=== PATIENT | female | born 1955 | race African-American/Black ===

== ENCOUNTER 2016-08-08 11:33 | Inpatient (IN) | payer MEDICAID ==
[2016-08-08] MEDS ORDERED: NORMAL SALINE 1000 ML 1,000 ML IV ONE (11:42)
--- NOTE | 2016-08-08 12:13 | ER Document Report ---
ED Fever - General Chief Complaint: Fever Stated Complaint: FEVER Time seen by provider: 12:00 Mode of Arrival: Medic Information source: [facility] Records Notes: 61 yo female presents to ED for a fever via EMS from the longterm. This is a 61-year-old female who has a history of TBI with persistent vegetative state. She has a decubitus on her coccyx and an indwelling Morales TRAVEL OUTSIDE OF THE [place] IN LAST 30 DAYS: No - HPI Onset: This morning Quality of pain: No pain Severity: None Pain Level: Denies Associated symptoms: Nonproductive cough, Fever, Other Similar symptoms previously: Yes Recently seen / treated by doctor: Yes - Related Data Allergies/Adverse Reactions: PPD black rubber mix Adverse Reaction (Verified 06/20/16 01:31) Past Medical History - General Information source: Patient - Social History Smoking Status: Never Smoker Cigarette use (# per day): No Chew tobacco use (# tins/day): No Smoking Education Provided: No Frequency of alcohol use: None Drug Abuse: None Lives with: Custodial Family History: Other - Not available due to patient condition Patient has suicidal ideation: No Patient has homicidal ideation: No - Medical History Medical History: Other - History of septic shock her prior neutropenia acute renal failure and osteoporosis aspiration anemia and persistent vegetative state - Past Medical History Cardiac Medical History: Reports: Hx Atrial Fibrillation Pulmonary Medical History: Reports: Hx Pneumonia EENT Medical History: Reports: None Neurological Medical History: Reports: Other - Persistent vegetative state Endocrine Medical History: Reports: Hx Diabetes Mellitus Type 2 Renal/ Medical History: Reports: None Malignancy Medical History: Reports: None GI Medical History: Reports: Hx Ulcer - sacral Musculoskeltal Medical History: Reports Other - Contractures all extremities Skin Medical History: Reports Other - Coccyx decubitus Psychiatric Medical History: Reports: None Traumatic Medical History: Reports: Hx Traumatic Brain Injury Past Surgical History: Reports: Hx Abdominal Surgery - PEG placement, Other - PEG tube insertion. - Immunizations Hx Diphtheria, Pertussis, Tetanus Vaccination: Yes Hx Pneumococcal Vaccination: 05/01/15 Review of Systems - Review of Systems Constitutional: Fever, Recent illness EENT: No symptoms reported Cardiovascular: No symptoms reported Respiratory: Cough Gastrointestinal: No symptoms reported Genitourinary: Other - Indwelling catheter present with cloudy foul-smelling urine Female Genitourinary: No symptoms reported Musculoskeletal: Other - Contractures all extremities Skin: Other - Decubitus coccyx Hematologic/Lymphatic: No symptoms reported Neurological/Psychological: No symptoms reported -: Yes All other systems reviewed and negative Physical Exam - Vital signs Vitals: Temp Pulse Resp BP Pulse Ox 100.9 F H 114 H 24 H 142/72 H 96 08/08/16 11:35 08/08/16 11:35 08/08/16 11:35 08/08/16 11:35 08/08/16 11:35 Interpretation: Normal - General Notes: Unresponsive vegetative state tracks with eyes - HEENT Head: Normocephalic, Atraumatic Eyes: Normal Pupils: PERRL Ears: Normal External canal: Cerumen impaction Tympanic membrane: Normal Sinus: Normal Nasal: Purulent discharge, Swelling Mouth/Lips: Other - Tongue appears dry 8 with food Mucous membranes: Dry Pharynx: Normal Neck: Normal - Respiratory Respiratory status: No respiratory distress Chest status: Nontender Breath sounds: Nonproductive cough, Rhonchi Chest palpation: Normal - Cardiovascular Rhythm: Regular Heart sounds: Normal auscultation Murmur: No - Abdominal Inspection: Normal Distension: No distension Bowel sounds: Normal Tenderness: Nontender Organomegaly: No organomegaly - Back Back: Normal, Nontender - Extremities General upper extremity: Normal inspection, Nontender, Normal color, Normal ROM , Normal temperature General lower extremity: Normal inspection, Nontender, Normal color, Normal ROM , Normal temperature, Normal weight bearing. No: Adri's sign - Neurological Neuro grossly intact: Yes Cognition: Normal Orientation: AAOx4 Larry Coma Scale Eye Opening: Spontaneous Forbes Coma Scale Verbal: Oriented Larry Coma Scale Motor: Obeys Commands Forbes Coma Scale Total: 15 Speech: Normal Motor strength normal: LUE, RUE, LLE, RLE Sensory: Normal - Psychological Associated symptoms: Normal affect, Normal mood - Skin Skin Temperature: Warm Skin Moisture: Dry Skin Color: Normal Course - Re-evaluation Re-evalutation: 08/08/16 13:[address] Fuchs for admission to the hospital for this pneumonia bilateral with sepsis and possible UTI. The patient also has a sacral decubitus an indwelling Morales catheter when arrived to the ER. - Vital Signs Vital signs: Temp Pulse Resp BP Pulse Ox 98.5 F 95 20 119/71 100 08/08/16 20:30 08/08/16 20:45 08/08/16 20:45 08/08/16 20:30 08/08/16 20:30 - Laboratory Result Diagrams: 08/08/16 12:05 08/08/16 12:05 Laboratory results interpreted by me: 08/08/16 08/08/16 08/08/16 12:05 12:05 12:05 Hgb 10.5 L Hct 32.2 L RDW 20.4 H Sodium 151.7 H BUN 29 H Creatinine 0.48 L Glucose 176 H Lactic Acid 2.3 H Calcium 10.5 H Creatine Kinase < 20 L Urine Protein Urine Urobilinogen Ur Leukocyte Esterase Urine Ascorbic Acid 08/08/16 13:10 Hgb Hct RDW Sodium BUN Creatinine Glucose Lactic Acid Calcium Creatine Kinase Urine Protein 100 H Urine Urobilinogen 2.0 H Ur Leukocyte Esterase MODERATE H Urine Ascorbic Acid 40 H - Diagnostic Test Radiology reviewed: Image reviewed, Reports reviewed - Consults Shila Time consulted: 13:32 Reason for consultation: 08/08/16 13:32 pneumonia and sepsis. will admit the patient to [facility] Discharge - Discharge Clinical Impression: Sepsis Qualifiers: Sepsis type: sepsis due to unspecified organism Qualified Code(s): A41.9 - Sepsis, unspecified organism Pneumonia Qualifiers: Pneumonia type: aspiration pneumonia Aspiration pneumonia type: due to regurgitated food Laterality: bilateral Lung location: lower lobe of lung Qualified Code(s): J69.0 - Pneumonitis due to inhalation of food and vomit Disposition: ADMITTED INPATIENT Admitting Provider: Hospitalist - [facility] Unit Admitted: [facility]
[2016-08-08 12:28] LABS: ABSOLUTE LYMPHOCYTES (AUTO) 2.3 10^3/uL (0.5-4.7); ABSOLUTE MONOCYTES (AUTO) 0.3 10^3/uL (0.1-1.4); ABSOLUTE NEUT (AUTO) 6.8 10^3/uL (1.7-8.2); BASOPHILS % (AUTO) 0.4 % (0-2); EOSINOPHILS % (AUTO) 0.5 % (0-6); HEMATOCRIT 32.2 % (36.0-47.0); HEMOGLOBIN 10.5 g/dL (12.0-15.5); HGB HCT DIFFERENCE -0.7; LYMPHOCYTES % (AUTO) 24.2 % (13-45); MEAN CORPUSCULAR HEMOGLOBIN 27.9 pg (27.0-33.4); MEAN CORPUSCULAR HGB CONC 32.7 g/dL (32.0-36.0); MEAN CORPUSCULAR VOLUME 85 fl (80-97); MONOCYTES % (AUTO) 3.1 % (3-13); RED BLOOD COUNT 3.78 10^6/uL (3.72-5.28); RED CELL DISTRIBUTION WIDTH 20.4 % (11.5-14.0); SEGMENTED NEUTROPHILS % (AUTO) 71.8 % (42-78); WHITE BLOOD COUNT 9.5 10^3/uL (4.0-10.5)
[2016-08-08] MEDS ORDERED: NORMAL SALINE 1000 ML 1,500 ML IV PRN (12:28)
[2016-08-08] MEDS ORDERED: ACETAMINOPHEN 650 MG SUPP.RECT PR ONE (12:29)
[2016-08-08 12:34] LABS: ALANINE AMINOTRANSFERASE 33 U/L (9-52); ALBUMIN 4.3 g/dL (3.5-5.0); ALKALINE PHOSPHATASE 107 U/L (38-126); ANION GAP 17 (5-19); ASPARTATE AMINO TRANSFERASE 21 U/L (14-36); BLOOD UREA NITROGEN 29 mg/dL (7-20); CALCIUM 10.5 mg/dL (8.4-10.2); CARBON DIOXIDE 29 mmol/L (22-30); CHLORIDE 106 mmol/L (98-107); CREATININE RESULT 0.48 mg/dL (0.52-1.25); GLUCOSE 176 mg/dL (75-110); LIPASE 34.2 U/L (23-300); SODIUM 151.7 mmol/L (137-145); TOTAL PROTEIN 7.9 g/dL (6.3-8.2)
[2016-08-08 12:37] LABS: CREATINE KINASE < 20 U/L (30-135)
[2016-08-08 12:46] LABS: CREATINE KINASE MB < 0.22 ng/mL (<4.55); TROPONIN I 0.016 ng/mL
[2016-08-08] MEDS ORDERED: LEVOFLOXACIN 750 MG TABLET PO ONE (13:24)
[2016-08-08] MEDS ORDERED: PIPERACILLIN/TAZOBACTAM 3.375 GM VIAL IV ONE (13:24)
[2016-08-08 14:02] LABS: APPEARANCE,URINE SLIGHTLY-CLOUDY; BILIRUBIN,URINE NEGATIVE (NEGATIVE); GLUCOSE, URINE NEGATIVE (NEGATIVE); KETONES,URINE NEGATIVE (NEGATIVE); LEUKOCYTE ESTERASE,URINE MODERATE (NEGATIVE); NITRITE,URINE NEGATIVE (NEGATIVE); PROTEIN,URINE 100 mg/dL (NEGATIVE); URINE SPECIFIC GRAVITY 1.024
[2016-08-08] MEDS ORDERED: NORMAL SALINE 1000 ML 3,000 ML IV ONE (14:12)
[2016-08-08] MEDS ORDERED: ACETAMINOPHEN 325 MG TABLET PEG PRN (14:14)
[2016-08-08] MEDS ORDERED: LEVALBUTEROL HCL NEB 1.25 MG/3 ML AMPUL NEB PRN (14:14)
[2016-08-08] MEDS ORDERED: VANCOMYCIN HCL 0 MG in DEXTROSE 5%-WATER 250 ML IV NR (14:15)
[2016-08-08] MEDS ORDERED: LEVOFLOXACIN RTU 750 MG/D5W 150 ML IV ONE (14:44)
--- NOTE | 2016-08-08 15:51 | PDOC H&P ---
History of Present Illness Admission Date/PCP: 08/08/16 13:43 PRISCILA FERGUSON MD History of Present Illness: BEN DAILEY is a 61 year old female with past medical history significant for persistent vegetative state for the past 30 years following a TBI, subsequent recurrent urinary tract infections, sacral decubiti and aspiration status post PEG placement and recurrent hypernatremia was found by nursing staff to have a fever and sent to the emergency department. In the emergency department, due to patient's persistent vegetative state, history is obtained from the chart. Patient is found to have a urinary tract infection, and bilateral lower lobe pneumonia with greenish yellow purulence sputum present. Patient is also hypernatremic. She is referred to the hospitalist service for sepsis with pneumonia and UTI. Patient was recently admitted here from - 07/17/2016. Past Medical History Cardiac Medical History: Reports: Atrial Fibrillation Pulmonary Medical History: Reports: Pneumonia EENT Medical History: Reports: None Neurological Medical History: Reports: Other - Persistent vegetative state Endocrine Medical History: Reports: Diabetes Mellitus Type 2 Renal/ Medical History: Reports: None Malignancy Medical History: Reports: None Musculoskeltal Medical History: Reports: Other - Contractures all extremities Skin Medical History: Reports: Other - Coccyx decubitus Psychiatric Medical History: Reports: None Traumatic Medical History: Reports: Traumatic Brain Injury Past Surgical History Past Surgical History: Reports: Other - PEG tube insertion. Social History Lives with: Fdc Smoking Status: Never Smoker Frequency of Alcohol Use: None Hx Recreational Drug Use: No Drugs: None Hx Prescription Drug Abuse: No - Advance Directive Resuscitation Status: Full Code Surrogate healthcare decision maker:: Mabel Roberto children Family History Family History: Other - Not available due to patient condition Parental Family History Reviewed: No Children Family History Reviewed: No Sibling(s) Family History Reviewed.: No Medication/Allergy Home Medications: Docusate Sodium [Colace Udc 100 mg/10 ml Oral Soln] 100 mg PEG BID 09/27/15 Furosemide [Lasix 20 mg Tablet] 20 mg PEG BID 09/27/15 Lactulose [Enulose 10 gm/15 mL Oral Solution] 10 gm PEG BID 09/27/15 Vit B12/Pyridoxine/Thiamine [Apatate Liquid] 15 ml PEG DAILY 09/27/15 Whey Protein Isolate [Beneprotein] 227 gm PEG TID 09/27/15 Ipratropium/Albuterol Sulfate [Duoneb 3 ml Ampul] 3 ml NEB RTQ6 #30 vial.neb Multivitamin [Multiple Vitamin Liquid 60 ml] 5 ml PEG DAILY #120 ml 10/21/15 Zinc Sulfate [Zinc-220 Capsule] 220 mg PEG DAILY #30 capsule 10/21/15 Acetaminophen [Tylenol] 650 mg PEG Q4H PRN 12/25/15 Levothyroxine Sodium [Synthroid 0.075 mg Tablet] 75 mcg PEG DAILY 12/25/15 Potassium Chloride [Kaon-Cl 20 Meq/15 ml Udcup] 20 meq PEG DAILY 12/25/15 Polyethylene Glycol 3350 [Miralax Powder 17 gm/Packet] 1 packet PO DAILY #1 pkg 02/05/16 Bisacodyl 10 mg MD PRN PRN 06/19/16 Calcium Carbonate/Vitamin D3 [Oystercal-D 500 mg-400 Unit Tb] 500 mg GT BID Magnesium Hydroxide [Milk of Magnesia 30 ml Udcup] 30 ml GT ONCE PRN 06/20/16 Acetylcysteine [Mucomist 20% Soln 800 mg/4 mL] 800 mg NEB RTQ6 vial 07/02/16 Insulin Glargine,Hum.rec.anlog [Lantus Insulin 100 Unit/mL] 15 unit SUBCUT DAILY insuln.pen 07/02/16 Insulin Lispro [Humalog Insulin (Lispro) 100 unit/mL] 0 - 12 unit SUBCUT Q6HP PRN unit 07/02/16 Mupirocin Calcium [Bactroban 2% Cream 15 gm] 1 applic TP BID tube 07/02/16 Acetylcysteine [Mucomist 20% Soln 800 mg/4 mL] 800 mg Q6 07/12/16 Calcium Carbonate/Vitamin D3 [Oystercal-D 500 mg-400 Unit Tb] 1 each PO BID 07/16 Ipratropium/Albuterol Sulfate [Duoneb 3 ml Ampul] 3 ml NEB Q6 07/12/16 Mupirocin Calcium [Bactroban 2% Cream 15 gm] 1 applic TP BID 07/12/16 Cefepime 1 gm/D5w RTU [Maxipime RTU 1 gm/D5w 50 ml Premix Bag] 1 gm IV Q12 #20 rtupb 07/17/16 Insulin Lispro [Humalog Insulin (Lispro) 100 unit/mL] 0 - 12 unit SUBCUT Q6HP PRN unit 07/17/16 Lactulose [Cephulac Syrup 20 gm/30 ml Udcup] 20 gm PO Q6HP PRN udc 07/17/16 Linezolid [Zyvox RTU 600 mg/300 ml Premixed] 600 mg IV Q12 #0 rtupb 07/17/16 Lansoprazole [Prevacid] 30 mg PO BID #60 tab.rap. 07/27/16 Allergies/Adverse Reactions: PPD black rubber mix Adverse Reaction (Verified 06/20/16 01:31) Review of Systems ROS unobtainable: Due to mental status Physical Exam Vital Signs: Temp Pulse Resp BP Pulse Ox 102.3 F H 114 H 24 H 142/72 H 96 08/08/16 12:00 08/08/16 11:35 08/08/16 11:35 08/08/16 11:35 08/08/16 11:35 General appearance: PRESENT: mild distress, obese, well-developed, other - Chronically ill-appearing Head exam: PRESENT: normocephalic Eye exam: PRESENT: conjunctiva pale, PERRLA. ABSENT: scleral icterus Ear exam: PRESENT: normal external ear exam Mouth exam: PRESENT: dry mucosa, other - Copious oral secretions Neck exam: PRESENT: lymphadenopathy - Anterior cervical. ABSENT: JVD, thyromegaly, tracheal deviation Respiratory exam: PRESENT: decreased breath sounds - Diminished bases, retraction - Slight intercostal retractions, rhonchi - Rhonchi bilaterally diffusely, tachypnea. ABSENT: crackles, rales, unlabored - Labored, wheezes Cardiovascular exam: PRESENT: RRR, +S1, +S2, tachycardia. ABSENT: clicks, diastolic murmur, gallop, rubs, systolic murmur Pulses: PRESENT: normal carotid pulses, normal dorsalis pedis pul Vascular exam: PRESENT: normal capillary refill GI/Abdominal exam: PRESENT: diminished bowel sounds, distended, soft, other - PEG in place with stitches still in place, small amount of breakdown around skin. ABSENT: firm, mass, organolmegaly, rigid Rectal exam: PRESENT: deferred, hemorrhoids, normal inspection Extremities exam: ABSENT: clubbing, pedal edema Musculoskeletal exam: PRESENT: other - Muscle wasting and plantar flexion of the bilateral lower extremities Neurological exam: PRESENT: other - Patient in persistent vegetative state, unable to comply with neurologic exam Psychiatric exam: PRESENT: other - Not assess secondary to persistent vegetative state Skin exam: PRESENT: dry. ABSENT: cyanosis, intact - Stage III sacral decubitus 2 x 3 cm with tunneling area superiorly area located superiorly to the anal verge, right gluteal tunneling ulceration both with good granulation tissue healing well, rash, warm - Hot Results Laboratory Results: 08/08/16 08/08/16 08/08/16 12:05 12:05 12:05 WBC 9.5 Hgb 10.5 L Hct 32.2 L Plt Count 288 Sodium 151.7 H BUN 29 H Glucose 176 H Lactic Acid 2.3 H Calcium 10.5 H Creatine Kinase < 20 L Ur Specific Linn Ur Leukocyte Esterase Urine WBC (Auto) 08/08/16 13:10 WBC Hgb Hct Plt Count Sodium BUN Glucose Lactic Acid Calcium Creatine Kinase Ur Specific Linn 1.024 Ur Leukocyte Esterase MODERATE H Urine WBC (Auto) 55 Impressions: Chest X-Ray 08/08/16 11:42 IMPRESSION: Bibasilar infiltrates suspicious for pneumonia. Assessment & Plan - Diagnosis (1) Pneumonia Qualifiers: Pneumonia type: aspiration pneumonia Aspiration pneumonia type: due to regurgitated food Laterality: bilateral Lung location: lower lobe of lung Qualified Code(s): J69.0 - Pneumonitis due to inhalation of food and vomit Is this a current diagnosis for this admission?: YesPlan: Patient has what appears to be bilateral lower lobe pneumonia. Given patient's recent hospital exposure we can call this healthcare associated pneumonia, however this is much less likely given that patient has chronic aspiration pneumonia in this likely represents a worsening of her underlying aspiration pneumonia. Will place patient on scheduled nebulized treatments, aggressive pulmonary toileting, chest physiotherapy, and vancomycin and Zosyn as well as Levaquin. (2) Sepsis Qualifiers: Sepsis type: sepsis due to unspecified organism Qualified Code(s): A41.9 - Sepsis, unspecified organism Is this a current diagnosis for this admission?: YesPlan: Patient meets criteria for sepsis based on her hyperthermia, tachycardia, and tachypnea. Patient has sepsis secondary to both UTI and pneumonia. (3) Anemia Qualifiers: Anemia type: iron deficiency Iron deficiency anemia type: unspecified iron deficiency Qualified Code(s): D50.9 - Iron deficiency anemia, unspecified Is this a current diagnosis for this admission?: YesPlan: Patient has history of iron deficiency anemia and anemia of chronic disease with her most recent iron being 10 in June 2016 and a TIBC of 175. We'll continue to give patient supplemental iron. (4) Diabetes mellitus Qualifiers: Diabetes mellitus type: type 2 Diabetes mellitus complication status: with unspecified complications Diabetes mellitus nursing home insulin use: unspecified nursing home insulin use status Qualified Code(s): E11.8 - Type 2 diabetes mellitus with unspecified complications; Z79.4 - senior living (current) use of insulin Is this a current diagnosis for this admission?: YesPlan: We'll place patient on sliding scale insulin. (5) Hypernatremia Is this a current diagnosis for this admission?: YesPlan: Will increase patient's free water flushes, but feel the patient's current hypernatremia secondary to volume depletion. (6) Persistent vegetative state Is this a current diagnosis for this admission?: YesPlan: Multiple hospitalists have documented including myself prior discussions with patient and family regarding her persistent vegetative state. At this time, we' ll continue supportive care. (7) Decubitus ulcer, stage III Qualifiers: Pressure ulcer location: sacral region Qualified Code(s): L89.153 - Pressure ulcer of sacral region, stage 3 Is this a current diagnosis for this admission?: YesPlan: We'll continue with dressing changes for this area. It will be washed daily with equal parts chlorhexidine and water. Then packed then covered with 4 x 4' s and a nonadherent dressing. - Time Time Spent: 50 to 70 Minutes Medications reviewed and adjusted accordingly: Yes - Inpatient Certification Based on my medical assessment, after consideration of the patient's comorbidities, presenting symptoms, or acuity I expect that the services needed warrant INPATIENT care.: Yes I certify that my determination is in accordance with my understanding of Medicare's requirements for reasonable and necessary INPATIENT services [42 CFR 412.3e].: Yes Medical Necessity: Need For IV Fluids, Need for Nebulizer Therapy and Monitoring of Response, Need for IV Antibiotics Post Hospital Care: D/C Car Salesperson Documentation
[2016-08-08] MEDS ORDERED: GLUCAGON,HUMAN RECOMB 1 MG INJ IM PRN (15:52)
[2016-08-08] MEDS ORDERED: INSULIN LISPRO 100 UNIT/ML 3 ML VIAL SUBCUT PRN (15:52)
[2016-08-08] MEDS ORDERED: DEXTROSE 50%-WATER 25 GM/50 ML DISP.SYRIN IV PRN ×2 (15:52)
[2016-08-08] MEDS ORDERED: DEXTROSE 40% GEL 15 GM TUBE PO PRN ×2 (15:52)
[2016-08-08] MEDS ORDERED: FONDAPARINUX SODIUM INJ 2.5 MG/0.5 ML DISP.SYRIN SUBCUT ONE (16:00)
[2016-08-08] MEDS ORDERED: PHARMACY COMMUNICATION ORDER MC NR (16:00)
[2016-08-08] MEDS: IPRATROPIUM/ALBUTEROL 0.5-2.5 MG/3 ML AMPUL NEB SCH ×2 (17:04→20:45)
[2016-08-08] MEDS: VANCOMYCIN HCL 1,000 MG in DEXTROSE 5%-WATER 250 ML IV SCH (18:27)
[2016-08-08] MEDS: GUAIFENESIN SYRP 200 MG/10 ML UDC PEG SCH ×2 (18:28→22:15)
[2016-08-08] MEDS: PIPERACILLIN SODIUM/TAZOBACTAM 4.5 GM in NORMAL SALINE 100 ML IV SCH (20:27)
--- NOTE | 2016-08-08 21:33 | EKG REPORT ---
SEVERITY:- ABNORMAL ECG - SINUS TACHYCARDIA LEFT AXIS DEVIATION PROBABLE LEFT VENTRICULAR HYPERTROPHY : Confirmed by: Ramiro Malagon 08-Aug-2016 21:32:27
[2016-08-08] MEDS: LACTULOSE SYRUP 20 GM/30 ML UDCUP PR SCH (22:51)
[2016-08-09] MEDS: GUAIFENESIN SYRP 200 MG/10 ML UDC PEG SCH ×5 (02:06→22:10)
[2016-08-09] MEDS: VANCOMYCIN HCL 1,000 MG in DEXTROSE 5%-WATER 250 ML IV SCH ×3 (02:07→18:02)
[2016-08-09] MEDS ORDERED: ALTEPLASE INJ 2 MG VIAL (CATH CLEARANCE) IV ONE (03:00)
[2016-08-09] MEDS ORDERED: ALTEPLASE INJ 2 MG VIAL (CATH CLEARANCE) ONE (03:44)
[2016-08-09] MEDS: PIPERACILLIN SODIUM/TAZOBACTAM 4.5 GM in NORMAL SALINE 100 ML IV SCH ×4 (04:26→20:39)
[2016-08-09] MEDS ORDERED: FONDAPARINUX SODIUM INJ 2.5 MG/0.5 ML DISP.SYRIN SUBCUT SCH (08:00)
[2016-08-09] MEDS: IPRATROPIUM/ALBUTEROL 0.5-2.5 MG/3 ML AMPUL NEB SCH ×4 (08:44→20:51)
[2016-08-09 09:53] LABS: ABSOLUTE EOSINOPHILS # (AUTO) 0.1 10^3/uL (0.0-0.6); ABSOLUTE LYMPHOCYTES (AUTO) 2.2 10^3/uL (0.5-4.7); ABSOLUTE MONOCYTES (AUTO) 0.4 10^3/uL (0.1-1.4); ABSOLUTE NEUT (AUTO) 5.4 10^3/uL (1.7-8.2); BASOPHILS % (AUTO) 0.3 % (0-2); EOSINOPHILS % (AUTO) 1.4 % (0-6); HEMATOCRIT 25.4 % (36.0-47.0); HGB HCT DIFFERENCE -0.5; LYMPHOCYTES % (AUTO) 27.1 % (13-45); MEAN CORPUSCULAR HEMOGLOBIN 27.7 pg (27.0-33.4); MEAN CORPUSCULAR HGB CONC 32.8 g/dL (32.0-36.0); MEAN CORPUSCULAR VOLUME 85 fl (80-97); MONOCYTES % (AUTO) 4.9 % (3-13); RED BLOOD COUNT 3.01 10^6/uL (3.72-5.28); RED CELL DISTRIBUTION WIDTH 19.6 % (11.5-14.0); SEGMENTED NEUTROPHILS % (AUTO) 66.3 % (42-78); WHITE BLOOD COUNT 8.2 10^3/uL (4.0-10.5)
[2016-08-09 10:02] LABS: HEMOGLOBIN 8.3 g/dL (12.0-15.5)
[2016-08-09 10:17] LABS: ANION GAP 13 (5-19); BLOOD UREA NITROGEN 15 mg/dL (7-20); CALCIUM 9.2 mg/dL (8.4-10.2); CARBON DIOXIDE 26 mmol/L (22-30); CHLORIDE 108 mmol/L (98-107); CREATININE RESULT 0.41 mg/dL (0.52-1.25); GLUCOSE 133 mg/dL (75-110); POTASSIUM 3.2 mmol/L (3.6-5.0)
[2016-08-09] MEDS: LEVOFLOXACIN 750 MG/D5W RTU 150 ML IV SCH (13:01)
[2016-08-09] MEDS: LACTULOSE SYRUP 20 GM/30 ML UDCUP PR SCH ×2 (13:04→23:58)
--- NOTE | 2016-08-09 15:52 | PDOC PROGRESS REPORT ---
Subjective Progress Note for:: 08/09/16 Subjective:: Patient is in a persistent vegetative state at baseline. No acute events overnight. Physical Exam Vital Signs: Temp Pulse Resp BP Pulse Ox 98.7 F 91 20 134/70 H 99 08/09/16 03:54 08/09/16 03:54 08/09/16 03:54 08/09/16 03:54 08/09/16 03:54 Intake & Output 08/08/16 08/09/16 08/10/16 06:59 06:59 06:59 Intake Total 1737 Output Total 625 Balance 1112 Weight 82.2 kg Exam: General: Persistent vegetative state, no acute respiratory distress HEENT: oropharynx is moist, pink, no scleral icterus, no conjunctival injection Neck: No JVD, trachea midline Chest: Rhonchi bilaterally CV: Regular rate and rhythm, normal S1 and S2, no murmur, rub, or gallop Abdomen: Soft, nondistended, active bowel sounds; no rigidity or guarding Extremities: No cyanosis, clubbing or edema Neuro: Persistent vegetative state Results Laboratory Results: 08/08/16 17:52 Lactic Acid 2.0 Impressions: KUB X-Ray 08/08/16 00:00 IMPRESSION: Constipation. Chest X-Ray 08/08/16 11:42 IMPRESSION: Bibasilar infiltrates suspicious for pneumonia. Assessment & Plan - Diagnosis (1) Pneumonia Qualifiers: Pneumonia type: aspiration pneumonia Aspiration pneumonia type: due to regurgitated food Laterality: bilateral Lung location: lower lobe of lung Qualified Code(s): J69.0 - Pneumonitis due to inhalation of food and vomit Is this a current diagnosis for this admission?: YesPlan: Patient has what appears to be bilateral lower lobe pneumonia, most likely gram- negative. Given patient's recent hospital exposure we can call this healthcare associated pneumonia, however this is much less likely given that patient has chronic aspiration pneumonia in this likely represents a worsening of her underlying aspiration pneumonia. Patient on scheduled nebulized treatments, aggressive pulmonary toileting, chest physiotherapy, and vancomycin and Zosyn as well as Levaquin. (2) Sepsis Qualifiers: Sepsis type: sepsis due to unspecified organism Qualified Code(s): A41.9 - Sepsis, unspecified organism Is this a current diagnosis for this admission?: YesPlan: Patient meets criteria for sepsis based on her hyperthermia, tachycardia, and tachypnea. Patient has sepsis secondary to both UTI and pneumonia. Currently with both gram-negative and Gram-positive bacteremia. Consideration for possible PICC line sepsis. PICC line has been changed on 08/09/2016. (3) Anemia Qualifiers: Anemia type: iron deficiency Iron deficiency anemia type: unspecified iron deficiency Qualified Code(s): D50.9 - Iron deficiency anemia, unspecified Is this a current diagnosis for this admission?: YesPlan: Patient has history of iron deficiency anemia and anemia of chronic disease with her most recent iron being 10 in June 2016 and a TIBC of 175. We'll continue to give patient supplemental iron. 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 Will occult stool, type and screen, send LDH. (4) Diabetes mellitus Qualifiers: Diabetes mellitus type: type 2 Diabetes mellitus complication status: with unspecified complications Diabetes mellitus intermodal customer service insulin use: unspecified shelter insulin use status Qualified Code(s): E11.8 - Type 2 diabetes mellitus with unspecified complications; Z79.4 - predatory animal exterminator (current) use of insulin Is this a current diagnosis for this admission?: YesPlan: We'll place patient on sliding scale insulin. (5) Hypernatremia Is this a current diagnosis for this admission?: YesPlan: Improving. Will increase patient's free water flushes, but feel the patient's current hypernatremia secondary to volume depletion. (6) Persistent vegetative state Is this a current diagnosis for this admission?: Yes (7) Decubitus ulcer, stage III Qualifiers: Pressure ulcer location: sacral region Qualified Code(s): L89.153 - Pressure ulcer of sacral region, stage 3 Is this a current diagnosis for this admission?: YesPlan: We'll continue with high dressing changes for this area. It will be washed daily with equal parts chlorhexidine and water. Then packed with iodoform gauze then covered with 4 x 4's and a nonadherent dressing. (8) Acute respiratory failure with hypoxia and hypercapnia Is this a current diagnosis for this admission?: YesPlan: Continue oxygen as needed. (9) Constipation Qualifiers: Constipation type: unspecified constipation type Qualified Code(s): K59.00 - Constipation, unspecified Is this a current diagnosis for this admission?: YesPlan: Patient has received lactulose enemas. Will stop lactulose enemas and initiated on per PEG cathartic regimen. - Time Time Spent with patient: 25-34 minutes Medications reviewed and adjusted accordingly: Yes
[2016-08-09] MEDS ORDERED: POTASSIUM CHLORIDE 20 MEQ/15 ML UDCUP PEG ONE (16:15)
[2016-08-09 18:44] LABS: TROUGH DRAW TIME 1752
[2016-08-09 19:23] LABS: PROTHROMBIN TIME 15.4 SEC (11.4-15.4)
[2016-08-09 19:24] LABS: PARTIAL THROMBOPLASTIN TIME 46.9 SEC (23.5-35.8)
[2016-08-10] MEDS: VANCOMYCIN HCL 1,000 MG in DEXTROSE 5%-WATER 250 ML IV SCH ×2 (01:52→10:34)
[2016-08-10] MEDS: GUAIFENESIN SYRP 200 MG/10 ML UDC PEG SCH ×6 (02:00→21:55)
[2016-08-10] MEDS: PIPERACILLIN SODIUM/TAZOBACTAM 4.5 GM in NORMAL SALINE 100 ML IV SCH ×2 (04:08→10:33)
[2016-08-10] MEDS ORDERED: NORMAL SALINE 10 ML SDV (AFTER EACH USE) IV PRN (05:04)
[2016-08-10 05:50] LABS: ABSOLUTE EOSINOPHILS # (AUTO) 0.1 10^3/uL (0.0-0.6); ABSOLUTE MONOCYTES (AUTO) 0.4 10^3/uL (0.1-1.4); ABSOLUTE NEUT (AUTO) 5.8 10^3/uL (1.7-8.2); BASOPHILS % (AUTO) 0.4 % (0-2); EOSINOPHILS % (AUTO) 1.7 % (0-6); HEMATOCRIT 23.1 % (36.0-47.0); HGB HCT DIFFERENCE -0.6; MEAN CORPUSCULAR HEMOGLOBIN 27.9 pg (27.0-33.4); MEAN CORPUSCULAR HGB CONC 32.5 g/dL (32.0-36.0); MEAN CORPUSCULAR VOLUME 86 fl (80-97); MONOCYTES % (AUTO) 4.9 % (3-13); RED BLOOD COUNT 2.69 10^6/uL (3.72-5.28); RED CELL DISTRIBUTION WIDTH 19.1 % (11.5-14.0); WHITE BLOOD COUNT 7.4 10^3/uL (4.0-10.5)
[2016-08-10 05:54] LABS: HEMOGLOBIN 7.5 g/dL (12.0-15.5)
[2016-08-10 05:59] LABS: ANION GAP 10 (5-19); BLOOD UREA NITROGEN 10 mg/dL (7-20); CALCIUM 8.8 mg/dL (8.4-10.2); CARBON DIOXIDE 27 mmol/L (22-30); CHLORIDE 103 mmol/L (98-107); CREATININE RESULT 0.38 mg/dL (0.52-1.25); GLUCOSE 155 mg/dL (75-110); POTASSIUM 3.2 mmol/L (3.6-5.0); SODIUM 140.4 mmol/L (137-145)
[2016-08-10] MEDS: IPRATROPIUM/ALBUTEROL 0.5-2.5 MG/3 ML AMPUL NEB SCH ×4 (08:33→20:37)
[2016-08-10 10:30] LABS: CREATININE RESULT 0.38 mg/dL (0.52-1.25)
[2016-08-10] MEDS: LEVOFLOXACIN 750 MG/D5W RTU 150 ML IV SCH (10:34)
[2016-08-10] MEDS: NORMAL SALINE 10 ML SDV (SCHEDULED) IV SCH ×2 (10:38→22:43)
[2016-08-10] MEDS: ERTAPENEM SODIUM 1 GM in NORMAL SALINE 50 ML IV SCH (15:46)
[2016-08-10] MEDS ORDERED: NORMAL SALINE 250 ML IV PRN ×2 (16:13)
--- NOTE | 2016-08-10 16:24 | PDOC PROGRESS REPORT ---
Subjective Progress Note for:: 08/10/16 Subjective:: Nursing reports the patient has had a drop in hemoglobin. I cannot obtain history or review of systems from patient secondary to persistent vegetative state. Physical Exam Vital Signs: Temp Pulse Resp BP Pulse Ox 98.3 F 96 24 H 133/77 H 95 08/10/16 11:21 08/10/16 14:00 08/10/16 12:38 08/10/16 11:21 08/10/16 12:38 Intake & Output 08/09/16 08/10/16 08/11/16 06:59 06:59 06:59 Intake Total 1737 2887 Output Total 625 600 Balance 1112 2287 Weight 82.2 kg 88.1 kg GENERAL: No acute distress, persistent agitated state, diffuse contractures HEENT: Conjunctiva clear, nonicteric, moist mucous membranes, no JVD, midline trachea RESPIRATORY: Clear to auscultation bilaterally, no wheezes, no rhonchi CARDIAC: Regular rate and rhythm, no murmurs/gallops/rubs ABDOMEN: Soft, nondistended, nontender, positive bowel sounds, no rebound, no guarding. Gastrostomy tube EXTREMETIES: No edema, cyanosis, clubbing NEUROLOGIC: Unresponsive, diffuse contractures SKIN: No rash, wounds Results Laboratory Results: 08/10/16 05:02 08/10/16 09:47 08/09/16 08/09/16 08/10/16 17:52 19:01 05:02 WBC 7.4 RBC 2.69 L Hgb 7.5 L Hct 23.1 L MCV 86 MCH 27.9 MCHC 32.5 RDW 19.1 H Plt Count 215 Seg Neutrophils % 79.0 H Lymphocytes % 14.0 Monocytes % 4.9 Eosinophils % 1.7 Basophils % 0.4 Absolute Neutrophils 5.8 Absolute Lymphocytes 1.0 Absolute Monocytes 0.4 Absolute Eosinophils 0.1 Absolute Basophils 0.0 Sodium Potassium Chloride Carbon Dioxide Anion Gap BUN Creatinine 0.40 L Est GFR ( Amer) > 60 Est GFR (Non-Af Amer) > 60 Glucose Calcium Blood Type B POSITIVE Antibody Screen NEGATIVE 08/10/16 08/10/16 05:02 09:47 WBC RBC Hgb Hct MCV MCH MCHC RDW Plt Count Seg Neutrophils % Lymphocytes % Monocytes % Eosinophils % Basophils % Absolute Neutrophils Absolute Lymphocytes Absolute Monocytes Absolute Eosinophils Absolute Basophils Sodium 140.4 Potassium 3.2 L Chloride 103 Carbon Dioxide 27 Anion Gap 10 BUN 10 Creatinine 0.38 L 0.38 L Est GFR ( Amer) > 60 > 60 Est GFR (Non-Af Amer) > 60 > 60 Glucose 155 H Calcium 8.8 Blood Type Antibody Screen 08/08/16 23:10 Nasophary ([facility] Only) MRSA Surveillance Culture - Final NO MRSA RECOVERED Impressions: KUB X-Ray 08/08/16 00:00 IMPRESSION: Constipation. Chest X-Ray 08/08/16 11:42 IMPRESSION: Bibasilar infiltrates suspicious for pneumonia. Guidance Fluoroscopy 08/09/16 00:00 IMPRESSION: SUCCESSFUL OVER THE WIRE REPLACEMENT OF AN OLD PICC FOR A NEW ONE THAT IS 5 FR dual LUMEN 35 CM PICC IN THE right ARM. Interventional Vascular Procedure 08/09/16 00:00 IMPRESSION: SUCCESSFUL OVER THE WIRE REPLACEMENT OF AN OLD PICC FOR A NEW ONE THAT IS 5 FR dual LUMEN 35 CM PICC IN THE right ARM. PICC Line Insertion 08/09/16 00:00 IMPRESSION: SUCCESSFUL OVER THE WIRE REPLACEMENT OF AN OLD PICC FOR A NEW ONE THAT IS 5 FR dual LUMEN 35 CM PICC IN THE right ARM. Assessment & Plan - Diagnosis (1) Acute respiratory failure with hypoxia and hypercapnia Is this a current diagnosis for this admission?: YesPlan: Continue oxygen supplementation. (2) Persistent vegetative state Is this a current diagnosis for this admission?: YesPlan: Continue supportive care. Patient resides at [facility]. (3) Infection due to ESBL-producing Escherichia coli Is this a current diagnosis for this admission?: YesPlan: Start patient on IV ertapenem for total of 10 days. Patient has ESBL Escherichia coli growing in urine and blood cultures. (4) UTI (urinary tract infection) Qualifiers: Urinary tract infection type: site unspecified Hematuria presence: without hematuria Qualified Code(s): N39.0 - Urinary tract infection, site not specified Is this a current diagnosis for this admission?: Yes (5) Decubitus ulcer, stage III Qualifiers: Pressure ulcer location: sacral region Qualified Code(s): L89.153 - Pressure ulcer of sacral region, stage 3 Is this a current diagnosis for this admission?: YesPlan: Local wound care. (6) Anemia Qualifiers: Anemia type: iron deficiency Iron deficiency anemia type: unspecified iron deficiency Qualified Code(s): D50.9 - Iron deficiency anemia, unspecified Is this a current diagnosis for this admission?: YesPlan: Hold Arixtra. Check Hemoccult of stool. Transfuse 2 units PRBC. (7) Constipation Qualifiers: Constipation type: unspecified constipation type Qualified Code(s): K59.00 - Constipation, unspecified Is this a current diagnosis for this admission?: Yes (8) Diabetes mellitus Qualifiers: Diabetes mellitus type: type 2 Diabetes mellitus complication status: with unspecified complications Diabetes mellitus equipment operator intermodal yard insulin use: unspecified nursing home insulin use status Qualified Code(s): E11.8 - Type 2 diabetes mellitus with unspecified complications; Z79.4 - MCC (current) use of insulin Is this a current diagnosis for this admission?: YesPlan: Sliding scale insulin. (9) Pneumonia Qualifiers: Pneumonia type: aspiration pneumonia Aspiration pneumonia type: unspecified Laterality: bilateral Lung location: lower lobe of lung Qualified Code(s): J69.0 - Pneumonitis due to inhalation of food and vomit Is this a current diagnosis for this admission?: YesPlan: IV ertapenem. IV Levaquin. Likely bacterial. - Time Time Spent with patient: 35 or more minutes Anticipated discharge: SNF Within: within 72 hours
[2016-08-10] MEDS ORDERED: POTASSI CL 20 MEQ/50 ML RIDER 20 MEQ/50 ML RTUPB IV ONE (19:00)
[2016-08-11] MEDS: GUAIFENESIN SYRP 200 MG/10 ML UDC PEG SCH ×6 (03:24→22:33)
[2016-08-11 07:46] LABS: HGB HCT DIFFERENCE -0.4; MEAN CORPUSCULAR HEMOGLOBIN 27.5 pg (27.0-33.4); RED BLOOD COUNT 3.73 10^6/uL (3.72-5.28); RED CELL DISTRIBUTION WIDTH 18.5 % (11.5-14.0); WHITE BLOOD COUNT 7.8 10^3/uL (4.0-10.5)
[2016-08-11 07:48] LABS: ANION GAP 13 (5-19); BLOOD UREA NITROGEN 8 mg/dL (7-20); CALCIUM 9.1 mg/dL (8.4-10.2); CARBON DIOXIDE 27 mmol/L (22-30); CHLORIDE 103 mmol/L (98-107); CREATININE RESULT 0.37 mg/dL (0.52-1.25); GLUCOSE 132 mg/dL (75-110); POTASSIUM 3.4 mmol/L (3.6-5.0); SODIUM 142.9 mmol/L (137-145)
[2016-08-11] MEDS: IPRATROPIUM/ALBUTEROL 0.5-2.5 MG/3 ML AMPUL NEB SCH ×4 (08:01→19:31)
[2016-08-11 08:24] LABS: HEMOGLOBIN 10.2 g/dL (12.0-15.5)
[2016-08-11 08:25] LABS: MEAN CORPUSCULAR VOLUME 83 fl (80-97)
[2016-08-11 08:37] LABS: BAND NEUTROPHILS % (MANUAL) 1 % (3-5); BASOPHILS % (MANUAL) 0 % (0-2); EOSINOPHILS % (MANUAL) 1 % (0-6); LYMPHOCYTES % (MANUAL) 17 % (13-45); TOTAL CELLS COUNTED 100
[2016-08-11 08:38] LABS: ANISOCYTOSIS 2+; HYPOCHROMASIA SLIGHT; POLYCHROMASIA SLIGHT; TOXIC GRANULATION SLIGHT; TOXIC VACUOLATION PRESENT
[2016-08-11] MEDS ORDERED: LEVOFLOXACIN 750 MG/D5W RTU 150 ML IV SCH (10:00)
[2016-08-11] MEDS: NORMAL SALINE 10 ML SDV (SCHEDULED) IV SCH ×2 (10:56→22:41)
--- NOTE | 2016-08-11 15:29 | PDOC PROGRESS REPORT ---
Subjective Progress Note for:: 08/11/16 Subjective:: Nursing reports no new issues. I cannot obtain history or review of systems from patient secondary to persistent vegetative state. Physical Exam Vital Signs: Temp Pulse Resp BP Pulse Ox 98.5 F 84 18 153/76 H 95 08/11/16 11:29 08/11/16 12:30 08/11/16 12:30 08/11/16 11:29 08/11/16 12:30 Intake & Output 08/10/16 08/11/16 08/12/16 06:59 06:59 06:59 Intake Total 2887 3168 Output Total 600 3000 700 Balance 2287 168 -700 Weight 88.1 kg 90.8 kg GENERAL: No acute distress, persistent agitated state, diffuse contractures HEENT: Conjunctiva clear, nonicteric, moist mucous membranes, no JVD, midline trachea RESPIRATORY: Clear to auscultation bilaterally, no wheezes, no rhonchi CARDIAC: Regular rate and rhythm, no murmurs/gallops/rubs ABDOMEN: Soft, nondistended, nontender, positive bowel sounds, no rebound, no guarding. Gastrostomy tube EXTREMETIES: No edema, cyanosis, clubbing NEUROLOGIC: Unresponsive, diffuse contractures SKIN: No rash, wounds Results Laboratory Results: 08/11/16 06:02 08/11/16 06:02 08/09/16 08/11/16 08/11/16 19:01 06:02 06:02 WBC 7.8 RBC 3.73 Hgb 10.2 L D Hct 31.0 L MCV 83 MCH 27.5 MCHC 33.0 RDW 18.5 H Plt Count 241 Seg Neutrophils % Not Reportable Lymphocytes % Not Reportable Monocytes % Not Reportable Eosinophils % Not Reportable Basophils % Not Reportable Absolute Neutrophils Not Reportable Absolute Lymphocytes Not Reportable Absolute Monocytes Not Reportable Absolute Eosinophils Not Reportable Absolute Basophils Not Reportable Sodium Potassium Chloride Carbon Dioxide Anion Gap BUN Creatinine Est GFR ( Amer) Est GFR (Non-Af Amer) Glucose Calcium Magnesium 1.6 Blood Type B POSITIVE Antibody Screen NEGATIVE 08/11/16 06:02 WBC RBC Hgb Hct MCV MCH MCHC RDW Plt Count Seg Neutrophils % Lymphocytes % Monocytes % Eosinophils % Basophils % Absolute Neutrophils Absolute Lymphocytes Absolute Monocytes Absolute Eosinophils Absolute Basophils Sodium 142.9 Potassium 3.4 L Chloride 103 Carbon Dioxide 27 Anion Gap 13 BUN 8 Creatinine 0.37 L Est GFR ( Amer) > 60 Est GFR (Non-Af Amer) > 60 Glucose 132 H Calcium 9.1 Magnesium Blood Type Antibody Screen Impressions: KUB X-Ray 08/08/16 00:00 IMPRESSION: Constipation. Chest X-Ray 08/08/16 11:42 IMPRESSION: Bibasilar infiltrates suspicious for pneumonia. Guidance Fluoroscopy 08/09/16 00:00 IMPRESSION: SUCCESSFUL OVER THE WIRE REPLACEMENT OF AN OLD PICC FOR A NEW ONE THAT IS 5 FR dual LUMEN 35 CM PICC IN THE right ARM. Interventional Vascular Procedure 08/09/16 00:00 IMPRESSION: SUCCESSFUL OVER THE WIRE REPLACEMENT OF AN OLD PICC FOR A NEW ONE THAT IS 5 FR dual LUMEN 35 CM PICC IN THE right ARM. PICC Line Insertion 08/09/16 00:00 IMPRESSION: SUCCESSFUL OVER THE WIRE REPLACEMENT OF AN OLD PICC FOR A NEW ONE THAT IS 5 FR dual LUMEN 35 CM PICC IN THE right ARM. Assessment & Plan - Diagnosis (1) Acute respiratory failure with hypoxia and hypercapnia Is this a current diagnosis for this admission?: YesPlan: Continue oxygen supplementation. (2) Persistent vegetative state Is this a current diagnosis for this admission?: YesPlan: Continue supportive care. Patient resides at [facility]. (3) Infection due to ESBL-producing Escherichia coli Is this a current diagnosis for this admission?: YesPlan: Continue IV ertapenem day #2/10. Patient has ESBL Escherichia coli growing in urine and blood cultures. (4) UTI (urinary tract infection) Qualifiers: Urinary tract infection type: site unspecified Hematuria presence: without hematuria Qualified Code(s): N39.0 - Urinary tract infection, site not specified Is this a current diagnosis for this admission?: Yes (5) Decubitus ulcer, stage III Qualifiers: Pressure ulcer location: sacral region Qualified Code(s): L89.153 - Pressure ulcer of sacral region, stage 3 Is this a current diagnosis for this admission?: YesPlan: Local wound care. (6) Anemia Qualifiers: Anemia type: iron deficiency Iron deficiency anemia type: unspecified iron deficiency Qualified Code(s): D50.9 - Iron deficiency anemia, unspecified Is this a current diagnosis for this admission?: YesPlan: Hold Arixtra. Check Hemoccult of stool. Transfused 2 units PRBC on 2016. Monitor H&H for stability. (7) Constipation Qualifiers: Constipation type: unspecified constipation type Qualified Code(s): K59.00 - Constipation, unspecified Is this a current diagnosis for this admission?: Yes (8) Diabetes mellitus Qualifiers: Diabetes mellitus type: type 2 Diabetes mellitus complication status: with unspecified complications Diabetes mellitus custodial insulin use: unspecified custodial insulin use status Qualified Code(s): E11.8 - Type 2 diabetes mellitus with unspecified complications; Z79.4 - assisted (current) use of insulin Is this a current diagnosis for this admission?: YesPlan: Sliding scale insulin. (9) Pneumonia Qualifiers: Pneumonia type: aspiration pneumonia Aspiration pneumonia type: unspecified Laterality: bilateral Lung location: lower lobe of lung Qualified Code(s): J69.0 - Pneumonitis due to inhalation of food and vomit Is this a current diagnosis for this admission?: YesPlan: IV ertapenem. Sputum growing gram-negative rods tentatively. (10) Bacteremia due to Enterococcus Is this a current diagnosis for this admission?: YesPlan: Enterococcus is vancomycin sensitive. Start IV vancomycin day #08/10 - Time Time Spent with patient: 35 or more minutes
[2016-08-11] MEDS ORDERED: VANCOMYCIN HCL 0 MG in DEXTROSE 5%-WATER 250 ML IV NR (15:30)
[2016-08-11] MEDS: ERTAPENEM SODIUM 1 GM in NORMAL SALINE 50 ML IV SCH (16:37)
[2016-08-12] MEDS: VANCOMYCIN HCL 1,000 MG in DEXTROSE 5%-WATER 250 ML IV SCH ×3 (02:19→17:00)
[2016-08-12] MEDS: GUAIFENESIN SYRP 200 MG/10 ML UDC PEG SCH ×6 (02:19→22:16)
[2016-08-12] MEDS: IPRATROPIUM/ALBUTEROL 0.5-2.5 MG/3 ML AMPUL NEB SCH ×4 (07:45→19:59)
[2016-08-12 10:17] LABS: ABSOLUTE EOSINOPHILS # (AUTO) 0.1 10^3/uL (0.0-0.6); ABSOLUTE LYMPHOCYTES (AUTO) 1.5 10^3/uL (0.5-4.7); ABSOLUTE MONOCYTES (AUTO) 0.5 10^3/uL (0.1-1.4); ABSOLUTE NEUT (AUTO) 6.2 10^3/uL (1.7-8.2); BASOPHILS % (AUTO) 0.6 % (0-2); EOSINOPHILS % (AUTO) 1.6 % (0-6); HEMATOCRIT 30.9 % (36.0-47.0); HEMOGLOBIN 10.4 g/dL (12.0-15.5); HGB HCT DIFFERENCE 0.3; LYMPHOCYTES % (AUTO) 17.5 % (13-45); MEAN CORPUSCULAR HEMOGLOBIN 27.7 pg (27.0-33.4); MEAN CORPUSCULAR HGB CONC 33.7 g/dL (32.0-36.0); MEAN CORPUSCULAR VOLUME 82 fl (80-97); RED BLOOD COUNT 3.75 10^6/uL (3.72-5.28); SEGMENTED NEUTROPHILS % (AUTO) 74.3 % (42-78); WHITE BLOOD COUNT 8.4 10^3/uL (4.0-10.5)
[2016-08-12] MEDS: NORMAL SALINE 10 ML SDV (SCHEDULED) IV SCH ×2 (10:19→22:28)
[2016-08-12 10:35] LABS: ANION GAP 13 (5-19); BLOOD UREA NITROGEN 9 mg/dL (7-20); CALCIUM 9.3 mg/dL (8.4-10.2); CARBON DIOXIDE 26 mmol/L (22-30); CHLORIDE 102 mmol/L (98-107); CREATININE RESULT 0.36 mg/dL (0.52-1.25); GLUCOSE 127 mg/dL (75-110); POTASSIUM 3.3 mmol/L (3.6-5.0)
[2016-08-12] MEDS ORDERED: LEVALBUTEROL HCL NEB 1.25 MG/3 ML AMPUL NEB PRN (12:11)
[2016-08-12] MEDS: POTASSI CL 20 MEQ/50 ML RIDER 20 MEQ/50 ML RTUPB IV SCH ×2 (15:21→16:57)
[2016-08-12] MEDS: ERTAPENEM SODIUM 1 GM in NORMAL SALINE 50 ML IV SCH (15:22)
--- NOTE | 2016-08-12 16:43 | PDOC PROGRESS REPORT ---
Subjective Progress Note for:: 08/12/16 Subjective:: Nursing reports no new issues. I cannot obtain history or review of systems from patient secondary to persistent vegetative state. Physical Exam Vital Signs: Temp Pulse Resp BP Pulse Ox 98.0 F 87 20 152/92 H 100 08/12/16 14:58 08/12/16 14:58 08/12/16 14:58 08/12/16 14:58 08/12/16 14:58 Intake & Output 08/11/16 08/12/16 08/13/16 06:59 06:59 06:59 Intake Total 3168 2258 Output Total 3000 1600 Balance 168 658 Weight 90.8 kg 87.4 kg GENERAL: No acute distress, persistent agitated state, diffuse contractures HEENT: Conjunctiva clear, nonicteric, moist mucous membranes, no JVD, midline trachea RESPIRATORY: Clear to auscultation bilaterally, no wheezes, no rhonchi CARDIAC: Regular rate and rhythm, no murmurs/gallops/rubs ABDOMEN: Soft, nondistended, nontender, positive bowel sounds, no rebound, no guarding. Gastrostomy tube EXTREMETIES: No edema, cyanosis, clubbing NEUROLOGIC: Unresponsive, diffuse contractures SKIN: No rash, wounds Results Laboratory Results: 08/12/16 10:00 08/12/16 10:00 08/12/16 08/12/16 10:00 10:00 WBC 8.4 RBC 3.75 Hgb 10.4 L Hct 30.9 L MCV 82 MCH 27.7 MCHC 33.7 RDW 19.0 H Plt Count 281 Seg Neutrophils % 74.3 Lymphocytes % 17.5 Monocytes % 6.0 Eosinophils % 1.6 Basophils % 0.6 Absolute Neutrophils 6.2 Absolute Lymphocytes 1.5 Absolute Monocytes 0.5 Absolute Eosinophils 0.1 Absolute Basophils 0.0 Sodium 141.0 Potassium 3.3 L Chloride 102 Carbon Dioxide 26 Anion Gap 13 BUN 9 Creatinine 0.36 L Est GFR ( Amer) > 60 Est GFR (Non-Af Amer) > 60 Glucose 127 H Calcium 9.3 08/09/16 02:05 Sputum Gram Stain - Final 08/09/16 02:05 Sputum Sputum Culture - Final Alcaligenes Species Greatly Reduced Normal Kathy 08/09/16 10:25 Catheter Tip - Picc Line Catheter Tip Culture - Final Yeast, Not Eva Albicans Impressions: KUB X-Ray 08/08/16 00:00 IMPRESSION: Constipation. Chest X-Ray 08/08/16 11:42 IMPRESSION: Bibasilar infiltrates suspicious for pneumonia. Guidance Fluoroscopy 08/09/16 00:00 IMPRESSION: SUCCESSFUL OVER THE WIRE REPLACEMENT OF AN OLD PICC FOR A NEW ONE THAT IS 5 FR dual LUMEN 35 CM PICC IN THE right ARM. Interventional Vascular Procedure 08/09/16 00:00 IMPRESSION: SUCCESSFUL OVER THE WIRE REPLACEMENT OF AN OLD PICC FOR A NEW ONE THAT IS 5 FR dual LUMEN 35 CM PICC IN THE right ARM. PICC Line Insertion 08/09/16 00:00 IMPRESSION: SUCCESSFUL OVER THE WIRE REPLACEMENT OF AN OLD PICC FOR A NEW ONE THAT IS 5 FR dual LUMEN 35 CM PICC IN THE right ARM. Assessment & Plan - Diagnosis (1) Acute respiratory failure with hypoxia and hypercapnia Is this a current diagnosis for this admission?: YesPlan: Continue oxygen supplementation. (2) Infection due to ESBL-producing Escherichia coli Is this a current diagnosis for this admission?: YesPlan: Continue IV ertapenem day #3/. Patient has ESBL Escherichia coli growing in urine and blood cultures. (3) Bacteremia due to Enterococcus Is this a current diagnosis for this admission?: YesPlan: Enterococcus is vancomycin sensitive. Continue IV vancomycin day #2/ (4) Persistent vegetative state Is this a current diagnosis for this admission?: YesPlan: Continue supportive care. Patient resides at [facility]. (5) UTI (urinary tract infection) Qualifiers: Urinary tract infection type: site unspecified Hematuria presence: without hematuria Qualified Code(s): N39.0 - Urinary tract infection, site not specified Is this a current diagnosis for this admission?: Yes (6) Decubitus ulcer, stage III Qualifiers: Pressure ulcer location: sacral region Qualified Code(s): L89.153 - Pressure ulcer of sacral region, stage 3 Is this a current diagnosis for this admission?: YesPlan: Local wound care. (7) Anemia Qualifiers: Anemia type: iron deficiency Iron deficiency anemia type: unspecified iron deficiency Qualified Code(s): D50.9 - Iron deficiency anemia, unspecified Is this a current diagnosis for this admission?: YesPlan: Hold Arixtra. Check Hemoccult of stool. Transfused 2 units PRBC on 2016. H&H stable. 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 (10) Pneumonia Qualifiers: Pneumonia type: aspiration pneumonia Aspiration pneumonia type: unspecified Laterality: bilateral Lung location: lower lobe of lung Qualified Code(s): J69.0 - Pneumonitis due to inhalation of food and vomit Is this a current diagnosis for this admission?: YesPlan: Continue IV ertapenem per sensitivity. Sputum growing Alcaligenes sp. (11) Hypokalemia Is this a current diagnosis for this admission?: YesPlan: Replace. Continue KCl 20 mEq daily scheduled. - Time Time Spent with patient: 25-34 minutes Anticipated discharge: SNF Within: within 24 hours
[2016-08-12] MEDS: LANSOPRAZOLE 30 MG TAB.RAP.DR PO SCH (16:59)
[2016-08-12] MEDS: LACTULOSE SYRUP 20 GM/30 ML UDCUP PEG SCH (17:16)
[2016-08-12] MEDS ORDERED: DOCUSATE SODIUM 100 MG/10 ML UDC PEG SCH (18:00)
[2016-08-13] MEDS: GUAIFENESIN SYRP 200 MG/10 ML UDC PEG SCH ×4 (01:32→13:10)
[2016-08-13] MEDS: VANCOMYCIN HCL 1,000 MG in DEXTROSE 5%-WATER 250 ML IV SCH ×2 (01:32→13:07)
[2016-08-13 05:59] LABS: ABSOLUTE BASOPHILS # (AUTO) 0.1 10^3/uL (0.0-0.2); ABSOLUTE EOSINOPHILS # (AUTO) 0.2 10^3/uL (0.0-0.6); ABSOLUTE LYMPHOCYTES (AUTO) 2.1 10^3/uL (0.5-4.7); ABSOLUTE MONOCYTES (AUTO) 0.5 10^3/uL (0.1-1.4); ABSOLUTE NEUT (AUTO) 5.4 10^3/uL (1.7-8.2); BASOPHILS % (AUTO) 0.7 % (0-2); EOSINOPHILS % (AUTO) 2.9 % (0-6); HEMATOCRIT 33.2 % (36.0-47.0); HEMOGLOBIN 10.5 g/dL (12.0-15.5); HGB HCT DIFFERENCE -1.7; LYMPHOCYTES % (AUTO) 25.6 % (13-45); MEAN CORPUSCULAR HEMOGLOBIN 26.5 pg (27.0-33.4); MEAN CORPUSCULAR HGB CONC 31.5 g/dL (32.0-36.0); MEAN CORPUSCULAR VOLUME 84 fl (80-97); MONOCYTES % (AUTO) 6.4 % (3-13); RED BLOOD COUNT 3.94 10^6/uL (3.72-5.28); RED CELL DISTRIBUTION WIDTH 18.6 % (11.5-14.0); SEGMENTED NEUTROPHILS % (AUTO) 64.4 % (42-78); WHITE BLOOD COUNT 8.4 10^3/uL (4.0-10.5)
[2016-08-13 06:14] LABS: ANION GAP 14 (5-19); BLOOD UREA NITROGEN 9 mg/dL (7-20); CALCIUM 9.1 mg/dL (8.4-10.2); CARBON DIOXIDE 27 mmol/L (22-30); CHLORIDE 101 mmol/L (98-107); CREATININE RESULT 0.38 mg/dL (0.52-1.25); GLUCOSE 133 mg/dL (75-110); MAGNESIUM 1.7 mg/dL (1.6-2.3); POTASSIUM 3.7 mmol/L (3.6-5.0); SODIUM 141.6 mmol/L (137-145)
[2016-08-13] MEDS: IPRATROPIUM/ALBUTEROL 0.5-2.5 MG/3 ML AMPUL NEB SCH ×2 (08:42→11:55)
[2016-08-13] MEDS ORDERED: POTASSIUM CHLORIDE 20 MEQ/15 ML UDCUP PEG SCH (10:00)
[2016-08-13] MEDS ORDERED: LEVOTHYROXINE SODIUM 0.075 MG TABLET PEG SCH (10:00)
[2016-08-13] MEDS ORDERED: POLYETHYLENE GLYCOL 3350 POWDER 17 GM/1 PACKET PO SCH (10:00)
--- NOTE | 2016-08-13 10:27 | PDOC TRANSFER SUMMARY ---
General - Admit/Disc Date/PCP Admission Date/Primary Care Provider: 08/08/16 14:14 PRISCILA FERGUSON MD Discharge Date: 08/13/16 - Discharge Diagnosis (1) Acute respiratory failure with hypoxia and hypercapnia Is this a current diagnosis for this admission?: Yes (2) Infection due to ESBL-producing Escherichia coli Is this a current diagnosis for this admission?: Yes (3) Bacteremia due to Enterococcus Is this a current diagnosis for this admission?: Yes (4) Persistent vegetative state Is this a current diagnosis for this admission?: Yes (5) UTI (urinary tract infection) Is this a current diagnosis for this admission?: Yes (6) Decubitus ulcer, stage III Is this a current diagnosis for this admission?: Yes (7) Anemia Is this a current diagnosis for this admission?: Yes (8) Constipation Is this a current diagnosis for this admission?: Yes (9) Diabetes mellitus Is this a current diagnosis for this admission?: Yes (10) Pneumonia Is this a current diagnosis for this admission?: Yes (11) Hypokalemia Is this a current diagnosis for this admission?: Yes - Additional Information Resuscitation Status: Full Code Discharge Diet: Tube Feeding (Comments) - Glucerna 1.5 at 40 mL per hour, free water flush 100 mL every 4 hours Discharge Activity: Bedrest Home Medications: Lactulose [Enulose 10 gm/15 mL Oral Solution] 10 gm PEG BID 09/27/15 Zinc Sulfate [Zinc-220 Capsule] 220 mg PEG DAILY #30 capsule 10/21/15 Acetaminophen [Tylenol] 650 mg PEG Q4H PRN 12/25/15 Levothyroxine Sodium [Synthroid 0.075 mg Tablet] 75 mcg PEG DAILY 12/25/15 Potassium Chloride [Kaon-Cl 20 Meq/15 ml Udcup] 20 meq PEG DAILY 12/25/15 Polyethylene Glycol 3350 [Miralax Powder 17 gm/Packet] 1 packet PO DAILY #1 pkg 02/05/16 Bisacodyl 10 mg [place] PRN PRN 06/19/16 Calcium Carbonate/Vitamin D3 [Oystercal-D 500 mg-400 Unit Tb] 500 mg GT BID Magnesium Hydroxide [Milk of Magnesia 30 ml Udcup] 30 ml GT ONCE PRN 06/20/16 Acetylcysteine [Mucomist 20% Soln 800 mg/4 mL] 800 mg NEB RTQ6 vial 07/02/16 Insulin Glargine,Hum.rec.anlog [Lantus Insulin 100 Unit/mL] 15 unit SUBCUT DAILY insuln.pen 07/02/16 Insulin Lispro [Humalog Insulin (Lispro) 100 unit/mL] 0 - 12 unit SUBCUT Q6HP PRN unit 07/02/16 Lansoprazole [Prevacid] 30 mg PO BID #60 tab.rap. 07/27/16 Ertapenem Sodium [Invanz Inj 1 gm Vial] 1 gm IV DAILY@1400 10 Days 08/13/16 Furosemide [Lasix 20 mg Tablet] 20 mg PEG DAILY #0 08/13/16 Levalbuterol HCl [Xopenex Neb 1.25 mg/3 ml Ampul] 1.25 mg NEB RTQ4HP PRN vial.neb 08/13/16 Vancomycin/0.9 % Sod Chloride [Vancomycin 1 G/100Ml-0.9% NaCl] 1 gm IV Q12 10 Days 08/13/16 Additional Information: Oxygen 2 L nasal cannula continuous. History of Present Illness Admission Date/PCP: 08/08/16 14:14 PRISCILA FERGUSON MD Patient complains of: Fever History of Present Illness: BEN DAILEY is a 61 year old female with past medical history significant for persistent vegetative state for the past 30 years following a TBI, subsequent recurrent urinary tract infections, sacral decubiti and aspiration status post PEG placement and recurrent hypernatremia was found by nursing staff to have a fever and sent to the emergency department. In the emergency department, due to patient's persistent vegetative state, history is obtained from the chart. Patient is found to have a urinary tract infection, and bilateral lower lobe pneumonia with greenish yellow purulence sputum present. Patient is also hypernatremic. She is referred to the hospitalist service for sepsis with pneumonia and UTI. Patient was recently admitted here from - 07/17/2016. Hospital Course Hospital Course: Patient [facility]. She was found to have numerous infections to include ESBL Escherichia coli urinary tract infection and bacteremia, enterococcus bacteremia, and Alcaligenes sp. pneumonia. She has had a PICC line placed and is being discharged on 10 more days of IV ertapenem and IV vancomycin (course to complete on 08/23/2016). PICC line should be discontinued after completion of IV antibiotic course. Patient is afebrile, hemodynamically stable, and has a normal white blood count at time of discharge. Patient was noted to have acute blood loss anemia requiring transfusion of 2 units of blood on 08/10/2016. Pharmacologic DVT prophylaxis was discontinued as a result. H&H has been stable after transfusion. From a neurologic standpoint patient has a persistent vegetative state. Her neurologic status has remained unchanged and she requires full care. She will [facility] to [facility] upon discharge. From a respiratory standpoint patient has hypoxemic respiratory failure and is stable on oxygen 2 L nasal cannula. She will need to be maintained on continuous nasal cannula oxygen at 2 L after discharge. Patient has decubitus ulcer that was present on admission. She will need ongoing wound care and she to our position changes. Patient has diabetes. Blood glucose is stable on Lantus and sliding scale insulin. Patient has chronic constipation and is on MiraLAX and lactulose on a scheduled basis. She also has when necessary Dulcolax and milk of magnesia ordered. Physical Exam Vital Signs: Temp Pulse Resp BP Pulse Ox 97.7 F 82 22 H 141/77 H 98 08/13/16 03:56 08/13/16 08:42 08/13/16 08:42 08/13/16 03:56 08/13/16 08:42 Intake & Output 08/12/16 08/13/16 08/14/16 06:59 06:59 06:59 Intake Total 2258 2998 Output Total 1600 1700 Balance 658 1298 Weight 87.4 kg 88 kg GENERAL: No acute distress, persistent agitated state, diffuse contractures HEENT: Conjunctiva clear, nonicteric, moist mucous membranes, no JVD, midline trachea RESPIRATORY: Clear to auscultation bilaterally, no wheezes, no rhonchi CARDIAC: Regular rate and rhythm, no murmurs/gallops/rubs ABDOMEN: Soft, nondistended, nontender, positive bowel sounds, no rebound, no guarding. Gastrostomy tube EXTREMETIES: No edema, cyanosis, clubbing NEUROLOGIC: Unresponsive, diffuse contractures SKIN: No rash, wounds Results Laboratory Results: 08/13/16 05:30 08/13/16 05:30 08/12/16 08/12/16 08/13/16 10:00 10:00 05:30 WBC 8.4 8.4 RBC 3.75 3.94 Hgb 10.4 L 10.5 L Hct 30.9 L 33.2 L MCV 82 84 MCH 27.7 26.5 L MCHC 33.7 31.5 L RDW 19.0 H 18.6 H Plt Count 281 282 Seg Neutrophils % 74.3 64.4 Lymphocytes % 17.5 25.6 Monocytes % 6.0 6.4 Eosinophils % 1.6 2.9 Basophils % 0.6 0.7 Absolute Neutrophils 6.2 5.4 Absolute Lymphocytes 1.5 2.1 Absolute Monocytes 0.5 0.5 Absolute Eosinophils 0.1 0.2 Absolute Basophils 0.0 0.1 Sodium 141.0 Potassium 3.3 L Chloride 102 Carbon Dioxide 26 Anion Gap 13 BUN 9 Creatinine 0.36 L Est GFR ( Amer) > 60 Est GFR (Non-Af Amer) > 60 Glucose 127 H Calcium 9.3 Magnesium 08/13/16 05:30 WBC RBC Hgb Hct MCV MCH MCHC RDW Plt Count Seg Neutrophils % Lymphocytes % Monocytes % Eosinophils % Basophils % Absolute Neutrophils Absolute Lymphocytes Absolute Monocytes Absolute Eosinophils Absolute Basophils Sodium 141.6 Potassium 3.7 Chloride 101 Carbon Dioxide 27 Anion Gap 14 BUN 9 Creatinine 0.38 L Est GFR ( Amer) > 60 Est GFR (Non-Af Amer) > 60 Glucose 133 H Calcium 9.1 Magnesium 1.7 08/09/16 02:05 Sputum Gram Stain - Final 08/09/16 02:05 Sputum Sputum Culture - Final Alcaligenes Species Greatly Reduced Normal Kathy 08/09/16 10:25 Catheter Tip - Picc Line Catheter Tip Culture - Final Yeast, Not Eva Albicans 08/09/16 10:25 Catheter Tip Culture - Final Catheter Tip - Picc Line Yeast, Not Eva Albicans 08/09/16 02:05 Gram Stain - Final Sputum Sputum Culture - Final Alcaligenes Species Greatly Reduced Normal Kathy 08/08/16 23:10 MRSA Surveillance Culture - Final Nasophary (Mrsa Only) NO MRSA RECOVERED 08/08/16 13:10 Urine Culture - Final Morales Catheter Escherichia Coli Esbl 08/08/16 12:05 Blood Culture - Final Blood Escherichia Coli Esbl 08/08/16 11:55 Blood Culture - Preliminary Blood Gram Negative Rods Gram Positive Cocci In Pairs 08/08/16 11:50 Blood Culture - Final Blood Enterococcus Faecalis(Group D) Impressions: KUB X-Ray 08/08/16 00:00 IMPRESSION: Constipation. Chest X-Ray 08/08/16 11:42 IMPRESSION: Bibasilar infiltrates suspicious for pneumonia. Guidance Fluoroscopy 08/09/16 00:00 IMPRESSION: SUCCESSFUL OVER THE WIRE REPLACEMENT OF AN OLD PICC FOR A NEW ONE THAT IS 5 FR dual LUMEN 35 CM PICC IN THE right ARM. Interventional Vascular Procedure 08/09/16 00:00 IMPRESSION: SUCCESSFUL OVER THE WIRE REPLACEMENT OF AN OLD PICC FOR A NEW ONE THAT IS 5 FR dual LUMEN 35 CM PICC IN THE right ARM. PICC Line Insertion 08/09/16 00:00 IMPRESSION: SUCCESSFUL OVER THE WIRE REPLACEMENT OF AN OLD PICC FOR A NEW ONE THAT IS 5 FR dual LUMEN 35 CM PICC IN THE right ARM. Qualifiers PATEINT BEING DISCHARGED WITH ANY OF THE FOLLOWING DIAGNOSIS?: No Plan Discharge Plan: Follow-up primary [facility] provider at [facility]. Pharmacy to manage IV vancomycin. Discontinue PICC line after last dose of IV antibiotics. Time Spent: Greater than 30 Minutes
[2016-08-13 12:58] VITALS: BP 133/90
[2016-08-13] MEDS: LANSOPRAZOLE 30 MG TAB.RAP.DR PO SCH (13:05)
[2016-08-13] MEDS: LACTULOSE SYRUP 20 GM/30 ML UDCUP PEG SCH (13:05)
[2016-08-13] MEDS: NORMAL SALINE 10 ML SDV (SCHEDULED) IV SCH (13:08)
== END 2016-08-13 15:03 | DRG 871 ==
LOC: ER 11:33 → EH 13:43 → UNDOADMIN 13:43 → EH 14:14 → 3S 16:18
PROVIDERS: ADMIT Emergency Medicine; ATTEND Emergency Medicine
PROC: 02HV33Z Insertion of Infusion Device into Superior Vena Cava, Percutaneous Approach (ICD-10-PCS; principal; 2016-08-09)
PROC: B5181ZA Fluoroscopy of Superior Vena Cava using Low Osmolar Contrast, Guidance (ICD-10-PCS; 2016-08-09)
PROC: 30233N1 Transfusion of Nonautologous Red Blood Cells into Peripheral Vein, Percutaneous Approach (ICD-10-PCS; 2016-08-10)
DX: A41.9 Sepsis, unspecified organism (principal); J69.0 Pneumonitis due to inhalation of food and vomit; J96.02 Acute respiratory failure with hypercapnia; J96.01 Acute respiratory failure with hypoxia; L89.153 Pressure ulcer of sacral region, stage 3; R40.3 Persistent vegetative state; N39.0 Urinary tract infection, site not specified; E87.0 Hyperosmolality and hypernatremia; E87.6 Hypokalemia; E11.8 Type 2 diabetes mellitus with unspecified complications; I48.2 Chronic atrial fibrillation; D50.9 Iron deficiency anemia, unspecified; K59.00 Constipation, unspecified; B96.20 Unspecified Escherichia coli [E. coli] as the cause of diseases classified elsewhere; Z93.1 Gastrostomy status; Z79.4 Long term (current) use of insulin; Z87.820 Personal history of traumatic brain injury
CPT/HCPCS: 36415; 36430; 36569; 71010; 74000; 76937; 77001; 80048; 80053; 80202; 81001; 82550; 82553; 82565; 82962; 83605; 83615; 83690; 83735; 84484; 85025; 85610; 85730; 86850; 86900; 86901; 86920; 87040; 87070; 87077; 87086; 87088; 87186; 87205; 87493; 93005; 93010; 94667; 94668; 96360; 99285; C1769; J1335; J1642; J1652; J1956; J2543; J2997; J3370; J3480; J3490; J7030; J7060; J7620; P9016

== ENCOUNTER 2016-11-23 19:54 | Inpatient (IN) | payer MEDICAID ==
[~2016-11-23 19:54] MED LIST: CIPROFLOXACIN 400 MG/D5W RTU 400 MG/200 ML RTUPB IV ONE
[2016-11-23] MEDS ORDERED: NORMAL SALINE 1000 ML 1,000 ML IV ONE (20:17)
[2016-11-23] MEDS ORDERED: IPRATROPIUM/ALBUTEROL 0.5-2.5 MG/3 ML AMPUL NEB ONE (21:35)
[2016-11-23 21:59] LABS: PROTHROMBIN TIME 14.1 SEC (11.4-15.4)
[2016-11-23 22:02] LABS: ABSOLUTE BASOPHILS # (AUTO) 0.1 10^3/uL (0.0-0.2); ABSOLUTE EOSINOPHILS # (AUTO) 0.1 10^3/uL (0.0-0.6); ABSOLUTE LYMPHOCYTES (AUTO) 3.3 10^3/uL (0.5-4.7); ABSOLUTE MONOCYTES (AUTO) 0.6 10^3/uL (0.1-1.4); ABSOLUTE NEUT (AUTO) 7.8 10^3/uL (1.7-8.2); BASOPHILS % (AUTO) 0.7 % (0-2); HEMOGLOBIN 11.8 g/dL (12.0-15.5); HGB HCT DIFFERENCE -2.6; LYMPHOCYTES % (AUTO) 27.6 % (13-45); MEAN CORPUSCULAR HEMOGLOBIN 27.5 pg (27.0-33.4); MEAN CORPUSCULAR HGB CONC 31.1 g/dL (32.0-36.0); MEAN CORPUSCULAR VOLUME 89 fl (80-97); MONOCYTES % (AUTO) 5.3 % (3-13); RED BLOOD COUNT 4.29 10^6/uL (3.72-5.28); RED CELL DISTRIBUTION WIDTH 18.7 % (11.5-14.0); SEGMENTED NEUTROPHILS % (AUTO) 65.4 % (42-78); WHITE BLOOD COUNT 11.9 10^3/uL (4.0-10.5)
[2016-11-23 22:03] LABS: ALANINE AMINOTRANSFERASE 262 U/L (9-52); ALBUMIN 4.3 g/dL (3.5-5.0); ALKALINE PHOSPHATASE 83 U/L (38-126); ANION GAP 19 (5-19); ASPARTATE AMINO TRANSFERASE 200 U/L (14-36); BILIRUBIN,DIRECT 0.5 mg/dL (0.0-0.4); BILIRUBIN,TOTAL 1.1 mg/dL (0.2-1.3); BLOOD UREA NITROGEN 36 mg/dL (7-20); CALCIUM 9.6 mg/dL (8.4-10.2); CARBON DIOXIDE 33 mmol/L (22-30); CHLORIDE 110 mmol/L (98-107); CREATINE KINASE 77 U/L (30-135); CREATININE RESULT 0.55 mg/dL (0.52-1.25); GLUCOSE 208 mg/dL (75-110); POTASSIUM 3.4 mmol/L (3.6-5.0); SODIUM 161.6 mmol/L (137-145); TOTAL PROTEIN 8.1 g/dL (6.3-8.2)
[2016-11-23 22:19] LABS: VENOUS BLOOD BASE EXCESS 7.5 mmol/L; VENOUS BLOOD HCO3 33.7 mmol/L (20-32); VENOUS BLOOD PCO2 54.7 mmHg (35-63); VENOUS BLOOD PH 7.41 (7.30-7.42)
[2016-11-23 22:34] LABS: CREATINE KINASE MB < 0.22 ng/mL (<4.55)
[2016-11-23 22:36] LABS: TROPONIN I 0.034 ng/mL
[2016-11-23] MEDS ORDERED: VANCOMYCIN HCL INJ 1000 MG VIAL IV ONE (22:57)
[2016-11-23] MEDS ORDERED: CEFEPIME 2 GM/D5W RTU 50 ML IV ONE (22:57)
[2016-11-23] MEDS ORDERED: AZITHROMYCIN INJ 500 MG VIAL IV ONE (22:57)
[2016-11-23] MEDS ORDERED: MINERAL OIL ENEMA 133 ML PR ONE (23:00)
[2016-11-23 23:13] LABS: AMORPHOUS SEDIMENT,URINE TRACE /HPF; APPEARANCE,URINE CLOUDY; BILIRUBIN,URINE NEGATIVE (NEGATIVE); GLUCOSE, URINE NEGATIVE (NEGATIVE); KETONES,URINE NEGATIVE (NEGATIVE); LEUKOCYTE ESTERASE,URINE MODERATE (NEGATIVE); NITRITE,URINE NEGATIVE (NEGATIVE); PROTEIN,URINE 100 mg/dL (NEGATIVE); URINE SPECIFIC GRAVITY 1.029
--- NOTE | 2016-11-23 23:29 | ER Document Report ---
ED Fever - General Chief Complaint: Fever Stated Complaint: FEVER AND RESPIRATORY DISTRESS Notes: Patient is a 61 year old female who presents from [facility] with complaint of fever, tachypnea and abdominal distention. History per EMS and outside facility documentation due to patient is in a vegetative state from TBI suffered over 30 years ago. EMS unaware of onset. EMS denies any productive cough, vomiting, diarrhea or constipation. Past medical history significant for TRAVEL OUTSIDE OF THE [place] IN LAST 30 DAYS: No - Related Data Allergies/Adverse Reactions: PPD black rubber mix Adverse Reaction (Verified 06/20/16 01:31) Past Medical History - Social History Smoking Status: Unknown if Ever Smoked Chew tobacco use (# tins/day): No Frequency of alcohol use: None Drug Abuse: None Family History: Other - Not available due to patient condition - Past Medical History Cardiac Medical History: Reports: Hx Atrial Fibrillation Pulmonary Medical History: Reports: Hx Pneumonia Endocrine Medical History: Reports: Hx Diabetes Mellitus Type 2 GI Medical History: Reports: Hx Ulcer - sacral Traumatic Medical History: Reports: Hx Traumatic Brain Injury Past Surgical History: Reports: Hx Abdominal Surgery - PEG placement, Other - PEG tube insertion. - Immunizations Hx Diphtheria, Pertussis, Tetanus Vaccination: Yes Hx Pneumococcal Vaccination: 05/01/15 Review of Systems - Review of Systems -: Yes ROS unobtainable due to patient's medical condition Physical Exam - Vital signs Vitals: Temp 102.4 F H 11/23/16 20:00 - Notes Notes: PHYSICAL EXAM GENERAL: NAD, lethargic, not responsive to name. HEAD: Normocephalic, atraumatic. EYES: Pupils equal, round, and reactive to light. Extraocular movements intact. ENT: Oral mucosa moist, tongue midline. Clear secretions noted around nasal passages and mouth NECK: Full range of motion. Supple. Trachea midline. LUNGS: diffuse rhonchi noted bilaterally throughout, no wheezes, rales. No respiratory distress. HEART: Regular rate and rhythm. No murmurs, gallops, or rubs. ABDOMEN: Soft, distended, nontender. No guarding, rebound, or rigidity.. Bowel sounds present in all 4 quadrants. BACK: nontender, stage 3 decubitus ulcer with dressing CDI EXTREMITIES: Moves all 4 extremities spontaneously. No edema, radial and dorsalis pedis pulses 2/4 bilaterally. No cyanosis. SKIN: Warm, dry, normal turgor. No rashes or lesions noted. Course - Re-evaluation Re-evalutation: 11/24/16 00:04 Patient is a 61 year old female who is full code currently hemodynamic stable, no acute distress. Physical exam, chest x-ray and laboratory values concerning for pneumonia with dehydration. It's consulted Dr. Fuad Urbano is accepted the patient for admission for observation and IV antibiotics. Per [facility] protocol and guidelines, this case was discussed with supervising physician Dr. Hayley Frias prior to admission - Vital Signs Vital signs: Temp Pulse Resp BP Pulse Ox 98.2 F 82 25 H 97/72 L 99 11/24/16 07:24 11/24/16 07:24 11/24/16 07:24 11/24/16 07:24 11/24/16 07:24 - Laboratory Result Diagrams: 11/24/16 06:40 11/24/16 06:40 Laboratory results interpreted by me: 11/23/16 11/23/16 11/23/16 21:27 21:27 21:58 WBC 11.9 H Hgb 11.8 L MCHC 31.1 L RDW 18.7 H VBG HCO3 33.7 H Sodium 161.6 H Potassium 3.4 L Chloride 110 H Carbon Dioxide 33 H BUN 36 H Glucose 208 H POC Glucose Direct Bilirubin 0.5 H AST 200 H ALT 262 H Urine Protein Urine Blood Urine Urobilinogen Ur Leukocyte Esterase Urine Ascorbic Acid 11/23/16 11/23/16 22:50 23:35 WBC Hgb MCHC RDW VBG HCO3 Sodium Potassium Chloride Carbon Dioxide BUN Glucose POC Glucose 180 H Direct Bilirubin AST ALT Urine Protein 100 H Urine Blood SMALL H Urine Urobilinogen 2.0 H Ur Leukocyte Esterase MODERATE H Urine Ascorbic Acid 40 H - Diagnostic Test Radiology reviewed: Image reviewed, Reports reviewed Procedures - Additional Procedures IV insertion Additional Procedures: IV insertion Notes: 11/24/16 00:16 20 gauge iv placed in right AC with US guidance Discharge - Discharge Clinical Impression: Pneumonia, Dehydration Admitting Provider: Hospitalist - Dr. Fuad Urbano Unit Admitted: Telemetry
[2016-11-23] MEDS ORDERED: POTASSI CL 20 MEQ/1/2NS 1L 20 MEQ/1,000 ML RTUINJ IV SCH (23:30)
[2016-11-23] MEDS ORDERED: MINERAL OIL 30 ML UDCUP PEG ONE (23:45)
[2016-11-23] MEDS ORDERED: CIPROFLOXACIN 400 MG/D5W RTU 200 ML IV SCH (23:45)
[2016-11-24] MEDS: METRONIDAZOLE 500 MG TABLET PEG SCH ×3 (00:34→15:30)
[2016-11-24] MEDS ORDERED: VANCOMYCIN HCL INJ 1000 MG VIAL IV ONE (03:00)
[2016-11-24] MEDS ORDERED: DEXTROSE 40% GEL 15 GM TUBE PEG PRN ×2 (03:58)
[2016-11-24] MEDS ORDERED: GLUCAGON,HUMAN RECOMB 1 MG INJ SUBCUT PRN (03:58)
[2016-11-24] MEDS ORDERED: ACETAMINOPHEN 325 MG TABLET PEG PRN (03:58)
[2016-11-24] MEDS ORDERED: DEXTROSE 50%-WATER 25 GM/50 ML DISP.SYRIN IV PRN ×2 (03:58)
[2016-11-24 07:00] LABS: ABSOLUTE BASOPHILS # (AUTO) 0.1 10^3/uL (0.0-0.2); ABSOLUTE EOSINOPHILS # (AUTO) 0.1 10^3/uL (0.0-0.6); ABSOLUTE MONOCYTES (AUTO) 0.6 10^3/uL (0.1-1.4); ABSOLUTE NEUT (AUTO) 7.9 10^3/uL (1.7-8.2); BASOPHILS % (AUTO) 0.5 % (0-2); HEMATOCRIT 34.7 % (36.0-47.0); HEMOGLOBIN 11.3 g/dL (12.0-15.5); HGB HCT DIFFERENCE -0.8; MEAN CORPUSCULAR HEMOGLOBIN 28.6 pg (27.0-33.4); MEAN CORPUSCULAR HGB CONC 32.7 g/dL (32.0-36.0); MEAN CORPUSCULAR VOLUME 88 fl (80-97); MONOCYTES % (AUTO) 5.2 % (3-13); RED BLOOD COUNT 3.95 10^6/uL (3.72-5.28); RED CELL DISTRIBUTION WIDTH 18.8 % (11.5-14.0); SEGMENTED NEUTROPHILS % (AUTO) 74.3 % (42-78); WHITE BLOOD COUNT 10.6 10^3/uL (4.0-10.5)
[2016-11-24 07:23] LABS: ANION GAP 17 (5-19); BLOOD UREA NITROGEN 41 mg/dL (7-20); CALCIUM 9.1 mg/dL (8.4-10.2); CARBON DIOXIDE 30 mmol/L (22-30); CHLORIDE 112 mmol/L (98-107); CREATININE RESULT 0.48 mg/dL (0.52-1.25); GLUCOSE 240 mg/dL (75-110); POTASSIUM 3.4 mmol/L (3.6-5.0); SODIUM 158.6 mmol/L (137-145)
--- NOTE | 2016-11-24 07:44 | EKG REPORT ---
SEVERITY:- ABNORMAL ECG - SINUS RHYTHM LEFT ATRIAL ABNORMALITY LEFT ANTERIOR FASCICULAR BLOCK PROBABLE LVH WITH SECONDARY REPOL ABNRM : Confirmed by: Ramiro Malagon 24-Nov-2016 07:43:15
[2016-11-24] MEDS: HEPARIN SOD (PORCINE) 5,000 UNIT/ML 1 ML SYRINGE SUBCUT SCH ×3 (07:46→21:49)
[2016-11-24] MEDS ORDERED: DOCUSATE SODIUM 100 MG/10 ML UDC PEG SCH (10:00)
[2016-11-24] MEDS ORDERED: LIDOCAINE 1% INJ-PF (10 MG/ML) 30 ML SDV INJ PRN (10:58)
[2016-11-24] MEDS ORDERED: LIDOCAINE 1% INJ-PF (10 MG/ML) 30 ML SDV INJ ONE (12:00)
[2016-11-24] MEDS ORDERED: BISACODYL 10 MG SUPP.RECT PR PRN (16:23)
[2016-11-24] MEDS ORDERED: MAGNESIUM HYDROXIDE SUSP 30 ML UDCUP PEG PRN (16:23)
[2016-11-24] MEDS ORDERED: ACETAMINOPHEN 650 MG PEG PRN (16:23)
[2016-11-24] MEDS ORDERED: ACETAMINOPHEN 650 MG SUPP.RECT PR PRN ×2 (16:23→17:25)
--- NOTE | 2016-11-24 16:41 | OPERATIVE REPORT E ---
Operative Report NAME: BEN DAILEY : 1955 AGE: 61Y DATE OF SURGERY: 11/24/2016 ROOM: 423 PREOPERATIVE DIAGNOSIS: Poor veins for IV access in patient with pneumonia. Needed IV site for medications. POSTOPERATIVE DIAGNOSIS: Poor veins for IV access in patient with pneumonia. Needed IV site for medications. OPERATION: Placement of left internal jugular vein triple lumen catheter under ultrasound guidance. SURGEON: MONI CHIU M.D. ANESTHESIA: Local. PROCEDURE: The patient is placed in slight Trendelenburg position with the left side of the neck exposed. The left neck was then prepped and draped in the usual sterile fashion. With use of the ultrasound, the internal jugular vein was identified and subsequently punctured, and a guidewire passed through the needle into the superior vena cava. The puncture was enlarged with an 11 blade, and a dilator placed over the guidewire. The dilator was removed, and a triple lumen catheter placed through the guidewire into the superior vena cava. Guidewire was then removed and 3 ports of the triple lumen were then flushed with saline solution. Prior to flushing it, I was able to aspirate blood easily and able to flush with saline nicely. Next, the catheter was anchored to the skin with 3-0 silk and sterile dressings with transparent dressing placed over the puncture site after placement of Biopatch around the insertion site. The patient tolerated the procedure well. DICTATING PHYSICIAN: MONI CHIU M.D. [id number] PHY#: [id number] ID: [id number] JOB#: [id number] ACCT: [id number] cc:MONI CHIU M.D. >
--- NOTE | 2016-11-24 16:41 | PDOC PROGRESS REPORT ---
Subjective Progress Note for:: 11/24/16 Subjective:: Patient is seen on morning rounds. She is resting in bed. She remains unresponsive. She has a congested cough, but she does not appear in respiratory distress. Review of systems is unobtainable due to patient's mentation. There are no family members at the bedside. Physical Exam Vital Signs: Temp Pulse Resp BP Pulse Ox 98.3 F 81 21 H 132/64 H 99 11/24/16 10:23 11/24/16 10:23 11/24/16 10:23 11/24/16 10:23 11/24/16 10:23 General appearance: PRESENT: no acute distress, obese, well-developed, well- nourished, other - Unresponsive Head exam: PRESENT: atraumatic, normocephalic Eye exam: PRESENT: conjunctiva pink, EOMI, PERRLA. ABSENT: scleral icterus Ear exam: PRESENT: normal external ear exam Mouth exam: PRESENT: dry mucosa, tongue midline Neck exam: ABSENT: carotid bruit, JVD, lymphadenopathy, thyromegaly Respiratory exam: PRESENT: rhonchi - Bilaterally, symmetrical, unlabored Cardiovascular exam: PRESENT: RRR. ABSENT: diastolic murmur, rubs, systolic murmur Pulses: PRESENT: normal dorsalis pedis pul Vascular exam: PRESENT: normal capillary refill GI/Abdominal exam: PRESENT: normal bowel sounds, soft, other - PEG tube patent. ABSENT: distended, guarding, mass, organolmegaly, rebound, tenderness Rectal exam: PRESENT: deferred Extremities exam: PRESENT: calf tenderness Musculoskeletal exam: PRESENT: normal inspection Neurological exam: PRESENT: altered, CN II-XII grossly intact Psychiatric exam: PRESENT: flat affect, other - Unresponsive Skin exam: PRESENT: other - Stage IV sacral wound Results Laboratory Results: 11/24/16 06:40 11/24/16 06:40 11/24/16 11/24/16 06:40 06:40 WBC 10.6 H RBC 3.95 Hgb 11.3 L Hct 34.7 L MCV 88 MCH 28.6 MCHC 32.7 RDW 18.8 H Plt Count 197 Seg Neutrophils % 74.3 Lymphocytes % 19.0 Monocytes % 5.2 Eosinophils % 1.0 Basophils % 0.5 Absolute Neutrophils 7.9 Absolute Lymphocytes 2.0 Absolute Monocytes 0.6 Absolute Eosinophils 0.1 Absolute Basophils 0.1 Sodium 158.6 H Potassium 3.4 L Chloride 112 H Carbon Dioxide 30 Anion Gap 17 BUN 41 H Creatinine 0.48 L Est GFR ( Amer) > 60 Est GFR (Non-Af Amer) > 60 Glucose 240 H Calcium 9.1 Impressions: Chest X-Ray 11/23/16 20:18 IMPRESSION: Mild residual subsegmental atelectasis -scarring in the left lung base. No residual consolidation. KUB X-Ray 11/23/16 20:30 IMPRESSION: Marked constipation. Assessment & Plan - Diagnosis (1) Dehydration Is this a current diagnosis for this admission?: YesPlan: Patient with significant hypernatremia. She is supposed to be receiving free water with her enteral feedings. Will hydrate with IV fluids once central line is placed. We'll also add free water with her enteral feedings. (2) Acute respiratory failure with hypoxia and hypercapnia Is this a current diagnosis for this admission?: YesPlan: Continue broad-spectrum IV antibiotic. Most likely related to aspiration (3) Constipation Qualifiers: Constipation type: unspecified constipation type Qualified Code(s): K59.00 - Constipation, unspecified Is this a current diagnosis for this admission?: YesPlan: Continue cathartics (4) Decubitus ulcer, stage III Qualifiers: Pressure ulcer location: sacral region Qualified Code(s): L89.153 - Pressure ulcer of sacral region, stage 3 Is this a current diagnosis for this admission?: YesPlan: Continue local wound care. - Time Time Spent with patient: 25-34 minutes Critical Time spent with patient: 15-24 minutes Medications reviewed and adjusted accordingly: Yes
[2016-11-24] MEDS ORDERED: ACETAMINOPHEN SOLN 325 MG/10.15 ML UDCUP PO PRN (17:25)
[2016-11-24] MEDS ORDERED: ACETAMINOPHEN SOLN 325 MG/10.15 ML UDCUP PEG PRN (17:26)
[2016-11-24] MEDS ORDERED: CIPROFLOXACIN 400 MG/D5W RTU 400 MG/200 ML RTUPB IV SCH (18:00)
[2016-11-24] MEDS ORDERED: (PENDING PHARMACY ID) (Lactulose [Constulose 10 Gm/15 Ml Oral Solution] 15 ML) PEG SCH (18:00)
[2016-11-24] MEDS ORDERED: POTASSIUM CHLORIDE 20 MEQ/15 ML UDCUP PEG ONE (18:00)
[2016-11-24] MEDS: CALCIUM CARBONATE 500 MG TABLET PEG SCH (18:05)
[2016-11-24] MEDS: PIPERACILLIN SODIUM/TAZOBACTAM 3.375 GM in NORMAL SALINE 100 ML IV SCH (18:06)
[2016-11-24] MEDS: 1/2 NORMAL SALINE 1,000 ML IV PRN (18:07)
[2016-11-24] MEDS: LACTULOSE SYRUP 20 GM/30 ML UDCUP PEG SCH (18:23)
[2016-11-24] MEDS: ACETYLCYSTEINE 20% SOLN 800 MG/4 ML VIAL.NEB NEB SCH (19:59)
[2016-11-24] MEDS: IPRATROPIUM/ALBUTEROL 0.5-2.5 MG/3 ML AMPUL NEB PRN (19:59)
[2016-11-25] MEDS: ACETYLCYSTEINE 20% SOLN 800 MG/4 ML VIAL.NEB NEB SCH ×4 (02:41→20:29)
[2016-11-25] MEDS: LEVALBUTEROL HCL NEB 1.25 MG/3 ML AMPUL NEB PRN (02:41)
[2016-11-25] MEDS: PIPERACILLIN SODIUM/TAZOBACTAM 3.375 GM in NORMAL SALINE 100 ML IV SCH ×4 (03:59→17:53)
[2016-11-25] MEDS: HEPARIN SOD (PORCINE) 5,000 UNIT/ML 1 ML SYRINGE SUBCUT SCH ×3 (05:24→21:51)
[2016-11-25 06:33] LABS: ABSOLUTE BASOPHILS # (AUTO) 0.1 10^3/uL (0.0-0.2); ABSOLUTE EOSINOPHILS # (AUTO) 0.4 10^3/uL (0.0-0.6); ABSOLUTE LYMPHOCYTES (AUTO) 2.1 10^3/uL (0.5-4.7); ABSOLUTE MONOCYTES (AUTO) 0.3 10^3/uL (0.1-1.4); ABSOLUTE NEUT (AUTO) 5.3 10^3/uL (1.7-8.2); BASOPHILS % (AUTO) 0.7 % (0-2); EOSINOPHILS % (AUTO) 5.3 % (0-6); HEMATOCRIT 29.3 % (36.0-47.0); HEMOGLOBIN 9.5 g/dL (12.0-15.5); HGB HCT DIFFERENCE -0.8; MEAN CORPUSCULAR HEMOGLOBIN 28.4 pg (27.0-33.4); MEAN CORPUSCULAR HGB CONC 32.3 g/dL (32.0-36.0); MEAN CORPUSCULAR VOLUME 88 fl (80-97); MONOCYTES % (AUTO) 3.4 % (3-13); RED BLOOD COUNT 3.34 10^6/uL (3.72-5.28); RED CELL DISTRIBUTION WIDTH 18.4 % (11.5-14.0); SEGMENTED NEUTROPHILS % (AUTO) 64.6 % (42-78); WHITE BLOOD COUNT 8.2 10^3/uL (4.0-10.5)
[2016-11-25 06:50] LABS: ANION GAP 15 (5-19); BLOOD UREA NITROGEN 43 mg/dL (7-20); CALCIUM 9.3 mg/dL (8.4-10.2); CARBON DIOXIDE 31 mmol/L (22-30); CHLORIDE 111 mmol/L (98-107); CREATININE RESULT 0.45 mg/dL (0.52-1.25); GLUCOSE 185 mg/dL (75-110); POTASSIUM 3.4 mmol/L (3.6-5.0); SODIUM 156.8 mmol/L (137-145)
[2016-11-25] MEDS: IPRATROPIUM/ALBUTEROL 0.5-2.5 MG/3 ML AMPUL NEB PRN ×2 (08:00→13:36)
[2016-11-25] MEDS: INSULIN GLARGINE,HUM.REC.ANLOG 300 UNIT/3 ML INSULN.PEN SUBCUT SCH (09:19)
[2016-11-25] MEDS: POTASSIUM CHLORIDE 20 MEQ/15 ML UDCUP PEG SCH (09:24)
[2016-11-25] MEDS: LACTULOSE SYRUP 20 GM/30 ML UDCUP PEG SCH ×2 (09:24→17:53)
[2016-11-25] MEDS: CALCIUM CARBONATE 500 MG TABLET PEG SCH ×2 (09:27→17:53)
[2016-11-25] MEDS: LEVOTHYROXINE SODIUM 0.088 MG TABLET PEG SCH (09:28)
[2016-11-25] MEDS: POLYETHYLENE GLYCOL 3350 POWDER 17 GM/1 PACKET PEG SCH (09:34)
[2016-11-25] MEDS ORDERED: INSULIN GLARGINE,HUM.REC.ANLOG 1,000 UNIT/10 ML UNIT SUBCUT SCH (10:00)
[2016-11-25] MEDS ORDERED: NA PHOS,M-B/NA PHOS,DI-BA (ADULT) 133 ML ENEMA PR SCH (10:00)
--- NOTE | 2016-11-25 10:51 | PDOC PROGRESS REPORT ---
Subjective Progress Note for:: 11/25/16 Subjective:: Patient is seen on morning rounds. She is resting in bed. She remains unresponsive. She has a congested cough, but she does not appear in respiratory distress. Review of systems is unobtainable due to patient's mentation. There are no family members at the bedside. Physical Exam Vital Signs: Temp Pulse Resp BP Pulse Ox 98.2 F 75 20 145/75 H 97 11/25/16 07:35 11/25/16 08:00 11/25/16 08:00 11/25/16 07:35 11/25/16 08:00 Intake & Output 11/24/16 11/25/16 11/26/16 06:59 06:59 06:59 Intake Total 1225 Output Total 1300 Balance -75 Weight 90.7 kg General appearance: PRESENT: no acute distress, well-developed, well-nourished Head exam: PRESENT: atraumatic, normocephalic Eye exam: PRESENT: conjunctiva pink, EOMI, PERRLA. ABSENT: scleral icterus Ear exam: PRESENT: normal external ear exam Mouth exam: PRESENT: moist, tongue midline Teeth exam: PRESENT: edentulous Neck exam: ABSENT: carotid bruit, JVD, lymphadenopathy, thyromegaly Respiratory exam: PRESENT: rhonchi, symmetrical, unlabored Cardiovascular exam: PRESENT: RRR. ABSENT: diastolic murmur, rubs, systolic murmur Pulses: PRESENT: normal dorsalis pedis pul Vascular exam: PRESENT: normal capillary refill GI/Abdominal exam: PRESENT: normal bowel sounds, soft. ABSENT: distended, guarding, mass, organolmegaly, rebound, tenderness Rectal exam: PRESENT: deferred Extremities exam: PRESENT: full ROM. ABSENT: calf tenderness, clubbing, pedal edema Neurological exam: PRESENT: altered, CN II-XII grossly intact. ABSENT: motor sensory deficit Psychiatric exam: PRESENT: flat affect Focused psych exam: PRESENT: other - unresponsive Skin exam: PRESENT: other - Stage IV sacral wound Results Laboratory Results: 11/25/16 06:15 11/25/16 06:15 11/25/16 11/25/16 06:15 06:15 WBC 8.2 RBC 3.34 L Hgb 9.5 L Hct 29.3 L MCV 88 MCH 28.4 MCHC 32.3 RDW 18.4 H Plt Count 170 Seg Neutrophils % 64.6 Lymphocytes % 26.0 Monocytes % 3.4 Eosinophils % 5.3 Basophils % 0.7 Absolute Neutrophils 5.3 Absolute Lymphocytes 2.1 Absolute Monocytes 0.3 Absolute Eosinophils 0.4 Absolute Basophils 0.1 Sodium 156.8 H Potassium 3.4 L Chloride 111 H Carbon Dioxide 31 H Anion Gap 15 BUN 43 H Creatinine 0.45 L Est GFR ( Amer) > 60 Est GFR (Non-Af Amer) > 60 Glucose 185 H Calcium 9.3 Impressions: KUB X-Ray 11/23/16 20:30 IMPRESSION: Marked constipation. Chest X-Ray 11/24/16 15:04 IMPRESSION: No pneumothorax post left IJ central venous catheter placement. Some mild residual atelectasis/ scarring in the left lung base, improved from prior study. Assessment & Plan - Diagnosis (1) Dehydration Is this a current diagnosis for this admission?: YesPlan: Patient with significant hypernatremia. She is supposed to be receiving free water with her enteral feedings. Will hydrate with IV fluids once central line is placed. We'll also add free water with her enteral feedings. (2) Acute respiratory failure with hypoxia and hypercapnia Is this a current diagnosis for this admission?: YesPlan: Continue broad-spectrum IV antibiotic. Most likely related to aspiration (3) Constipation Qualifiers: Constipation type: unspecified constipation type Qualified Code(s): K59.00 - Constipation, unspecified Is this a current diagnosis for this admission?: YesPlan: Continue cathartics (4) Decubitus ulcer, stage III Qualifiers: Pressure ulcer location: sacral region Qualified Code(s): L89.153 - Pressure ulcer of sacral region, stage 3 Is this a current diagnosis for this admission?: YesPlan: Continue local wound care with wet to dry dressing (5) Pneumonia Is this a current diagnosis for this admission?: YesPlan: Likely aspiration pneumonia continue antibiotics (6) Anemia Qualifiers: Anemia type: iron deficiency Iron deficiency anemia type: unspecified iron deficiency Qualified Code(s): D50.9 - Iron deficiency anemia, unspecified Is this a current diagnosis for this admission?: YesPlan: Stable - Time Time Spent with patient: 25-34 minutes Critical Time spent with patient: 15-24 minutes Medications reviewed and adjusted accordingly: Yes Anticipated discharge: SNF
[2016-11-26] MEDS: PIPERACILLIN SODIUM/TAZOBACTAM 3.375 GM in NORMAL SALINE 100 ML IV SCH ×5 (00:04→23:23)
[2016-11-26] MEDS: ACETYLCYSTEINE 20% SOLN 800 MG/4 ML VIAL.NEB NEB SCH ×4 (01:50→20:36)
[2016-11-26 05:20] LABS: ABSOLUTE EOSINOPHILS # (AUTO) 0.4 10^3/uL (0.0-0.6); ABSOLUTE LYMPHOCYTES (AUTO) 1.6 10^3/uL (0.5-4.7); ABSOLUTE MONOCYTES (AUTO) 0.2 10^3/uL (0.1-1.4); ABSOLUTE NEUT (AUTO) 3.3 10^3/uL (1.7-8.2); BASOPHILS % (AUTO) 0.7 % (0-2); HEMATOCRIT 29.1 % (36.0-47.0); HEMOGLOBIN 9.3 g/dL (12.0-15.5); HGB HCT DIFFERENCE -1.2; LYMPHOCYTES % (AUTO) 28.9 % (13-45); MEAN CORPUSCULAR HEMOGLOBIN 28.1 pg (27.0-33.4); MEAN CORPUSCULAR HGB CONC 31.8 g/dL (32.0-36.0); MEAN CORPUSCULAR VOLUME 88 fl (80-97); RED BLOOD COUNT 3.29 10^6/uL (3.72-5.28); RED CELL DISTRIBUTION WIDTH 18.3 % (11.5-14.0); SEGMENTED NEUTROPHILS % (AUTO) 59.4 % (42-78); WHITE BLOOD COUNT 5.6 10^3/uL (4.0-10.5)
[2016-11-26 05:39] LABS: ANION GAP 12 (5-19); BLOOD UREA NITROGEN 28 mg/dL (7-20); CALCIUM 9.3 mg/dL (8.4-10.2); CARBON DIOXIDE 31 mmol/L (22-30); CHLORIDE 108 mmol/L (98-107); CREATININE RESULT 0.39 mg/dL (0.52-1.25); GLUCOSE 142 mg/dL (75-110); POTASSIUM 3.8 mmol/L (3.6-5.0); SODIUM 151.1 mmol/L (137-145)
[2016-11-26] MEDS: HEPARIN SOD (PORCINE) 5,000 UNIT/ML 1 ML SYRINGE SUBCUT SCH ×3 (05:46→21:29)
[2016-11-26] MEDS: IPRATROPIUM/ALBUTEROL 0.5-2.5 MG/3 ML AMPUL NEB PRN ×3 (08:41→20:36)
[2016-11-26] MEDS: POLYETHYLENE GLYCOL 3350 POWDER 17 GM/1 PACKET PEG SCH (10:09)
[2016-11-26] MEDS: LACTULOSE SYRUP 20 GM/30 ML UDCUP PEG SCH ×2 (10:09→18:49)
[2016-11-26] MEDS: POTASSIUM CHLORIDE 20 MEQ/15 ML UDCUP PEG SCH (10:09)
[2016-11-26] MEDS: CALCIUM CARBONATE 500 MG TABLET PEG SCH ×2 (10:10→18:49)
[2016-11-26] MEDS: LEVOTHYROXINE SODIUM 0.088 MG TABLET PEG SCH (10:10)
[2016-11-26] MEDS: INSULIN GLARGINE,HUM.REC.ANLOG 300 UNIT/3 ML INSULN.PEN SUBCUT SCH (10:11)
--- NOTE | 2016-11-26 15:23 | PDOC PROGRESS REPORT ---
Subjective Progress Note for:: 11/26/16 Subjective:: Patient is seen on morning rounds. She is resting in bed. She remains unresponsive. Her cough is improved and she does not appear in respiratory distress. Review of systems is unobtainable due to patient's mentation. There are no family members at the bedside. Physical Exam Vital Signs: Temp Pulse Resp BP Pulse Ox 97.2 F 80 18 154/86 H 100 11/26/16 11:20 11/26/16 14:00 11/26/16 13:44 11/26/16 11:20 11/26/16 13:44 Intake & Output 11/25/16 11/26/16 11/27/16 06:59 06:59 06:59 Intake Total 1225 1190 Output Total 1300 1200 600 Balance -75 -10 -600 Weight 90.7 kg 94.6 kg General appearance: PRESENT: no acute distress, well-developed, well-nourished Head exam: PRESENT: atraumatic, normocephalic Eye exam: PRESENT: conjunctiva pink, EOMI, PERRLA. ABSENT: scleral icterus Ear exam: PRESENT: normal external ear exam Mouth exam: PRESENT: moist, tongue midline Teeth exam: PRESENT: edentulous Neck exam: ABSENT: carotid bruit, JVD, lymphadenopathy, thyromegaly Respiratory exam: PRESENT: decreased breath sounds, symmetrical, unlabored Cardiovascular exam: PRESENT: RRR. ABSENT: diastolic murmur, rubs, systolic murmur Pulses: PRESENT: normal dorsalis pedis pul Vascular exam: PRESENT: normal capillary refill GI/Abdominal exam: PRESENT: normal bowel sounds, soft. ABSENT: distended, guarding, mass, organolmegaly, rebound, tenderness Rectal exam: PRESENT: deferred Extremities exam: PRESENT: full ROM. ABSENT: calf tenderness, clubbing, pedal edema Neurological exam: PRESENT: altered, CN II-XII grossly intact, other - unresponsive Skin exam: PRESENT: other - stage IV sacral wound Results Laboratory Results: 11/26/16 04:55 11/26/16 04:55 11/26/16 11/26/16 04:55 04:55 WBC 5.6 RBC 3.29 L Hgb 9.3 L Hct 29.1 L MCV 88 MCH 28.1 MCHC 31.8 L RDW 18.3 H Plt Count 167 Seg Neutrophils % 59.4 Lymphocytes % 28.9 Monocytes % 4.0 Eosinophils % 7.0 H Basophils % 0.7 Absolute Neutrophils 3.3 Absolute Lymphocytes 1.6 Absolute Monocytes 0.2 Absolute Eosinophils 0.4 Absolute Basophils 0.0 Sodium 151.1 H Potassium 3.8 Chloride 108 H Carbon Dioxide 31 H Anion Gap 12 BUN 28 H Creatinine 0.39 L Est GFR ( Amer) > 60 Est GFR (Non-Af Amer) > 60 Glucose 142 H Calcium 9.3 Impressions: KUB X-Ray 11/23/16 20:30 IMPRESSION: Marked constipation. Chest X-Ray 11/24/16 15:04 IMPRESSION: No pneumothorax post left IJ central venous catheter placement. Some mild residual atelectasis/ scarring in the left lung base, improved from prior study. Assessment & Plan - Diagnosis (1) Dehydration Is this a current diagnosis for this admission?: YesPlan: Patient with significant hypernatremia.Improving She is supposed to be receiving free water with her enteral feedings. Will hydrate with IV fluids once central line is placed. We'll also add free water with her enteral feedings. (2) Acute respiratory failure with hypoxia and hypercapnia Is this a current diagnosis for this admission?: Yes (3) Constipation Qualifiers: Constipation type: unspecified constipation type Qualified Code(s): K59.00 - Constipation, unspecified Is this a current diagnosis for this admission?: Yes (4) Decubitus ulcer, stage III Qualifiers: Pressure ulcer location: sacral region Qualified Code(s): L89.153 - Pressure ulcer of sacral region, stage 3 Is this a current diagnosis for this admission?: Yes (5) Pneumonia Is this a current diagnosis for this admission?: Yes (6) Anemia Qualifiers: Anemia type: iron deficiency Iron deficiency anemia type: unspecified iron deficiency Qualified Code(s): D50.9 - Iron deficiency anemia, unspecified Is this a current diagnosis for this admission?: YesPlan: Stable - Time Time Spent with patient: 25-34 minutes Critical Time spent with patient: 15-24 minutes Medications reviewed and adjusted accordingly: Yes Anticipated discharge: SNF
[2016-11-26] MEDS: 1/2 NORMAL SALINE 1,000 ML IV PRN (18:05)
[2016-11-27] MEDS: LEVALBUTEROL HCL NEB 1.25 MG/3 ML AMPUL NEB PRN (01:55)
[2016-11-27] MEDS: ACETYLCYSTEINE 20% SOLN 800 MG/4 ML VIAL.NEB NEB SCH ×4 (01:55→20:24)
[2016-11-27] MEDS: PIPERACILLIN SODIUM/TAZOBACTAM 3.375 GM in NORMAL SALINE 100 ML IV SCH ×3 (05:27→17:32)
[2016-11-27] MEDS: HEPARIN SOD (PORCINE) 5,000 UNIT/ML 1 ML SYRINGE SUBCUT SCH ×2 (05:33→18:34)
[2016-11-27 06:47] LABS: ABSOLUTE BASOPHILS # (AUTO) 0.1 10^3/uL (0.0-0.2); ABSOLUTE EOSINOPHILS # (AUTO) 0.2 10^3/uL (0.0-0.6); ABSOLUTE LYMPHOCYTES (AUTO) 1.4 10^3/uL (0.5-4.7); ABSOLUTE MONOCYTES (AUTO) 0.2 10^3/uL (0.1-1.4); ABSOLUTE NEUT (AUTO) 3.9 10^3/uL (1.7-8.2); BASOPHILS % (AUTO) 0.9 % (0-2); EOSINOPHILS % (AUTO) 3.6 % (0-6); HEMATOCRIT 28.8 % (36.0-47.0); HEMOGLOBIN 9.4 g/dL (12.0-15.5); HGB HCT DIFFERENCE -0.6; LYMPHOCYTES % (AUTO) 24.8 % (13-45); MEAN CORPUSCULAR HEMOGLOBIN 28.4 pg (27.0-33.4); MEAN CORPUSCULAR HGB CONC 32.6 g/dL (32.0-36.0); MEAN CORPUSCULAR VOLUME 87 fl (80-97); MONOCYTES % (AUTO) 4.2 % (3-13); RED BLOOD COUNT 3.31 10^6/uL (3.72-5.28); RED CELL DISTRIBUTION WIDTH 18.4 % (11.5-14.0); SEGMENTED NEUTROPHILS % (AUTO) 66.5 % (42-78); WHITE BLOOD COUNT 5.8 10^3/uL (4.0-10.5)
[2016-11-27 07:05] LABS: ANION GAP 12 (5-19); BLOOD UREA NITROGEN 17 mg/dL (7-20); CALCIUM 9.1 mg/dL (8.4-10.2); CARBON DIOXIDE 29 mmol/L (22-30); CHLORIDE 101 mmol/L (98-107); CREATININE RESULT 0.34 mg/dL (0.52-1.25); GLUCOSE 134 mg/dL (75-110); POTASSIUM 3.8 mmol/L (3.6-5.0)
[2016-11-27] MEDS: IPRATROPIUM/ALBUTEROL 0.5-2.5 MG/3 ML AMPUL NEB PRN ×3 (07:53→20:24)
[2016-11-27] MEDS: LEVOTHYROXINE SODIUM 0.088 MG TABLET PEG SCH (10:22)
[2016-11-27] MEDS: LACTULOSE SYRUP 20 GM/30 ML UDCUP PEG SCH ×2 (10:31→17:33)
[2016-11-27] MEDS: POTASSIUM CHLORIDE 20 MEQ/15 ML UDCUP PEG SCH (10:31)
[2016-11-27] MEDS: CALCIUM CARBONATE 500 MG TABLET PEG SCH ×2 (10:31→17:33)
[2016-11-27] MEDS: POLYETHYLENE GLYCOL 3350 POWDER 17 GM/1 PACKET PEG SCH (10:32)
[2016-11-27] MEDS: INSULIN GLARGINE,HUM.REC.ANLOG 300 UNIT/3 ML INSULN.PEN SUBCUT SCH (10:32)
--- NOTE | 2016-11-27 11:57 | PDOC PROGRESS REPORT ---
Subjective Progress Note for:: 11/27/16 Subjective:: Patient is seen on morning rounds. She is resting in bed. She remains unresponsive. She has some upper airway congestion and moist cough. Review of systems is unobtainable due to patient's mentation. There are no family members at the bedside. Physical Exam Vital Signs: Temp Pulse Resp BP Pulse Ox 97.4 F 76 22 H 143/71 H 98 11/27/16 07:51 11/27/16 07:56 11/27/16 07:56 11/27/16 07:51 11/27/16 07:56 Intake & Output 11/26/16 11/27/16 11/28/16 06:59 06:59 06:59 Intake Total 1190 1357 Output Total 1200 1650 Balance -10 -293 Weight 94.6 kg 96.4 kg General appearance: PRESENT: no acute distress, obese - unresponsive, well- developed, well-nourished Head exam: PRESENT: atraumatic, normocephalic Eye exam: PRESENT: conjunctiva pink, EOMI, PERRLA. ABSENT: scleral icterus Ear exam: PRESENT: normal external ear exam Mouth exam: PRESENT: moist, tongue midline Neck exam: ABSENT: carotid bruit, JVD, lymphadenopathy, thyromegaly Respiratory exam: PRESENT: decreased breath sounds, rhonchi, symmetrical, unlabored Cardiovascular exam: PRESENT: RRR. ABSENT: diastolic murmur, rubs, systolic murmur Pulses: PRESENT: normal dorsalis pedis pul Vascular exam: PRESENT: normal capillary refill GI/Abdominal exam: PRESENT: normal bowel sounds, soft. ABSENT: distended, guarding, mass, organolmegaly, rebound, tenderness Rectal exam: PRESENT: deferred Extremities exam: PRESENT: full ROM. ABSENT: calf tenderness, clubbing, pedal edema Neurological exam: PRESENT: altered, CN II-XII grossly intact, other - unresponsive. ABSENT: motor sensory deficit Psychiatric exam: PRESENT: flat affect, other - unresponsive Skin exam: PRESENT: other - stage 4 clean sacral wound Results Laboratory Results: 11/27/16 05:30 11/27/16 05:30 11/27/16 11/27/16 05:30 05:30 WBC 5.8 RBC 3.31 L Hgb 9.4 L Hct 28.8 L MCV 87 MCH 28.4 MCHC 32.6 RDW 18.4 H Plt Count 184 Seg Neutrophils % 66.5 Lymphocytes % 24.8 Monocytes % 4.2 Eosinophils % 3.6 Basophils % 0.9 Absolute Neutrophils 3.9 Absolute Lymphocytes 1.4 Absolute Monocytes 0.2 Absolute Eosinophils 0.2 Absolute Basophils 0.1 Sodium 142.0 Potassium 3.8 Chloride 101 Carbon Dioxide 29 Anion Gap 12 BUN 17 Creatinine 0.34 L Est GFR ( Amer) > 60 Est GFR (Non-Af Amer) > 60 Glucose 134 H Calcium 9.1 Impressions: KUB X-Ray 11/23/16 20:30 IMPRESSION: Marked constipation. Chest X-Ray 11/24/16 15:04 IMPRESSION: No pneumothorax post left IJ central venous catheter placement. Some mild residual atelectasis/ scarring in the left lung base, improved from prior study. Assessment & Plan - Diagnosis (1) Dehydration Is this a current diagnosis for this admission?: YesPlan: Patient with significant hypernatremia now resolved to normal. Will IV fluid and free water (2) Acute respiratory failure with hypoxia and hypercapnia Is this a current diagnosis for this admission?: YesPlan: Continue broad-spectrum IV antibiotic. Most likely related to aspiration (3) Constipation Qualifiers: Constipation type: unspecified constipation type Qualified Code(s): K59.00 - Constipation, unspecified Is this a current diagnosis for this admission?: YesPlan: Continue cathartics (4) Decubitus ulcer, stage III Qualifiers: Pressure ulcer location: sacral region Qualified Code(s): L89.153 - Pressure ulcer of sacral region, stage 3 Is this a current diagnosis for this admission?: YesPlan: Continue local wound care with wet to dry dressing (5) Pneumonia Is this a current diagnosis for this admission?: YesPlan: Likely aspiration pneumonia continue antibiotics (6) Anemia Qualifiers: Anemia type: iron deficiency Iron deficiency anemia type: unspecified iron deficiency Qualified Code(s): D50.9 - Iron deficiency anemia, unspecified Is this a current diagnosis for this admission?: YesPlan: Stable - Time Time Spent with patient: 25-34 minutes Critical Time spent with patient: 15-24 minutes Medications reviewed and adjusted accordingly: Yes Anticipated discharge: SNF
[2016-11-28] MEDS: HEPARIN SOD (PORCINE) 5,000 UNIT/ML 1 ML SYRINGE SUBCUT SCH ×4 (00:03→22:04)
[2016-11-28] MEDS: PIPERACILLIN SODIUM/TAZOBACTAM 3.375 GM in NORMAL SALINE 100 ML IV SCH ×4 (00:08→18:55)
[2016-11-28] MEDS: IPRATROPIUM/ALBUTEROL 0.5-2.5 MG/3 ML AMPUL NEB PRN ×4 (02:06→19:51)
[2016-11-28] MEDS: ACETYLCYSTEINE 20% SOLN 800 MG/4 ML VIAL.NEB NEB SCH ×4 (02:06→19:51)
[2016-11-28] MEDS: LACTULOSE SYRUP 20 GM/30 ML UDCUP PEG SCH ×2 (11:31→18:07)
[2016-11-28] MEDS: POTASSIUM CHLORIDE 20 MEQ/15 ML UDCUP PEG SCH (11:31)
[2016-11-28] MEDS: INSULIN GLARGINE,HUM.REC.ANLOG 300 UNIT/3 ML INSULN.PEN SUBCUT SCH (11:32)
[2016-11-28] MEDS: CALCIUM CARBONATE 500 MG TABLET PEG SCH ×2 (11:32→18:07)
[2016-11-28] MEDS: POLYETHYLENE GLYCOL 3350 POWDER 17 GM/1 PACKET PEG SCH (11:32)
[2016-11-28] MEDS: LEVOTHYROXINE SODIUM 0.088 MG TABLET PEG SCH (11:32)
[2016-11-29] MEDS: PIPERACILLIN SODIUM/TAZOBACTAM 3.375 GM in NORMAL SALINE 100 ML IV SCH ×5 (01:00→23:26)
[2016-11-29] MEDS: ACETYLCYSTEINE 20% SOLN 800 MG/4 ML VIAL.NEB NEB SCH ×4 (01:45→20:06)
[2016-11-29] MEDS: IPRATROPIUM/ALBUTEROL 0.5-2.5 MG/3 ML AMPUL NEB PRN ×4 (01:45→20:06)
[2016-11-29] MEDS: HEPARIN SOD (PORCINE) 5,000 UNIT/ML 1 ML SYRINGE SUBCUT SCH ×3 (06:17→21:49)
[2016-11-29 06:31] LABS: ABSOLUTE EOSINOPHILS # (AUTO) 0.2 10^3/uL (0.0-0.6); ABSOLUTE LYMPHOCYTES (AUTO) 1.5 10^3/uL (0.5-4.7); ABSOLUTE MONOCYTES (AUTO) 0.3 10^3/uL (0.1-1.4); ABSOLUTE NEUT (AUTO) 3.1 10^3/uL (1.7-8.2); BASOPHILS % (AUTO) 0.5 % (0-2); EOSINOPHILS % (AUTO) 3.4 % (0-6); HEMATOCRIT 28.8 % (36.0-47.0); HEMOGLOBIN 9.3 g/dL (12.0-15.5); HGB HCT DIFFERENCE -0.9; LYMPHOCYTES % (AUTO) 30.1 % (13-45); MEAN CORPUSCULAR HEMOGLOBIN 28.2 pg (27.0-33.4); MEAN CORPUSCULAR HGB CONC 32.2 g/dL (32.0-36.0); MEAN CORPUSCULAR VOLUME 88 fl (80-97); MONOCYTES % (AUTO) 5.3 % (3-13); RED BLOOD COUNT 3.29 10^6/uL (3.72-5.28); RED CELL DISTRIBUTION WIDTH 18.3 % (11.5-14.0); SEGMENTED NEUTROPHILS % (AUTO) 60.7 % (42-78)
[2016-11-29 06:43] LABS: ANION GAP 13 (5-19); BLOOD UREA NITROGEN 13 mg/dL (7-20); CALCIUM 9.4 mg/dL (8.4-10.2); CARBON DIOXIDE 29 mmol/L (22-30); CHLORIDE 105 mmol/L (98-107); CREATININE RESULT 0.38 mg/dL (0.52-1.25); GLUCOSE 141 mg/dL (75-110); POTASSIUM 3.9 mmol/L (3.6-5.0); SODIUM 147.3 mmol/L (137-145)
[2016-11-29] MEDS: POTASSIUM CHLORIDE 20 MEQ/15 ML UDCUP PEG SCH (10:55)
[2016-11-29] MEDS: LACTULOSE SYRUP 20 GM/30 ML UDCUP PEG SCH ×2 (10:55→17:02)
[2016-11-29] MEDS: LEVOTHYROXINE SODIUM 0.088 MG TABLET PEG SCH (10:56)
[2016-11-29] MEDS: CALCIUM CARBONATE 500 MG TABLET PEG SCH ×2 (10:56→17:02)
[2016-11-29] MEDS: POLYETHYLENE GLYCOL 3350 POWDER 17 GM/1 PACKET PEG SCH (10:56)
[2016-11-29] MEDS: INSULIN GLARGINE,HUM.REC.ANLOG 300 UNIT/3 ML INSULN.PEN SUBCUT SCH (10:56)
--- NOTE | 2016-11-29 13:23 | PDOC PROGRESS REPORT ---
Subjective Progress Note for:: 11/29/16 Subjective:: Patient is seen on morning rounds. She is resting in bed. She remains unresponsive. She has some upper airway congestion and moist cough. Review of systems is unobtainable due to patient's mentation. There are no family members at the bedside. Physical Exam Vital Signs: Temp Pulse Resp BP Pulse Ox 97.7 F 89 22 H 121/60 100 11/29/16 12:00 11/29/16 12:00 11/29/16 12:00 11/29/16 12:00 11/29/16 12:00 Intake & Output 11/28/16 11/29/16 11/30/16 06:59 06:59 06:59 Intake Total 1510 5207 Output Total 2125 1975 300 Balance -615 3232 -300 Weight 94.1 kg 96.3 kg General appearance: PRESENT: no acute distress, obese, well-developed, well- nourished, other - unresponsive Head exam: PRESENT: atraumatic, normocephalic Eye exam: PRESENT: conjunctiva pink, EOMI, PERRLA. ABSENT: scleral icterus Ear exam: PRESENT: normal external ear exam Mouth exam: PRESENT: moist, tongue midline Neck exam: ABSENT: carotid bruit, JVD, lymphadenopathy, thyromegaly Respiratory exam: PRESENT: clear to auscultation regan. ABSENT: rales, rhonchi, wheezes Cardiovascular exam: PRESENT: RRR. ABSENT: diastolic murmur, rubs, systolic murmur Pulses: PRESENT: normal dorsalis pedis pul Vascular exam: PRESENT: normal capillary refill GI/Abdominal exam: PRESENT: normal bowel sounds, soft. ABSENT: distended, guarding, mass, organolmegaly, rebound, tenderness Rectal exam: PRESENT: deferred Extremities exam: PRESENT: full ROM. ABSENT: calf tenderness, clubbing, pedal edema Neurological exam: PRESENT: altered Psychiatric exam: PRESENT: flat affect, other - unresponsive to verbal or tactile stimuli. ABSENT: homicidal ideation, suicidal ideation Skin exam: PRESENT: other - stage 4 sacral wound Results Laboratory Results: 11/29/16 06:00 11/29/16 06:00 11/29/16 11/29/16 06:00 06:00 WBC 5.0 RBC 3.29 L Hgb 9.3 L Hct 28.8 L MCV 88 MCH 28.2 MCHC 32.2 RDW 18.3 H Plt Count 210 Seg Neutrophils % 60.7 Lymphocytes % 30.1 Monocytes % 5.3 Eosinophils % 3.4 Basophils % 0.5 Absolute Neutrophils 3.1 Absolute Lymphocytes 1.5 Absolute Monocytes 0.3 Absolute Eosinophils 0.2 Absolute Basophils 0.0 Sodium 147.3 H Potassium 3.9 Chloride 105 Carbon Dioxide 29 Anion Gap 13 BUN 13 Creatinine 0.38 L Est GFR ( Amer) > 60 Est GFR (Non-Af Amer) > 60 Glucose 141 H Calcium 9.4 Magnesium 2.0 Impressions: KUB X-Ray 11/23/16 20:30 IMPRESSION: Marked constipation. Chest X-Ray 11/24/16 15:04 IMPRESSION: No pneumothorax post left IJ central venous catheter placement. Some mild residual atelectasis/ scarring in the left lung base, improved from prior study. Assessment & Plan - Diagnosis (1) Dehydration Is this a current diagnosis for this admission?: YesPlan: Patient with significant hypernatremia now resolved to normal. Continue free water with enteral feedings (2) Acute respiratory failure with hypoxia and hypercapnia Is this a current diagnosis for this admission?: YesPlan: Continue broad-spectrum IV antibiotic. Most likely related to aspiration. She has been on and off BIPAP. Chest xray shows no pneumonia. Palliative Care consult for goals of care discussion with family who are not present (3) Constipation Qualifiers: Constipation type: unspecified constipation type Qualified Code(s): K59.00 - Constipation, unspecified Is this a current diagnosis for this admission?: YesPlan: Resolved with enemas. Continue cathartics (4) Decubitus ulcer, stage III Qualifiers: Pressure ulcer location: sacral region Qualified Code(s): L89.153 - Pressure ulcer of sacral region, stage 3 Is this a current diagnosis for this admission?: YesPlan: Continue local wound care with wet to dry dressing (5) Pneumonia Is this a current diagnosis for this admission?: YesPlan: Likely aspiration pneumonia continue antibiotics (6) Anemia Qualifiers: Anemia type: iron deficiency Iron deficiency anemia type: unspecified iron deficiency Qualified Code(s): D50.9 - Iron deficiency anemia, unspecified Is this a current diagnosis for this admission?: YesPlan: Stable - Time Time Spent with patient: 25-34 minutes Critical Time spent with patient: 15-24 minutes Medications reviewed and adjusted accordingly: Yes Anticipated discharge: SNF Within: within 48 hours
--- NOTE | 2016-11-29 22:11 | Progress Note ---
Provider Note Provider Note: Palliative care Note Appreciate consult request for palliative care consult with this 61 year old woman who is a resident of [facility] and has been admitted with fecal impaction and respiratory distress. At time of my visit today ( 2:50 pm) there was no family present. Patient is unresponsive, but does try to open eyes to verbal stimuli. SHe was on Bipap and had some noted use of accessory muscles for breathing. She did not seem uncomfortable at the time of visit. I left my business card, brochure and personal note requesting family call me at their convenience to discuss patients care. I will try to reach daughter Mabel Wayne tomorrow if not call received from family. Need to discuss goals of care. Will follow.
[2016-11-30] MEDS: ACETYLCYSTEINE 20% SOLN 800 MG/4 ML VIAL.NEB NEB SCH ×4 (02:08→20:29)
[2016-11-30] MEDS: IPRATROPIUM/ALBUTEROL 0.5-2.5 MG/3 ML AMPUL NEB PRN ×2 (02:08→08:01)
[2016-11-30] MEDS ORDERED: NORMAL SALINE 1000 ML 1,000 ML IV ONE (05:00)
[2016-11-30] MEDS: PIPERACILLIN SODIUM/TAZOBACTAM 3.375 GM in NORMAL SALINE 100 ML IV SCH ×2 (05:31→11:33)
[2016-11-30] MEDS: HEPARIN SOD (PORCINE) 5,000 UNIT/ML 1 ML SYRINGE SUBCUT SCH ×3 (05:31→22:24)
[2016-11-30] MEDS: POTASSIUM CHLORIDE 20 MEQ/15 ML UDCUP PEG SCH (11:29)
[2016-11-30] MEDS: LEVOTHYROXINE SODIUM 0.088 MG TABLET PEG SCH (11:30)
[2016-11-30] MEDS: POLYETHYLENE GLYCOL 3350 POWDER 17 GM/1 PACKET PEG SCH (11:30)
[2016-11-30] MEDS: INSULIN GLARGINE,HUM.REC.ANLOG 300 UNIT/3 ML INSULN.PEN SUBCUT SCH (11:30)
[2016-11-30] MEDS: LACTULOSE SYRUP 20 GM/30 ML UDCUP PEG SCH ×2 (11:30→17:53)
[2016-11-30] MEDS: CALCIUM CARBONATE 500 MG TAB.CHEW PO SCH ×2 (11:30→17:53)
[2016-11-30] MEDS: LEVALBUTEROL HCL NEB 1.25 MG/3 ML AMPUL NEB PRN ×2 (14:09→20:29)
--- NOTE | 2016-11-30 16:56 | PDOC PROGRESS REPORT ---
Subjective Progress Note for:: 11/30/16 Subjective:: The patient's been seen earlier today on rounds. The patient is unresponsive. She will open her eyes to noxious stimuli other words the patient is unresponsive. Numerous attempts have been made to contact both persons listed as next of kin bouts success. I discussed the case with Jaspal who is power of securities attorney. Fawad stated that she was going to call and discuss with her siblings the patient's CODE STATUS and potential comfort care. He is agreed to communicate with Shara Vela this afternoon. I have extended myself to answer further questions tomorrow. At this time Fawad has elected to proceed with no chest compressions. Physical Exam Vital Signs: Temp Pulse Resp BP Pulse Ox 97.4 F 70 17 131/68 H 100 11/30/16 11:53 11/30/16 14:08 11/30/16 14:08 11/30/16 11:53 11/30/16 11:53 Intake & Output 11/28/16 11/29/16 11/30/16 23:59 23:59 23:59 Intake Total 1000 6077 2457 Output Total 2525 675 600 Balance -1525 5402 1857 Weight 94.1 kg 96.3 kg 97.4 kg General appearance: PRESENT: disheveled Exam: Frail, chronically ill-appearing Head exam: PRESENT: normocephalic Eye exam: PRESENT: conjunctiva pale, EOMI, periorbital swelling, other - Disc conjunctiva gaze. ABSENT: scleral icterus Ear exam: PRESENT: normal external ear exam Mouth exam: PRESENT: moist, tongue midline Neck exam: ABSENT: carotid bruit, JVD, lymphadenopathy, thyromegaly Respiratory exam: PRESENT: crackles, symmetrical, wheezes. ABSENT: rales, rhonchi, tachypnea, unlabored Cardiovascular exam: PRESENT: RRR. ABSENT: diastolic murmur, rubs, systolic murmur Pulses: PRESENT: +1 pedal pulses bilateral Vascular exam: PRESENT: pallor GI/Abdominal exam: PRESENT: normal bowel sounds, soft, other - PEG tube in situ. ABSENT: distended, guarding, mass, organolmegaly, rebound, tenderness Rectal exam: PRESENT: deferred Extremities exam: PRESENT: other - Cold. ABSENT: clubbing, pedal edema Neurological exam: PRESENT: altered - Will awaken and noxious stimuli, motor sensory deficit Psychiatric exam: PRESENT: flat affect Skin exam: PRESENT: dry, intact, pallor, warm. ABSENT: cyanosis, rash Results Laboratory Results: 11/29/16 06:00 11/29/16 06:00 Impressions: KUB X-Ray 11/23/16 20:30 IMPRESSION: Marked constipation. Chest X-Ray 11/30/16 00:00 IMPRESSION: There is slight increase in the pulmonary vascular markings compared to the earlier study. There is no pilar CHF. Assessment & Plan - Diagnosis (1) Aspiration pneumonia Qualifiers: Aspiration pneumonia type: due to regurgitated food Laterality: right Lung location: lower lobe of lung Qualified Code(s): J69.0 - Pneumonitis due to inhalation of food and vomit Is this a current diagnosis for this admission?: YesPlan: The patient has completed 6 days of IV antibiotic coverage will transition to Augmentin. Will repeat chest x-ray given the patient's lung sounds. (2) Acute respiratory failure with hypoxia and hypercapnia Is this a current diagnosis for this admission?: YesPlan: The patient is still on BiPAP. Will attempt to wean this. Numerous attempts have been made to contact family. (3) UTI (urinary tract infection) Qualifiers: Urinary tract infection type: site unspecified Hematuria presence: without hematuria Qualified Code(s): N39.0 - Urinary tract infection, site not specified Is this a current diagnosis for this admission?: YesPlan: Proteus this is sensitive to penicillin. (4) Diabetes mellitus type 2 in obese Is this a current diagnosis for this admission?: YesPlan: Will continue current regimen. Sugars are well controlled. (5) Iron deficiency anemia Qualifiers: Iron deficiency anemia type: unspecified iron deficiency Qualified Code(s): D50.9 - Iron deficiency anemia, unspecified Is this a current diagnosis for this admission?: YesPlan: Continue to supplement. Hemoglobin has drifted down but will monitor. (6) Constipation Qualifiers: Constipation type: unspecified constipation type Qualified Code(s): K59.00 - Constipation, unspecified Is this a current diagnosis for this admission?: Yes (7) Elevated LFTs Is this a current diagnosis for this admission?: YesPlan: Will repeat in the a.m. (8) Elevated TSH Is this a current diagnosis for this admission?: YesPlan: Has a normal T4 (9) Hypernatremia Is this a current diagnosis for this admission?: YesPlan: Significant free water deficit. This has persisted. Will increase free water flushes. (10) Persistent vegetative state Is this a current diagnosis for this admission?: Yes (11) Stage II pressure ulcer of sacral region Is this a current diagnosis for this admission?: No (12) Decubitus ulcer, stage III Qualifiers: Pressure ulcer location: sacral region Qualified Code(s): L89.153 - Pressure ulcer of sacral region, stage 3 Is this a current diagnosis for this admission?: No (13) Sacral decubitus ulcer, stage IV Is this a current diagnosis for this admission?: No - Time Time Spent with patient: 35 or more minutes Medications reviewed and adjusted accordingly: Yes Anticipated discharge: SNF Within: within 24 hours
[2016-11-30] MEDS: AMOXICILLIN TR/POT CLAVULANATE ES 600-42.9 MG/5 ML 75 ML PO SCH (22:24)
[2016-12-01] MEDS: ACETYLCYSTEINE 20% SOLN 800 MG/4 ML VIAL.NEB NEB SCH ×4 (02:28→20:22)
[2016-12-01] MEDS: LEVALBUTEROL HCL NEB 1.25 MG/3 ML AMPUL NEB PRN ×3 (02:29→20:22)
[2016-12-01] MEDS: HEPARIN SOD (PORCINE) 5,000 UNIT/ML 1 ML SYRINGE SUBCUT SCH ×3 (05:26→23:40)
[2016-12-01 08:16] LABS: ALANINE AMINOTRANSFERASE 71 U/L (9-52); ALBUMIN 3.2 g/dL (3.5-5.0); ALKALINE PHOSPHATASE 75 U/L (38-126); ANION GAP 11 (5-19); ASPARTATE AMINO TRANSFERASE 30 U/L (14-36); BILIRUBIN,DIRECT 0.1 mg/dL (0.0-0.4); BILIRUBIN,TOTAL 0.3 mg/dL (0.2-1.3); BLOOD UREA NITROGEN 14 mg/dL (7-20); CALCIUM 9.3 mg/dL (8.4-10.2); CARBON DIOXIDE 28 mmol/L (22-30); CHLORIDE 103 mmol/L (98-107); CREATININE RESULT 0.31 mg/dL (0.52-1.25); GLUCOSE 111 mg/dL (75-110); SODIUM 142.2 mmol/L (137-145)
[2016-12-01 08:17] LABS: POTASSIUM 4.4 mmol/L (3.6-5.0)
[2016-12-01] MEDS: INSULIN GLARGINE,HUM.REC.ANLOG 300 UNIT/3 ML INSULN.PEN SUBCUT SCH (11:35)
[2016-12-01] MEDS: LACTULOSE SYRUP 20 GM/30 ML UDCUP PEG SCH ×2 (11:51→18:15)
[2016-12-01] MEDS: POTASSIUM CHLORIDE 20 MEQ/15 ML UDCUP PEG SCH (11:53)
[2016-12-01] MEDS: CALCIUM CARBONATE 500 MG TAB.CHEW PO SCH ×2 (11:54→18:15)
[2016-12-01] MEDS: LEVOTHYROXINE SODIUM 0.088 MG TABLET PEG SCH (11:54)
[2016-12-01] MEDS: POLYETHYLENE GLYCOL 3350 POWDER 17 GM/1 PACKET PEG SCH (11:55)
[2016-12-01] MEDS: AMOXICILLIN TR/POT CLAVULANATE ES 600-42.9 MG/5 ML 75 ML PO SCH ×2 (11:57→23:40)
--- NOTE | 2016-12-01 13:05 | PDOC PROGRESS REPORT ---
Subjective Progress Note for:: 12/01/16 Subjective:: The patient's been seen earlier today on rounds. The patient is unresponsive. She will open her eyes to noxious stimuli. Contact has been made with Jaspal, the patient's power of telegraph and teletype operator. Jaspal stated that she was going to call and discuss with her siblings INTUBATION and potential comfort care. He has been communicating with Shara Vela this afternoon. I have extended myself to answer further questions. At this time Jaspal has elected to proceed with no CPR. Physical Exam Vital Signs: Temp Pulse Resp BP Pulse Ox 98.2 F 80 12 127/75 H 100 12/01/16 12:00 12/01/16 12:00 12/01/16 12:00 12/01/16 12:00 12/01/16 12:00 Intake & Output 11/29/16 11/30/16 12/01/16 23:59 23:59 23:59 Intake Total 6077 5164 906 Output Total 840 917 2546 Balance 5402 4564 -994 Weight 96.3 kg 97.4 kg 99 kg General appearance: PRESENT: disheveled Exam: Frail, chronically ill-appearing Head exam: PRESENT: normocephalic Eye exam: PRESENT: conjunctiva pale, EOMI, periorbital swelling, other - Disc conjunctiva gaze. ABSENT: scleral icterus Ear exam: PRESENT: normal external ear exam Mouth exam: PRESENT: moist, tongue midline Neck exam: ABSENT: carotid bruit, JVD, lymphadenopathy, thyromegaly Respiratory exam: PRESENT: crackles, symmetrical, wheezes. ABSENT: rales, rhonchi, tachypnea, unlabored Cardiovascular exam: PRESENT: RRR. ABSENT: diastolic murmur, rubs, systolic murmur Pulses: PRESENT: +1 pedal pulses bilateral Vascular exam: PRESENT: pallor GI/Abdominal exam: PRESENT: normal bowel sounds, soft, other - PEG tube in situ. ABSENT: distended, guarding, mass, organolmegaly, rebound, tenderness Rectal exam: PRESENT: deferred Extremities exam: PRESENT: other - Cold. ABSENT: clubbing, pedal edema Neurological exam: PRESENT: altered - Will awaken and noxious stimuli, motor sensory deficit Psychiatric exam: PRESENT: flat affect Skin exam: PRESENT: dry, intact, pallor, warm. ABSENT: cyanosis, rash Results Laboratory Results: 11/29/16 06:00 12/01/16 07:00 12/01/16 07:00 Sodium 142.2 Potassium 4.4 Chloride 103 Carbon Dioxide 28 Anion Gap 11 BUN 14 Creatinine 0.31 L Est GFR ( Amer) > 60 Est GFR (Non-Af Amer) > 60 Glucose 111 H Calcium 9.3 Total Bilirubin 0.3 AST 30 ALT 71 H Alkaline Phosphatase 75 Total Protein 6.0 L Albumin 3.2 L Impressions: KUB X-Ray 11/23/16 20:30 IMPRESSION: Marked constipation. Chest X-Ray 11/30/16 00:00 IMPRESSION: There is slight increase in the pulmonary vascular markings compared to the earlier study. There is no pilar CHF. Assessment & Plan - Diagnosis (1) Aspiration pneumonia Qualifiers: Aspiration pneumonia type: due to regurgitated food Laterality: right Lung location: lower lobe of lung Qualified Code(s): J69.0 - Pneumonitis due to inhalation of food and vomit Is this a current diagnosis for this admission?: YesPlan: The patient has completed 6 days of IV antibiotic coverage will transition to Augmentin. Given that the patient is on BiPAP the chance of re-aspiration is great. Will discontinue BiPAP and attempt to transition to nasal cannula and monitor the patient's response. (2) Acute respiratory failure with hypoxia and hypercapnia Is this a current diagnosis for this admission?: YesPlan: Will DC BiPAP. Family is uncertain if they would like to continue this. (3) UTI (urinary tract infection) Qualifiers: Urinary tract infection type: site unspecified Hematuria presence: without hematuria Qualified Code(s): N39.0 - Urinary tract infection, site not specified Is this a current diagnosis for this admission?: YesPlan: Proteus this is sensitive to penicillin. (4) Diabetes mellitus type 2 in obese Is this a current diagnosis for this admission?: YesPlan: Will continue current regimen. Sugars are well controlled. (5) Iron deficiency anemia Qualifiers: Iron deficiency anemia type: unspecified iron deficiency Qualified Code(s): D50.9 - Iron deficiency anemia, unspecified Is this a current diagnosis for this admission?: YesPlan: Continue to supplement. Hemoglobin has drifted down but will monitor. (6) Constipation Qualifiers: Constipation type: unspecified constipation type Qualified Code(s): K59.00 - Constipation, unspecified Is this a current diagnosis for this admission?: Yes (7) Elevated LFTs Is this a current diagnosis for this admission?: YesPlan: Will repeat in the a.m. (8) Elevated TSH Is this a current diagnosis for this admission?: YesPlan: Has a normal T4 (9) Hypernatremia Is this a current diagnosis for this admission?: YesPlan: Significant free water deficit. This has persisted. Will increase free water flushes. (10) Persistent vegetative state Is this a current diagnosis for this admission?: Yes (11) Stage II pressure ulcer of sacral region Is this a current diagnosis for this admission?: No (12) Decubitus ulcer, stage III Qualifiers: Pressure ulcer location: sacral region Qualified Code(s): L89.153 - Pressure ulcer of sacral region, stage 3 Is this a current diagnosis for this admission?: No (13) Sacral decubitus ulcer, stage IV Is this a current diagnosis for this admission?: No - Time Time Spent with patient: 25-34 minutes Medications reviewed and adjusted accordingly: Yes Anticipated discharge: SNF Within: within 24 hours Disposition: The patient is no CPR.
--- NOTE | 2016-12-01 17:42 | PDOC CONSULTATION ---
Consultation Consult Date: 12/01/16 Attending physician:: ORLANDO BREEN Consult reason:: Clogged Peg Tube History of Present Illness Admission Date/PCP: 11/24/16 03:58 History of Present Illness: I was asked to see this patient by Nursing since not able to declog the present peg tube I had seen the patient last year for the same problem currently ? if patient is on comfort care status family has elected to continue PEG feedings PEG was working reasonably well until some time this am when could not have tube feeds PEG was attempted to be declogged but without any success the bumper seems to have migrated down it was pulled back slightly, and then I applied the brush again this was it was successful I then tested with the infusion of 10ml of saline, no leak status of patient needs to be determined patient does have a PEG site infection that will need to be addressed ? 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 Social History Smoking Status: Unknown if Ever Smoked Frequency of Alcohol Use: None Hx Recreational Drug Use: No Drugs: None Hx Prescription Drug Abuse: No - Advance Directive Resuscitation Status: Full Code Family History Family History: Other - Not available due to patient condition Parental Family History Reviewed: Yes Children Family History Reviewed: Unknown Sibling(s) Family History Reviewed.: Unknown Medication/Allergy Home Medications: Acetaminophen [Children's Acetaminophen] 650 mg PEG Q4HP PRN 11/24/16 Acetaminophen [Tylenol 650 mg Supp] 650 mg KS Q4HP PRN 11/24/16 Acetylcysteine [Mucomist 20% Soln 800 mg/4 mL] 1 vial NEB Q6 11/24/16 Bisacodyl [Dulcolax 10 mg Supp.rect] 10 mg KS Q2D PRN 11/24/16 Calcium Carbonate [Calcium] 500 mg PEG BID 11/24/16 Ergocalciferol (Vitamin D2) [Vitamin D] 400 unit PEG BID 11/24/16 Esomeprazole Magnesium [Nexium] 1 packet PEG BID 11/24/16 Furosemide [Lasix] 20 mg PEG DAILY 11/24/16 Insulin Glargine,Hum.rec.anlog [Lantus] 15 unit SQ DAILY 11/24/16 Lactulose [Constulose 10 gm/15 mL Oral Solution] 15 ml PEG BID 11/24/16 Levalbuterol HCl [Xopenex Neb 1.25 mg/3 ml Ampul] 1 vial NEB Q4HP PRN 11/24/16 Levothyroxine Sodium [Synthroid 0.088 mg Tablet] 0.088 mg PEG DAILY 11/24/16 Magnesium Hydroxide [Milk of Magnesia 30 ml Udcup] 30 ml PEG DAILYP PRN Na Phos,M-B/Na Phos,Di-Ba [Fleet Enema (Adult) 133 ml] 133 ml KS DAILY 11/24/16 Polyethylene Glycol 3350 [Miralax Powder 17 gm/Packet] 1 packet PEG DAILY Potassium Chloride [Kaon-Cl 20 Meq/15 ml Udcup] 15 ml PEG DAILY 11/24/16 Allergies/Adverse Reactions: PPD black rubber mix Adverse Reaction (Verified 06/20/16 01:31) Review of Systems Constitutional: ABSENT: fever(s), night sweats Nose, Mouth, and Throat: ABSENT: sore throat Cardiovascular: ABSENT: palpitations Respiratory: ABSENT: sputum Gastrointestinal: ABSENT: hematochezia, melena Genitourinary: ABSENT: nocturia Musculoskeletal: ABSENT: joint swelling Integumentary: ABSENT: lesions Neurological: PRESENT: confusion. ABSENT: restless legs, tingling Endocrine: ABSENT: polydipsia, polyphagia, polyuria Hematologic/Lymphatic: ABSENT: easy bruising Physical Exam Vital Signs: Temp Pulse Resp BP Pulse Ox 98.1 F 80 14 140/91 H 100 12/01/16 16:00 12/01/16 16:00 12/01/16 16:00 12/01/16 16:00 12/01/16 16:00 Intake & Output 11/30/16 12/01/16 12/02/16 06:59 06:59 06:59 Intake Total 3427 3538 75 Output Total 900 1900 800 Balance 2527 1638 -725 Weight 97.4 kg 99 kg General appearance: PRESENT: no acute distress Head exam: PRESENT: atraumatic, normocephalic Eye exam: PRESENT: EOMI, PERRLA. ABSENT: conjunctival injection, nystagmus, scleral icterus Mouth exam: PRESENT: neck supple Throat exam: ABSENT: tonsillogmegaly Neck exam: ABSENT: carotid bruit, tenderness, thyromegaly Respiratory exam: PRESENT: symmetrical, unlabored Cardiovascular exam: PRESENT: RRR, +S1, +S2 Vascular exam: PRESENT: normal capillary refill GI/Abdominal exam: ABSENT: Wayne's sign, rebound, rigid, tenderness Extremities exam: PRESENT: +1 edema. ABSENT: joint swelling Neurological exam: PRESENT: altered Skin exam: ABSENT: mottled, petechiae, urticaria, vesicles Results Laboratory Results: 11/29/16 06:00 12/01/16 07:00 12/01/16 07:00 Sodium 142.2 Potassium 4.4 Chloride 103 Carbon Dioxide 28 Anion Gap 11 BUN 14 Creatinine 0.31 L Est GFR ( Amer) > 60 Est GFR (Non-Af Amer) > 60 Glucose 111 H Calcium 9.3 Total Bilirubin 0.3 AST 30 ALT 71 H Alkaline Phosphatase 75 Total Protein 6.0 L Albumin 3.2 L Impressions: KUB X-Ray 11/23/16 20:30 IMPRESSION: Marked constipation. Chest X-Ray 11/30/16 00:00 IMPRESSION: There is slight increase in the pulmonary vascular markings compared to the earlier study. There is no pilar CHF. Assessment & Plan - Diagnosis (1) Feeding tube obstruction Plan: due to crystallized food particles successful declogging using PEG brush bumper may have migrated as well this was pulled back (2) Infection of gastrostomy site Plan: clean site daily with H2O2 and betadine topical antibiotics if patient status were to change, ? if changing PEG tube may be necessary - Time Time Spent: 50 to 70 Minutes
[2016-12-02] MEDS: ACETYLCYSTEINE 20% SOLN 800 MG/4 ML VIAL.NEB NEB SCH ×4 (02:19→20:21)
[2016-12-02] MEDS: LEVALBUTEROL HCL NEB 1.25 MG/3 ML AMPUL NEB PRN ×4 (02:20→20:21)
[2016-12-02] MEDS: HEPARIN SOD (PORCINE) 5,000 UNIT/ML 1 ML SYRINGE SUBCUT SCH ×3 (06:52→22:07)
[2016-12-02] MEDS ORDERED: MINERAL OIL ENEMA 133 ML PR PRN (08:28)
[2016-12-02] MEDS ORDERED: BISACODYL 10 MG SUPP.RECT PR ONE (08:40)
[2016-12-02] MEDS ORDERED: MORPHINE SULFATE 10 MG/ML INJ IV ONE (09:13)
[2016-12-02] MEDS: POLYETHYLENE GLYCOL 3350 POWDER 17 GM/1 PACKET PEG SCH (11:55)
[2016-12-02] MEDS: LACTULOSE SYRUP 20 GM/30 ML UDCUP PEG SCH ×2 (12:07→17:14)
[2016-12-02] MEDS: POTASSIUM CHLORIDE 20 MEQ/15 ML UDCUP PEG SCH (12:07)
[2016-12-02] MEDS: CALCIUM CARBONATE 500 MG TAB.CHEW PO SCH ×2 (12:07→17:14)
[2016-12-02] MEDS: LEVOTHYROXINE SODIUM 0.088 MG TABLET PEG SCH (12:07)
[2016-12-02] MEDS: MUPIROCIN 2% OINTMENT 22 GM TP SCH ×2 (12:07→17:14)
[2016-12-02] MEDS: AMOXICILLIN TR/POT CLAVULANATE ES 600-42.9 MG/5 ML 75 ML PO SCH ×2 (12:09→22:07)
--- NOTE | 2016-12-02 12:33 | PDOC PROGRESS REPORT ---
Subjective Progress Note for:: 12/02/16 Subjective:: The patient's been seen earlier today on rounds. The patient is unresponsive. She will open her eyes to noxious stimuli. Contact has been made with Jaspal, the patient's power of annealer helper. Jaspal agreed with DNR/DNI. Physical Exam Vital Signs: Temp Pulse Resp BP Pulse Ox 97.3 F 75 18 125/56 L 99 12/02/16 08:00 12/02/16 08:14 12/02/16 08:14 12/02/16 08:00 12/02/16 08:14 Intake & Output 11/30/16 12/01/16 12/02/16 23:59 23:59 23:59 Intake Total 5164 906 0 Output Total 600 2700 1225 Balance 4474 -2759 -1225 Weight 97.4 kg 99 kg 99.4 kg General appearance: PRESENT: disheveled Exam: Frail, chronically ill-appearing Head exam: PRESENT: normocephalic Eye exam: PRESENT: conjunctiva pale, EOMI, periorbital swelling, other - Disc conjunctiva gaze. ABSENT: scleral icterus Ear exam: PRESENT: normal external ear exam Mouth exam: PRESENT: moist, tongue midline Neck exam: ABSENT: carotid bruit, JVD, lymphadenopathy, thyromegaly Respiratory exam: PRESENT: crackles, symmetrical, wheezes. ABSENT: rales, rhonchi, tachypnea, unlabored Cardiovascular exam: PRESENT: RRR. ABSENT: diastolic murmur, rubs, systolic murmur Pulses: PRESENT: +1 pedal pulses bilateral Vascular exam: PRESENT: pallor GI/Abdominal exam: PRESENT: normal bowel sounds, soft, other - PEG tube in situ. ABSENT: distended, guarding, mass, organolmegaly, rebound, tenderness Rectal exam: PRESENT: deferred Extremities exam: PRESENT: other - Cold. ABSENT: clubbing, pedal edema Neurological exam: PRESENT: altered - Will awaken and noxious stimuli, motor sensory deficit Psychiatric exam: PRESENT: flat affect Skin exam: PRESENT: dry, intact, pallor, warm. ABSENT: cyanosis, rash Results Laboratory Results: 11/29/16 06:00 12/01/16 07:00 Impressions: KUB X-Ray 11/23/16 20:30 IMPRESSION: Marked constipation. Chest X-Ray 11/30/16 00:00 IMPRESSION: There is slight increase in the pulmonary vascular markings compared to the earlier study. There is no pilar CHF. Assessment & Plan - Diagnosis (1) Aspiration pneumonia Qualifiers: Aspiration pneumonia type: due to regurgitated food Laterality: right Lung location: lower lobe of lung Qualified Code(s): J69.0 - Pneumonitis due to inhalation of food and vomit Is this a current diagnosis for this admission?: YesPlan: The patient has completed 6 days of IV antibiotic coverage will transition to Augmentin. She has tolerated nasal cannula thus far. (2) Acute respiratory failure with hypoxia and hypercapnia Is this a current diagnosis for this admission?: YesPlan: Did DC BiPAP. Family is uncertain if they would like to continue this. (3) UTI (urinary tract infection) Qualifiers: Urinary tract infection type: site unspecified Hematuria presence: without hematuria Qualified Code(s): N39.0 - Urinary tract infection, site not specified Is this a current diagnosis for this admission?: YesPlan: Proteus this is sensitive to penicillin. (4) Diabetes mellitus type 2 in obese Is this a current diagnosis for this admission?: YesPlan: Will continue current regimen. Sugars are well controlled. (5) Iron deficiency anemia Qualifiers: Iron deficiency anemia type: unspecified iron deficiency Qualified Code(s): D50.9 - Iron deficiency anemia, unspecified Is this a current diagnosis for this admission?: YesPlan: Continue to supplement. Hemoglobin has drifted down but will monitor. (6) Constipation Qualifiers: Constipation type: unspecified constipation type Qualified Code(s): K59.00 - Constipation, unspecified Is this a current diagnosis for this admission?: Yes (7) Elevated LFTs Is this a current diagnosis for this admission?: YesPlan: Will repeat in the a.m. (8) Elevated TSH Is this a current diagnosis for this admission?: YesPlan: Has a normal T4 (9) Hypernatremia Is this a current diagnosis for this admission?: YesPlan: Significant free water deficit. This has persisted. Will increase free water flushes. (10) Persistent vegetative state Is this a current diagnosis for this admission?: Yes (11) Stage II pressure ulcer of sacral region Is this a current diagnosis for this admission?: No (12) Decubitus ulcer, stage III Qualifiers: Pressure ulcer location: sacral region Qualified Code(s): L89.153 - Pressure ulcer of sacral region, stage 3 Is this a current diagnosis for this admission?: No (13) Sacral decubitus ulcer, stage IV Is this a current diagnosis for this admission?: No - Time Time Spent with patient: 35 or more minutes Medications reviewed and adjusted accordingly: Yes Anticipated discharge: SNF Within: within 24 hours, within 48 hours Disposition: The patient is a DO NOT RESUSCITATE DO NOT INTUBATE. Pending patient's symptomatology and diagnostic findings will reevaluate as needed.
[2016-12-02] MEDS: INSULIN GLARGINE,HUM.REC.ANLOG 300 UNIT/3 ML INSULN.PEN SUBCUT SCH (13:06)
--- NOTE | 2016-12-02 23:36 | Progress Note ---
Provider Note Provider Note: Palliaitve Care visit at 5:45 pm Patient in bed, unresponsive. Bipap no longer in use. No evidence of distress. No family at bedside. Patients daughter called me yesterday and we discussed futility of CPR and INtubation/ventilator. Explained what would happen if patient were to be put on ventilator and that she might need to go to LTAC and probably would never breath without it. DIscussed quality of care vs futility of heroic measures. Daughter, "Fawad", said she has MPOA, but she wanted to discuss with other siblings and would contact Harrison Calzada, hospitalist later in day to request DNR/DNI. I notified that she should be calling. She notified me later that DNR has been ordered. No other needs observed.
[2016-12-03] MEDS: ACETYLCYSTEINE 20% SOLN 800 MG/4 ML VIAL.NEB NEB SCH ×3 (01:51→14:05)
[2016-12-03] MEDS: LEVALBUTEROL HCL NEB 1.25 MG/3 ML AMPUL NEB PRN ×3 (01:51→14:06)
[2016-12-03] MEDS: HEPARIN SOD (PORCINE) 5,000 UNIT/ML 1 ML SYRINGE SUBCUT SCH ×2 (05:36→15:58)
[2016-12-03 08:10] VITALS: BP 124/64
--- NOTE | 2016-12-03 08:24 | PDOC TRANSFER SUMMARY ---
General - Admit/Disc Date/PCP Admission Date/Primary Care Provider: 11/24/16 03:58 Primary care provider: Mike Garcia Consulting l d rn: Dr. Menjivar Consulting palliative care provider: Shara Vela Discharge Date: 12/03/16 - Discharge Diagnosis (1) Aspiration pneumonia Is this a current diagnosis for this admission?: Yes (2) Acute respiratory failure with hypoxia and hypercapnia Is this a current diagnosis for this admission?: Yes (3) Chronic PEG feedings Is this a current diagnosis for this admission?: YesSummary: The source of #1 (4) UTI (urinary tract infection) Is this a current diagnosis for this admission?: YesSummary: Proteus which is sensitive to penicillins (5) Diabetes mellitus type 2 in obese Is this a current diagnosis for this admission?: Yes (6) Iron deficiency anemia Is this a current diagnosis for this admission?: Yes (7) Constipation Is this a current diagnosis for this admission?: Yes (8) Elevated LFTs Is this a current diagnosis for this admission?: Yes (9) Elevated TSH Is this a current diagnosis for this admission?: Yes (10) Hypernatremia Is this a current diagnosis for this admission?: Yes (11) Persistent vegetative state Is this a current diagnosis for this admission?: YesSummary: Recommendations have been made by palliative care for hospice management (12) Stage II pressure ulcer of sacral region Is this a current diagnosis for this admission?: No (13) Decubitus ulcer, stage III Is this a current diagnosis for this admission?: No (14) Sacral decubitus ulcer, stage IV Is this a current diagnosis for this admission?: No (15) Infection of gastrostomy site Is this a current diagnosis for this admission?: Yes (16) Do not resuscitate Is this a current diagnosis for this admission?: Yes - Additional Information Resuscitation Status: Do Not Resuscitate - DO NOT RESUSCITATE DO NOT INTUBATE Discharge Diet: Tube Feeding (Comments) - Glucerna 1.2 @ 60cc/hr, Other ( Comments) - Free water flushes 75cc q4h Discharge Activity: Activity As Tolerated Home Medications: Acetaminophen [Children's Acetaminophen] 650 mg PEG Q4HP PRN 11/24/16 Acetaminophen [Tylenol 650 mg Supp] 650 mg MT Q4HP PRN 11/24/16 Acetylcysteine [Mucomist 20% Soln 800 mg/4 mL] 1 vial NEB Q6 11/24/16 Bisacodyl [Dulcolax 10 mg Supp.rect] 10 mg MT Q2D PRN 11/24/16 Calcium Carbonate [Calcium] 500 mg PEG BID 11/24/16 Ergocalciferol (Vitamin D2) [Vitamin D] 400 unit PEG BID 11/24/16 Esomeprazole Magnesium [Nexium] 1 packet PEG BID 11/24/16 Furosemide [Lasix] 20 mg PEG DAILY 11/24/16 Insulin Glargine,Hum.rec.anlog [Lantus] 15 unit SQ DAILY 11/24/16 Lactulose [Constulose 10 gm/15 mL Oral Solution] 15 ml PEG BID 11/24/16 Levalbuterol HCl [Xopenex Neb 1.25 mg/3 ml Ampul] 1 vial NEB Q4HP PRN 11/24/16 Levothyroxine Sodium [Synthroid 0.088 mg Tablet] 0.088 mg PEG DAILY 11/24/16 Magnesium Hydroxide [Milk of Magnesia 30 ml Udcup] 30 ml PEG DAILYP PRN Na Phos,M-B/Na Phos,Di-Ba [Fleet Enema (Adult) 133 ml] 133 ml MT DAILY 11/24/16 Polyethylene Glycol 3350 [Miralax Powder 17 gm/Packet] 1 packet PEG DAILY Potassium Chloride [Kaon-Cl 20 Meq/15 ml Udcup] 15 ml PEG DAILY 11/24/16 Amox Tr/Potassium Clavulanate [Augmentin Es 600 mg-42.9 mg Susp 75 ml] 600 mg PEG Q12 #0 bottle 12/03/16 Mupirocin [Bactroban 2% Ointment 22 gm] 1 applic TP BID #0 tube 12/03/16 History of Present Illness Admission Date/PCP: 11/24/16 03:58 Mike Verde Patient complains of: Fever and respiratory distress History of Present Illness: Ms. Altman is a 61-year-old -[place] female the past medical history of traumatic brain injury with subsequent persistent vegetative state for over 30 years which is well known to the hospitalist service. The patient presented to the emergency department via EMS from [facility] with complaint of fever , tachypnea and abdominal distention. EMS unaware of onset. EMS denies any productive cough, vomiting, diarrhea or constipation. The patient was found to be significantly hypernatremic with evidence of aspiration pneumonia was placed on BiPAP and referred the hospitalist remission and management. Hospital Course Hospital Course: The patient was admitted to continuous telemetry unit. The patient was placed on scheduled nebs, IV antibiotic coverage, expectorants, supplemental O2, and BiPAP. Repeat chest x-ray was suggestive improvement. Slowly, the patient was transitioned back to baseline oxygen. The patient's IV antibiotics were transitioned over to Augmentin given the patient's aspiration to also cover UTI. The patient completed a total of 6 days of IV antibiotic coverage before transition to Augmentin. Urine analysis and culture was obtained from chronic indwelling Morales due to urinary retention. The patient had findings suggestive of a urinary tract infection. Patient's urine culture revealed Proteus which was sensitive to amoxicillin and the patient received antibiotic coverage. The patient's symptoms completely resolved. The patient was found to be significantly hypernatremic. Patient was aggressively hydrated with IV fluids. The patient's free water flushes were increased to 75 mL every 4 hours. The patient's sodium has normalized with this. During the patient's stay the patient's PEG tube was noted to be unflushable. The patient was seen and evaluated by gastroenterology which was able to open up the patient's tube as it was impacted with feeding. Infection was noted around the PEG tube site and therefore the patient was given Bactroban dressing changes. Given the patient's prolonged vegetative state and multiple readmissions I discussed the case with an consult with palliative care. I discussed the case with Jaspal who is power of civil attorney. After numerous conversations with palliative care and myself the family has agreed to proceed with DO NOT RESUSCITATE DO NOT INTUBATE status. Physical Exam Vital Signs: Temp Pulse Resp BP Pulse Ox 98.1 F 76 17 124/64 100 12/03/16 08:10 12/03/16 08:10 12/03/16 08:10 12/03/16 08:10 12/03/16 08:10 Intake & Output 12/01/16 12/02/16 12/03/16 23:59 23:59 23:59 Intake Total 955 167 8471 Output Total 2700 1750 800 Balance -1794 -1080 1596 Weight 99 kg 99.4 kg 99.4 kg General appearance: PRESENT: disheveled Exam: Frail, chronically ill-appearing Head exam: PRESENT: normocephalic Eye exam: PRESENT: conjunctiva pale, EOMI, periorbital swelling, other - Disc conjunctiva gaze. ABSENT: scleral icterus Ear exam: PRESENT: normal external ear exam Mouth exam: PRESENT: moist, tongue midline Neck exam: ABSENT: carotid bruit, JVD, lymphadenopathy, thyromegaly Respiratory exam: PRESENT: crackles, symmetrical, wheezes. ABSENT: rales, rhonchi, tachypnea, unlabored Cardiovascular exam: PRESENT: RRR. ABSENT: diastolic murmur, rubs, systolic murmur Pulses: PRESENT: +1 pedal pulses bilateral Vascular exam: PRESENT: pallor GI/Abdominal exam: PRESENT: normal bowel sounds, soft, other - PEG tube in situ. ABSENT: distended, guarding, mass, organolmegaly, rebound, tenderness Rectal exam: PRESENT: deferred Extremities exam: PRESENT: other - Cold. ABSENT: clubbing, pedal edema Neurological exam: PRESENT: altered - Will awaken and noxious stimuli, motor sensory deficit Psychiatric exam: PRESENT: flat affect Skin exam: PRESENT: dry, intact, pallor, warm. ABSENT: cyanosis, rash Results Laboratory Results: Labs- Last Values WBC 5.0 10^3/uL (4.0-10.5) 11/29/16 06:00 RBC 3.29 10^6/uL (3.72-5.28) L 11/29/16 06:00 Hgb 9.3 g/dL (12.0-15.5) L 11/29/16 06:00 Hct 28.8 % (36.0-47.0) L 11/29/16 06:00 MCV 88 fl (80-97) 11/29/16 06:00 MCH 28.2 pg (27.0-33.4) 11/29/16 06:00 MCHC 32.2 g/dL (32.0-36.0) 11/29/16 06:00 RDW 18.3 % (11.5-14.0) H 11/29/16 06:00 Plt Count 210 10^3/uL (150-450) 11/29/16 06:00 Seg Neutrophils % 60.7 % (42-78) 11/29/16 06:00 Lymphocytes % 30.1 % (13-45) 11/29/16 06:00 Monocytes % 5.3 % (3-13) 11/29/16 06:00 Eosinophils % 3.4 % (0-6) 11/29/16 06:00 Basophils % 0.5 % (0-2) 11/29/16 06:00 Absolute Neutrophils 3.1 10^3/uL (1.7-8.2) 11/29/16 06:00 Absolute Lymphocytes 1.5 10^3/uL (0.5-4.7) 11/29/16 06:00 Absolute Monocytes 0.3 10^3/uL (0.1-1.4) 11/29/16 06:00 Absolute Eosinophils 0.2 10^3/uL (0.0-0.6) 11/29/16 06:00 Absolute Basophils 0.0 10^3/uL (0.0-0.2) 11/29/16 06:00 Platelet Estimate Cancelled 11/23/16 21:00 PT 14.1 SEC (11.4-15.4) 11/23/16 21:27 INR 1.05 11/23/16 21:27 VBG pH 7.41 (7.30-7.42) 11/23/16 21:58 VBG pCO2 54.7 mmHg (35-63) 11/23/16 21:58 VBG HCO3 33.7 mmol/L (20-32) H 11/23/16 21:58 VBG Base Excess 7.5 mmol/L 11/23/16 21:58 Sodium 142.2 mmol/L (137-145) 12/01/16 07:00 Potassium 4.4 mmol/L (3.6-5.0) 12/01/16 07:00 Chloride 103 mmol/L (98-107) 12/01/16 07:00 Carbon Dioxide 28 mmol/L (22-30) 12/01/16 07:00 Anion Gap 11 (5-19) 12/01/16 07:00 BUN 14 mg/dL (7-20) 12/01/16 07:00 Creatinine 0.31 mg/dL (0.52-1.25) L 12/01/16 07:00 Est GFR ( Amer) > 60 (>60) 12/01/16 07:00 Est GFR (Non-Af Amer) > 60 (>60) 12/01/16 07:00 Glucose 111 mg/dL (75-110) H 12/01/16 07:00 POC Glucose 115 mg/dL (70-110) H 12/02/16 16:59 Lactic Acid 1.7 mmol/L (0.7-2.1) 11/23/16 21:27 Calcium 9.3 mg/dL (8.4-10.2) 12/01/16 07:00 Magnesium 2.0 mg/dL (1.6-2.3) 11/29/16 06:00 Total Bilirubin 0.3 mg/dL (0.2-1.3) 12/01/16 07:00 Direct Bilirubin 0.1 mg/dL (0.0-0.4) 12/01/16 07:00 Indirect Bilirubin Not Reportable 12/01/16 07:00 Neonat Total Bilirubin Not Reportable 12/01/16 07:00 AST 30 U/L (14-36) 12/01/16 07:00 ALT 71 U/L (9-52) H 12/01/16 07:00 Alkaline Phosphatase 75 U/L (38-126) 12/01/16 07:00 Creatine Kinase 77 U/L (30-135) 11/23/16 21:27 CK-MB (CK-2) < 0.22 ng/mL (<4.55) 11/23/16 21:27 Troponin I 0.034 ng/mL 11/23/16 21:27 NT-Pro-B Natriuret Pep 184 pg/mL (5-900) 11/23/16 21:27 Total Protein 6.0 g/dL (6.3-8.2) L 12/01/16 07:00 Albumin 3.2 g/dL (3.5-5.0) L 12/01/16 07:00 Urine Color YELLOW 11/23/16 22:50 Urine Appearance CLOUDY 11/23/16 22:50 Urine pH 6.0 (5.0-9.0) 11/23/16 22:50 Ur Specific [place] 1.029 11/23/16 22:50 Urine Protein 100 mg/dL (NEGATIVE) H 11/23/16 22:50 Urine Glucose (UA) NEGATIVE mg/dL (NEGATIVE) 11/23/16 22:50 Urine Ketones NEGATIVE mg/dL (NEGATIVE) 11/23/16 22:50 Urine Blood SMALL (NEGATIVE) H 11/23/16 22:50 Urine Nitrite NEGATIVE (NEGATIVE) 11/23/16 22:50 Urine Bilirubin NEGATIVE (NEGATIVE) 11/23/16 22:50 Urine Urobilinogen 2.0 mg/dL (<2.0) H 11/23/16 22:50 Ur Leukocyte Esterase MODERATE (NEGATIVE) H 11/23/16 22:50 Urine WBC (Auto) 86 /HPF 11/23/16 22:50 Urine RBC (Auto) >182 /HPF 11/23/16 22:50 U Hyaline Cast (Auto) 8 /LPF 11/23/16 22:50 Urine Bacteria (Auto) 3+ /HPF 11/23/16 22:50 Squamous Epi Cells Auto 3 /HPF 11/23/16 22:50 U Non-Squamous Epis Auto 2 /HPF 11/23/16 22:50 Amorphous Sediment Auto TRACE /HPF 11/23/16 22:50 Urine Mucus (Auto) FEW /LPF 11/23/16 22:50 Urine Ascorbic Acid 40 (NEGATIVE) H 11/23/16 22:50 Slides for Path Review Cancelled 11/23/16 21:00 11/23/16 22:50 Urine Culture - Final Catheterized Urine Proteus Mirabilis 11/23/16 21:58 Blood Culture - Final Blood NO GROWTH IN 5 DAYS 11/23/16 21:00 Blood Culture - Final Blood NO GROWTH IN 5 DAYS Impressions: KUB X-Ray 11/23/16 20:30 IMPRESSION: Marked constipation. Chest X-Ray 11/30/16 00:00 IMPRESSION: There is slight increase in the pulmonary vascular markings compared to the earlier study. There is no pilar CHF. Transfer Plan - Time Spent with Patient Time spent with patient: Greater than 30 Minutes - on this transfer including assessment, plan, physical examination, specialty collaboration, and patient education is 35 minutes.
[2016-12-03] MEDS: LACTULOSE SYRUP 20 GM/30 ML UDCUP PEG SCH ×2 (10:16→17:11)
[2016-12-03] MEDS: POTASSIUM CHLORIDE 20 MEQ/15 ML UDCUP PEG SCH (10:16)
[2016-12-03] MEDS: AMOXICILLIN TR/POT CLAVULANATE ES 600-42.9 MG/5 ML 75 ML PO SCH (10:17)
[2016-12-03] MEDS: INSULIN GLARGINE,HUM.REC.ANLOG 300 UNIT/3 ML INSULN.PEN SUBCUT SCH (10:17)
[2016-12-03] MEDS: LEVOTHYROXINE SODIUM 0.088 MG TABLET PEG SCH (10:17)
[2016-12-03] MEDS: POLYETHYLENE GLYCOL 3350 POWDER 17 GM/1 PACKET PEG SCH (10:17)
[2016-12-03] MEDS: CALCIUM CARBONATE 500 MG TAB.CHEW PO SCH ×2 (10:17→17:11)
[2016-12-03] MEDS: MUPIROCIN 2% OINTMENT 22 GM TP SCH ×2 (10:20→17:11)
--- NOTE | 2016-12-03 10:43 | PDOC H&P ---
History of Present Illness Patient complains of: Unresponsive History of Present Illness: BEN DAILEY is a 61 year old female with a history of 30+ years a vegetative state following traumatic brain injury and subsequent recurrent urinary tract infection, sacral decubiti, aspiration pneumonia status post PEG placement, recurrent hypernatremia and fecal impaction. Transferred to the emergency room after [facility] staff observe abdominal distention. In the emergency room she's found to have severe fecal impaction and abdominal distention along with severe hypernatremia, hypokalemia and metabolic alkalosis. She started on IV fluids and referred to the hospitalist for admission. Patient is I'm unable to provide history whatsoever. 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 Social History Information Source: [facility] Records Smoking Status: Unknown if Ever Smoked Frequency of Alcohol Use: None Hx Recreational Drug Use: No Drugs: None Hx Prescription Drug Abuse: No Family History Family History: Other - Not available due to patient condition Medication/Allergy Home Medications: Acetaminophen [Children's Acetaminophen] 650 mg PEG Q4HP PRN 11/24/16 Acetaminophen [Tylenol 650 mg Supp] 650 mg SD Q4HP PRN 11/24/16 Acetylcysteine [Mucomist 20% Soln 800 mg/4 mL] 1 vial NEB Q6 11/24/16 Bisacodyl [Dulcolax 10 mg Supp.rect] 10 mg SD Q2D PRN 11/24/16 Calcium Carbonate [Calcium] 500 mg PEG BID 11/24/16 Ergocalciferol (Vitamin D2) [Vitamin D] 400 unit PEG BID 11/24/16 Esomeprazole Magnesium [Nexium] 1 packet PEG BID 11/24/16 Furosemide [Lasix] 20 mg PEG DAILY 11/24/16 Insulin Glargine,Hum.rec.anlog [Lantus] 15 unit SQ DAILY 11/24/16 Lactulose [Constulose 10 gm/15 mL Oral Solution] 15 ml PEG BID 11/24/16 Levalbuterol HCl [Xopenex Neb 1.25 mg/3 ml Ampul] 1 vial NEB Q4HP PRN 11/24/16 Levothyroxine Sodium [Synthroid 0.088 mg Tablet] 0.088 mg PEG DAILY 11/24/16 Magnesium Hydroxide [Milk of Magnesia 30 ml Udcup] 30 ml PEG DAILYP PRN Na Phos,M-B/Na Phos,Di-Ba [Fleet Enema (Adult) 133 ml] 133 ml SD DAILY 11/24/16 Polyethylene Glycol 3350 [Miralax Powder 17 gm/Packet] 1 packet PEG DAILY Potassium Chloride [Kaon-Cl 20 Meq/15 ml Udcup] 15 ml PEG DAILY 11/24/16 Amox Tr/Potassium Clavulanate [Augmentin Es 600 mg-42.9 mg Susp 75 ml] 600 mg PEG Q12 #0 bottle 12/03/16 Mupirocin [Bactroban 2% Ointment 22 gm] 1 applic TP BID #0 tube 12/03/16 Allergies/Adverse Reactions: PPD black rubber mix Adverse Reaction (Verified 06/20/16 01:31) Review of Systems ROS unobtainable: Due to mental status Physical Exam Vital Signs: Temp Pulse Resp BP Pulse Ox 101.2 F H 25 H 104/73 100 11/23/16 23:01 11/23/16 23:01 11/23/16 23:01 11/23/16 23:01 Intake & Output 11/22/16 11/23/16 11/24/16 11:59 11:59 11:59 Weight 86.3 kg General appearance: PRESENT: no acute distress Head exam: PRESENT: atraumatic, normocephalic Eye exam: PRESENT: conjunctiva pink, EOMI, PERRLA, other - Right-sided gaze. ABSENT: conjunctival injection, periorbital swelling, scleral icterus Ear exam: PRESENT: normal external ear exam Mouth exam: PRESENT: dry mucosa Neck exam: ABSENT: carotid bruit, JVD, lymphadenopathy, thyromegaly Respiratory exam: PRESENT: accessory muscle use, crackles, rhonchi - Upper airway rhonchi. ABSENT: chest wall tenderness, clear to auscultation ergan, decreased breath sounds, prolonged expiratory phas, rales, retraction, wheezes Cardiovascular exam: PRESENT: RRR. ABSENT: diastolic murmur, rubs, systolic murmur Pulses: PRESENT: normal dorsalis pedis pul Vascular exam: PRESENT: normal capillary refill GI/Abdominal exam: PRESENT: diminished bowel sounds, distended, firm. ABSENT: Wayne's sign, normal bowel sounds, organolmegaly Rectal exam: PRESENT: deferred Extremities exam: PRESENT: full ROM, other - Lower extremity extension contracture. ABSENT: calf tenderness, clubbing, pedal edema Neurological exam: PRESENT: altered, abnormal gait, aphasic, other - Persistent vegetative state. ABSENT: alert, awake, oriented to person, oriented to place, oriented to time, oriented to situation, reflexes normal Psychiatric exam: ABSENT: homicidal ideation, suicidal ideation Skin exam: PRESENT: dry, intact, warm, other - 1 x 2 cm Stage II sacral decubiti. ABSENT: cyanosis, rash Results Laboratory Results: 11/23/16 21:27 11/23/16 21:27 11/23/16 11/23/16 11/23/16 21:00 21:00 21:27 WBC Cancelled RBC Cancelled Hgb Cancelled Hct Cancelled MCV Cancelled MCH Cancelled MCHC Cancelled RDW Cancelled Plt Count Cancelled Seg Neutrophils % Cancelled Lymphocytes % Cancelled Monocytes % Cancelled Eosinophils % Cancelled Basophils % Cancelled Absolute Neutrophils Cancelled Absolute Lymphocytes Cancelled Absolute Monocytes Cancelled Absolute Eosinophils Cancelled Absolute Basophils Cancelled VBG pH Cancelled VBG pCO2 Cancelled VBG HCO3 Cancelled VBG Base Excess Cancelled Sodium 161.6 H Potassium 3.4 L Chloride 110 H Carbon Dioxide 33 H Anion Gap 19 BUN 36 H Creatinine 0.55 Est GFR ( Amer) > 60 Est GFR (Non-Af Amer) > 60 Glucose 208 H Lactic Acid Calcium 9.6 Total Bilirubin 1.1 AST 200 H ALT 262 H Alkaline Phosphatase 83 Total Protein 8.1 Albumin 4.3 Urine Color Urine Appearance Urine pH Ur Specific [place] Urine Protein Urine Glucose (UA) Urine Ketones Urine Blood Urine Nitrite Ur Leukocyte Esterase Urine WBC (Auto) Urine RBC (Auto) 11/23/16 11/23/16 11/23/16 21:27 21:27 21:58 WBC 11.9 H RBC 4.29 Hgb 11.8 L Hct 38.0 MCV 89 MCH 27.5 MCHC 31.1 L RDW 18.7 H Plt Count 229 Seg Neutrophils % 65.4 Lymphocytes % 27.6 Monocytes % 5.3 Eosinophils % 1.0 Basophils % 0.7 Absolute Neutrophils 7.8 Absolute Lymphocytes 3.3 Absolute Monocytes 0.6 Absolute Eosinophils 0.1 Absolute Basophils 0.1 VBG pH 7.41 VBG pCO2 54.7 VBG HCO3 33.7 H VBG Base Excess 7.5 Sodium Potassium Chloride Carbon Dioxide Anion Gap BUN Creatinine Est GFR ( Amer) Est GFR (Non-Af Amer) Glucose Lactic Acid 1.7 Calcium Total Bilirubin AST ALT Alkaline Phosphatase Total Protein Albumin Urine Color Urine Appearance Urine pH Ur Specific [place] Urine Protein Urine Glucose (UA) Urine Ketones Urine Blood Urine Nitrite Ur Leukocyte Esterase Urine WBC (Auto) Urine RBC (Auto) 11/23/16 22:50 WBC RBC Hgb Hct MCV MCH MCHC RDW Plt Count Seg Neutrophils % Lymphocytes % Monocytes % Eosinophils % Basophils % Absolute Neutrophils Absolute Lymphocytes Absolute Monocytes Absolute Eosinophils Absolute Basophils VBG pH VBG pCO2 VBG HCO3 VBG Base Excess Sodium Potassium Chloride Carbon Dioxide Anion Gap BUN Creatinine Est GFR ( Amer) Est GFR (Non-Af Amer) Glucose Lactic Acid Calcium Total Bilirubin AST ALT Alkaline Phosphatase Total Protein Albumin Urine Color YELLOW Urine Appearance CLOUDY Urine pH 6.0 Ur Specific [place] 1.029 Urine Protein 100 H Urine Glucose (UA) NEGATIVE Urine Ketones NEGATIVE Urine Blood SMALL H Urine Nitrite NEGATIVE Ur Leukocyte Esterase MODERATE H Urine WBC (Auto) 86 Urine RBC (Auto) >182 11/23/16 11/23/16 21:27 21:27 Creatine Kinase 77 CK-MB (CK-2) < 0.22 Troponin I 0.034 NT-Pro-B Natriuret Pep 184 Impressions: Chest X-Ray 11/23/16 20:18 IMPRESSION: Mild residual subsegmental atelectasis -scarring in the left lung base. No residual consolidation. KUB X-Ray 11/23/16 20:30 IMPRESSION: Marked constipation. Assessment & Plan - Diagnosis (1) Fecal impaction Is this a current diagnosis for this admission?: YesPlan: Mineral oil enema, mineral oil SD followed by aggressive daily bowel regiment given recurrent admissions for impaction (2) Dehydration Is this a current diagnosis for this admission?: YesPlan: 300 mL Freewater flushes to PEG tube feeds every 6 hours (3) Hypernatremia Is this a current diagnosis for this admission?: YesPlan: Addition of free water flushes to PEG every 6 hours and half-normal saline reevaluation of chemistry (4) Hypokalemia Is this a current diagnosis for this admission?: YesPlan: Repletion and reevaluation (5) Persistent vegetative state Is this a current diagnosis for this admission?: YesPlan: Strongly consider change of CODE STATUS to DO NOT RESUSCITATE given multiple recent and recurrent hospitalizations (6) Stage II pressure ulcer of sacral region Is this a current diagnosis for this admission?: YesPlan: Wound care consult and specialty mattress - Time Time Spent: 50 to 70 Minutes - Inpatient Certification Medical Necessity: Need Close Monitoring Due to Risk of Patient Decompensation
[2016-12-04] MEDS ORDERED: INSULIN GLARGINE,HUM.REC.ANLOG 300 UNIT/3 ML INSULN.PEN SUBCUT SCH (10:00)
== END 2016-12-03 18:56 | DRG 177 ==
LOC: ER 19:54 → EH 11-24 00:40 → UNDOADMIN 11-24 00:40 → EH 11-24 03:58 → 4W 11-24 09:48
PROVIDERS: ADMIT Internal Medicine; ATTEND Internal Medicine
PROC: 02HV33Z Insertion of Infusion Device into Superior Vena Cava, Percutaneous Approach (ICD-10-PCS; principal; 2016-11-24)
PROC: B548ZZA Ultrasonography of Superior Vena Cava, Guidance (ICD-10-PCS; 2016-11-24)
PROC: 5A09457 Assistance with Respiratory Ventilation, 24-96 Consecutive Hours, Continuous Positive Airway Pressure (ICD-10-PCS; 2016-11-24)
DX: J69.0 Pneumonitis due to inhalation of food and vomit (principal); J96.02 Acute respiratory failure with hypercapnia; J96.01 Acute respiratory failure with hypoxia; L89.154 Pressure ulcer of sacral region, stage 4; R40.3 Persistent vegetative state; N39.0 Urinary tract infection, site not specified; E87.0 Hyperosmolality and hypernatremia; K94.22 Gastrostomy infection; E87.6 Hypokalemia; I48.91 Unspecified atrial fibrillation; E86.0 Dehydration; E11.9 Type 2 diabetes mellitus without complications; D50.9 Iron deficiency anemia, unspecified; K56.41 Fecal impaction; Z79.899 Other long term (current) drug therapy; Z79.4 Long term (current) use of insulin; Z66 Do not resuscitate; Z87.820 Personal history of traumatic brain injury; Z88.8 Allergy status to other drugs, medicaments and biological substances
CPT/HCPCS: 36415; 71010; 74000; 80048; 80053; 81001; 82550; 82553; 82803; 82962; 83605; 83735; 83880; 84484; 85025; 85610; 87040; 87086; 87088; 87186; 93005; 93010; 94640; 94660; 96365; 96366; 96367; 96368; 96372; 99285; C1751; J0456; J0692; J1642; J1644; J1815; J2270; J2543; J3370; J3480; J3490; J7030; J7620

== ENCOUNTER 2017-12-12 22:18 | Inpatient (IN) | payer MEDICAID ==
--- NOTE | 2017-12-12 22:56 | ER Document Report ---
ED General - General Mode of Arrival: Medic Information source: Emergency Med Personnel, [facility] Records TRAVEL OUTSIDE OF THE [place] IN LAST 30 DAYS: No <ANASTASIA GRIGSBY - Last Filed: 12/12/17 22:51> <JUAREZ KIMBALL - Last Filed: 12/13/17 01:23> - General Chief Complaint: Respiratory Distress Stated Complaint: RESPIRATORY DISTRESS Time Seen by Provider: 12/12/17 22:36 Notes: Patient is a 62 year old female in a chronic vegetative state from a TBI presents to the emergency department via EMS due to respiratory distress. Due to patients state, history is unknown. Patient has a saline lock in her right foot. According to [facility] records patient was recently admitted 3 weeks ago due to fecal impaction, aspiration and hypernatremia and discharged December 03, 2017. (ANASTASIA GRIGSBY) - Related Data Allergies/Adverse Reactions: PPD black rubber mix Adverse Reaction (Verified 06/20/16 01:31) Past Medical History - General Information source: Emergency Med Personnel, [facility] Records Cannot obtain history due to: Other - Social History Smoking Status: Never Smoker Cigarette use (# per day): No Chew tobacco use (# tins/day): No Frequency of alcohol use: None Family History: Other - Not available due to patient condition - Past Medical History Cardiac Medical History: Reports: Hx Atrial Fibrillation Pulmonary Medical History: Reports: Hx Pneumonia Endocrine Medical History: Reports: Hx Diabetes Mellitus Type 2, Hx Hyperthyroidism GI Medical History: Reports: Hx Ulcer - sacral Traumatic Medical History: Reports: Hx Traumatic Brain Injury - subsequently in a chronic vegetative state Past Surgical History: Reports: Hx Abdominal Surgery - PEG placement, Other - PEG tube insertion. - Immunizations Hx Diphtheria, Pertussis, Tetanus Vaccination: Yes Hx Pneumococcal Vaccination: 05/01/15 <ANASTASIA GRIGSBY - Last Filed: 12/12/17 22:51> Review of Systems - Review of Systems -: Yes ROS unobtainable due to patient's medical condition - in a chronic vegetative state Constitutional: No symptoms reported EENT: No symptoms reported Cardiovascular: No symptoms reported Respiratory: See HPI Gastrointestinal: No symptoms reported Genitourinary: No symptoms reported Female Genitourinary: No symptoms reported Musculoskeletal: No symptoms reported Skin: No symptoms reported Hematologic/Lymphatic: No symptoms reported Neurological/Psychological: No symptoms reported <ANASTASIA GRIGSBY - Last Filed: 12/12/17 22:51> Physical Exam - General General appearance: Unresponsive - in a chronic vegetative state - HEENT Head: Normocephalic, Atraumatic Mucous membranes: Dry Neck: Normal - Respiratory Respiratory status: No respiratory distress Chest status: Nontender Breath sounds: Rhonchi Chest palpation: Normal - Cardiovascular Rhythm: Tachycardia Heart sounds: Normal auscultation Murmur: No Friction rub: No Gallop: None auscultated - Abdominal Inspection: Obese Distension: No distension Bowel sounds: Normal Tenderness: Nontender Organomegaly: No organomegaly - Extremities General upper extremity: Other - Chronic contractures of the BUE. General lower extremity: Other - Chonic contractures of the BLE. - Neurological Neuro grossly intact: No - In a chronic vegetative state due to past TBI. - Psychological Associated symptoms: Other - Unresponsive due to chronic vegetative state. - Skin Skin Temperature: Warm Skin Moisture: Dry Skin Color: Normal <ANASTASIA GRIGSBY - Last Filed: 12/12/17 22:51> - Vital signs Vitals: Temp Pulse Resp BP Pulse Ox 103.5 F H 127 H 37 H 160/100 H 96 12/12/17 22:40 12/12/17 22:40 12/12/17 22:40 12/12/17 22:40 12/12/17 22:40 Course <ANASTASIA GRIGSBY - Last Filed: 12/12/17 22:51> - Laboratory Result Diagrams: 12/12/17 22:37 12/12/17 22:37 - Diagnostic Test Radiology reviewed: Image reviewed - Right basilar infiltrate new compared to last chest x-ray - EKG Interpretation by Wy EKG shows normal: Sinus rhythm, Distant, Intervals, QRS Complexes, ST-T Waves Rate: Tachycardia - 125 Rhythm: APC's Distant/QRS: LAHB/LAFB Voltage: Consistant with LVH P Waves: LAE - Consults Dr. Urbano Time consulted: 23:40 Consulted provider: will come to ER <JUAREZ KIMBALL - Last Filed: 12/13/17 01:23> - Re-evaluation Re-evalutation: 12/13/17 01:22 Respiratory therapist reports a large amount of fluid was suctioned from the patient's trachea and that did improve how she sounded and how she was breathing. (JUAREZ KIMBALL) - Vital Signs Vital signs: Temp Pulse Resp BP Pulse Ox 103.5 F H 127 H 37 H 160/100 H 96 12/12/17 22:40 12/12/17 22:40 12/12/17 22:40 12/12/17 22:40 12/12/17 22:40 - Laboratory Laboratory results interpreted by me: 12/12/17 12/12/17 12/12/17 22:35 22:37 22:37 RDW 17.0 H Band Neutrophils % 18 H Metamyelocytes % 5 H Myelocytes % 2 H Sodium 149.2 H BUN 24 H Creatinine 0.51 L Glucose 490 H* POC Glucose 427 H* Lactic Acid Calcium 10.3 H Creatine Kinase 28 L Total Protein 8.4 H Urine Protein Urine Glucose (UA) Urine Ketones Urine Blood Urine Ascorbic Acid 12/12/17 12/12/17 22:37 23:03 RDW Band Neutrophils % Metamyelocytes % Myelocytes % Sodium BUN Creatinine Glucose POC Glucose Lactic Acid 2.9 H Calcium Creatine Kinase Total Protein Urine Protein 100 H Urine Glucose (UA) >=500 H Urine Ketones TRACE H Urine Blood MODERATE H Urine Ascorbic Acid 40 H Discharge <ANASTASIA GRIGSBY - Last Filed: 12/12/17 22:51> - Discharge Admitting Provider: Hospitalist Unit Admitted: Medical Floor <JUAREZ KIMBALL - Last Filed: 12/13/17 01:23> - Discharge Clinical Impression: Dehydration, Tachycardia Aspiration pneumonia Qualifiers: Aspiration pneumonia type: unspecified Laterality: right Lung location: lower lobe of lung Qualified Code(s): J69.0 - Pneumonitis due to inhalation of food and vomit Condition: Good Disposition: ADMITTED INPATIENT Scribe Attestation: 12/12/17 23:11 I personally performed the services described in the documentation, reviewed and edited the documentation which was dictated to the scribe in my presence, and it accurately records my words and actions. (JUAREZ KIMBALL) Scribe Documentation - Scribe Written by Ronibe:: Yan Mcmahon, 12/12/2017 23:00 acting as scribe for :: Neelima <ANASTASIA GRIGSBY - Last Filed: 12/12/17 22:51>
[2017-12-12 22:58] LABS: HEMOGLOBIN 13.5 g/dL (12.0-15.5); MEAN CORPUSCULAR HEMOGLOBIN 27.9 pg (27.0-33.4); MEAN CORPUSCULAR VOLUME 87 fl (80-97); PLATELET COUNT 332 10^3/uL (150-450); RED BLOOD COUNT 4.81 10^6/uL (3.72-5.28); WHITE BLOOD COUNT 8.3 10^3/uL (4.0-10.5)
[2017-12-12 23:12] LABS: ALANINE AMINOTRANSFERASE 19 U/L (9-52); ALBUMIN 4.8 g/dL (3.5-5.0); ALKALINE PHOSPHATASE 103 U/L (38-126); ANION GAP 18 (5-19); ASPARTATE AMINO TRANSFERASE 22 U/L (14-36); BILIRUBIN,DIRECT 0.4 mg/dL (0.0-0.4); BILIRUBIN,TOTAL 1.3 mg/dL (0.2-1.3); BLOOD UREA NITROGEN 24 mg/dL (7-20); CALCIUM 10.3 mg/dL (8.4-10.2); CARBON DIOXIDE 28 mmol/L (22-30); CHLORIDE 103 mmol/L (98-107); CREATINE KINASE 28 U/L (30-135); POTASSIUM 4.1 mmol/L (3.6-5.0); SODIUM 149.2 mmol/L (137-145); TOTAL PROTEIN 8.4 g/dL (6.3-8.2)
[2017-12-12 23:18] LABS: APPEARANCE,URINE SLIGHTLY-CLOUDY; BILIRUBIN,URINE NEGATIVE (NEGATIVE); COLOR,URINE YELLOW; GLUCOSE, URINE >=500 mg/dL (NEGATIVE); KETONES,URINE TRACE mg/dL (NEGATIVE); LEUKOCYTE ESTERASE,URINE NEGATIVE (NEGATIVE); NITRITE,URINE NEGATIVE (NEGATIVE); PROTEIN,URINE 100 mg/dL (NEGATIVE); URINE SPECIFIC GRAVITY 1.032; UROBILINOGEN,URINE NEGATIVE mg/dL (<2.0)
[2017-12-12 23:21] LABS: ABSOLUTE LYMPHOCYTES# (MANUAL) 1.7 10^3/uL (0.5-4.7); ABSOLUTE MONOCYTES # (MANUAL) 0.7 10^3/uL (0.1-1.4); ABSOLUTE NEUTROPHILS# (MANUAL) 5.8 10^3/uL (1.7-8.2); BASOPHILS % (MANUAL) 0 % (0-2); EOSINOPHILS % (MANUAL) 0 % (0-6); LYMPHOCYTES % (MANUAL) 20 % (13-45); MONOCYTES % (MANUAL) 9 % (3-13); SEGMENTED NEUTROPHILS % (MAN) 45 % (42-78); TOTAL CELLS COUNTED 100; TOXIC VACUOLATION PRESENT
[2017-12-12 23:22] LABS: ANISOCYTOSIS 1+; BAND NEUTROPHILS % (MANUAL) 18 % (3-5); METAMYELOCYTES % (MANUAL) 5 % (0); PLATELET COMMENT ADEQUATE
[2017-12-12 23:23] LABS: MYELOCYTES % (MANUAL) 2 % (0)
[2017-12-12 23:27] LABS: GLUCOSE 490 mg/dL (75-110)
[2017-12-12] MEDS ORDERED: LEVOFLOXACIN 750 MG/D5W RTU 750 MG/150 ML RTUPB IV ONE (23:29)
[2017-12-12] MEDS ORDERED: NORMAL SALINE 1000 ML 1,000 ML IV ONE (23:31)
[2017-12-12] MEDS ORDERED: BISACODYL 10 MG SUPP.RECT PR PRN (23:41)
[2017-12-12] MEDS ORDERED: DEXTROSE 40% GEL 15 GM TUBE PO PRN ×2 (23:43)
[2017-12-12] MEDS ORDERED: DEXTROSE 50%-WATER 25 GM/50 ML DISP.SYRIN IV PRN ×2 (23:43)
[2017-12-12] MEDS ORDERED: GLUCAGON,HUMAN RECOMB 1 MG INJ IM PRN (23:43)
--- NOTE | 2017-12-12 23:46 | RADIOLOGY REPORT (SQ) ---
EXAM DESCRIPTION: CHEST SINGLE VIEW COMPLETED DATE/TIME: 12/12/2017 10:58 pm REASON FOR STUDY: Aspiration COMPARISON: Chest x-ray 11/30/2016. EXAM PARAMETERS: NUMBER OF VIEWS: One view. TECHNIQUE: Single frontal radiographic view of the chest acquired. RADIATION DOSE: NA LIMITATIONS: None. FINDINGS: LUNGS AND PLEURA: Mild atelectasis at the bilateral lung bases. No pneumothorax or pleura l effusion. MEDIASTINUM AND HILAR STRUCTURES: No masses. Contour normal. HEART AND VASCULAR STRUCTURES: Heart normal in size. Mild central vascular congestion. BONES: No acute findings. HARDWARE: None in the chest. IMPRESSION: Mild central vascular congestion. Mild bibasilar atelectasis. TECHNICAL DOCUMENTATION: JOB ID: [id number] [employer]- All Rights Reserved Reading location - IP/workstation name: [email or web address]
[2017-12-13] MEDS: IPRATROPIUM/ALBUTEROL 0.5-2.5 MG/3 ML AMPUL NEB SCH ×4 (00:40→23:29)
[2017-12-13] MEDS: INSULIN LISPRO 100 UNIT/ML 3 ML VIAL SUBCUT PRN ×3 (02:05→18:46)
[2017-12-13] MEDS: 1/2 NORMAL SALINE 1,000 ML IV PRN ×2 (02:05→08:00)
--- NOTE | 2017-12-13 05:53 | PDOC H&P ---
History of Present Illness Admission Date/PCP: 12/13/17 00:08 Patient complains of: Shortness of breath History of Present Illness: BEN DAILEY is a 62 year old female with a history of 30+ years of vegetative state following traumatic brain injury with subsequent PEG placement , recurrent aspiration pneumonia, urinary tract infection, hypernatremia, sacral decubiti and fecal impaction. Patient was noted by the alf staff to have increased work of breathing and transferred to the emergency room for evaluation where she is found to have upper airway rhonchi and infiltrate by chest x-ray, she is treated for pneumonia with empiric antibiotics and referred to the hospitalist for admission. Patient is unable to provide any history whatsoever and is unresponsive. Patient is a trejo of state and remains full code Past Medical History Cardiac Medical History: Reports: Atrial Fibrillation Pulmonary Medical History: Reports: Pneumonia Endocrine Medical History: Reports: Diabetes Mellitus Type 2, Hyperthyroidism Traumatic Medical History: Reports: Traumatic Brain Injury - subsequently in a chronic vegetative state Past Surgical History Past Surgical History: Reports: Other - PEG tube insertion. Social History Information Source: [facility] Records Lives with: Detention Smoking Status: Never Smoker Frequency of Alcohol Use: None Hx Recreational Drug Use: No Drugs: None Hx Prescription Drug Abuse: No - Advance Directive Resuscitation Status: Full Code Family History Family History: Other - Not available due to patient condition Parental Family History Reviewed: Yes - Unavailable Children Family History Reviewed: Yes - Unavailable Sibling(s) Family History Reviewed.: Yes - Unavailable Medication/Allergy Home Medications: RX: Acetaminophen [Children's Acetaminophen] 650 mg PEG Q4HP PRN 11/24/16 RX: Acetaminophen [Tylenol 650 mg Supp] 650 mg WA Q4HP PRN 11/24/16 RX: Acetylcysteine [Mucomist 20% Soln 800 mg/4 mL] 1 vial NEB Q6 11/24/16 RX: Bisacodyl [Dulcolax 10 mg Supp.rect] 10 mg WA Q2D PRN 11/24/16 RX: Calcium Carbonate [Calcium] 500 mg PEG BID 11/24/16 RX: Ergocalciferol (Vitamin D2) [Vitamin D] 400 unit PEG BID 11/24/16 RX: Esomeprazole Magnesium [Nexium] 1 packet PEG BID 11/24/16 RX: Furosemide [Lasix] 20 mg PEG DAILY 11/24/16 RX: Insulin Glargine,Hum.rec.anlog [Lantus] 15 unit SQ DAILY 11/24/16 RX: Lactulose [Constulose 10 gm/15 mL Oral Solution] 15 ml PEG BID 11/24/16 RX: Levalbuterol HCl [Xopenex Neb 1.25 mg/3 ml Ampul] 1 vial NEB Q4HP PRN RX: Levothyroxine Sodium [Synthroid 0.088 mg Tablet] 0.088 mg PEG DAILY RX: Magnesium Hydroxide [Milk of Magnesia 30 ml Udcup] 30 ml PEG DAILYP PRN RX: Na Phos,M-B/Na Phos,Di-Ba [Fleet Enema (Adult) 133 ml] 133 ml [place] DAILY 11/24 RX: Polyethylene Glycol 3350 [Miralax Powder 17 gm/Packet] 1 packet PEG DAILY RX: Potassium Chloride [Kaon-Cl 20 Meq/15 ml Udcup] 15 ml PEG DAILY 11/24/16 RX: Amox Tr/Potassium Clavulanate [Augmentin Es 600 mg-42.9 mg Susp 75 ml] 600 mg PEG Q12 #0 bottle 12/03/16 RX: Mupirocin [Bactroban 2% Ointment 22 gm] 1 applic TP BID #0 tube 12/03/16 Allergies/Adverse Reactions: PPD black rubber mix Adverse Reaction (Verified 06/20/16 01:31) Review of Systems ROS unobtainable: Due to mental status - Unavailable Physical Exam Vital Signs: Temp Pulse Resp BP Pulse Ox 99.5 F 114 H 25 H 133/88 H 97 12/13/17 03:53 12/13/17 03:53 12/13/17 03:53 12/13/17 03:53 12/13/17 04:27 Pulse Oximeter Continuous Start: 12/12/17 23: 43 Freq: RTQ4 Status: Active Document 12/13/17 04:27 STI (Rec: 12/13/17 04:27 STI [id number]) Pulse Oximetry Assessment Oxygen Saturation (92-100) 97 Oxygen Flow Rate (L/min) 15.0 Oxygen Delivery Method Non-Rebreather Fraction of Inspired Oxygen (FIO2) 100 Equipment Usage Initial Set Up Continuous Pulse Oximeter 24 Hour Charge Charge Now Continuous SpO2 Machine # [id number] Intake & Output 12/11/17 12/12/17 12/13/17 11:59 11:59 11:59 Weight 88.7 kg General appearance: PRESENT: severe distress, other - Chronically ill-appearing with temporal wasting and cachexia. ABSENT: cooperative, disheveled, hard of hearing Head exam: PRESENT: atraumatic, normocephalic Eye exam: PRESENT: conjunctiva pink, PERRLA. ABSENT: nystagmus, scleral icterus Ear exam: PRESENT: normal external ear exam Mouth exam: PRESENT: moist, tongue midline Neck exam: ABSENT: carotid bruit, JVD, lymphadenopathy, thyromegaly Respiratory exam: PRESENT: crackles, prolonged expiratory phas, rales, retraction, rhonchi. ABSENT: stridor, wheezes Cardiovascular exam: PRESENT: RRR. ABSENT: diastolic murmur, rubs, systolic murmur Pulses: PRESENT: normal dorsalis pedis pul Vascular exam: PRESENT: normal capillary refill GI/Abdominal exam: PRESENT: normal bowel sounds, soft. ABSENT: distended, guarding, mass, organolmegaly, rebound, tenderness Rectal exam: PRESENT: deferred Extremities exam: PRESENT: full ROM. ABSENT: calf tenderness, clubbing, pedal edema Neurological exam: PRESENT: ataxia, CN II-XII grossly intact, motor sensory deficit, aphasic. ABSENT: alert, altered, awake, oriented to person, oriented to place, oriented to time Psychiatric exam: PRESENT: flat affect. ABSENT: homicidal ideation, suicidal ideation Skin exam: PRESENT: dry, intact, warm. ABSENT: cyanosis, rash Results Laboratory Results: 12/13/17 02:46 Lactic Acid 3.5 H Impressions: Chest X-Ray 12/12/17 22:49 IMPRESSION: Mild central vascular congestion. Mild bibasilar atelectasis. Assessment & Plan - Diagnosis (1) Aspiration pneumonia Qualifiers: Aspiration pneumonia type: unspecified Laterality: right Lung location: lower lobe of lung Qualified Code(s): J69.0 - Pneumonitis due to inhalation of food and vomit Is this a current diagnosis for this admission?: Yes Plan: Likely secondary to fecal impaction with increased residual tube feed resulting in aspiration. Tube feeds on hold Fleet enema ordered. Empiric antibiotics initiated. (2) Dehydration Is this a current diagnosis for this admission?: Yes Plan: Hypernatremic to spite significant hyperglycemia. Half-normal saline ordered follow-up chemistry (3) Tachycardia Is this a current diagnosis for this admission?: Yes Plan: Secondary to #1 and 2. IV fluid challenge and correction of infection. (4) Acute respiratory failure with hypoxia and hypercapnia Is this a current diagnosis for this admission?: Yes Plan: Secondary to aspiration pneumonia. See #1 (5) Chronic PEG feedings Is this a current diagnosis for this admission?: Yes Plan: Hold feeding pending resolution of presumed fecal impaction (6) Constipation Qualifiers: Constipation type: unspecified constipation type Qualified Code(s): K59.00 - Constipation, unspecified Is this a current diagnosis for this admission?: Yes Plan: Lactulose enema. Bowel regiment - Time Time Spent: 50 to 70 Minutes - Inpatient Certification Medical Necessity: Need Close Monitoring Due to Risk of Patient Decompensation
[2017-12-13] MEDS: LACTULOSE SYRUP 20 GM/30 ML UDCUP PR SCH ×2 (06:14→18:00)
[2017-12-13] MEDS: HEPARIN SOD (PORCINE) 5,000 UNIT/ML 1 ML SYRINGE SUBCUT SCH ×3 (06:14→23:22)
[2017-12-13 07:24] LABS: HEMATOCRIT 41.7 % (36.0-47.0); HEMOGLOBIN 13.3 g/dL (12.0-15.5); MEAN CORPUSCULAR HEMOGLOBIN 27.9 pg (27.0-33.4); MEAN CORPUSCULAR VOLUME 87 fl (80-97); PLATELET COUNT 237 10^3/uL (150-450); RED BLOOD COUNT 4.78 10^6/uL (3.72-5.28); RED CELL DISTRIBUTION WIDTH 16.5 % (11.5-14.0); WHITE BLOOD COUNT 5.8 10^3/uL (4.0-10.5)
[2017-12-13 07:45] LABS: BLOOD UREA NITROGEN 22 mg/dL (7-20); CALCIUM 9.6 mg/dL (8.4-10.2); CARBON DIOXIDE 26 mmol/L (22-30); CHLORIDE 106 mmol/L (98-107); POTASSIUM 4.1 mmol/L (3.6-5.0)
[2017-12-13 07:50] LABS: SODIUM 152.2 mmol/L (137-145)
[2017-12-13 08:10] LABS: ANION GAP 20 (5-19)
[2017-12-13 08:11] LABS: GLUCOSE 405 mg/dL (75-110)
[2017-12-13] MEDS ORDERED: INSULIN GLARGINE,HUM.REC.ANLOG 1,000 UNIT/10 ML UNIT SUBCUT SCH (10:00)
[2017-12-13] MEDS: LEVOTHYROXINE SODIUM 0.088 MG TABLET PEG SCH (11:45)
[2017-12-13] MEDS: CALCIUM CARBONATE 500 MG TABLET PEG SCH ×2 (11:45→18:46)
[2017-12-13] MEDS: LANSOPRAZOLE 30 MG TAB.RAP.DR PEG SCH ×2 (11:45→18:46)
--- NOTE | 2017-12-13 14:16 | RADIOLOGY REPORT (SQ) ---
EXAM DESCRIPTION: KUB/ABDOMEN (SINGLE VIEW); INJECT EXISTING/TUBE PLACEMENT; NOT FOR OR FLUORO T O 1 HR COMPLETED DATE/TIME: 12/13/2017 1:25 pm REASON FOR STUDY: PEG TUBE PLACEMENT COMPARISON: KUB 11/23/2016, 08/08/2016 CT abdomen pelvis 06/19/2016 FLUOROSCOPY TIME: Less than 15 seconds 5 fluoroscopic images, 5 portable KUB Images saved to PACS LIMITATIONS: None. PROCEDURE: Patient's feeding tube was replaced by a hospitalist practitioner. She has a long-standi ng gastrostomy tube tract. Initially, 30 mL of Gastrografin was injected into the feeding tube and 5 KUB portable images were ob tained. There is free drainage of contrast from the tube into the duodenum without evidence of obstr uction of outflow. No reflux into the stomach. Large amount of stool in the colon. Patient was brought into the fluoroscopy suite and under fluoroscopy, injection of 30 mL of Gastrogra fin was performed. The gastrostomy tube balloon is in the distal gastric antrum. There is free flow of contrast into the pylorus and duodenum with minimal if any reflux more proximally into the stomac h fundus. Visualized small bowel loops are unremarkable. FINDINGS: Gastrostomy tube balloon and tip are in the gastric antrum pointing towards the pylorus. There is preferential flow of contrast from the gastrostomy catheter into the duodenum. IMPRESSION: Gastrostomy tube tip and balloon in the gastric antrum. Preferential flow of contrast i nto the duodenum. COMMENT: PQRS 6045F: Fluoroscopy time of the procedure is documented in the report. TECHNICAL DOCUMENTATION: JOB ID: [id number] [employer]- All Rights Reserved Reading location - IP/workstation name: [facility]
--- NOTE | 2017-12-13 14:16 | RADIOLOGY REPORT (SQ) ---
EXAM DESCRIPTION: KUB/ABDOMEN (SINGLE VIEW); INJECT EXISTING/TUBE PLACEMENT; NOT FOR OR FLUORO T O 1 HR COMPLETED DATE/TIME: 12/13/2017 1:25 pm REASON FOR STUDY: PEG TUBE PLACEMENT COMPARISON: KUB 11/23/2016, 08/08/2016 CT abdomen pelvis 06/19/2016 FLUOROSCOPY TIME: Less than 15 seconds 5 fluoroscopic images, 5 portable KUB Images saved to PACS LIMITATIONS: None. PROCEDURE: Patient's feeding tube was replaced by a hospitalist practitioner. She has a long-standi ng gastrostomy tube tract. Initially, 30 mL of Gastrografin was injected into the feeding tube and 5 KUB portable images were ob tained. There is free drainage of contrast from the tube into the duodenum without evidence of obstr uction of outflow. No reflux into the stomach. Large amount of stool in the colon. Patient was brought into the fluoroscopy suite and under fluoroscopy, injection of 30 mL of Gastrogra fin was performed. The gastrostomy tube balloon is in the distal gastric antrum. There is free flow of contrast into the pylorus and duodenum with minimal if any reflux more proximally into the stomac h fundus. Visualized small bowel loops are unremarkable. FINDINGS: Gastrostomy tube balloon and tip are in the gastric antrum pointing towards the pylorus. There is preferential flow of contrast from the gastrostomy catheter into the duodenum. IMPRESSION: Gastrostomy tube tip and balloon in the gastric antrum. Preferential flow of contrast i nto the duodenum. COMMENT: PQRS 6045F: Fluoroscopy time of the procedure is documented in the report. TECHNICAL DOCUMENTATION: JOB ID: [id number] [employer]- All Rights Reserved Reading location - IP/workstation name: [facility]
--- NOTE | 2017-12-13 14:16 | RADIOLOGY REPORT (SQ) ---
EXAM DESCRIPTION: KUB/ABDOMEN (SINGLE VIEW); INJECT EXISTING/TUBE PLACEMENT; NOT FOR OR FLUORO T O 1 HR COMPLETED DATE/TIME: 12/13/2017 1:25 pm REASON FOR STUDY: PEG TUBE PLACEMENT COMPARISON: KUB 11/23/2016, 08/08/2016 CT abdomen pelvis 06/19/2016 FLUOROSCOPY TIME: Less than 15 seconds 5 fluoroscopic images, 5 portable KUB Images saved to PACS LIMITATIONS: None. PROCEDURE: Patient's feeding tube was replaced by a hospitalist practitioner. She has a long-standi ng gastrostomy tube tract. Initially, 30 mL of Gastrografin was injected into the feeding tube and 5 KUB portable images were ob tained. There is free drainage of contrast from the tube into the duodenum without evidence of obstr uction of outflow. No reflux into the stomach. Large amount of stool in the colon. Patient was brought into the fluoroscopy suite and under fluoroscopy, injection of 30 mL of Gastrogra fin was performed. The gastrostomy tube balloon is in the distal gastric antrum. There is free flow of contrast into the pylorus and duodenum with minimal if any reflux more proximally into the stomac h fundus. Visualized small bowel loops are unremarkable. FINDINGS: Gastrostomy tube balloon and tip are in the gastric antrum pointing towards the pylorus. There is preferential flow of contrast from the gastrostomy catheter into the duodenum. IMPRESSION: Gastrostomy tube tip and balloon in the gastric antrum. Preferential flow of contrast i nto the duodenum. COMMENT: PQRS 6045F: Fluoroscopy time of the procedure is documented in the report. TECHNICAL DOCUMENTATION: JOB ID: [id number] [employer]- All Rights Reserved Reading location - IP/workstation name: [facility]
--- NOTE | 2017-12-13 14:16 | RADIOLOGY REPORT (SQ) ---
EXAM DESCRIPTION: KUB/ABDOMEN (SINGLE VIEW); INJECT EXISTING/TUBE PLACEMENT; NOT FOR OR FLUORO T O 1 HR COMPLETED DATE/TIME: 12/13/2017 1:25 pm REASON FOR STUDY: PEG TUBE PLACEMENT COMPARISON: KUB 11/23/2016, 08/08/2016 CT abdomen pelvis 06/19/2016 FLUOROSCOPY TIME: Less than 15 seconds 5 fluoroscopic images, 5 portable KUB Images saved to PACS LIMITATIONS: None. PROCEDURE: Patient's feeding tube was replaced by a hospitalist practitioner. She has a long-standi ng gastrostomy tube tract. Initially, 30 mL of Gastrografin was injected into the feeding tube and 5 KUB portable images were ob tained. There is free drainage of contrast from the tube into the duodenum without evidence of obstr uction of outflow. No reflux into the stomach. Large amount of stool in the colon. Patient was brought into the fluoroscopy suite and under fluoroscopy, injection of 30 mL of Gastrogra fin was performed. The gastrostomy tube balloon is in the distal gastric antrum. There is free flow of contrast into the pylorus and duodenum with minimal if any reflux more proximally into the stomac h fundus. Visualized small bowel loops are unremarkable. FINDINGS: Gastrostomy tube balloon and tip are in the gastric antrum pointing towards the pylorus. There is preferential flow of contrast from the gastrostomy catheter into the duodenum. IMPRESSION: Gastrostomy tube tip and balloon in the gastric antrum. Preferential flow of contrast i nto the duodenum. COMMENT: PQRS 6045F: Fluoroscopy time of the procedure is documented in the report. TECHNICAL DOCUMENTATION: JOB ID: [id number] [employer]- All Rights Reserved Reading location - IP/workstation name: [facility]
--- NOTE | 2017-12-13 16:49 | Progress Note ---
Provider Note Provider Note: Agree with legislative advocate plan of care. 1. ASPIRATION PNA vs. HEALTHCARE PNA: Possibly 2/2 fecal impaction and high enteral feeding residual. Empiric antibiotics for aspiration PNA and healthcare associated PNA. Tube feeds on hold. NPO. Fleet enema. 2. DEHYDRATION: Half-normal saline maintenance IVF. Continue to monitor daily BMP to trend hypernatremia 3. ACUTE RESPIRATORY DISTRESS: secondary to aspiration PNA, rhonci heard in all lung chow. Requiring facemask to maintain SPO2>90%. Empiric antibiotic coverage. 4. PEG FEEDINGS: Radiographic test ordered to confirm PEG tube placement given tube feeding leaking around PEG tube site. 5. CONSTIPATION: Lactulose enema. NPO except for meds.
[2017-12-13] MEDS ORDERED: VANCOMYCIN HCL 0 MG in DEXTROSE 5%-WATER 250 ML IV NR (17:00)
[2017-12-13] MEDS: PIPERACILLIN SODIUM/TAZOBACTAM 3.375 GM in NORMAL SALINE 100 ML IV SCH ×2 (18:46→23:22)
[2017-12-13] MEDS: VANCOMYCIN HCL 1,250 MG in DEXTROSE 5%-WATER 250 ML IV SCH (20:39)
[2017-12-13] MEDS ORDERED: ACETAMINOPHEN SOLN 325 MG/10.15 ML UDCUP PEG PRN (23:21)
[2017-12-14] MEDS: LACTULOSE SYRUP 20 GM/30 ML UDCUP PR SCH (00:35)
[2017-12-14] MEDS: INSULIN LISPRO 100 UNIT/ML 3 ML VIAL SUBCUT PRN ×4 (01:19→18:36)
[2017-12-14] MEDS: HEPARIN SOD (PORCINE) 5,000 UNIT/ML 1 ML SYRINGE SUBCUT SCH ×3 (05:58→21:22)
[2017-12-14] MEDS: PIPERACILLIN SODIUM/TAZOBACTAM 3.375 GM in NORMAL SALINE 100 ML IV SCH ×4 (05:58→23:43)
[2017-12-14 06:28] LABS: HEMATOCRIT 34.4 % (36.0-47.0); MEAN CORPUSCULAR HEMOGLOBIN 27.9 pg (27.0-33.4); MEAN CORPUSCULAR HGB CONC 32.7 g/dL (32.0-36.0); MEAN CORPUSCULAR VOLUME 85 fl (80-97); PLATELET COUNT 208 10^3/uL (150-450); RED BLOOD COUNT 4.03 10^6/uL (3.72-5.28); RED CELL DISTRIBUTION WIDTH 16.8 % (11.5-14.0); WHITE BLOOD COUNT 7.8 10^3/uL (4.0-10.5)
[2017-12-14 06:31] LABS: HEMOGLOBIN 11.2 g/dL (12.0-15.5)
[2017-12-14] MEDS: IPRATROPIUM/ALBUTEROL 0.5-2.5 MG/3 ML AMPUL NEB SCH ×3 (08:13→23:42)
[2017-12-14] MEDS: VANCOMYCIN HCL 1,250 MG in DEXTROSE 5%-WATER 250 ML IV SCH ×2 (08:21→19:40)
--- NOTE | 2017-12-14 08:48 | EKG REPORT ---
SEVERITY:- ABNORMAL ECG - SINUS TACHYCARDIA ATRIAL PREMATURE COMPLEX PROBABLE LEFT ATRIAL ABNORMALITY LEFT ANTERIOR FASCICULAR BLOCK PROBABLE LVH WITH SECONDARY REPOL ABNRM : Confirmed by: Ramiro Malagon 14-Dec-2017 08:48:00
[2017-12-14 10:01] LABS: ANION GAP 15 (5-19); BLOOD UREA NITROGEN 25 mg/dL (7-20); CALCIUM 9.4 mg/dL (8.4-10.2); CARBON DIOXIDE 30 mmol/L (22-30); CHLORIDE 107 mmol/L (98-107); GLUCOSE 285 mg/dL (75-110); PHOSPHORUS 2.4 mg/dL (2.5-4.5); POTASSIUM 3.6 mmol/L (3.6-5.0); SODIUM 151.5 mmol/L (137-145)
[2017-12-14] MEDS: LANSOPRAZOLE 30 MG TAB.RAP.DR PEG SCH ×2 (10:25→17:22)
[2017-12-14] MEDS: INSULIN GLARGINE,HUM.REC.ANLOG 1,000 UNIT/10 ML UNIT SUBCUT SCH (10:25)
[2017-12-14] MEDS: CALCIUM CARBONATE 500 MG TABLET PEG SCH ×2 (10:25→17:22)
[2017-12-14] MEDS: LEVOTHYROXINE SODIUM 0.088 MG TABLET PEG SCH (10:25)
[2017-12-15] MEDS: INSULIN LISPRO 100 UNIT/ML 3 ML VIAL SUBCUT PRN ×4 (01:07→23:11)
[2017-12-15] MEDS: 1/2 NORMAL SALINE 1,000 ML IV PRN (06:09)
[2017-12-15] MEDS: PIPERACILLIN SODIUM/TAZOBACTAM 3.375 GM in NORMAL SALINE 100 ML IV SCH (06:09)
[2017-12-15] MEDS: HEPARIN SOD (PORCINE) 5,000 UNIT/ML 1 ML SYRINGE SUBCUT SCH ×3 (07:00→23:11)
[2017-12-15 07:43] LABS: HEMATOCRIT 31.3 % (36.0-47.0); HEMOGLOBIN 10.2 g/dL (12.0-15.5); MEAN CORPUSCULAR HEMOGLOBIN 28.1 pg (27.0-33.4); MEAN CORPUSCULAR HGB CONC 32.7 g/dL (32.0-36.0); MEAN CORPUSCULAR VOLUME 86 fl (80-97); PLATELET COUNT 228 10^3/uL (150-450); RED BLOOD COUNT 3.64 10^6/uL (3.72-5.28); RED CELL DISTRIBUTION WIDTH 16.7 % (11.5-14.0)
[2017-12-15 08:08] LABS: ANION GAP 14 (5-19); BLOOD UREA NITROGEN 25 mg/dL (7-20); CALCIUM 9.5 mg/dL (8.4-10.2); CARBON DIOXIDE 30 mmol/L (22-30); CHLORIDE 104 mmol/L (98-107); GLUCOSE 297 mg/dL (75-110); PHOSPHORUS 3.3 mg/dL (2.5-4.5); SODIUM 148.2 mmol/L (137-145)
[2017-12-15 08:13] LABS: VANCOMYCIN,TROUGH 13.7 ug/mL (5.0-20.0)
--- NOTE | 2017-12-15 08:15 | PDOC PROGRESS REPORT ---
Subjective Progress Note for:: 12/14/17 Subjective:: BEN DAILEY is a 62 y.o. female with a PMH of TBI, AFIB, PNA, DM, HYPERthyroidism, UTI, recurrent aspiration PNA, HYPERnatremia, sacral decubiti and fecal impaction. She presented to the ED on 12/13/2017 for dyspnea, increased WOB, as aspiration PNA. The patient was seen this morning on rounds, she is asleep and only responds to painful stimuli (her baseline). W/D in all 4 extremities. Nonverbal. She is resting in bed on a face mask. Rhonci can be heard in all lung chow. PEG tube placement was confirmed by radiology under flouroscopy. According to nursing staff, the patient had two large bowel movements last night. Reason For Visit: PNEUMONIA Physical Exam Vital Signs: Temp Pulse Resp BP Pulse Ox 98.0 F 89 20 104/59 L 100 12/15/17 04:00 12/15/17 04:00 12/15/17 04:00 12/15/17 04:00 12/15/17 04:00 Pulse Oximeter Continuous Start: 12/12/17 23: 43 Freq: RTQ4 Status: Active Document 12/15/17 03:24 STI (Rec: 12/15/17 03:24 STI [id number]) Pulse Oximetry Assessment Oxygen Saturation (92-100) 100 Oxygen Flow Rate (L/min) 15.0 Oxygen Delivery Method Non-Rebreather Fraction of Inspired Oxygen (FIO2) 100 Equipment Usage Equipment in Use Continuous SpO2 Machine # 7 Intake & Output 12/14/17 12/15/17 12/16/17 06:59 06:59 06:59 Intake Total 3450 3534 Balance 3450 3534 Weight 94.2 kg 96 kg Results Laboratory Results: 12/14/17 06:03 12/14/17 08:55 12/14/17 08:55 Sodium 151.5 H Potassium 3.6 Chloride 107 Carbon Dioxide 30 Anion Gap 15 BUN 25 H Creatinine 0.63 Est GFR ( Amer) > 60 Est GFR (Non-Af Amer) > 60 Glucose 285 H Calcium 9.4 Phosphorus 2.4 L Magnesium 2.3 Impressions: Chest X-Ray 12/12/17 22:49 IMPRESSION: Mild central vascular congestion. Mild bibasilar atelectasis. Fluoroscopy 12/13/17 00:00 IMPRESSION: Gastrostomy tube tip and balloon in the gastric antrum. Preferential flow of contrast into the duodenum. KUB X-Ray 12/13/17 00:00 IMPRESSION: Gastrostomy tube tip and balloon in the gastric antrum. Preferential flow of contrast into the duodenum. Tube Placement 12/13/17 00:00 IMPRESSION: Gastrostomy tube tip and balloon in the gastric antrum. Preferential flow of contrast into the duodenum. Assessment & Plan - Diagnosis (1) Acute respiratory failure with hypoxia and hypercapnia Is this a current diagnosis for this admission?: Yes Plan: Secondary to aspiration PNA related to fecal impaction as evidence by increased residual tube feeding via PEG. Rhonci heard in all lung chow. Supplemental oxygen via nasal cannula or face mask for SPO2>90% Since the patient resides in a SNF and she was hospitalized just weeks ago, she is being empirically covered for healthcare associated PNA with Vancomycin and Zosyn Blood cultures show no growth to date, sputum culture growing GNR awaiting sensitivities (2) Aspiration pneumonia Qualifiers: Aspiration pneumonia type: unspecified Laterality: right Lung location: lower lobe of lung Qualified Code(s): J69.0 - Pneumonitis due to inhalation of food and vomit Is this a current diagnosis for this admission?: Yes Plan: See plan above (3) Dehydration Is this a current diagnosis for this admission?: Yes Plan: As evidence by significant HYPERnatremia Initially treated with 1/2 normal saline IV Now on free water flushes every 4 hours Montior daily chemistries (4) Chronic PEG feedings Is this a current diagnosis for this admission?: Yes Plan: Tube feeding was on hold due to fecal impaction, now that patient has is having bowel movements, can resume enteral feeding Initiate Glucerna 1.2 @ 50mL/hr and 100mL free water flushes q4hr (5) Constipation Qualifiers: Constipation type: unspecified constipation type Qualified Code(s): K59.00 - Constipation, unspecified Is this a current diagnosis for this admission?: Yes Plan: Patient has a history of recurrent fecal impaction. Continue lactulose enema According to nursing staff, the patient had two large bowel movements overnight Will discontinue enemas and place patient on Senna (6) Do not resuscitate Is this a current diagnosis for this admission?: Yes Plan: According to the last discharge summary, the patient was made a DNR by the power of tub chucker. A copy of the DNR form was sent from the [facility]. A new DNR form was signed by the author since a photocopy is not valid - Time Time Spent with patient: 15-24 minutes Medications reviewed and adjusted accordingly: Yes Anticipated discharge: Home - Inpatient Certification Based on my medical assessment, after consideration of the patient's comorbidities, presenting symptoms, or acuity I expect that the services needed warrant INPATIENT care.: Yes I certify that my determination is in accordance with my understanding of Medicare's requirements for reasonable and necessary INPATIENT services [42 CFR 412.3e].: Yes Medical Necessity: Risk of Complication if Not Cared For in Hospital - Plan Summary Plan Summary: discharge back to SNF
[2017-12-15] MEDS: IPRATROPIUM/ALBUTEROL 0.5-2.5 MG/3 ML AMPUL NEB SCH ×2 (08:33→15:41)
[2017-12-15] MEDS: CIPROFLOXACIN 400 MG/D5W RTU 400 MG/200 ML RTUPB IV SCH ×2 (10:57→23:11)
[2017-12-15] MEDS: SENNOSIDES/DOCUSATE 8.6-50 MG 1 EACH TABLET PO SCH ×2 (11:12→17:37)
[2017-12-15] MEDS: CALCIUM CARBONATE 500 MG TABLET PEG SCH ×2 (11:12→17:37)
[2017-12-15] MEDS: INSULIN GLARGINE,HUM.REC.ANLOG 1,000 UNIT/10 ML UNIT SUBCUT SCH (11:12)
[2017-12-15] MEDS: LANSOPRAZOLE 30 MG TAB.RAP.DR PEG SCH ×2 (11:12→17:37)
[2017-12-15] MEDS: LEVOTHYROXINE SODIUM 0.088 MG TABLET PEG SCH (11:14)
[2017-12-15] MEDS: MAGNESIUM HYDROXIDE SUSP 30 ML UDCUP PO SCH (11:14)
--- NOTE | 2017-12-15 16:24 | Physician Advisory Note ---
Physician Advisor ProgressNote .: Pursuant to the plan for [facility], I have reviewed the medical record for this patient. Physician Advisor Statement: Nice documentation of: (A) Acute Hypoxemic/Hypercarbic Resp failure w/evidence (tachycardia 127, tachypnea 37, "severe distress" per H&P, with retractions, O2 sat 90% on 3L O2, then only 97% on 15L NRB O2 - when she doesn't usually need O2, ...) (B) Aspiration PNA with evidence (fever 103.5, tachycardia 127, tachypnea 37, "Rt basilar infiltrate new compared to last CXR" per ED dr & H&P, rales, rhonchi , acute resp failiure as above, "large amount of fluid was suctioned from pt's trachea", PEG tube with increased residuals related to severe constipation, ...) - Nursing has documented cough & sputum, too. Please consider documenting, if you agree: 1. "underweight with protein-calorie malnutrition [state mild, mod, or severe] with BMI 35.2, on chronic PEG feeds x 30 years, ____[?wt loss, ?appetite loss, ]" [if possible, give specifics on intake, wt loss, loss of SQ fat & muscle mass, diminished hand rail director strength, & clinical importance such as (A) nutritional assessment ordered, (B) modified diet or supplements ordered, (C) additional labs ordered, (D) prolonged wound healing time, (E) delayed infxn clearance] - Per nursing MARCOS scoring notes, pt has "probably inadequate" or "very poor" nutrition per exam. Attending: "temporal wasting, cachexia". 2. Sacral decubiti, stages of each: (or is this a past problem that is not longer present?) 3. REason pt still on Lasix daily prior to arrival, if known, given history of chronic hypernatremia & recurrent severe constipation, etc. (? related to 1-2+ nonpitting edema of all [contractured] extremities documented by nursing?) Thanks! CK
[2017-12-16] MEDS: IPRATROPIUM/ALBUTEROL 0.5-2.5 MG/3 ML AMPUL NEB SCH ×3 (00:31→16:14)
[2017-12-16] MEDS: HEPARIN SOD (PORCINE) 5,000 UNIT/ML 1 ML SYRINGE SUBCUT SCH ×3 (05:27→22:03)
[2017-12-16] MEDS: INSULIN LISPRO 100 UNIT/ML 3 ML VIAL SUBCUT PRN ×2 (05:31→12:13)
--- NOTE | 2017-12-16 06:59 | PDOC PROGRESS REPORT ---
Subjective Progress Note for:: 12/15/17 Subjective:: BEN DAILEY is a 62 y.o. female with a PMH of TBI, AFIB, PNA, DM, HYPERthyroidism, UTI, recurrent aspiration PNA, HYPERnatremia, sacral decubiti and fecal impaction. She presented to the ED on 12/13/2017 for dyspnea, increased WOB, as aspiration PNA. The patient was seen this morning on rounds, she is asleep and only responds to painful stimuli (her baseline). W/D in all 4 extremities. Nonverbal. She is resting in bed on a face mask. Rhonci can be heard in all lung chow. Plan to wean off face mask as tolerated. Enteral feeding started yesterday, tolerating well, nursing staff report no PEG tube residuals Reason For Visit: PNEUMONIA Physical Exam Vital Signs: Temp Pulse Resp BP Pulse Ox 98.9 F 78 18 151/71 H 99 12/16/17 00:03 12/16/17 02:00 12/16/17 00:31 12/16/17 00:03 12/16/17 03:51 Pulse Oximeter Continuous Start: 12/12/17 23: 43 Freq: RTQ4 Status: Active Document 12/16/17 03:51 EST (Rec: 12/16/17 04:19 EST [email or web address]) Pulse Oximetry Assessment Oxygen Saturation (92-100) 99 Oxygen Flow Rate (L/min) 6 Oxygen Delivery Method Venturi Mask Fraction of Inspired Oxygen (FIO2) 40 Equipment Usage Equipment in Use Continuous SpO2 Machine # 7 Intake & Output 12/14/17 12/15/17 12/16/17 06:59 06:59 06:59 Intake Total 3450 3534 421 Balance 3450 3534 421 Weight 94.2 kg 96 kg 96.2 kg General appearance: PRESENT: obese Eye exam: PRESENT: conjunctiva pink, PERRLA Mouth exam: PRESENT: moist Teeth exam: PRESENT: poor dentation Respiratory exam: PRESENT: rhonchi, symmetrical, unlabored Cardiovascular exam: PRESENT: +S1, +S2 Pulses: PRESENT: normal radial pulses, +1 pedal pulses bilateral Vascular exam: PRESENT: normal capillary refill GI/Abdominal exam: PRESENT: normal bowel sounds, soft. ABSENT: tenderness Rectal exam: PRESENT: deferred Gentrourinary exam: PRESENT: other - incontinent Extremities exam: PRESENT: pedal edema - TRACE EDEMA. ABSENT: full ROM Musculoskeletal exam: ABSENT: ambulatory, full ROM Neurological exam: PRESENT: awake. ABSENT: oriented to person, oriented to place, oriented to time, oriented to situation, reflexes normal - WITHDRAW TO PAIN IN ALL 4 EXTREMITIES Skin exam: PRESENT: dry, warm, other - SACRAL DECUBITUS ULCER. ABSENT: intact Results Laboratory Results: 12/15/17 07:32 12/15/17 07:32 12/15/17 12/15/17 07:32 07:32 WBC 7.0 RBC 3.64 L Hgb 10.2 L Hct 31.3 L MCV 86 MCH 28.1 MCHC 32.7 RDW 16.7 H Plt Count 228 Sodium 148.2 H Potassium 4.0 Chloride 104 Carbon Dioxide 30 Anion Gap 14 BUN 25 H Creatinine 0.56 Est GFR ( Amer) > 60 Est GFR (Non-Af Amer) > 60 Glucose 297 H Calcium 9.5 Phosphorus 3.3 Magnesium 2.3 Impressions: Chest X-Ray 12/12/17 22:49 IMPRESSION: Mild central vascular congestion. Mild bibasilar atelectasis. Fluoroscopy 12/13/17 00:00 IMPRESSION: Gastrostomy tube tip and balloon in the gastric antrum. Preferential flow of contrast into the duodenum. KUB X-Ray 12/13/17 00:00 IMPRESSION: Gastrostomy tube tip and balloon in the gastric antrum. Preferential flow of contrast into the duodenum. Tube Placement 12/13/17 00:00 IMPRESSION: Gastrostomy tube tip and balloon in the gastric antrum. Preferential flow of contrast into the duodenum. Status: Imported from PACS Assessment & Plan - Diagnosis (1) Acute respiratory failure with hypoxia and hypercapnia Is this a current diagnosis for this admission?: Yes Plan: Secondary to aspiration PNA related to fecal impaction as evidence by increased residual tube feeding via PEG. Rhonci heard in all lung chow. Supplemental oxygen via nasal cannula or face mask for SPO2>90% Blood cultures show no growth to date, sputum culture growing proteus, sensitivities indicate it is susceptible to ciprofloxacin. Discontinue Vanc/ Zosyn IV and initiate Cipro (2) Aspiration pneumonia Qualifiers: Aspiration pneumonia type: unspecified Laterality: right Lung location: lower lobe of lung Qualified Code(s): J69.0 - Pneumonitis due to inhalation of food and vomit Is this a current diagnosis for this admission?: Yes Plan: See plan above (3) Dehydration Is this a current diagnosis for this admission?: Yes Plan: As evidence by significant HYPERnatremia Initially treated with 1/2 normal saline IV Now on free water flushes every 4 hours Montior daily chemistries (4) Chronic PEG feedings Is this a current diagnosis for this admission?: Yes Plan: Tube feeding was initially on hold due to fecal impaction, now that patient has is having bowel movements, resumed enteral feeding Nursing staff reports little to no PEG tube residuals. Patient is tolerating tube feeds very well Initiate Glucerna 1.2 @ 50mL/hr and 100mL free water flushes q4hr (5) Constipation Qualifiers: Constipation type: unspecified constipation type Qualified Code(s): K59.00 - Constipation, unspecified Is this a current diagnosis for this admission?: Yes Plan: Patient has a history of recurrent fecal impaction. According to nursing staff, the patient had two large bowel movements overnight Will discontinue enemas and place patient on Senna and milk of mag. (6) Do not resuscitate Is this a current diagnosis for this admission?: Yes Plan: According to the last discharge summary, the patient was made a DNR by the power of employment attorney. A copy of the DNR form was sent from the [facility]. A new DNR form was signed by the author since a photocopy is not valid - Time Time Spent with patient: 15-24 minutes Anticipated discharge: Home - Inpatient Certification Based on my medical assessment, after consideration of the patient's comorbidities, presenting symptoms, or acuity I expect that the services needed warrant INPATIENT care.: Yes I certify that my determination is in accordance with my understanding of Medicare's requirements for reasonable and necessary INPATIENT services [42 CFR 412.3e].: Yes Medical Necessity: Need for IV Antibiotics - Plan Summary Plan Summary: TREAT FOR ASPIRATION PNA. [facility]
[2017-12-16 07:31] LABS: HEMATOCRIT 33.6 % (36.0-47.0); MEAN CORPUSCULAR HGB CONC 32.7 g/dL (32.0-36.0); MEAN CORPUSCULAR VOLUME 86 fl (80-97); RED BLOOD COUNT 3.92 10^6/uL (3.72-5.28); RED CELL DISTRIBUTION WIDTH 16.5 % (11.5-14.0); WHITE BLOOD COUNT 8.5 10^3/uL (4.0-10.5)
[2017-12-16 07:45] LABS: PLATELET COUNT 193 10^3/uL (150-450)
[2017-12-16 09:30] LABS: ALANINE AMINOTRANSFERASE 22 U/L (9-52); ALBUMIN 3.7 g/dL (3.5-5.0); ALKALINE PHOSPHATASE 97 U/L (38-126); ANION GAP 12 (5-19); ASPARTATE AMINO TRANSFERASE 47 U/L (14-36); BILIRUBIN,DIRECT 0.5 mg/dL (0.0-0.4); BILIRUBIN,TOTAL 0.5 mg/dL (0.2-1.3); BLOOD UREA NITROGEN 21 mg/dL (7-20); CALCIUM 9.8 mg/dL (8.4-10.2); CARBON DIOXIDE 32 mmol/L (22-30); CHLORIDE 101 mmol/L (98-107); GLUCOSE 239 mg/dL (75-110); POTASSIUM 5.1 mmol/L (3.6-5.0); SODIUM 144.8 mmol/L (137-145); TOTAL PROTEIN 7.3 g/dL (6.3-8.2)
[2017-12-16] MEDS: CALCIUM CARBONATE 500 MG TABLET PEG SCH ×2 (10:05→17:10)
[2017-12-16] MEDS: CIPROFLOXACIN 400 MG/D5W RTU 400 MG/200 ML RTUPB IV SCH ×2 (10:05→22:03)
[2017-12-16] MEDS: SENNOSIDES/DOCUSATE 8.6-50 MG 1 EACH TABLET PO SCH ×2 (10:07→17:06)
[2017-12-16] MEDS: INSULIN GLARGINE,HUM.REC.ANLOG 1,000 UNIT/10 ML UNIT SUBCUT SCH (10:07)
[2017-12-16] MEDS: LEVOTHYROXINE SODIUM 0.088 MG TABLET PEG SCH (10:07)
[2017-12-16] MEDS: LANSOPRAZOLE 30 MG TAB.RAP.DR PEG SCH ×2 (10:07→17:10)
[2017-12-16] MEDS: MAGNESIUM HYDROXIDE SUSP 30 ML UDCUP PO SCH (11:26)
--- NOTE | 2017-12-16 17:31 | PDOC PROGRESS REPORT ---
Subjective Progress Note for:: 12/16/17 Subjective:: BEN DAILEY is a 62 y.o. female with a PMH of TBI, AFIB, PNA, DM, HYPERthyroidism, UTI, recurrent aspiration PNA, HYPERnatremia, sacral decubiti and fecal impaction. She presented to the ED on 12/13/2017 for dyspnea, increased WOB, as aspiration PNA. The patient was seen this morning on rounds, she is asleep and only responds to painful stimuli (her baseline). W/D in all 4 extremities. Nonverbal. She is resting in bed on a face mask. Rhonci can be heard in all lung chow. Patient able to wean off face mask, now on Venturi mask. Nursing staff reports isolated incident of hypoxia, SPO2 briefly dropping down to 50%. The patient was NT suctioned, repositioned, and her SPO2 quickly increased to >90%. Reason For Visit: PNEUMONIA Physical Exam Vital Signs: Temp Pulse Resp BP Pulse Ox 98.5 F 83 16 149/81 H 97 12/16/17 15:12 12/16/17 16:35 12/16/17 16:35 12/16/17 15:12 12/16/17 16:35 Pulse Oximeter Continuous Start: 12/12/17 23: 43 Freq: RTQ4 Status: Active Document 12/16/17 16:14 CBR (Rec: 12/16/17 16:27 [email or web address] [email or web address]) Pulse Oximetry Assessment Oxygen Saturation (92-100) 100 Oxygen Flow Rate (L/min) 6 Oxygen Delivery Method Venturi Mask Fraction of Inspired Oxygen (FIO2) 40 Equipment Usage Equipment in Use Continuous SpO2 Machine # [id number] Intake & Output 12/15/17 12/16/17 12/17/17 06:59 06:59 06:59 Intake Total 3535 421 Balance 3534 421 Weight 96 kg 96.2 kg Eye exam: PRESENT: conjunctiva pink, PERRLA Mouth exam: PRESENT: moist Teeth exam: PRESENT: poor dentation Respiratory exam: PRESENT: rhonchi, tachypnea, unlabored Cardiovascular exam: PRESENT: +S1, +S2 Pulses: PRESENT: normal radial pulses, +1 pedal pulses bilateral GI/Abdominal exam: PRESENT: normal bowel sounds, soft, other - GASTRIC PEG TUBE. ABSENT: tenderness Rectal exam: PRESENT: deferred Extremities exam: ABSENT: full ROM Musculoskeletal exam: PRESENT: deformity - CONTRACTED IN ALL 4 EXTREMITITES. ABSENT: ambulatory, full ROM Neurological exam: ABSENT: alert, altered, oriented to person, oriented to place , oriented to time, oriented to situation Skin exam: PRESENT: dry, other - SACRAL DECUB PRESSURE ULCER Results Laboratory Results: 12/16/17 06:14 12/16/17 08:34 12/16/17 12/16/17 06:14 08:34 WBC 8.5 RBC 3.92 Hgb 11.0 L Hct 33.6 L MCV 86 MCH 28.0 MCHC 32.7 RDW 16.5 H Plt Count 193 Sodium 144.8 Potassium 5.1 H Chloride 101 Carbon Dioxide 32 H Anion Gap 12 BUN 21 H Creatinine 0.41 L Est GFR ( Amer) > 60 Est GFR (Non-Af Amer) > 60 Glucose 239 H Calcium 9.8 Total Bilirubin 0.5 AST 47 H ALT 22 Alkaline Phosphatase 97 Total Protein 7.3 Albumin 3.7 Impressions: Chest X-Ray 12/12/17 22:49 IMPRESSION: Mild central vascular congestion. Mild bibasilar atelectasis. Fluoroscopy 12/13/17 00:00 IMPRESSION: Gastrostomy tube tip and balloon in the gastric antrum. Preferential flow of contrast into the duodenum. KUB X-Ray 12/13/17 00:00 IMPRESSION: Gastrostomy tube tip and balloon in the gastric antrum. Preferential flow of contrast into the duodenum. Tube Placement 12/13/17 00:00 IMPRESSION: Gastrostomy tube tip and balloon in the gastric antrum. Preferential flow of contrast into the duodenum. Status: Imported from PACS Assessment & Plan - Diagnosis (1) Acute respiratory failure with hypoxia and hypercapnia Is this a current diagnosis for this admission?: Yes Plan: Secondary to aspiration PNA related to fecal impaction as evidence by increased residual tube feeding via PEG. Rhonci heard in all lung chow. Supplemental oxygen via nasal cannula or face mask for SPO2>90% Blood cultures show no growth to date, sputum culture growing proteus, sensitivities indicate it is susceptible to ciprofloxacin. Discontinue Vanc/ Zosyn IV and initiate Cipro Nursing staff report very thick and tenacious secretions, initiate acetylcysteine nebulizer treatments and chest physiotherapy. (2) Aspiration pneumonia Qualifiers: Aspiration pneumonia type: unspecified Laterality: right Lung location: lower lobe of lung Qualified Code(s): J69.0 - Pneumonitis due to inhalation of food and vomit Is this a current diagnosis for this admission?: Yes Plan: See plan above (3) Dehydration Is this a current diagnosis for this admission?: Yes Plan: As evidence by HYPERnatremia Initially treated with 1/2 normal saline IV Now on free water flushes every 4 hours Na levels now within normal range. Montior daily chemistries (4) Chronic PEG feedings Is this a current diagnosis for this admission?: Yes Plan: Chronic PEG feeds stemming from history of TBI and the patient's loss of ability to care for herself. GCS 8 (eyes open to speech, no verbal response, withdraw to pain) Tube feeding was initially on hold due to fecal impaction, now that patient has is having bowel movements, resumed enteral feeding Nursing staff reports little to no PEG tube residuals. Patient is tolerating tube feeds very well Initiate home formula of Glucerna 1.2 @ 50mL/hr and 100mL free water flushes q4hr Nutritional assessment ordered to determine the need for supplements or change tube feeding formula. (5) Constipation Qualifiers: Constipation type: unspecified constipation type Qualified Code(s): K59.00 - Constipation, unspecified Is this a current diagnosis for this admission?: Yes Plan: Patient has a history of recurrent fecal impaction. According to nursing staff, the patient started having daily bowel movements Will discontinue enemas and place patient on Senna and milk of mag. (6) Do not resuscitate Is this a current diagnosis for this admission?: Yes Plan: According to the last discharge summary, the patient was made a DNR by the power of pipe bending machine operator. A copy of the DNR form was sent from the [facility]. A new DNR form was signed by the author since a photocopy is not valid - Time Time Spent with patient: 15-24 minutes Medications reviewed and adjusted accordingly: Yes Anticipated discharge: SNF - Inpatient Certification Based on my medical assessment, after consideration of the patient's comorbidities, presenting symptoms, or acuity I expect that the services needed warrant INPATIENT care.: Yes I certify that my determination is in accordance with my understanding of Medicare's requirements for reasonable and necessary INPATIENT services [42 CFR 412.3e].: Yes Medical Necessity: Need For IV Fluids, Need for IV Antibiotics - Plan Summary Plan Summary: TREAT ASPIRATION PNA. DISCHARGE BACK TO [facility]
[2017-12-16] MEDS: ACETYLCYSTEINE 10% NEB 400 MG/4 ML VIAL NEB SCH (20:00)
[2017-12-16] MEDS: LEVALBUTEROL HCL NEB 1.25 MG/3 ML AMPUL NEB PRN (20:00)
[2017-12-17] MEDS: IPRATROPIUM/ALBUTEROL 0.5-2.5 MG/3 ML AMPUL NEB SCH ×4 (00:13→20:14)
[2017-12-17] MEDS: INSULIN LISPRO 100 UNIT/ML 3 ML VIAL SUBCUT PRN ×4 (01:30→19:09)
[2017-12-17] MEDS: ACETYLCYSTEINE 10% NEB 400 MG/4 ML VIAL NEB SCH ×2 (02:45→08:48)
[2017-12-17] MEDS: LEVALBUTEROL HCL NEB 1.25 MG/3 ML AMPUL NEB PRN (02:45)
[2017-12-17] MEDS: HEPARIN SOD (PORCINE) 5,000 UNIT/ML 1 ML SYRINGE SUBCUT SCH ×3 (05:34→21:55)
[2017-12-17 06:33] LABS: HEMATOCRIT 29.4 % (36.0-47.0); HEMOGLOBIN 9.6 g/dL (12.0-15.5); MEAN CORPUSCULAR HEMOGLOBIN 27.4 pg (27.0-33.4); MEAN CORPUSCULAR HGB CONC 32.7 g/dL (32.0-36.0); MEAN CORPUSCULAR VOLUME 84 fl (80-97); PLATELET COUNT 226 10^3/uL (150-450); RED CELL DISTRIBUTION WIDTH 16.2 % (11.5-14.0); WHITE BLOOD COUNT 10.7 10^3/uL (4.0-10.5)
[2017-12-17 06:45] LABS: ALANINE AMINOTRANSFERASE 19 U/L (9-52); ALBUMIN 3.6 g/dL (3.5-5.0); ALKALINE PHOSPHATASE 92 U/L (38-126); ANION GAP 12 (5-19); ASPARTATE AMINO TRANSFERASE 22 U/L (14-36); BILIRUBIN,DIRECT 0.4 mg/dL (0.0-0.4); BILIRUBIN,TOTAL 0.5 mg/dL (0.2-1.3); BLOOD UREA NITROGEN 15 mg/dL (7-20); CALCIUM 9.6 mg/dL (8.4-10.2); CARBON DIOXIDE 31 mmol/L (22-30); CHLORIDE 97 mmol/L (98-107); GLUCOSE 275 mg/dL (75-110); POTASSIUM 4.4 mmol/L (3.6-5.0); TOTAL PROTEIN 6.6 g/dL (6.3-8.2)
[2017-12-17] MEDS: LEVOTHYROXINE SODIUM 0.088 MG TABLET PEG SCH (09:22)
[2017-12-17] MEDS: LANSOPRAZOLE 30 MG TAB.RAP.DR PEG SCH ×2 (09:22→17:24)
[2017-12-17] MEDS: CIPROFLOXACIN 400 MG/D5W RTU 400 MG/200 ML RTUPB IV SCH ×2 (09:22→21:55)
[2017-12-17] MEDS: INSULIN GLARGINE,HUM.REC.ANLOG 1,000 UNIT/10 ML UNIT SUBCUT SCH (09:22)
[2017-12-17] MEDS: SENNOSIDES/DOCUSATE 8.6-50 MG 1 EACH TABLET PO SCH (09:22)
[2017-12-17] MEDS: CALCIUM CARBONATE 500 MG TABLET PEG SCH ×2 (09:22→17:24)
[2017-12-17] MEDS: MAGNESIUM HYDROXIDE SUSP 30 ML UDCUP PO SCH (11:17)
[2017-12-17] MEDS ORDERED: NORMAL SALINE 1000 ML 1,000 ML IV PRN (14:31)
[2017-12-17] MEDS ORDERED: SODIUM BICARBONATE 650 MG TABLET PO ONE (15:51)
[2017-12-17] MEDS ORDERED: LIPASE/PROTEASE/AMYLASE 1 CAP CAPSULE.DR PO ONE ×2 (16:00)
[2017-12-17] MEDS: SENNOSIDES/DOCUSATE 8.6-50 MG 1 EACH TABLET PEG SCH (17:24)
[2017-12-17] MEDS: ACETYLCYSTEINE 20% SOLN 800 MG/4 ML VIAL.NEB NEB SCH (20:14)
[2017-12-18] MEDS: INSULIN LISPRO 100 UNIT/ML 3 ML VIAL SUBCUT PRN ×4 (01:01→18:27)
[2017-12-18] MEDS: HEPARIN SOD (PORCINE) 5,000 UNIT/ML 1 ML SYRINGE SUBCUT SCH ×3 (06:09→21:21)
[2017-12-18 06:32] LABS: HEMATOCRIT 32.7 % (36.0-47.0); MEAN CORPUSCULAR HEMOGLOBIN 28.1 pg (27.0-33.4); MEAN CORPUSCULAR HGB CONC 33.6 g/dL (32.0-36.0); MEAN CORPUSCULAR VOLUME 84 fl (80-97); PLATELET COUNT 238 10^3/uL (150-450); RED BLOOD COUNT 3.92 10^6/uL (3.72-5.28); RED CELL DISTRIBUTION WIDTH 16.2 % (11.5-14.0); WHITE BLOOD COUNT 7.1 10^3/uL (4.0-10.5)
[2017-12-18 06:40] LABS: ALANINE AMINOTRANSFERASE 31 U/L (9-52); ALBUMIN 3.8 g/dL (3.5-5.0); ALKALINE PHOSPHATASE 83 U/L (38-126); ANION GAP 10 (5-19); ASPARTATE AMINO TRANSFERASE 30 U/L (14-36); BILIRUBIN,DIRECT 0.3 mg/dL (0.0-0.4); BILIRUBIN,TOTAL 0.6 mg/dL (0.2-1.3); BLOOD UREA NITROGEN 11 mg/dL (7-20); CALCIUM 9.5 mg/dL (8.4-10.2); CARBON DIOXIDE 36 mmol/L (22-30); CHLORIDE 95 mmol/L (98-107); GLUCOSE 209 mg/dL (75-110); POTASSIUM 3.2 mmol/L (3.6-5.0); SODIUM 140.6 mmol/L (137-145); TOTAL PROTEIN 7.4 g/dL (6.3-8.2)
[2017-12-18] MEDS: ACETYLCYSTEINE 20% SOLN 800 MG/4 ML VIAL.NEB NEB SCH ×2 (09:01→19:53)
[2017-12-18] MEDS: IPRATROPIUM/ALBUTEROL 0.5-2.5 MG/3 ML AMPUL NEB SCH ×3 (09:01→19:53)
[2017-12-18] MEDS: CIPROFLOXACIN 400 MG/D5W RTU 400 MG/200 ML RTUPB IV SCH ×2 (09:09→21:22)
[2017-12-18] MEDS: SENNOSIDES/DOCUSATE 8.6-50 MG 1 EACH TABLET PEG SCH ×2 (09:10→18:07)
[2017-12-18] MEDS: LANSOPRAZOLE 30 MG TAB.RAP.DR PEG SCH ×2 (09:10→18:08)
[2017-12-18] MEDS: CALCIUM CARBONATE 500 MG TABLET PEG SCH ×2 (09:10→18:08)
[2017-12-18] MEDS: LEVOTHYROXINE SODIUM 0.088 MG TABLET PEG SCH (09:10)
[2017-12-18] MEDS: INSULIN GLARGINE,HUM.REC.ANLOG 1,000 UNIT/10 ML UNIT SUBCUT SCH (10:29)
[2017-12-18] MEDS: MAGNESIUM HYDROXIDE SUSP 30 ML UDCUP PEG SCH (12:13)
[2017-12-18] MEDS ORDERED: POTASSIUM CHLORIDE 20 MEQ/15 ML UDCUP PEG ONE (13:15)
[2017-12-18] MEDS ORDERED: POTASSI CL 20 MEQ/50 ML RIDER 20 MEQ/50 ML RTUPB IV ONE (14:00)
--- NOTE | 2017-12-18 14:08 | PDOC PROGRESS REPORT ---
<LILYMELISSA A - Last Filed: 12/18/17 13:54> Subjective Progress Note for:: 12/18/17 Subjective:: BEN DAILEY is a 62 y.o. female with a PMH of TBI, AFIB, PNA, DM, HYPERthyroidism, UTI, recurrent aspiration PNA, HYPERnatremia, sacral decubiti and fecal impaction. She presented to the ED on 12/13/2017 for dyspnea, increased WOB, as aspiration PNA. The patient was seen this morning on rounds, she is arousable to voice but remains nonverbal (baseline). W/D in all 4 extremities. She is resting in bed on nasal cannula. Her lung sounds are greatly improved, she is mostly battling with upper airway secretions at this point. Lungs are otherwise clear to auscultation. Attempt to wean from nasal cannula today. Anticipate that the patient will be ready to transfer back to halfway facility within 48 hours. Reason For Visit: PNEUMONIA Physical Exam Vital Signs: Temp Pulse Resp BP Pulse Ox 98.7 F 77 18 115/66 95 12/18/17 11:56 12/18/17 11:56 12/18/17 11:56 12/18/17 11:56 12/18/17 12:00 Pulse Oximeter Continuous Start: 12/12/17 23: 43 Freq: RTQ4 Status: Active Document 12/18/17 12:00 LDA (Rec: 12/18/17 12:13 LDA [email or web address]) Pulse Oximetry Assessment Oxygen Saturation (92-100) 95 Oxygen Flow Rate (L/min) 2 Oxygen Delivery Method Nasal Cannula Fraction of Inspired Oxygen (FIO2) 28 Equipment Usage Equipment in Use Continuous SpO2 Machine # 7 Intake & Output 12/17/17 12/18/17 12/19/17 06:59 06:59 06:59 Intake Total 1275 1695 Balance 1275 1695 Weight 97.7 kg 100.8 kg General appearance: PRESENT: no acute distress, obese Eye exam: PRESENT: conjunctiva pink, PERRLA Mouth exam: PRESENT: moist Teeth exam: PRESENT: poor dentation Respiratory exam: PRESENT: clear to auscultation regan, symmetrical, unlabored, other - Upper airway secretions. Cardiovascular exam: PRESENT: +S1, +S2 Pulses: PRESENT: normal radial pulses, +1 pedal pulses bilateral GI/Abdominal exam: PRESENT: normal bowel sounds, soft. ABSENT: tenderness Rectal exam: PRESENT: deferred Extremities exam: PRESENT: +1 edema. ABSENT: full ROM Musculoskeletal exam: ABSENT: ambulatory, full ROM Neurological exam: PRESENT: awake. ABSENT: oriented to person, oriented to place, oriented to time, oriented to situation Skin exam: PRESENT: dry, warm, other - Sacral decubitus ulcer Results Laboratory Results: 12/18/17 06:16 12/18/17 06:16 12/18/17 12/18/17 06:16 06:16 WBC 7.1 RBC 3.92 Hgb 11.0 L Hct 32.7 L MCV 84 MCH 28.1 MCHC 33.6 RDW 16.2 H Plt Count 238 Sodium 140.6 Potassium 3.2 L Chloride 95 L Carbon Dioxide 36 H Anion Gap 10 BUN 11 Creatinine 0.45 L Est GFR ( Amer) > 60 Est GFR (Non-Af Amer) > 60 Glucose 209 H Calcium 9.5 Total Bilirubin 0.6 AST 30 ALT 31 Alkaline Phosphatase 83 Total Protein 7.4 Albumin 3.8 Impressions: Chest X-Ray 12/12/17 22:49 IMPRESSION: Mild central vascular congestion. Mild bibasilar atelectasis. Fluoroscopy 12/13/17 00:00 IMPRESSION: Gastrostomy tube tip and balloon in the gastric antrum. Preferential flow of contrast into the duodenum. KUB X-Ray 12/13/17 00:00 IMPRESSION: Gastrostomy tube tip and balloon in the gastric antrum. Preferential flow of contrast into the duodenum. Tube Placement 12/13/17 00:00 IMPRESSION: Gastrostomy tube tip and balloon in the gastric antrum. Preferential flow of contrast into the duodenum. Status: Imported from PACS Assessment & Plan - Diagnosis (1) Acute respiratory failure with hypoxia and hypercapnia Is this a current diagnosis for this admission?: Yes Plan: Secondary to aspiration PNA related to fecal impaction as evidence by increased residual tube feeding via PEG. Rhonci heard in all lung chow. Supplemental oxygen via nasal cannula or face mask for SPO2>90% Blood cultures show no growth to date, sputum culture growing proteus, sensitivities indicate it is susceptible to ciprofloxacin. Discontinue Vanc/ Zosyn IV and initiate Cipro Currently day #6 of 7 day antibiotic regimen Nursing staff report very thick and tenacious secretions, initiate acetylcysteine nebulizer treatments and chest physiotherapy. (2) Aspiration pneumonia QualifierTitle: Aspiration pneumonia type: unspecified Laterality: right Lung location: lower lobe of lung Qualified Code(s): J69.0 - Pneumonitis due to inhalation of food and vomit Is this a current diagnosis for this admission?: Yes Plan: See plan above (3) Dehydration Is this a current diagnosis for this admission?: Yes Plan: As evidence by HYPERnatremia Initially treated with 1/2 normal saline IV Now on free water flushes every 4 hours Na levels now within normal range. Monitor daily chemistries (4) Chronic PEG feedings Is this a current diagnosis for this admission?: Yes Plan: Chronic PEG feeds stemming from history of TBI and the patient's loss of ability to care for herself. GCS 8 (eyes open to speech, no verbal response, withdraw to pain) Tube feeding was initially on hold due to fecal impaction, now that patient has is having bowel movements, resumed enteral feeding Nursing staff reports little to no PEG tube residuals. Patient is tolerating tube feeds very well Nutritional assessment completed yesterday, dietitian recommends increasing enteral feeding rate and the addition of iron supplements Increase home formula from 50 mL/hr to 60 mL/hr. New enteral feeding order: Glucerna 1.2 @ 60mL/hr and 100mL free water flushes q4hr Initiate daily ferrous sulfate (5) Constipation QualifierTitle: Constipation type: unspecified constipation type Qualified Code(s): K59.00 - Constipation, unspecified Is this a current diagnosis for this admission?: Yes Plan: Improved. Patient has a history of recurrent fecal impaction. According to nursing staff, the patient started having daily bowel movements Enemas have been discontinued, continue Senna and milk of mag. (6) Do not resuscitate Is this a current diagnosis for this admission?: Yes Plan: According to the last discharge summary, the patient was made a DNR by the power of employment attorney. A copy of the DNR form was sent from the [facility]. A new DNR form was signed by the author since a photocopy is not valid - Time Time Spent with patient: 15-24 minutes Medications reviewed and adjusted accordingly: Yes Anticipated discharge: SNF Within: within 48 hours - Inpatient Certification Based on my medical assessment, after consideration of the patient's comorbidities, presenting symptoms, or acuity I expect that the services needed warrant INPATIENT care.: Yes I certify that my determination is in accordance with my understanding of Medicare's requirements for reasonable and necessary INPATIENT services [42 CFR 412.3e].: Yes Medical Necessity: Risk of Complication if Not Cared For in Hospital - Plan Summary Plan Summary: Ultimately, the plan is to discharge the patient back to halfway facility <KATIENOVEMBER C - Last Filed: 12/18/17 15:21> Subjective Reason For Visit: PNEUMONIA Physical Exam Vital Signs: Temp Pulse Resp BP Pulse Ox 98.7 F 76 16 115/66 95 12/18/17 11:56 12/18/17 13:53 12/18/17 13:53 12/18/17 11:56 12/18/17 12:00 Pulse Oximeter Continuous Start: 12/12/17 23: 43 Freq: RTQ4 Status: Active Document 12/18/17 12:00 LDA (Rec: 12/18/17 12:13 LDA [email or web address]) Pulse Oximetry Assessment Oxygen Saturation (92-100) 95 Oxygen Flow Rate (L/min) 2 Oxygen Delivery Method Nasal Cannula Fraction of Inspired Oxygen (FIO2) 28 Equipment Usage Equipment in Use Continuous SpO2 Machine # 7 Intake & Output 12/17/17 12/18/17 12/19/17 06:59 06:59 06:59 Intake Total 1275 1695 Balance 1275 1695 Weight 97.7 kg 100.8 kg Results Laboratory Results: 12/18/17 06:16 12/18/17 06:16 12/18/17 12/18/17 06:16 06:16 WBC 7.1 RBC 3.92 Hgb 11.0 L Hct 32.7 L MCV 84 MCH 28.1 MCHC 33.6 RDW 16.2 H Plt Count 238 Sodium 140.6 Potassium 3.2 L Chloride 95 L Carbon Dioxide 36 H Anion Gap 10 BUN 11 Creatinine 0.45 L Est GFR ( Amer) > 60 Est GFR (Non-Af Amer) > 60 Glucose 209 H Calcium 9.5 Total Bilirubin 0.6 AST 30 ALT 31 Alkaline Phosphatase 83 Total Protein 7.4 Albumin 3.8 Impressions: Chest X-Ray 12/12/17 22:49 IMPRESSION: Mild central vascular congestion. Mild bibasilar atelectasis. Fluoroscopy 12/13/17 00:00 IMPRESSION: Gastrostomy tube tip and balloon in the gastric antrum. Preferential flow of contrast into the duodenum. KUB X-Ray 12/13/17 00:00 IMPRESSION: Gastrostomy tube tip and balloon in the gastric antrum. Preferential flow of contrast into the duodenum. Tube Placement 12/13/17 00:00 IMPRESSION: Gastrostomy tube tip and balloon in the gastric antrum. Preferential flow of contrast into the duodenum. Assessment & Plan - Plan Summary Plan Summary: Co-signing note for Melissa Perez NP
[2017-12-18] MEDS: FERROUS SULFATE LIQUID 300 MG/5 ML UDC PEG SCH (18:07)
[2017-12-19] MEDS: INSULIN LISPRO 100 UNIT/ML 3 ML VIAL SUBCUT PRN ×5 (00:33→23:36)
[2017-12-19] MEDS: HEPARIN SOD (PORCINE) 5,000 UNIT/ML 1 ML SYRINGE SUBCUT SCH ×3 (05:34→22:35)
[2017-12-19] MEDS: IPRATROPIUM/ALBUTEROL 0.5-2.5 MG/3 ML AMPUL NEB SCH ×3 (09:12→19:36)
[2017-12-19] MEDS: ACETYLCYSTEINE 20% SOLN 800 MG/4 ML VIAL.NEB NEB SCH ×2 (09:13→19:36)
[2017-12-19 09:51] LABS: HEMATOCRIT 33.6 % (36.0-47.0); HEMOGLOBIN 11.1 g/dL (12.0-15.5); MEAN CORPUSCULAR HEMOGLOBIN 28.1 pg (27.0-33.4); MEAN CORPUSCULAR HGB CONC 33.1 g/dL (32.0-36.0); MEAN CORPUSCULAR VOLUME 85 fl (80-97); PLATELET COUNT 303 10^3/uL (150-450); RED BLOOD COUNT 3.96 10^6/uL (3.72-5.28); RED CELL DISTRIBUTION WIDTH 16.6 % (11.5-14.0); WHITE BLOOD COUNT 6.2 10^3/uL (4.0-10.5)
[2017-12-19 10:06] LABS: ALANINE AMINOTRANSFERASE 33 U/L (9-52); ALBUMIN 3.9 g/dL (3.5-5.0); ALKALINE PHOSPHATASE 95 U/L (38-126); ANION GAP 10 (5-19); ASPARTATE AMINO TRANSFERASE 46 U/L (14-36); BILIRUBIN,DIRECT 0.4 mg/dL (0.0-0.4); BILIRUBIN,TOTAL 0.4 mg/dL (0.2-1.3); BLOOD UREA NITROGEN 12 mg/dL (7-20); CALCIUM 9.7 mg/dL (8.4-10.2); CARBON DIOXIDE 35 mmol/L (22-30); CHLORIDE 97 mmol/L (98-107); GLUCOSE 197 mg/dL (75-110); POTASSIUM 4.1 mmol/L (3.6-5.0); SODIUM 142.3 mmol/L (137-145); TOTAL PROTEIN 7.7 g/dL (6.3-8.2)
[2017-12-19] MEDS: FERROUS SULFATE LIQUID 300 MG/5 ML UDC PEG SCH ×2 (10:45→19:15)
[2017-12-19] MEDS: SENNOSIDES/DOCUSATE 8.6-50 MG 1 EACH TABLET PEG SCH ×2 (10:46→19:14)
[2017-12-19] MEDS: CIPROFLOXACIN 400 MG/D5W RTU 400 MG/200 ML RTUPB IV SCH ×2 (10:46→22:35)
[2017-12-19] MEDS: CALCIUM CARBONATE 500 MG TABLET PEG SCH ×2 (10:46→19:13)
[2017-12-19] MEDS: LEVOTHYROXINE SODIUM 0.088 MG TABLET PEG SCH (10:46)
[2017-12-19] MEDS: LANSOPRAZOLE 30 MG TAB.RAP.DR PEG SCH ×2 (10:46→19:14)
[2017-12-19] MEDS: INSULIN GLARGINE,HUM.REC.ANLOG 1,000 UNIT/10 ML UNIT SUBCUT SCH (10:47)
[2017-12-19] MEDS: MAGNESIUM HYDROXIDE SUSP 30 ML UDCUP PEG SCH (13:48)
--- NOTE | 2017-12-19 15:01 | Progress Note ---
Provider Note Provider Note: ID Consult Note Asked to review the patient's chart by Pharmacy. Pt not seen or examined. Reviewed chart including provider reports, chest radiographs and imaging reports , VS, and labs. Ms. 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 She had a recent prior admission from 11/24-12/03/17 for similar presentation with fever and acute respiratory failure; she was diagnosed with pneumonia secondary to aspirated tube feeds that resulted in the setting of abdominal distention and fecal impaction. Ms. Rojas presented again overnight between 12/12 and 12/13/17 with increased WOB and fever to 103.5 F. She was found to have coarse breath sounds. The ED provider reported that the respiratory therapist suctioned a large amount of fluid from the patient's trach with subsequent improvement in breathing. CXR obtained on presentation was officially read as showing mild bibasilar atelectasis but was interpreted by her treating physician as being suggestive of a new R basilar infiltrate when compared to a prior film. Blood cultures on admission showed no growth. She was treated empirically with Levaquin x 1 dose in the ED, then vancomycin 12/13-12/14 and Zosyn 12/13-12/15, then Cipro from 12/15 to present. Sputum culture was eventually reported as showing growth of both 4+ Proteus species and 4+ MSSA. The patient's MSSA isolate is fluoroquinolone resistant. She was initially on 4 L O2, which has been weaned down to 2 L O2 over the course of her hospitalization. She has not had a fever since 12/13. She has clear lung sounds documented on exam and has improved. Impression/Recommendations Aspiration pneumonitis or aspiration pneumonia - Chemical injury from aspiration of gastric contents results in inflammation ( immediate fever, hypoxemia, and abnormalities on CXR), usually with a large amount of aspirated contents, tends to have a more rapid clinical course and requires supportive care. The patient's CXR has mild bibasilar infiltrates that are not much different than the prior film in October, taking into account changes in positioning. She had rapid abatement in fever, and suctioning alone was documented as providing improvement in breathing. I suspect that the patient may have had aspiration pneumonitis, rather than pilar aspiration pneumonia. The fact that the patient continued to improve despite having several days of antibiotic therapy with Cipro that only partially would have addressed her sputum culture results may also be interpreted as providing support for pneumonitis rather than true pneumonia. - That being said, aspiration pneumonitis vs. pneumonia is challenging to differentiate clinically, and if the treating providers seeing the patient deem aspiration pneumonia to be the most likely diagnosis, continuing therapy with Augmentin for another 5 days would allow her to complete at least 7 days of treatment that is active against both the MSSA and Proteus species from her sputum culture. - The patient may remain at risk for readmissions for aspiration pneumonia or pneumonitis given her impaired level of consciousness, regardless of the current antimicrobial therapy. Attempts to reduce the likelihood of this would depend on correcting contributing factors - patient positioning (semirecumbent rather than recumbent), good oral hygiene, addressing factors that lead to impaired forward GI motility and transit. Jerad Rojas MD [facility] Infectious Diseases pager [phone]
[2017-12-20] MEDS: HEPARIN SOD (PORCINE) 5,000 UNIT/ML 1 ML SYRINGE SUBCUT SCH ×2 (05:48→14:13)
[2017-12-20] MEDS ORDERED: LEVOTHYROXINE SODIUM 0.088 MG TABLET PEG SCH (06:00)
[2017-12-20] MEDS: INSULIN LISPRO 100 UNIT/ML 3 ML VIAL SUBCUT PRN ×3 (06:51→16:36)
[2017-12-20 07:52] LABS: HEMATOCRIT 36.9 % (36.0-47.0); HEMOGLOBIN 12.2 g/dL (12.0-15.5); MEAN CORPUSCULAR HEMOGLOBIN 28.1 pg (27.0-33.4); MEAN CORPUSCULAR HGB CONC 33.1 g/dL (32.0-36.0); MEAN CORPUSCULAR VOLUME 85 fl (80-97); PLATELET COUNT 359 10^3/uL (150-450); RED BLOOD COUNT 4.34 10^6/uL (3.72-5.28); RED CELL DISTRIBUTION WIDTH 16.8 % (11.5-14.0); WHITE BLOOD COUNT 6.2 10^3/uL (4.0-10.5)
[2017-12-20 08:06] LABS: ALANINE AMINOTRANSFERASE 43 U/L (9-52); ALBUMIN 4.3 g/dL (3.5-5.0); ALKALINE PHOSPHATASE 98 U/L (38-126); ANION GAP 14 (5-19); ASPARTATE AMINO TRANSFERASE 49 U/L (14-36); BILIRUBIN,DIRECT 0.3 mg/dL (0.0-0.4); BILIRUBIN,TOTAL 0.5 mg/dL (0.2-1.3); BLOOD UREA NITROGEN 10 mg/dL (7-20); CARBON DIOXIDE 31 mmol/L (22-30); CHLORIDE 95 mmol/L (98-107); GLUCOSE 222 mg/dL (75-110); POTASSIUM 4.1 mmol/L (3.6-5.0); TOTAL PROTEIN 8.5 g/dL (6.3-8.2)
[2017-12-20] MEDS: ACETYLCYSTEINE 20% SOLN 800 MG/4 ML VIAL.NEB NEB SCH (08:24)
[2017-12-20] MEDS: IPRATROPIUM/ALBUTEROL 0.5-2.5 MG/3 ML AMPUL NEB SCH ×2 (08:24→13:29)
[2017-12-20] MEDS ORDERED: AMOXICILLIN TR/POT CLAVULANATE 250-62.5 MG/5 ML 75 ML PO SCH (10:00)
[2017-12-20] MEDS: CALCIUM CARBONATE 500 MG TABLET PEG SCH (10:19)
[2017-12-20] MEDS: SENNOSIDES/DOCUSATE 8.6-50 MG 1 EACH TABLET PEG SCH (10:19)
[2017-12-20] MEDS: FERROUS SULFATE LIQUID 300 MG/5 ML UDC PEG SCH (10:20)
[2017-12-20] MEDS: INSULIN GLARGINE,HUM.REC.ANLOG 1,000 UNIT/10 ML UNIT SUBCUT SCH (10:20)
[2017-12-20] MEDS: LANSOPRAZOLE 30 MG TAB.RAP.DR PEG SCH (10:20)
[2017-12-20] MEDS: MAGNESIUM HYDROXIDE SUSP 30 ML UDCUP PEG SCH (11:24)
--- NOTE | 2017-12-20 12:53 | PDOC TRANSFER SUMMARY ---
<EDNA HURTADO - Last Filed: 12/20/17 12:31> General - Admit/Disc Date/PCP Admission Date/Primary Care Provider: 12/13/17 00:08 Discharge Date: 12/20/17 - Discharge Diagnosis (1) Aspiration pneumonia Is this a current diagnosis for this admission?: Yes Summary: Resolving; Aspiration pneumonia related to fecal impaction evidenced by increased residual tube feedings via PEG. Chest xray demonstrated bilateral atelectasis. Blood cultures have no growth today. Sputum culture positive for Proteus mirabilis and staph aureus. The patient was empirically placed on vancomycin and Zosyn and transitioned to ciprofloxacin when initial blood cultures revealed Proteus mirabilis. Infectious disease consultation was obtained with recommendation for p.o. Augmentin for an additional 5 days for dual coverage of Proteus and Staph. The patient was supported with supplemental oxygen, scheduled and as needed nebulizer treatments, strict adherence to aspiration precautions, and oral suctioning as needed. Her respiratory status has continued to improve and she is now maintaining oxygen saturations on room air. Her leukocytosis has resolved and she has been afebrile for greater than 48 hours. At time of discharge, the patient is in stable condition, and maintaining oxygen saturations on room air. She is provided prescriptions for Augmentin and scheduled Duonebs. Recommend continued as needed Xopenex nebulizer treatments. Recommend strict adherence to aspiration precautions and aggressive management of constipation in the future. Follow up with primary care provider within 1 week. (2) Dehydration Is this a current diagnosis for this admission?: Yes Summary: Resolved; secondary poor p.o. intake in presence of fecal impaction. Corrected with IV fluids. Recommend continued free water flushes of 100 ml q4 hrs. (3) Acute respiratory failure with hypoxia and hypercapnia Is this a current diagnosis for this admission?: Yes Summary: Resolved; secondary to aspiration pneumonia. (4) Chronic PEG feedings Is this a current diagnosis for this admission?: Yes Summary: Tube feedings were initially held due to fecal impaction; patient is now having regular bowel movements and so enteral feedings were resumed yesterday. Nutritional assessment was completed; the registered dietitian recommends increased feeding rate with the addition of iron supplements. Recommend continuation of Glucerna 1.2 at 60 mL/h and 100 ml free water flushes every 4 hours. Recommend continuation of daily ferrous sulfate. (5) Constipation Is this a current diagnosis for this admission?: Yes Summary: Resolved; patient is now having daily bowel movements. Recommend continuation of Milk of Magnesia daily, Miralax daily, Dulcolax suppository every other day, and Lactulose 10 ml BID as needed. - Additional Information Resuscitation Status: Full Code Discharge Diet: Tube Feeding (Comments) Discharge Activity: Activity As Tolerated Prescriptions: Amox Tr/Potassium Clavulanate [Augmentin 250-62.5 mg/5 ml Susp] 500 mg PO Q8A # 15 bottle Ferrous Sulfate [Ferrous Sulfate Liquid 300 mg/5 ml Udcup] 300 mg PEG BID #60 udc Ipratropium/Albuterol Sulfate [Duoneb 3 ml Ampul] 3 ml NEB RTQ8 #15 vial.neb Magnesium Hydroxide [Milk of Magnesia 30 ml Udcup] 30 ml PEG DAILY #30 udc Home Medications: Acetaminophen [Tylenol 650 mg Supp] 650 mg NH Q4HP PRN 12/13/17 Atorvastatin Calcium [Lipitor 10 mg Tablet] 10 mg PEG QHS 12/13/17 Bisacodyl [Dulcolax 10 mg Supp.rect] 10 mg NH Q48HP PRN 12/13/17 Calcium Carbonate 500 mg PEG BID 12/13/17 Cholecalciferol (Vitamin D3) [Vitamin D3 400 Unit Tablet] 400 unit PEG BID 12/13 Esomeprazole Magnesium [Nexium] 40 mg PEG BID 12/13/17 Furosemide [Lasix 20 mg Tablet] 20 mg PEG DAILY 12/13/17 Lactulose [Constulose 10 gm/15 mL Oral Solution] 10 gm PEG BIDP PRN 12/13/17 Levothyroxine Sodium [Synthroid] 150 mcg PEG QAM 12/13/17 Multivits W-Min/Ferrous Gluc [Certavite Multivit/Minerals/Iron Soln] 15 ml PEG DAILY 12/13/17 Na Phos,M-B/Na Phos,Di-Ba [Fleet Enema (Adult) 133 ml] 133 ml NH DAILYP PRN Polyethylene Glycol 3350 [Miralax Powder 17 gm/Packet] 17 gm PEG DAILY 12/13/17 Potassium Chloride [Kaon-Cl 20 Meq/15 ml Udcup] 20 meq PEG DAILY 12/13/17 Amox Tr/Potassium Clavulanate [Augmentin 250-62.5 mg/5 ml Susp] 500 mg PO Q8A # 15 bottle 12/20/17 Bisacodyl [Dulcolax 10 mg Supp.rect] 10 mg NH Q48HP PRN supp.rect 12/20/17 Calcium Carbonate [Os-Naveed 500 mg Tablet (Oyster-Shell)] 500 mg PEG BID tablet 12/20/17 Ferrous Sulfate [Ferrous Sulfate Liquid 300 mg/5 ml Udcup] 300 mg PEG BID #60 udc 12/20/17 Insulin Glargine,Hum.rec.anlog [Lantus Insulin 100 Unit/1 ml 10 ml] 15 unit SUBCUT DAILY unit 12/20/17 Ipratropium/Albuterol Sulfate [Duoneb 3 ml Ampul] 3 ml NEB RTQ8 #15 vial.neb Lansoprazole [Prevacid 30 mg Odt Tablet] 30 mg PEG BID tab.rap. 12/20/17 Levalbuterol HCl [Xopenex Neb 1.25 mg/3 ml Ampul] 1.25 mg NEB RTQ4HP PRN vial.neb 12/20/17 Levothyroxine Sodium [Synthroid 0.088 mg Tablet] 0.088 mg PEG Q6AM tablet 12/20 Magnesium Hydroxide [Milk of Magnesia 30 ml Udcup] 30 ml PEG DAILY #30 udc 12/20 History of Present Illness Admission Date/PCP: 12/13/17 00:08 History of Present Illness: Per H&P by Dr. Urbano: BEN DAILEY is a 62 year old female with a history of 30+ years of vegetative state following traumatic brain injury with subsequent PEG placement, recurrent aspiration pneumonia, urinary tract infection, hypernatremia, sacral decubiti and fecal impaction. Patient was noted by the senior care staff to have increased work of breathing and transferred to the emergency room for evaluation where she is found to have upper airway rhonchi and infiltrate by chest x-ray, she is treated for pneumonia with empiric antibiotics and referred to the hospitalist for admission. Patient is unable to provide any history whatsoever and is unresponsive. Patient is a trejo of state and remains full code Physical Exam Vital Signs: Temp Pulse Resp BP Pulse Ox 97.9 F 70 16 159/79 H 97 12/20/17 07:49 12/20/17 08:25 12/20/17 08:25 12/20/17 07:49 12/20/17 12:10 Pulse Oximeter Continuous Start: 12/12/17 23: 43 Freq: RTQ4 Status: Active Document 12/20/17 12:10 TPO (Rec: 12/20/17 12:10 TPO [email or web address]) Pulse Oximetry Assessment Oxygen Saturation (92-100) 97 Oxygen Delivery Method Room Air Fraction of Inspired Oxygen (FIO2) 21 Equipment Usage Equipment in Use Continuous SpO2 Machine # 7 Intake & Output 12/19/17 12/20/17 12/21/17 06:59 06:59 06:59 Intake Total 2916 2212 340 Balance 2916 2212 340 Weight 99.6 kg 98.8 kg General appearance: PRESENT: no acute distress, obese Head exam: PRESENT: atraumatic, normocephalic Eye exam: PRESENT: conjunctiva pink, PERRLA. ABSENT: scleral icterus Ear exam: PRESENT: normal external ear exam Mouth exam: PRESENT: moist Teeth exam: PRESENT: poor dentation Neck exam: ABSENT: carotid bruit, JVD, lymphadenopathy, thyromegaly Respiratory exam: PRESENT: rhonchi - occasional rhonchi; improve after cough, symmetrical, unlabored, other - upper airway secretions. ABSENT: rales, wheezes Cardiovascular exam: PRESENT: RRR. ABSENT: diastolic murmur, rubs, systolic murmur Pulses: PRESENT: normal dorsalis pedis pul Vascular exam: PRESENT: normal capillary refill GI/Abdominal exam: PRESENT: normal bowel sounds, soft. ABSENT: distended, guarding, mass, organolmegaly, rebound, tenderness Rectal exam: PRESENT: deferred Extremities exam: PRESENT: +1 edema. ABSENT: calf tenderness, clubbing, full ROM - contractures of bilateral hands and feet Neurological exam: PRESENT: alert - arouses to verbal stimuli; does not make eye contact, answer questions, or follow directions. ABSENT: oriented to person , oriented to place, oriented to time, oriented to situation, motor sensory deficit Psychiatric exam: ABSENT: homicidal ideation, suicidal ideation Skin exam: PRESENT: dry, warm. ABSENT: cyanosis, intact - Sacral decubitus ulcer (present on admission), rash Results Laboratory Results: 12/20/17 07:41 12/20/17 07:41 12/20/17 12/20/17 07:41 07:41 WBC 6.2 RBC 4.34 Hgb 12.2 Hct 36.9 MCV 85 MCH 28.1 MCHC 33.1 RDW 16.8 H Plt Count 359 Sodium 140.0 Potassium 4.1 Chloride 95 L Carbon Dioxide 31 H Anion Gap 14 BUN 10 Creatinine 0.43 L Est GFR ( Amer) > 60 Est GFR (Non-Af Amer) > 60 Glucose 222 H Calcium 10.0 Total Bilirubin 0.5 AST 49 H ALT 43 Alkaline Phosphatase 98 Total Protein 8.5 H Albumin 4.3 Impressions: Chest X-Ray 12/12/17 22:49 IMPRESSION: Mild central vascular congestion. Mild bibasilar atelectasis. Fluoroscopy 12/13/17 00:00 IMPRESSION: Gastrostomy tube tip and balloon in the gastric antrum. Preferential flow of contrast into the duodenum. KUB X-Ray 12/13/17 00:00 IMPRESSION: Gastrostomy tube tip and balloon in the gastric antrum. Preferential flow of contrast into the duodenum. Tube Placement 12/13/17 00:00 IMPRESSION: Gastrostomy tube tip and balloon in the gastric antrum. Preferential flow of contrast into the duodenum. Transfer Plan - Disposition Transfer Plan: Discharge to [facility] where the patient is an established long-term resident. - Time Spent with Patient Time spent with patient: Less than 30 Minutes Qualifiers - * PATIENT BEING DISCHARGED WITH ANY OF THE FOLLOWING DIAGNOSIS: No < C - Last Filed: 12/20/17 15:29> General - Admit/Disc Date/PCP Admission Date/Primary Care Provider: 12/13/17 00:08 History of Present Illness Admission Date/PCP: 12/13/17 00:08 History of Present Illness: BEN DAILEY is a 62 year old female Physical Exam Vital Signs: Temp Pulse Resp BP Pulse Ox 98.1 F 74 16 153/85 H 100 12/20/17 11:54 12/20/17 13:29 12/20/17 13:29 12/20/17 11:54 12/20/17 13:29 Pulse Oximeter Continuous Start: 12/12/17 23: 43 Freq: RTQ4 Status: Active Document 12/20/17 12:10 TPO (Rec: 12/20/17 12:10 TPO [email or web address]) Pulse Oximetry Assessment Oxygen Saturation (92-100) 97 Oxygen Delivery Method Room Air Fraction of Inspired Oxygen (FIO2) 21 Equipment Usage Equipment in Use Continuous SpO2 Machine # 7 Intake & Output 12/19/17 12/20/17 12/21/17 06:59 06:59 06:59 Intake Total 2916 2212 340 Balance 2916 2212 340 Weight 99.6 kg 98.8 kg Results Laboratory Results: 12/20/17 07:41 12/20/17 07:41 12/20/17 12/20/17 07:41 07:41 WBC 6.2 RBC 4.34 Hgb 12.2 Hct 36.9 MCV 85 MCH 28.1 MCHC 33.1 RDW 16.8 H Plt Count 359 Sodium 140.0 Potassium 4.1 Chloride 95 L Carbon Dioxide 31 H Anion Gap 14 BUN 10 Creatinine 0.43 L Est GFR ( Amer) > 60 Est GFR (Non-Af Amer) > 60 Glucose 222 H Calcium 10.0 Total Bilirubin 0.5 AST 49 H ALT 43 Alkaline Phosphatase 98 Total Protein 8.5 H Albumin 4.3 Impressions: Chest X-Ray 12/12/17 22:49 IMPRESSION: Mild central vascular congestion. Mild bibasilar atelectasis. Fluoroscopy 12/13/17 00:00 IMPRESSION: Gastrostomy tube tip and balloon in the gastric antrum. Preferential flow of contrast into the duodenum. KUB X-Ray 12/13/17 00:00 IMPRESSION: Gastrostomy tube tip and balloon in the gastric antrum. Preferential flow of contrast into the duodenum. Tube Placement 12/13/17 00:00 IMPRESSION: Gastrostomy tube tip and balloon in the gastric antrum. Preferential flow of contrast into the duodenum. Plan Discharge Plan: Co signing the note for Edna Hurtado NP.
[2017-12-20 16:42] VITALS: BP 156/91
== END 2017-12-20 16:40 | DRG 177 ==
LOC: ER 22:18 → EH 12-13 00:08 → 4W 12-13 03:50 → 4S 12-16 16:57
PROVIDERS: ADMIT Internal Medicine; ATTEND Internal Medicine
PROC: 3E0F73Z Introduction of Anti-inflammatory into Respiratory Tract, Via Natural or Artificial Opening (ICD-10-PCS; principal; 2017-12-13)
DX: J69.0 Pneumonitis due to inhalation of food and vomit (principal); J96.01 Acute respiratory failure with hypoxia; J96.02 Acute respiratory failure with hypercapnia; R40.3 Persistent vegetative state; E87.0 Hyperosmolality and hypernatremia; Z87.820 Personal history of traumatic brain injury; Z88.8 Allergy status to other drugs, medicaments and biological substances; K56.41 Fecal impaction; E86.0 Dehydration; Z93.1 Gastrostomy status; Z66 Do not resuscitate; I48.91 Unspecified atrial fibrillation; L89.159 Pressure ulcer of sacral region, unspecified stage; E05.90 Thyrotoxicosis, unspecified without thyrotoxic crisis or storm; B96.4 Proteus (mirabilis) (morganii) as the cause of diseases classified elsewhere; B95.61 Methicillin susceptible Staphylococcus aureus infection as the cause of diseases classified elsewhere; R40.2430 Glasgow coma scale score 3-8, unspecified time; E11.9 Type 2 diabetes mellitus without complications
CPT/HCPCS: 36415; 49465; 51701; 71045; 74018; 76000; 80048; 80053; 80202; 81001; 82550; 82962; 83605; 83735; 84100; 84484; 85025; 85027; 87040; 87070; 87077; 87186; 87205; 93005; 93010; 94640; 94667; 94668; 94762; 96374; 99285; J0744; J1644; J1815; J1956; J2543; J3370; J3480; J3490; J7030; J7060; J7620

== ENCOUNTER 2018-07-24 17:06 | Inpatient (IN) | payer MEDICARE, MEDICAID ==
--- NOTE | 2018-07-24 17:44 | EKG REPORT ---
SEVERITY:- ABNORMAL ECG - SINUS TACHYCARDIA PROBABLE LEFT ATRIAL ABNORMALITY LEFT ANTERIOR FASCICULAR BLOCK PROBABLE LEFT VENTRICULAR HYPERTROPHY : Confirmed by: Ramiro Malagon 24-Jul-2018 17:44:17
--- NOTE | 2018-07-24 18:14 | RADIOLOGY REPORT (SQ) ---
EXAM DESCRIPTION: CHEST SINGLE VIEW COMPLETED DATE/TIME: 07/24/2018 5:41 pm REASON FOR STUDY: T2 SEPSIS PROTOCOL COMPARISON: 08/08/2016 EXAM PARAMETERS: NUMBER OF VIEWS: One view. TECHNIQUE: Single frontal radiographic view of the chest acquired. RADIATION DOSE: NA LIMITATIONS: None. FINDINGS: LUNGS AND PLEURA: Bibasilar airspace opacities are present. Left mid lung atelectasis. N o large pleural effusion or pneumothorax. MEDIASTINUM AND HILAR STRUCTURES: No masses. Contour normal. HEART AND VASCULAR STRUCTURES: Heart normal in size. Normal vasculature. BONES: No acute findings. HARDWARE: None in the chest. OTHER: No other significant finding. IMPRESSION: In the appropriate clinical setting, bibasilar airspace opacities are consistent with a multi lobar pneumonia. Early CHF exacerbation is not excluded. TECHNICAL DOCUMENTATION: JOB ID: [id number] [employer] All Rights Reserved Reading location - IP/workstation name: [email or web address]
--- NOTE | 2018-07-24 18:24 | ER Document Report ---
ED General - General Mode of Arrival: Medic Information source: Emergency Med Personnel, [facility] Records, Outside Facility Records Cannot obtain history due to: Other - Vegetative state for 30+ years TRAVEL OUTSIDE OF THE [place] IN LAST 30 DAYS: No <LAMBERTO MORALES - Last Filed: 07/24/18 22:39> <SANDRA OCHOA - Last Filed: 07/24/18 23:34> - General Chief Complaint: Fever Stated Complaint: WEAKNESS Time Seen by Provider: 07/24/18 17:54 Notes: 63-year-old female who has been in a vegetative state for over 30 years secondary to a TBI who presents today for complaints of a fever of 101.4 per EMS. Patient resides at a fpc. There is no family here with the patient so that combined with her vegetative state makes obtaining any additional history is impossible. (LAMBERTO MORALES) - Related Data Allergies/Adverse Reactions: PPD black rubber mix Adverse Reaction (Verified 06/20/16 01:31) Past Medical History - General Information source: Emergency Med Personnel, [facility] Records, Outside Facility Records - Social History Smoking Status: Unknown if Ever Smoked Family History: Other - Not available due to patient condition Patient has suicidal ideation: No Patient has homicidal ideation: No - Past Medical History Cardiac Medical History: Reports: Hx Atrial Fibrillation Pulmonary Medical History: Reports: Hx Pneumonia Endocrine Medical History: Reports: Hx Diabetes Mellitus Type 2, Hx Hyperthyroidism Traumatic Medical History: Reports: Hx Traumatic Brain Injury - subsequently in a chronic vegetative state Past Surgical History: Reports: Hx Abdominal Surgery - PEG placement, Other - PEG tube insertion. - Immunizations Hx Diphtheria, Pertussis, Tetanus Vaccination: Yes Hx Pneumococcal Vaccination: 05/01/15 <LAMBERTO MORALES - Last Filed: 07/24/18 22:39> Review of Systems - Review of Systems -: Yes ROS unobtainable due to patient's medical condition <LAMBERTO MORALES - Last Filed: 07/24/18 22:39> Physical Exam <LAMBERTO MORALES - Last Filed: 07/24/18 22:39> - Vital signs Vitals: Resp Pulse Ox 30 H 95 07/24/18 17:15 07/24/18 17:15 - Notes Notes: PHYSICAL EXAM GENERAL: Minimally responsive. HEAD: Normocephalic, atraumatic. EYES: Pupils equal, round, and reactive to light. Right eye is deviated up and to the right. Occasionally opens eyes. ENT: Oral mucosa moist, tongue midline with bite barrios. NECK: Full range of motion. Supple. Trachea midline. LUNGS: Tachypneic, rhonchi mostly coming from upper airway. Clear to auscultation bilaterally, no wheezes, rales, or rhonchi. No respiratory distress. HEART: Tachycardic, regular rhythm. No murmurs, gallops, or rubs. ABDOMEN: Soft, non-tender. Non-distended. Bowel sounds present in all 4 quadrants. No guarding, rigidity, or rebound. EXTREMITIES: Contractures to bilateral upper extremities. No edema, radial and dorsalis pedis pulses 2/4 bilaterally. No cyanosis. NEUROLOGICAL: G-2 V-2 M-4 GCS-8 SKIN: Hot to the touch (LAMBERTO MORALES) Course - Laboratory Result Diagrams: 07/24/18 18:32 07/24/18 18:32 <LAMBERTO MORALES - Last Filed: 07/24/18 22:39> - Laboratory Result Diagrams: 07/24/18 18:32 07/24/18 18:32 <SANDRA OCHOA - Last Filed: 07/24/18 23:34> - Re-evaluation Re-evalutation: 07/24/18 21:41 Patient is obviously septic and dehydrated on examination, she is very dry, we had a great deal of difficulty obtaining IV access, 3 different attempts were made with ultrasound guidance by myself and nursing tried multiple attempts as well, we finally ended up doing an IO in the right tibia. Laboratory studies were obtained and sent to the lab, this shows a leukocytosis of 20.1, prolonged INR at 1.18, venous blood gas is not acidotic, patient's laboratory studies support dehydration with a sodium of 157.1, potassium is elevated at 5.4, there is no anion gap, BUN is elevated at 44, glucose elevated at 624 without acidosis, lactic acid elevated at 2.2, patient given empiric Zosyn for sepsis, multiple fluid boluses were given, cardiac enzymes are indeterminate with a troponin of 0.061, patient is not a candidate for cath given her multiple comorbidities, proBNP is relatively normal at 613, chest x-ray shows bibasilar airspace opacities consistent with multilobar pneumonia but early CHF exacerbation is not excluded, I do doubt early CHF exacerbation given her presentation. She is much more consistent with sepsis from multilobar pneumonia. Patient is febrile. 07/24/18 21:42 Based off of an ideal body weight of 130 pounds patient was given a bolus of 2 L of LR, 30 ml/kg would be 1772 mL's. 07/24/18 21:43 After rehydration nursing was able to obtain an ultrasound-guided IV in the right upper extremity. Discussed with Dr. Urbano who agreed to admit the patient to his service in the IMCU. Patient is a DNR. (SANDRA OCHOA) - Vital Signs Vital signs: Temp Pulse Resp BP Pulse Ox 102 F H 118 H 30 H 149/99 H 95 07/24/18 20:15 07/24/18 17:49 07/24/18 23:01 07/24/18 23:01 07/24/18 23:01 - Laboratory Laboratory results interpreted by me: 07/24/18 07/24/18 07/24/18 18:32 18:32 18:32 WBC 20.1 H MCH 26.6 L MCHC 30.3 L RDW 18.3 H Abs Neuts (Manual) 14.9 H PT VBG pH VBG HCO3 Sodium 157.1 H Potassium 5.4 H Chloride 114 H BUN 44 H Glucose 624 H* Lactic Acid 2.2 H Calcium 10.5 H Direct Bilirubin 0.7 H AST 38 H Total Protein 9.1 H 07/24/18 07/24/18 19:30 19:30 WBC MCH MCHC RDW Abs Neuts (Manual) PT 15.6 H VBG pH 7.46 H VBG HCO3 33.5 H Sodium Potassium Chloride BUN Glucose Lactic Acid Calcium Direct Bilirubin AST Total Protein - EKG Interpretation by Me Additional EKG results interpreted by me: 07/24/18 21:44 EKG shows sinus tachycardia at a rate of 113, left anterior hemiblock, minimal ST segment depressions in V4, V5 and V6, no ST segment elevations, there are T wave inversions noted in aVL which are nonspecific and isolated per my interpretation. 07/24/18 21:44 (SANDRA OCHOA) Critical Care Note - Critical Care Note Total time excluding time spent on procedures (mins): 45 <SANDRA OCHOA - Last Filed: 07/24/18 23:34> Discharge <LAMBERTO MORALES - Last Filed: 07/24/18 22:39> - Discharge Admitting Provider: [facility] Unit Admitted: IMCU <SANDRA OCHOA - Last Filed: 07/24/18 23:34> - Discharge Clinical Impression: Tachycardia, Dehydration, Sacral decubitus ulcer, stage IV, Hypernatremia, Diabetes mellitus type 2 in obese Sepsis Qualifiers: Sepsis type: sepsis due to unspecified organism Qualified Code(s): A41.9 - Sepsis, unspecified organism Pneumonia Qualifiers: Pneumonia type: due to unspecified organism Laterality: bilateral Lung location: lower lobe of lung Qualified Code(s): J18.1 - Lobar pneumonia, unspecified organism Hyperglycemia due to type 2 diabetes mellitus Qualifiers: Diabetes mellitus assisted insulin use: with assisted use Qualified Code(s): E11.65 - Type 2 diabetes mellitus with hyperglycemia Condition: Critical Disposition: ADMITTED INPATIENT Scribe Attestation: 07/24/18 23:34 I personally performed the services described in the documentation, reviewed and edited the documentation which was dictated to the scribe in my presence, and it accurately records my words and actions. (SANDRA OCHOA) Scribe Documentation - Scribe Written by Yan:: Yan Ellis, 07/24/2018 1835 acting as scribe for :: Titi <LAMBERTO MORALES - Last Filed: 07/24/18 22:39> Sepsis - Sepsis Documentation Sepsis Patient: Yes - Vital Signs Interpretation: Tachycardic, Tachypneic, Febrile - Cardiovascular Peripheral Pulse Strength: Weak Capillary refill: > 3 seconds Rhythm: Regular Heart Sounds: Normal auscultation - Respiratory Breath Sounds: Rhonchi Respiratory Status: Respiratory distress, Tachypnea - Skin Skin Color: Flushed <SANDRA OCHOA - Last Filed: 07/24/18 23:34> - Vital Signs Vitals: Temp Pulse Resp BP Pulse Ox 102 F H 118 H 30 H 149/99 H 95 07/24/18 20:15 07/24/18 17:49 07/24/18 23:01 07/24/18 23:01 07/24/18 23:01
[2018-07-24] MEDS ORDERED: PIPERACILLIN/TAZOBACTAM 3.375 GM VIAL IV ONE (18:38)
[2018-07-24] MEDS: RINGERS SOLUTION,LACTATED 1,000 ML IV PRN ×2 (18:59→20:41)
[2018-07-24 19:04] LABS: HEMATOCRIT 41.5 % (36.0-47.0); HEMOGLOBIN 12.5 g/dL (12.0-15.5); MEAN CORPUSCULAR HEMOGLOBIN 26.6 pg (27.0-33.4); MEAN CORPUSCULAR HGB CONC 30.3 g/dL (32.0-36.0); MEAN CORPUSCULAR VOLUME 88 fl (80-97); PLATELET COUNT 341 10^3/uL (150-450); RED BLOOD COUNT 4.72 10^6/uL (3.72-5.28); RED CELL DISTRIBUTION WIDTH 18.3 % (11.5-14.0); WHITE BLOOD COUNT 20.1 10^3/uL (4.0-10.5)
[2018-07-24 19:22] LABS: ABSOLUTE LYMPHOCYTES# (MANUAL) 3.8 10^3/uL (0.5-4.7); ABSOLUTE MONOCYTES # (MANUAL) 1.4 10^3/uL (0.1-1.4); ABSOLUTE NEUTROPHILS# (MANUAL) 14.9 10^3/uL (1.7-8.2); BASOPHILS % (MANUAL) 0 % (0-2); EOSINOPHILS % (MANUAL) 0 % (0-6); LYMPHOCYTES % (MANUAL) 18 % (13-45); MONOCYTES % (MANUAL) 7 % (3-13); SEGMENTED NEUTROPHILS % (MAN) 74 % (42-78); TOTAL CELLS COUNTED 100
[2018-07-24 19:23] LABS: ANISOCYTOSIS 2+
[2018-07-24 19:24] LABS: HYPOCHROMASIA SLIGHT; PLATELET CLUMPS PRESENT; PLATELET COMMENT ADEQUATE
[2018-07-24 19:38] LABS: ALANINE AMINOTRANSFERASE 18 U/L (9-52); ALBUMIN 4.3 g/dL (3.5-5.0); ALKALINE PHOSPHATASE 102 U/L (38-126); ANION GAP 13 (5-19); ASPARTATE AMINO TRANSFERASE 38 U/L (14-36); BILIRUBIN,DIRECT 0.7 mg/dL (0.0-0.4); BILIRUBIN,TOTAL 1.2 mg/dL (0.2-1.3); BLOOD UREA NITROGEN 44 mg/dL (7-20); CALCIUM 10.5 mg/dL (8.4-10.2); CARBON DIOXIDE 30 mmol/L (22-30); CHLORIDE 114 mmol/L (98-107); POTASSIUM 5.4 mmol/L (3.6-5.0); SODIUM 157.1 mmol/L (137-145); TOTAL PROTEIN 9.1 g/dL (6.3-8.2)
[2018-07-24 19:40] LABS: GLUCOSE 624 mg/dL (75-110)
[2018-07-24 19:43] LABS: VENOUS BLOOD BASE EXCESS 8.5 mmol/L; VENOUS BLOOD HCO3 33.5 mmol/L (20-32); VENOUS BLOOD PH 7.46 (7.30-7.42)
[2018-07-24 19:48] LABS: CREATINE KINASE 58 U/L (30-135)
[2018-07-24 19:49] LABS: INTERNATIONAL RATION (INR) 1.18; PROTHROMBIN TIME 15.6 SEC (11.4-15.4)
[2018-07-24] MEDS ORDERED: INSULIN REG, HUMAN 100 UNIT/ML 3 ML VIAL (PYX) SUBCUT ONE (19:58)
[2018-07-24] MEDS ORDERED: ACETAMINOPHEN 650 MG SUPP.RECT PR ONE (20:14)
[2018-07-24 20:15] LABS: NT PRO BNP 613 pg/mL (5-900)
[2018-07-24 20:16] LABS: CREATINE KINASE MB < 0.22 ng/mL (<4.55)
[2018-07-24 20:18] LABS: TROPONIN I 0.061 ng/mL
[2018-07-24] MEDS ORDERED: BISACODYL 10 MG SUPP.RECT PR PRN (21:47)
[2018-07-24] MEDS ORDERED: ACETAMINOPHEN 650 MG SUPP.RECT PR PRN (21:47)
[2018-07-24] MEDS ORDERED: LEVALBUTEROL HCL NEB 1.25 MG/3 ML AMPUL NEB PRN (22:02)
[2018-07-24] MEDS ORDERED: NA PHOS,M-B/NA PHOS,DI-BA (ADULT) 133 ML ENEMA PR PRN (22:02)
[2018-07-24] MEDS ORDERED: GLUCAGON,HUMAN RECOMB 1 MG INJ IM PRN (22:08)
[2018-07-24] MEDS ORDERED: DEXTROSE 40% GEL 15 GM TUBE PO PRN ×2 (22:08)
[2018-07-24] MEDS ORDERED: DEXTROSE 50%-WATER 25 GM/50 ML DISP.SYRIN IV PRN ×2 (22:08)
[2018-07-24] MEDS ORDERED: NORMAL SALINE 1000 ML 1,000 ML IV PRN (22:15)
[2018-07-24] MEDS ORDERED: HEPARIN SOD (PORCINE) 5,000 UNIT/ML 1 ML SYRINGE SUBCUT ONE (22:30)
[2018-07-24] MEDS ORDERED: IPRATROPIUM/ALBUTEROL 0.5-2.5 MG/3 ML AMPUL NEB ONE (22:30)
--- NOTE | 2018-07-25 01:51 | PDOC H&P ---
History of Present Illness Admission Date/PCP: 07/24/18 21:56 LYNDA LANDAVERDE NP Patient complains of: Fever History of Present Illness: BEN DAILEY is a 63 year old female long-term longterm resident for traumatic brain injury and subsequent 30+ year vegetative state with subsequent PEG placement, recurrent aspiration pneumonia, urinary tract infection, hypernatremia, sacral decubitus ulcer and fecal impaction. Patient was noted by longterm staff with fever prompting evaluation in the emergency room where she is found to have multilobar pneumonia, hypernatremia, hyperkalemia, acute renal failure, persistent stage IV sacral decubiti. She is started on empiric antibiotics and referred to the hospitalist for admission. Past Medical History Cardiac Medical History: Reports: Atrial Fibrillation Pulmonary Medical History: Reports: Pneumonia Neurological Medical History: Reports: Other - Persistent vegetative state 30+ years. Endocrine Medical History: Reports: Diabetes Mellitus Type 2, Hyperthyroidism Traumatic Medical History: Reports: Traumatic Brain Injury - subsequently in a chronic vegetative state Past Surgical History Past Surgical History: Reports: Other - PEG tube insertion. Social History Information Source: Emergency Med Personnel, [facility] Records Lives with: Care Home Smoking Status: Unknown if Ever Smoked Frequency of Alcohol Use: None Hx Recreational Drug Use: No Drugs: None Hx Prescription Drug Abuse: No - Advance Directive Resuscitation Status: Do Not Resuscitate Family History Family History: Other - Not available due to patient condition Parental Family History Reviewed: No - Unobtainable Children Family History Reviewed: No - Unobtainable Sibling(s) Family History Reviewed.: No - Unobtainable Medication/Allergy Home Medications: Acetaminophen [Tylenol 650 mg Supp] 650 mg NM Q4HP PRN 12/13/17 Atorvastatin Calcium [Lipitor 10 mg Tablet] 10 mg PEG QHS 12/13/17 Bisacodyl [Dulcolax 10 mg Supp.rect] 10 mg NM Q48HP PRN 12/13/17 Calcium Carbonate 500 mg PEG BID 12/13/17 Cholecalciferol (Vitamin D3) [Vitamin D3 400 Unit Tablet] 400 unit PEG BID 12/13/17 Esomeprazole Magnesium [Nexium] 40 mg PEG BID 12/13/17 Furosemide [Lasix 20 mg Tablet] 20 mg PEG DAILY 12/13/17 Lactulose [Constulose 10 gm/15 mL Oral Solution] 10 gm PEG BIDP PRN 12/13/17 Levothyroxine Sodium [Synthroid] 150 mcg PEG QAM 12/13/17 Multivits W-Min/Ferrous Gluc [Certavite Multivit/Minerals/Iron Soln] 15 ml PEG DAILY 12/13/17 Na Phos,M-B/Na Phos,Di-Ba [Fleet Enema (Adult) 133 ml] 133 ml NM DAILYP PRN 12/13/17 Polyethylene Glycol 3350 [Miralax Powder 17 gm/Packet] 17 gm PEG DAILY 12/13/17 Potassium Chloride [Kaon-Cl 20 Meq/15 ml Udcup] 20 meq PEG DAILY 12/13/17 Amox Tr/Potassium Clavulanate [Augmentin 250-62.5 mg/5 ml Susp] 500 mg PO Q8A #15 bottle 12/20/17 Bisacodyl [Dulcolax 10 mg Supp.rect] 10 mg NM Q48HP PRN supp.rect 12/20/17 Calcium Carbonate [Os-Naveed 500 mg Tablet (Oyster-Shell)] 500 mg PEG BID tablet 12/20/17 Ferrous Sulfate [Ferrous Sulfate Liquid 300 mg/5 ml Udcup] 300 mg PEG BID #60 udc 12/20/17 Insulin Glargine,Hum.rec.anlog [Lantus Insulin 100 Unit/1 ml 10 ml] 15 unit SUBCUT DAILY unit 12/20/17 Ipratropium/Albuterol Sulfate [Duoneb 3 ml Ampul] 3 ml NEB RTQ8 #15 vial.neb 12/20/17 Lansoprazole [Prevacid 30 mg Odt Tablet] 30 mg PEG BID tab.rap. 12/20/17 Levalbuterol HCl [Xopenex Neb 1.25 mg/3 ml Ampul] 1.25 mg NEB RTQ4HP PRN vial.neb 12/20/17 Levothyroxine Sodium [Synthroid 0.088 mg Tablet] 0.088 mg PEG Q6AM tablet 12/20/17 Magnesium Hydroxide [Milk of Magnesia 30 ml Udcup] 30 ml PEG DAILY #30 udc 12/20/17 Allergies/Adverse Reactions: PPD black rubber mix Adverse Reaction (Verified 06/20/16 01:31) Review of Systems ROS unobtainable: Due to mental status Physical Exam Vital Signs: Temp Pulse Resp BP Pulse Ox 99.3 F 94 24 H 130/77 H 96 07/25/18 01:01 07/25/18 01:01 07/25/18 01:01 07/25/18 01:01 07/25/18 01:01 Intake & Output 07/23/18 07/24/18 07/25/18 11:59 11:59 11:59 Intake Total 1999 Balance 1999 Weight 83.2 kg General appearance: PRESENT: obese, severe distress. ABSENT: cooperative, disheveled Head exam: PRESENT: atraumatic, normocephalic Eye exam: PRESENT: conjunctiva pink, EOMI. ABSENT: PERRLA, scleral icterus Ear exam: PRESENT: bleeding Mouth exam: PRESENT: dry mucosa, neck supple. ABSENT: laceration, moist Neck exam: ABSENT: carotid bruit, JVD, lymphadenopathy, thyromegaly Respiratory exam: PRESENT: accessory muscle use, crackles, decreased breath sounds, prolonged expiratory phas, rales, retraction, rhonchi, tachypnea Cardiovascular exam: PRESENT: RRR. ABSENT: diastolic murmur, rubs, systolic murmur Pulses: PRESENT: normal dorsalis pedis pul Vascular exam: PRESENT: normal capillary refill GI/Abdominal exam: PRESENT: normal bowel sounds, soft. ABSENT: distended, guarding, mass, organolmegaly, rebound, tenderness Rectal exam: PRESENT: deferred Extremities exam: PRESENT: full ROM, +1 edema. ABSENT: calf tenderness, clubbing, pedal edema Neurological exam: ABSENT: alert, altered, awake, oriented to person, oriented to place, CN II-XII grossly intact Psychiatric exam: PRESENT: other Skin exam: PRESENT: other - Stage IV, 3 x 4 cm sacral decubiti Results Laboratory Results: 07/24/18 18:32 07/24/18 18:32 07/24/18 07/24/18 07/24/18 18:32 18:32 18:32 WBC 20.1 H RBC 4.72 Hgb 12.5 Hct 41.5 MCV 88 MCH 26.6 L MCHC 30.3 L RDW 18.3 H Plt Count 341 Seg Neutrophils % Not Reportable Lymphocytes % Not Reportable Monocytes % Not Reportable Eosinophils % Not Reportable Basophils % Not Reportable Absolute Neutrophils Not Reportable Absolute Lymphocytes Not Reportable Absolute Monocytes Not Reportable Absolute Eosinophils Not Reportable Absolute Basophils Not Reportable VBG pH VBG pCO2 VBG HCO3 VBG Base Excess Sodium 157.1 H Potassium 5.4 H Chloride 114 H Carbon Dioxide 30 Anion Gap 13 BUN 44 H Creatinine 0.80 Est GFR ( Amer) > 60 Est GFR (Non-Af Amer) > 60 Glucose 624 H* Lactic Acid 2.2 H Calcium 10.5 H Total Bilirubin 1.2 AST 38 H ALT 18 Alkaline Phosphatase 102 Total Protein 9.1 H Albumin 4.3 07/24/18 07/25/18 19:30 00:19 WBC RBC Hgb Hct MCV MCH MCHC RDW Plt Count Seg Neutrophils % Lymphocytes % Monocytes % Eosinophils % Basophils % Absolute Neutrophils Absolute Lymphocytes Absolute Monocytes Absolute Eosinophils Absolute Basophils VBG pH 7.46 H VBG pCO2 48.0 VBG HCO3 33.5 H VBG Base Excess 8.5 Sodium Potassium Chloride Carbon Dioxide Anion Gap BUN Creatinine Est GFR ( Amer) Est GFR (Non-Af Amer) Glucose Lactic Acid 3.4 H Calcium Total Bilirubin AST ALT Alkaline Phosphatase Total Protein Albumin 07/24/18 07/24/18 07/24/18 18:32 18:32 19:30 Creatine Kinase 58 CK-MB (CK-2) Cancelled < 0.22 Troponin I Cancelled 0.061 NT-Pro-B Natriuret Pep Cancelled 613 Impressions: Chest X-Ray 07/24/18 17:09 IMPRESSION: In the appropriate clinical setting, bibasilar airspace opacities are consistent with a multi lobar pneumonia. Early CHF exacerbation is not excluded. Assessment & Plan - Diagnosis (1) Pneumonia Qualifiers: Pneumonia type: due to unspecified organism Laterality: bilateral Lung location: lower lobe of lung Qualified Code(s): J18.1 - Lobar pneumonia, unspecified organism Is this a current diagnosis for this admission?: Yes Plan: Pneumonia care set deployed, empiric antibiotics, hold tube feedings, doubt significant benefit from aggressive measures given profoundly debilitated state. (2) Sepsis Qualifiers: Sepsis type: sepsis due to unspecified organism Qualified Code(s): A41.9 - Sepsis, unspecified organism Is this a current diagnosis for this admission?: Yes Plan: Secondary to #1, supportive care, IV fluid challenge, surgical consultation for improved IV access. Follow-up lactic acid (3) Hyperglycemia due to type 2 diabetes mellitus Qualifiers: Diabetes mellitus adjunct faculty for medical terminology insulin use: with adjunct faculty for medical terminology use Qualified Code(s): E11.65 - Type 2 diabetes mellitus with hyperglycemia; Z79.4 - residential (current) use of insulin Is this a current diagnosis for this admission?: Yes Plan: Half dose of outpatient long acting insulin with Humalog sliding scale (4) Hypernatremia Is this a current diagnosis for this admission?: Yes Plan: Add free water flushes to PEG tube feeding, follow-up chemistry (5) Sacral decubitus ulcer, stage IV Is this a current diagnosis for this admission?: Yes Plan: Consider surgical consultation. - Time Time Spent: 50 to 70 Minutes - Inpatient Certification Medical Necessity: Need Close Monitoring Due to Risk of Patient Decompensation
[2018-07-25] MEDS ORDERED: VANCOMYCIN HCL 0 MG in DEXTROSE 5%-WATER 250 ML IV NR (02:00)
[2018-07-25] MEDS ORDERED: VANCOMYCIN HCL INJ 1000 MG VIAL IV PRN (02:05)
[2018-07-25] MEDS ORDERED: PIPERACILLIN/TAZOBACTAM 3.375 GM VIAL IV PRN (02:05)
[2018-07-25] MEDS ORDERED: VANCOMYCIN HCL 1,000 MG in DEXTROSE 5%-WATER 250 ML IV ONE (03:00)
[2018-07-25] MEDS ORDERED: VANCOMYCIN HCL INJ 1000 MG VIAL ONE (03:08)
[2018-07-25 06:52] LABS: ABSOLUTE LYMPHOCYTES (AUTO) 2.3 10^3/uL (0.5-4.7); ABSOLUTE MONOCYTES (AUTO) 0.5 10^3/uL (0.1-1.4); ABSOLUTE NEUT (AUTO) 11.5 10^3/uL (1.7-8.2); BASOPHILS % (AUTO) 0.2 % (0-2); EOSINOPHILS % (AUTO) 0.1 % (0-6); HEMOGLOBIN 11.2 g/dL (12.0-15.5); LYMPHOCYTES % (AUTO) 16.2 % (13-45); MEAN CORPUSCULAR HEMOGLOBIN 27.2 pg (27.0-33.4); MEAN CORPUSCULAR HGB CONC 31.3 g/dL (32.0-36.0); MEAN CORPUSCULAR VOLUME 87 fl (80-97); MONOCYTES % (AUTO) 3.3 % (3-13); PLATELET COUNT 346 10^3/uL (150-450); RED BLOOD COUNT 4.13 10^6/uL (3.72-5.28); SEGMENTED NEUTROPHILS % (AUTO) 80.2 % (42-78); TOTAL CELLS COUNTED % (AUTO) 100 %; WHITE BLOOD COUNT 14.3 10^3/uL (4.0-10.5)
[2018-07-25] MEDS: HEPARIN SOD (PORCINE) 5,000 UNIT/ML 1 ML SYRINGE SUBCUT SCH ×3 (07:00→22:05)
[2018-07-25 07:13] LABS: ANION GAP 8 (5-19); BLOOD UREA NITROGEN 32 mg/dL (7-20); CALCIUM 9.7 mg/dL (8.4-10.2); CARBON DIOXIDE 32 mmol/L (22-30); CHLORIDE 114 mmol/L (98-107); SODIUM 154.2 mmol/L (137-145)
[2018-07-25 07:30] LABS: GLUCOSE 493 mg/dL (75-110)
[2018-07-25] MEDS: INSULIN LISPRO 100 UNIT/ML 3 ML VIAL SUBCUT PRN ×3 (07:31→18:48)
[2018-07-25] MEDS ORDERED: IPRATROPIUM/ALBUTEROL 0.5-2.5 MG/3 ML AMPUL NEB SCH (08:00)
[2018-07-25] MEDS ORDERED: (PENDING PHARMACY ID) (Lactulose [Constulose 10 Gm/15 Ml Oral Solution] 10 GM) PEG PRN (08:53)
[2018-07-25] MEDS ORDERED: BISACODYL 10 MG SUPP.RECT PR PRN (08:53)
[2018-07-25] MEDS ORDERED: INSULIN GLARGINE,HUM.REC.ANLOG 1,000 UNIT/10 ML UNIT SUBCUT SCH ×2 (10:00→12:00)
[2018-07-25] MEDS ORDERED: CALCIUM CARBONATE 500 MG PEG SCH (10:00)
[2018-07-25] MEDS ORDERED: FERROUS SULFATE LIQUID 300 MG/5 ML UDC PEG SCH (10:00)
--- NOTE | 2018-07-25 10:12 | PDOC PROGRESS REPORT ---
Subjective Progress Note for:: 07/25/18 Subjective:: 07/25/[id number]-vxwy-old female custodial resident with multiple medical problems, CODE STATUS is DNR/DNI, presented to state secondary to traumatic brain injury, history of PEG placement, recurrent aspiration pneumonia, hypernatremia, decubitus ulcers sent from the custodial with high fevers, found to have multilobar pneumonia. She is also met the sepsis criteria. Acute events since the admission. T-max is 100.2. Reason For Visit: SEPSIS, HYPERNATREMIA, ARF, PNEUMONIA Physical Exam Vital Signs: Temp Pulse Resp BP Pulse Ox 98.8 F 94 28 H 154/79 H 94 07/25/18 07:56 07/25/18 07:56 07/25/18 07:56 07/25/18 07:56 07/25/18 07:56 Intake & Output 07/24/18 07/25/18 07/26/18 06:59 06:59 06:59 Intake Total 1999 Balance 1999 Weight 82.4 kg General appearance: PRESENT: obese Head exam: PRESENT: atraumatic, normocephalic Eye exam: PRESENT: PERRLA. ABSENT: scleral icterus Ear exam: ABSENT: bleeding Mouth exam: PRESENT: dry mucosa, neck supple Neck exam: ABSENT: carotid bruit, JVD, lymphadenopathy, thyromegaly Respiratory exam: PRESENT: decreased breath sounds, tachypnea, other - Transmitted breath sounds present. Cardiovascular exam: PRESENT: tachycardia GI/Abdominal exam: PRESENT: soft, other - Abdomen was soft distended bowel sounds are present. PEG tube is in place. Extremities exam: PRESENT: other - Contractures of the lower extremities. Neurological exam: PRESENT: other - Patient is in vegetative state. Skin exam: PRESENT: dry, intact, warm, other - Sacral decubitus present.. ABSENT: cyanosis, rash Results Laboratory Results: 07/25/18 05:49 07/25/18 05:49 07/24/18 07/24/18 07/24/18 18:32 18:32 18:32 WBC 20.1 H RBC 4.72 Hgb 12.5 Hct 41.5 MCV 88 MCH 26.6 L MCHC 30.3 L RDW 18.3 H Plt Count 341 Seg Neutrophils % Not Reportable Lymphocytes % Not Reportable Monocytes % Not Reportable Eosinophils % Not Reportable Basophils % Not Reportable Absolute Neutrophils Not Reportable Absolute Lymphocytes Not Reportable Absolute Monocytes Not Reportable Absolute Eosinophils Not Reportable Absolute Basophils Not Reportable VBG pH VBG pCO2 VBG HCO3 VBG Base Excess Sodium 157.1 H Potassium 5.4 H Chloride 114 H Carbon Dioxide 30 Anion Gap 13 BUN 44 H Creatinine 0.80 Est GFR ( Amer) > 60 Est GFR (Non-Af Amer) > 60 Glucose 624 H* Lactic Acid 2.2 H Calcium 10.5 H Total Bilirubin 1.2 AST 38 H ALT 18 Alkaline Phosphatase 102 Total Protein 9.1 H Albumin 4.3 07/24/18 07/25/18 07/25/18 19:30 00:19 05:49 WBC 14.3 H RBC 4.13 Hgb 11.2 L Hct 36.0 MCV 87 MCH 27.2 MCHC 31.3 L RDW 18.0 H Plt Count 346 Seg Neutrophils % 80.2 H Lymphocytes % 16.2 Monocytes % 3.3 Eosinophils % 0.1 Basophils % 0.2 Absolute Neutrophils 11.5 H Absolute Lymphocytes 2.3 Absolute Monocytes 0.5 Absolute Eosinophils 0.0 Absolute Basophils 0.0 VBG pH 7.46 H VBG pCO2 48.0 VBG HCO3 33.5 H VBG Base Excess 8.5 Sodium Potassium Chloride Carbon Dioxide Anion Gap BUN Creatinine Est GFR ( Amer) Est GFR (Non-Af Amer) Glucose Lactic Acid 3.4 H Calcium Total Bilirubin AST ALT Alkaline Phosphatase Total Protein Albumin 07/25/18 07/25/18 05:49 09:31 WBC RBC Hgb Hct MCV MCH MCHC RDW Plt Count Seg Neutrophils % Lymphocytes % Monocytes % Eosinophils % Basophils % Absolute Neutrophils Absolute Lymphocytes Absolute Monocytes Absolute Eosinophils Absolute Basophils VBG pH VBG pCO2 VBG HCO3 VBG Base Excess Sodium 154.2 H Potassium 4.0 D Chloride 114 H Carbon Dioxide 32 H Anion Gap 8 BUN 32 H Creatinine 0.63 Est GFR ( Amer) > 60 Est GFR (Non-Af Amer) > 60 Glucose 493 H* Lactic Acid 3.3 H Calcium 9.7 Total Bilirubin AST ALT Alkaline Phosphatase Total Protein Albumin 07/24/18 07/24/18 07/24/18 18:32 18:32 19:30 Creatine Kinase 58 CK-MB (CK-2) Cancelled < 0.22 Troponin I Cancelled 0.061 NT-Pro-B Natriuret Pep Cancelled 613 Impressions: Chest X-Ray 07/24/18 17:09 IMPRESSION: In the appropriate clinical setting, bibasilar airspace opacities are consistent with a multi lobar pneumonia. Early CHF exacerbation is not excluded. Assessment & Plan - Diagnosis (1) Pneumonia Qualifiers: Pneumonia type: due to unspecified organism Laterality: bilateral Lung location: lower lobe of lung Qualified Code(s): J18.1 - Lobar pneumonia, unspe cified organism Is this a current diagnosis for this admission?: Yes Plan: 07/25/2018 chest x-ray shows multilobar pneumonia. Cultures are pending. When a set protocol was deployed. Patient is now on Zosyn and vancomycin. Plan is to continue the present management. I requested for aspiration precautions. (2) Sacral decubitus ulcer, stage IV Is this a current diagnosis for this admission?: Yes Plan: 07/25/2018 patient is bedbound at custodial she has a stage IV sacral wound. Surgical consult was requested. (3) Sepsis Qualifiers: Sepsis type: sepsis due to unspecified organism Qualified Code(s): A41.9 - Sepsis, unspecified organism Is this a current diagnosis for this admission?: Yes Plan: 07/25/2018-patient came in with bilateral lower lobe pneumonia fevers tachycardia tachypnea. Lactic acid level was 3.4. Repeat lactic acid level is pending. Lorraine consult was requested for central line placement. Be going to continue gentle IV fluids and IV antibiotic therapy. (4) Hyperglycemia due to type 2 diabetes mellitus Qualifiers: Diabetes mellitus pipelayer insulin use: with pipelayer use Qualified Code(s): E11.65 - Type 2 diabetes mellitus with hyperglycemia; Z79.4 - custodial (current) use of insulin Is this a current diagnosis for this admission?: Yes Plan: 07/25/2018-patient's blood sugars are running high since the admission. Latest blood sugar is 420. She is on sliding scale, and Lantus 10 units daily. I increased the Lantus to 20 units twice daily and will continue the sliding scale. I am also request for hemoglobin A1c. (5) Hypernatremia Is this a current diagnosis for this admission?: Yes Plan: 07/25/2018-patient's sodium level is 154. Requested for nephrology consult. We are going to give him free water flushes via the PEG. Continue to check renal function on daily basis. - Time Time Spent with patient: 15-24 minutes Smoking Cessation Education: 3 to 10 minutes Medications reviewed and adjusted accordingly: Yes Anticipated discharge: SNF
--- NOTE | 2018-07-25 11:32 | RADIOLOGY REPORT (SQ) ---
EXAM DESCRIPTION: KUB/ABDOMEN (SINGLE VIEW) COMPLETED DATE/TIME: 07/25/2018 11:23 am REASON FOR STUDY: abd distension COMPARISON: 08/08/2016 NUMBER OF VIEWS: One view. TECHNIQUE: Supine radiographic image of the abdomen acquired. LIMITATIONS: None. FINDINGS: BOWEL GAS PATTERN: generalized mild to moderate dilatation of the colon. There is no def initive gas in the rectum. CALCIFICATIONS: No suspicious calcifications. SOFT TISSUES: No gross mass or suggestion of organomegaly. HARDWARE: None in the abdomen. BONES: No acute fracture. No worrisome bone lesions. OTHER: No other significant finding. IMPRESSION: Generalize [id number] dilatation of the colon without gas in the rectum. Worrisom e for distal obstruction. TECHNICAL DOCUMENTATION: JOB ID: [id number] [employer]- All Rights Reserved Reading location - IP/workstation name: [email or web address]
[2018-07-25] MEDS: MAGNESIUM HYDROXIDE SUSP 30 ML UDCUP PEG SCH (11:33)
[2018-07-25] MEDS: POLYETHYLENE GLYCOL 3350 POWDER 17 GM/1 PACKET PEG SCH (11:33)
[2018-07-25] MEDS: LEVOTHYROXINE SODIUM 0.15 MG TABLET PEG SCH (11:34)
[2018-07-25] MEDS: PIPERACILLIN SODIUM/TAZOBACTAM 3.375 GM in NORMAL SALINE 100 ML IV SCH ×3 (12:15→20:15)
[2018-07-25] MEDS: POTASSIUM CHLORIDE 20 MEQ/15 ML UDCUP PEG SCH (12:15)
[2018-07-25] MEDS: CHOLECALCIFEROL (D3) 400 UNIT TABLET PEG SCH ×2 (12:23→18:39)
[2018-07-25] MEDS: CALCIUM CARBONATE 500 MG TABLET PEG SCH ×2 (12:23→18:40)
[2018-07-25] MEDS: FUROSEMIDE 20 MG TABLET PEG SCH (12:23)
--- NOTE | 2018-07-25 13:14 | Operative Report ---
Bedside Procedure - History of Present Illness Indication for Procedure: venous access Surgeon: JULIA JUNG - Central Line Right Subclavian Time completed: 13:12 - rt subclavian Consent obtained: Yes Central line pre-insertion: Sterile PPE donned, Chloraprep applied Central line size (Fr.): 16 Central line lumen type: Triple Anesthetic type: 1% Lidocaine mL's of anesthesia: 2 Ultrasound guided: No CM at insertion site: 15 Line secured with sutures: Yes Central line post-insertion: Blood return from lumens, Sutured, Position confirmed w/ CXR Number of attempts: 1 Complications: No
--- NOTE | 2018-07-25 14:04 | RADIOLOGY REPORT (SQ) ---
EXAM DESCRIPTION: CHEST SINGLE VIEW COMPLETED DATE/TIME: 07/25/2018 1:41 pm REASON FOR STUDY: Central Line Placement COMPARISON: 07/24/2018 EXAM PARAMETERS: NUMBER OF VIEWS: One view. TECHNIQUE: Single frontal radiographic view of the chest acquired. RADIATION DOSE: NA LIMITATIONS: None. FINDINGS: LUNGS AND PLEURA: Considerable opacification in the left lower lung field with mild residu al opacification in the right base. Pulmonary vascular congestion without pilar pulmonary edema. MEDIASTINUM AND HILAR STRUCTURES: No masses. Contour normal. HEART AND VASCULAR STRUCTURES: Heart normal in size. Normal vasculature. BONES: No acute findings. HARDWARE: Right subclavian line has its tip in the superior vena cava. OTHER: No other significant finding. IMPRESSION: Central line placement. Left lower lobe pneumonia. Pulmonary vascular congestion witho ut pulmonary edema. TECHNICAL DOCUMENTATION: JOB ID: [id number] [employer]- All Rights Reserved Reading location - IP/workstation name: [email or web address]
[2018-07-25] MEDS ORDERED: LACTULOSE SYRUP 20 GM/30 ML UDCUP PO PRN (14:37)
[2018-07-25] MEDS: VANCOMYCIN HCL 1,250 MG in DEXTROSE 5%-WATER 250 ML IV SCH ×2 (14:44→22:04)
[2018-07-25] MEDS: NORMAL SALINE 1000 ML 1,000 ML IV PRN (15:49)
[2018-07-25] MEDS: IPRATROPIUM/ALBUTEROL 0.5-2.5 MG/3 ML AMPUL NEB SCH ×2 (15:50→23:30)
[2018-07-25] MEDS: MULTIVITS W-MIN/IRON SOLN 60 ML PEG SCH (16:21)
--- NOTE | 2018-07-25 17:25 | PDOC CONSULTATION ---
Consultation Consult Date: 07/25/18 Consult reason:: Hypernatremia History of Present Illness Admission Date/PCP: 07/24/18 21:56 LYNDA LANDAVERDE NP History of Present Illness: BEN DAILEY is a 63 year old who is a long-term [facility] resident for traumatic brain injury and subsequent 30+ year vegetative state with subsequent PEG placement, recurrent aspiration pneumonia, urinary tract infection, hypernatremia, sacral decubitus ulcer and fecal impaction. Patient was noted by [facility] staff with fever prompting evaluation in the emergency room where she is found to have left pneumonia, hypernatremia, hyperkalemia, acute renal failure, persistent stage IV sacral decubitus.Patient is unable to talk and therefore poor historian. Therefore discussions were done with the treating nurse and review of her notes. Her admission sodium was 157 and today is 154. She had hyperkalemia which is now normokalemia. Past Medical History Cardiac Medical History: Reports: Atrial Fibrillation Pulmonary Medical History: Reports: Pneumonia Neurological Medical History: Reports: Other - Persistent vegetative state 30+ years. Endocrine Medical History: Reports: Diabetes Mellitus Type 2, Hyperthyroidism Traumatic Medical History: Reports: Traumatic Brain Injury - subsequently in a chronic vegetative state Past Surgical History Past Surgical History: Reports: Other - PEG tube insertion. Social History Lives with: [facility] Smoking Status: Unknown if Ever Smoked Frequency of Alcohol Use: None Hx Recreational Drug Use: No Drugs: None Hx Prescription Drug Abuse: No - Advance Directive Resuscitation Status: Do Not Resuscitate Family History Parental Family History Reviewed: No - Unable to be obtained from the patient as she is incommunicado from her veg Children Family History Reviewed: No Sibling(s) Family History Reviewed.: No Medication/Allergy Home Medications: Acetaminophen [Tylenol 650 mg Supp] 650 mg CA Q4HP PRN 12/13/17 Bisacodyl [Dulcolax 10 mg Supp.rect] 10 mg CA Q48HP PRN 12/13/17 Calcium Carbonate 500 mg PEG BID 12/13/17 Cholecalciferol (Vitamin D3) [Vitamin D3 400 Unit Tablet] 400 unit PEG BID 12/13/17 Esomeprazole Magnesium [Nexium] 40 mg PEG BID 12/13/17 Furosemide [Lasix 20 mg Tablet] 20 mg PEG DAILY 12/13/17 Lactulose [Constulose 10 gm/15 mL Oral Solution] 10 gm PEG BIDP PRN 12/13/17 Levothyroxine Sodium [Synthroid] 150 mcg PEG QAM 12/13/17 Multivits W-Min/Ferrous Gluc [Certavite Multivit/Minerals/Iron Soln] 15 ml PEG DAILY 12/13/17 Na Phos,M-B/Na Phos,Di-Ba [Fleet Enema (Adult) 133 ml] 133 ml CA DAILYP PRN 12/13/17 Polyethylene Glycol 3350 [Miralax Powder 17 gm/Packet] 17 gm PEG DAILY 12/13/17 Potassium Chloride [Kaon-Cl 20 Meq/15 ml Udcup] 20 meq PEG DAILY 12/13/17 Ipratropium/Albuterol Sulfate [Duoneb 3 ml Ampul] 3 ml NEB RTQ8 #15 vial.neb 12/20/17 Levalbuterol HCl [Xopenex Neb 1.25 mg/3 ml Ampul] 1.25 mg NEB RTQ4HP PRN vial .neb 12/20/17 Magnesium Hydroxide [Milk of Magnesia 30 ml Udcup] 30 ml PEG DAILY #30 udc 12/20/17 Insulin Glargine,Hum.rec.anlog [Lantus Insulin Inj 300 Unit/3 ml Pen] 15 unit SUBCUT QHS 07/25/18 Allergies/Adverse Reactions: PPD black rubber mix Adverse Reaction (Verified 06/20/16 01:31) Review of Systems ROS unobtainable: Due to mental status Physical Exam Vital Signs: Temp Pulse Resp BP Pulse Ox 97.9 F 96 24 H 146/74 H 94 07/25/18 13:11 07/25/18 13:11 07/25/18 13:11 07/25/18 13:11 07/25/18 13:11 Intake & Output 07/24/18 07/25/18 07/26/18 06:59 06:59 06:59 Intake Total 1999 1450 Balance 1999 1450 Weight 82.4 kg 82.4 kg General appearance: PRESENT: no acute distress Eye exam: PRESENT: conjunctiva pink, PERRLA. ABSENT: nystagmus Mouth exam: PRESENT: neck supple. ABSENT: moist Neck exam: ABSENT: lymphadenopathy, meningismus, tenderness, thyromegaly, tracheal deviation Respiratory exam: PRESENT: clear to auscultation regan, crackles, decreased breath sounds, wheezes - Bilateral indicated of possible aspiration. Cardiovascular exam: PRESENT: +S1, +S2 GI/Abdominal exam: PRESENT: distended - Mild but with without any guarding or rigidity or tenderness., normal bowel sounds, soft. ABSENT: organomegaly, tenderness Extremities exam: ABSENT: pedal edema Neurological exam: PRESENT: altered Skin exam: PRESENT: dry. ABSENT: erythema, rash Results Laboratory Results: 07/25/18 05:49 07/25/18 05:49 07/24/18 07/24/18 07/24/18 18:32 18:32 18:32 WBC 20.1 H RBC 4.72 Hgb 12.5 Hct 41.5 MCV 88 MCH 26.6 L MCHC 30.3 L RDW 18.3 H Plt Count 341 Seg Neutrophils % Not Reportable Lymphocytes % Not Reportable Monocytes % Not Reportable Eosinophils % Not Reportable Basophils % Not Reportable Absolute Neutrophils Not Reportable Absolute Lymphocytes Not Reportable Absolute Monocytes Not Reportable Absolute Eosinophils Not Reportable Absolute Basophils Not Reportable VBG pH VBG pCO2 VBG HCO3 VBG Base Excess Sodium 157.1 H Potassium 5.4 H Chloride 114 H Carbon Dioxide 30 Anion Gap 13 BUN 44 H Creatinine 0.80 Est GFR ( Amer) > 60 Est GFR (Non-Af Amer) > 60 Glucose 624 H* Lactic Acid 2.2 H Calcium 10.5 H Total Bilirubin 1.2 AST 38 H ALT 18 Alkaline Phosphatase 102 Total Protein 9.1 H Albumin 4.3 07/24/18 07/25/18 07/25/18 19:30 00:19 05:49 WBC 14.3 H RBC 4.13 Hgb 11.2 L Hct 36.0 MCV 87 MCH 27.2 MCHC 31.3 L RDW 18.0 H Plt Count 346 Seg Neutrophils % 80.2 H Lymphocytes % 16.2 Monocytes % 3.3 Eosinophils % 0.1 Basophils % 0.2 Absolute Neutrophils 11.5 H Absolute Lymphocytes 2.3 Absolute Monocytes 0.5 Absolute Eosinophils 0.0 Absolute Basophils 0.0 VBG pH 7.46 H VBG pCO2 48.0 VBG HCO3 33.5 H VBG Base Excess 8.5 Sodium Potassium Chloride Carbon Dioxide Anion Gap BUN Creatinine Est GFR ( Amer) Est GFR (Non-Af Amer) Glucose Lactic Acid 3.4 H Calcium Total Bilirubin AST ALT Alkaline Phosphatase Total Protein Albumin 07/25/18 07/25/18 05:49 09:31 WBC RBC Hgb Hct MCV MCH MCHC RDW Plt Count Seg Neutrophils % Lymphocytes % Monocytes % Eosinophils % Basophils % Absolute Neutrophils Absolute Lymphocytes Absolute Monocytes Absolute Eosinophils Absolute Basophils VBG pH VBG pCO2 VBG HCO3 VBG Base Excess Sodium 154.2 H Potassium 4.0 D Chloride 114 H Carbon Dioxide 32 H Anion Gap 8 BUN 32 H Creatinine 0.63 Est GFR ( Amer) > 60 Est GFR (Non-Af Amer) > 60 Glucose 493 H* Lactic Acid 3.3 H Calcium 9.7 Total Bilirubin AST ALT Alkaline Phosphatase Total Protein Albumin 07/24/18 07/24/18 07/24/18 18:32 18:32 19:30 Creatine Kinase 58 CK-MB (CK-2) Cancelled < 0.22 Troponin I Cancelled 0.061 NT-Pro-B Natriuret Pep Cancelled 613 Impressions: Chest X-Ray 07/25/18 00:00 IMPRESSION: Central line placement. Left lower lobe pneumonia. Pulmonary vascular congestion without pulmonary edema. KUB X-Ray 07/25/18 00:00 IMPRESSION: Generalize [id number] dilatation of the colon without gas in the rectum. Worrisome for distal obstruction. Assessment & Plan - Diagnosis (1) Hypernatremia Is this a current diagnosis for this admission?: Yes Plan: She is dehydrated and her blood sugars are high leading to possible osmotic diuresis as well. Increase saline 200 cc/h for 2 L and then monitor. We will repeat labs and keep a close eye on her labs. (2) Dehydration Plan: As mentioned earlier. See correction to IV fluids. (3) Hyperglycemia due to type 2 diabetes mellitus Qualifiers: Diabetes mellitus fpc insulin use: with medical terminologist use Qualified Code(s): E11.65 - Type 2 diabetes mellitus with hyperglycemia; Z79.4 - bed bug exterminator (current) use of insulin Is this a current diagnosis for this admission?: Yes Plan: Suggest better correction of her hyperglycemic status. (4) Pneumonia Qualifiers: Pneumonia type: due to unspecified organism Laterality: bilateral Lung location: lower lobe of lung Qualified Code(s): J18.1 - Lobar pneumonia, unspecified organism Is this a current diagnosis for this admission?: Yes Plan: On IV antibiotics. She is prone for severe aspiration given her current status. (5) Sacral decubitus ulcer, stage IV Is this a current diagnosis for this admission?: Yes (6) Persistent vegetative state Plan: Status quo. Apparently has sacral ulcer as well which is being managed by hospitalist.
--- NOTE | 2018-07-25 18:28 | RADIOLOGY REPORT (SQ) ---
EXAM DESCRIPTION: CT ABD/PELVIS ORAL ONLY COMPLETED DATE/TIME: 07/25/2018 6:16 pm REASON FOR STUDY: bowel obstruction COMPARISON: 06/19/2016 TECHNIQUE: CT scan of the abdomen and pelvis performed with oral contrast and no intravenous contras t. Images reviewed with lung, soft tissue, and bone windows. Reconstructed coronal and sagittal MPR i mages reviewed. All images stored on PACS. All CT scanners at this facility use dose modulation, iterative reconstruction, and/or weight based d osing when appropriate to reduce radiation dose to as low as reasonably achievable (ALARA). [facility]: Dose Right [facility]: CareDose [facility]: Dose Right [facility]: Teradose 4D [facility]: [employer] RADIATION DOSE: CT Rad equipment meets quality standard of care and radiation dose reduction techniq ues were employed. CTDIvol: 17.8 mGy. DLP: 1097 mGy-cm. mGy. LIMITATIONS: None. FINDINGS: LOWER CHEST: Bibasilar pneumonia left greater than right NON-CONTRASTED LIVER, SPLEEN, ADRENALS: Evaluation limited by lack of IV contrast. No identified sign ificant masses. PANCREAS: No masses. No peripancreatic inflammatory changes. GALLBLADDER: No identified stones by CT criteria. No inflammatory changes to suggest cholecystitis. RIGHT KIDNEY AND URETER: No suspicious masses. Assessment limited by lack of IV contrast. No signif icant calcifications. No hydronephrosis or hydroureter. LEFT KIDNEY AND URETER: No suspicious masses. Assessment limited by lack of IV contrast. No signifi cant calcifications. No hydronephrosis or hydroureter. AORTA AND RETROPERITONEUM: No aneurysm. No retroperitoneal masses or adenopathy. BOWEL AND PERITONEAL CAVITY: Peg tube. Fecal impaction. APPENDIX: Not visualized. PELVIS, BLADDER, AND ABDOMINAL WALL: Morales catheter the bladder. Uterus is enlarged. Likely exophyt ic fibroids. BONES: No significant findings. OTHER: No other significant finding. LOWER CHEST: Bibasilar pneumonia left greater right IMPRESSION: Fecal impaction. Bilateral pneumonia left greater than right. Uterine enlargement with likely exophytic fibroids. TECHNICAL DOCUMENTATION: JOB ID: [id number] Quality ID # [id number]: Final reports with documentation of one or more dose reduction techniques (e.g., Au tomated exposure control, adjustment of the mA and/or kV according to patient size, use of iterative reconstruction technique) 2010 [employer]- All Rights Reserved Reading location - IP/workstation name: [email or web address]
[2018-07-25] MEDS: LANSOPRAZOLE 30 MG TAB.RAP.DR PEG SCH (18:41)
[2018-07-25] MEDS ORDERED: ATORVASTATIN CALCIUM 10 MG TABLET PEG SCH (22:00)
[2018-07-25] MEDS: INSULIN GLARGINE,HUM.REC.ANLOG 300 UNIT/3 ML INSULN.PEN SUBCUT SCH (22:06)
[2018-07-26] MEDS: PIPERACILLIN SODIUM/TAZOBACTAM 3.375 GM in NORMAL SALINE 100 ML IV SCH ×4 (02:01→20:10)
[2018-07-26] MEDS: NORMAL SALINE 1000 ML 1,000 ML IV PRN (04:44)
[2018-07-26] MEDS: LANSOPRAZOLE 30 MG TAB.RAP.DR PEG SCH ×2 (05:45→17:28)
[2018-07-26] MEDS: HEPARIN SOD (PORCINE) 5,000 UNIT/ML 1 ML SYRINGE SUBCUT SCH ×3 (05:45→22:23)
[2018-07-26] MEDS ORDERED: LEVOTHYROXINE SODIUM 0.088 MG TABLET PEG SCH (06:00)
[2018-07-26 06:25] LABS: ABSOLUTE EOSINOPHILS # (AUTO) 0.3 10^3/uL (0.0-0.6); ABSOLUTE LYMPHOCYTES (AUTO) 1.4 10^3/uL (0.5-4.7); ABSOLUTE MONOCYTES (AUTO) 0.2 10^3/uL (0.1-1.4); BASOPHILS % (AUTO) 0.7 % (0-2); EOSINOPHILS % (AUTO) 4.2 % (0-6); HEMATOCRIT 28.2 % (36.0-47.0); LYMPHOCYTES % (AUTO) 20.1 % (13-45); MEAN CORPUSCULAR HEMOGLOBIN 27.4 pg (27.0-33.4); MEAN CORPUSCULAR HGB CONC 31.5 g/dL (32.0-36.0); MEAN CORPUSCULAR VOLUME 87 fl (80-97); MONOCYTES % (AUTO) 3.4 % (3-13); PLATELET COUNT 241 10^3/uL (150-450); RED BLOOD COUNT 3.25 10^6/uL (3.72-5.28); RED CELL DISTRIBUTION WIDTH 18.1 % (11.5-14.0); SEGMENTED NEUTROPHILS % (AUTO) 71.6 % (42-78); TOTAL CELLS COUNTED % (AUTO) 100 %
[2018-07-26 06:30] LABS: HEMOGLOBIN 8.9 g/dL (12.0-15.5)
[2018-07-26 06:45] LABS: ALANINE AMINOTRANSFERASE 20 U/L (9-52); ALBUMIN 3.2 g/dL (3.5-5.0); ALKALINE PHOSPHATASE 66 U/L (38-126); ANION GAP 7 (5-19); ASPARTATE AMINO TRANSFERASE 15 U/L (14-36); BILIRUBIN,DIRECT 0.4 mg/dL (0.0-0.4); BILIRUBIN,TOTAL 0.9 mg/dL (0.2-1.3); BLOOD UREA NITROGEN 26 mg/dL (7-20); CALCIUM 8.7 mg/dL (8.4-10.2); CARBON DIOXIDE 30 mmol/L (22-30); CHLORIDE 115 mmol/L (98-107); GLUCOSE 267 mg/dL (75-110); POTASSIUM 3.3 mmol/L (3.6-5.0); SODIUM 151.7 mmol/L (137-145); TOTAL PROTEIN 6.2 g/dL (6.3-8.2)
[2018-07-26] MEDS: IPRATROPIUM/ALBUTEROL 0.5-2.5 MG/3 ML AMPUL NEB SCH ×2 (08:23→16:20)
[2018-07-26] MEDS: CHOLECALCIFEROL (D3) 400 UNIT TABLET PEG SCH ×2 (09:30→17:29)
[2018-07-26] MEDS: LEVOTHYROXINE SODIUM 0.15 MG TABLET PEG SCH (09:30)
[2018-07-26] MEDS: POTASSIUM CHLORIDE 20 MEQ/15 ML UDCUP PEG SCH (09:30)
[2018-07-26] MEDS: FUROSEMIDE 20 MG TABLET PEG SCH (09:30)
[2018-07-26] MEDS: CALCIUM CARBONATE 500 MG TABLET PEG SCH ×2 (09:30→17:28)
[2018-07-26] MEDS: MAGNESIUM HYDROXIDE SUSP 30 ML UDCUP PEG SCH (09:31)
[2018-07-26] MEDS: MULTIVITS W-MIN/IRON SOLN 60 ML PEG SCH (09:31)
[2018-07-26] MEDS: INSULIN GLARGINE,HUM.REC.ANLOG 300 UNIT/3 ML INSULN.PEN SUBCUT SCH ×2 (09:32→22:24)
[2018-07-26] MEDS: POLYETHYLENE GLYCOL 3350 POWDER 17 GM/1 PACKET PEG SCH (09:47)
--- NOTE | 2018-07-26 10:33 | PDOC PROGRESS REPORT ---
Subjective Progress Note for:: 07/26/18 Subjective:: 07/25/[id number]-[id number]-old female long-term resident with multiple medical problems, CODE STATUS is DNR/DNI, presented to [facility] secondary to traumatic brain injury, history of PEG placement, recurrent aspiration pneumonia, hypernatremia, decubitus ulcers sent from the long-term with high fevers, found to have multilobar pneumonia. She is also met the sepsis criteria. Acute events since the admission. T-max is 100.2. 07/26/2000 [id number] female long-term resident admitted for high fevers found to have multi lobar pneumonia. Is getting Zosyn and vancomycin. No acute events in the last [address] abdomen to rule out bowel obstruction and found to have a fecal impaction. She is having the loose stools from last night. We are going to put her back on PEG feedings. Reason For Visit: SEPSIS, HYPERNATREMIA, ARF, PNEUMONIA Physical Exam Vital Signs: Temp Pulse Resp BP Pulse Ox 97.9 F 78 20 121/52 L 97 07/26/18 08:07 07/26/18 08:07 07/26/18 08:07 07/26/18 08:07 07/26/18 08:07 Intake & Output 07/25/18 07/26/18 07/27/18 06:59 06:59 06:59 Intake Total 1999 2546 Output Total 775 Balance 1999 177 Weight 82.4 kg 85.2 kg General appearance: PRESENT: other - Patient is on visited to [facility] noncommunicative. Head exam: PRESENT: atraumatic Eye exam: PRESENT: PERRLA Mouth exam: PRESENT: moist Neck exam: ABSENT: carotid bruit, JVD, lymphadenopathy, thyromegaly Respiratory exam: PRESENT: clear to auscultation regan. ABSENT: rales, rhonchi, wheezes Cardiovascular exam: PRESENT: RRR. ABSENT: diastolic murmur, rubs, systolic murmur GI/Abdominal exam: PRESENT: soft, other - PEG site is clean.. ABSENT: tenderness Extremities exam: PRESENT: other - Contractures of the lower extremities around the ankles. Neurological exam: PRESENT: other - And has history of traumatic brain injury visited to [facility]. Results Laboratory Results: 07/26/18 05:47 07/26/18 05:47 07/26/18 07/26/18 05:47 05:47 WBC 7.0 RBC 3.25 L Hgb 8.9 L D Hct 28.2 L MCV 87 MCH 27.4 MCHC 31.5 L RDW 18.1 H Plt Count 241 Seg Neutrophils % 71.6 Lymphocytes % 20.1 Monocytes % 3.4 Eosinophils % 4.2 Basophils % 0.7 Absolute Neutrophils 5.0 Absolute Lymphocytes 1.4 Absolute Monocytes 0.2 Absolute Eosinophils 0.3 Absolute Basophils 0.0 Sodium 151.7 H Potassium 3.3 L Chloride 115 H Carbon Dioxide 30 Anion Gap 7 BUN 26 H Creatinine 0.63 Est GFR ( Amer) > 60 Est GFR (Non-Af Amer) > 60 Glucose 267 H Calcium 8.7 Magnesium 2.4 H Total Bilirubin 0.9 AST 15 ALT 20 Alkaline Phosphatase 66 Total Protein 6.2 L Albumin 3.2 L 07/24/18 07/24/18 07/24/18 18:32 18:32 19:30 Creatine Kinase 58 CK-MB (CK-2) Cancelled < 0.22 Troponin I Cancelled 0.061 NT-Pro-B Natriuret Pep Cancelled 613 Impressions: Abdomen/Pelvis CT 07/25/18 00:00 IMPRESSION: Fecal impaction. Bilateral pneumonia left greater than right. Uterine enlargement with likely exophytic fibroids. Chest X-Ray 07/25/18 00:00 IMPRESSION: Central line placement. Left lower lobe pneumonia. Pulmonary vascular congestion without pulmonary edema. KUB X-Ray 07/25/18 00:00 IMPRESSION: Generalize [id number] dilatation of the colon without gas in the rectum. Worrisome for distal obstruction. Assessment & Plan - Diagnosis (1) Pneumonia Qualifiers: Pneumonia type: due to unspecified organism Laterality: bilateral Lung location: lower lobe of lung Qualified Code(s): J18.1 - Lobar pneumonia, unspecified organism Is this a current diagnosis for this admission?: Yes Plan: 07/25/2018 chest x-ray shows multilobar pneumonia. Cultures are pending. When a set protocol was deployed. Patient is now on Zosyn and vancomycin. Plan is to continue the present management. I requested for aspiration precautions. 07/26/2018 CT scan done yesterday shows bilateral pneumonia more prominent on the right side. The blood cultures are pending. She is on Zosyn and vancomycin. Pharmacy is doing the Vanco trough. Temperature is 97.6. (2) Sacral decubitus ulcer, stage IV Is this a current diagnosis for this admission?: Yes Plan: 07/25/2018 patient is bedbound at long-term she has a stage IV sacral wound. Surgical consult was requested. 07/26/2018 patient has stage IV sacral wound I am going to request the nurse to get in touch with the surgeons to have a look at the wounds today. (3) Sepsis Qualifiers: Sepsis type: sepsis due to unspecified organism Qualified Code(s): A41.9 - Sepsis, unspecified organism Is this a current diagnosis for this admission?: Yes Plan: 07/25/2018-patient came in with bilateral lower lobe pneumonia fevers tachycardia tachypnea. Lactic acid level was 3.4. Repeat lactic acid level is pending. SURGERY consult was requested for central line placement. WE ARE going to continue gentle IV fluids and IV antibiotic therapy. 07/26/2018-CT scan of the chest shows right lower lobe and left lower lobe pneumonia. Patient is also came in with fevers tachypneic tachycardic. Lactic acid level from yesterday is 3.3. We will plan to continue IV Zosyn and vancomycin. Vanco trough was requested. (4) Hyperglycemia due to type 2 diabetes mellitus Qualifiers: Diabetes mellitus manager long term care insulin use: with [facility]dc use Qualified Code(s): E11.65 - Type 2 diabetes mellitus with hyperglycemia; Z79.4 - senior care (current) use of insulin Is this a current diagnosis for this admission?: Yes Plan: 07/25/2018-patient's blood sugars are running high since the admission. Latest blood sugar is 420. She is on sliding scale, and Lantus 10 units daily. I increased the Lantus to 20 units twice daily and will continue the sliding scale. I am also request for hemoglobin A1c. 07/26/2018 hemoglobin A1c came back 7.6. The blood sugars are better but is still around 250. Increase the Lantus from 20 units twice a day to 30 units twice a day. She is also on insulin sliding scale. (5) Hypernatremia Is this a current diagnosis for this admission?: Yes Plan: 07/25/2018-patient's sodium level is 154. Requested for nephrology consult. We are going to give him free water flushes via the PEG. Continue to check renal function on daily basis. 07/26/2018 patient's admission sodium level is 157, nephrology consult was requested yesterday . Patient was seen by Dr. Pringle yesterday. Sodium level is improved to 151 today. Is on IV fluids at 50 cc/h. The hyponatremia most likely secondary to dehydration and high blood sugars AND osmotic diuresis. I increased the Lantus to 30 units twice a day and will continue to provide insulin coverage. - Time Time Spent with patient: 15-24 minutes Medications reviewed and adjusted accordingly: Yes Anticipated discharge: SNF
[2018-07-26] MEDS: VANCOMYCIN HCL 1,250 MG in DEXTROSE 5%-WATER 250 ML IV SCH ×2 (11:04→22:23)
--- NOTE | 2018-07-26 11:42 | PDOC PROGRESS REPORT ---
Subjective Progress Note for:: 07/26/18 Reason For Visit: Patient seen today. She is in a vegetative state. She is getting a PEG tube feedings. She has been having overnight diarrhea as per discussions done with the treating nurse. Labs and medications were reviewed. She is hypokalemic. Physical Exam Vital Signs: Temp Pulse Resp BP Pulse Ox 97.9 F 78 20 121/52 L 97 07/26/18 08:07 07/26/18 08:07 07/26/18 08:07 07/26/18 08:07 07/26/18 08:07 Intake & Output 07/25/18 07/26/18 07/27/18 06:59 06:59 06:59 Intake Total 1999 2546 100 Output Total 775 Balance 1999 1771 100 Weight 82.4 kg 85.2 kg General appearance: PRESENT: no acute distress Respiratory exam: PRESENT: clear to auscultation regan, decreased breath sounds. ABSENT: crackles Cardiovascular exam: PRESENT: +S1, +S2 GI/Abdominal exam: PRESENT: distended - Mild but with without any guarding or rigidity or tenderness., normal bowel sounds, soft. ABSENT: organomegaly, tenderness Extremities exam: ABSENT: pedal edema Neurological exam: PRESENT: altered Skin exam: ABSENT: erythema, mottled, rash Results Laboratory Results: 07/26/18 05:47 07/26/18 05:47 07/26/18 07/26/18 05:47 05:47 WBC 7.0 RBC 3.25 L Hgb 8.9 L D Hct 28.2 L MCV 87 MCH 27.4 MCHC 31.5 L RDW 18.1 H Plt Count 241 Seg Neutrophils % 71.6 Lymphocytes % 20.1 Monocytes % 3.4 Eosinophils % 4.2 Basophils % 0.7 Absolute Neutrophils 5.0 Absolute Lymphocytes 1.4 Absolute Monocytes 0.2 Absolute Eosinophils 0.3 Absolute Basophils 0.0 Sodium 151.7 H Potassium 3.3 L Chloride 115 H Carbon Dioxide 30 Anion Gap 7 BUN 26 H Creatinine 0.63 Est GFR ( Amer) > 60 Est GFR (Non-Af Amer) > 60 Glucose 267 H Calcium 8.7 Magnesium 2.4 H Total Bilirubin 0.9 AST 15 ALT 20 Alkaline Phosphatase 66 Total Protein 6.2 L Albumin 3.2 L 07/24/18 07/24/18 07/24/18 18:32 18:32 19:30 Creatine Kinase 58 CK-MB (CK-2) Cancelled < 0.22 Troponin I Cancelled 0.061 NT-Pro-B Natriuret Pep Cancelled 613 Impressions: Abdomen/Pelvis CT 07/25/18 00:00 IMPRESSION: Fecal impaction. Bilateral pneumonia left greater than right. Uterine enlargement with likely exophytic fibroids. Chest X-Ray 07/25/18 00:00 IMPRESSION: Central line placement. Left lower lobe pneumonia. Pulmonary vascular congestion without pulmonary edema. KUB X-Ray 07/25/18 00:00 IMPRESSION: Generalize [id number] dilatation of the colon without gas in the rectum. Worrisome for distal obstruction. Assessment & Plan - Diagnosis (1) Hypernatremia Is this a current diagnosis for this admission?: Yes Plan: Some improvement from 154-151. Continue on present lines of management. Increase normal saline 200 cc/h. (2) Dehydration Plan: Continue on fluid resuscitation as mentioned earlier. (3) Hyperglycemia due to type 2 diabetes mellitus Qualifiers: Diabetes mellitus mcc insulin use: with mcc use Qualified Code(s): E11.65 - Type 2 diabetes mellitus with hyperglycemia; Z79.4 - long term care pharmacist (current) use of insulin Is this a current diagnosis for this admission?: Yes Plan: Sugars are improving. Monitor. (4) Pneumonia Qualifiers: Pneumonia type: due to unspecified organism Laterality: bilateral Lung location: lower lobe of lung Qualified Code(s): J18.1 - Lobar pneumonia, unspecified organism Is this a current diagnosis for this admission?: Yes Plan: Likely aspiration. On IV antibiotics. (5) Sacral decubitus ulcer, stage IV Is this a current diagnosis for this admission?: Yes (6) Persistent vegetative state Plan: Status quo. (7) Hypokalemia Plan: Discussed with hospitalist. Advised to give IV riders x2. Monitor. (8) Diarrhea Plan: Apparently has happened overnight. Currently as per discussions done with the treating nurse she has not had any so far. Given the fact she is on antibiotics will recommend checking for C. difficile. Will place an order.
[2018-07-26] MEDS: INSULIN LISPRO 100 UNIT/ML 3 ML VIAL SUBCUT PRN ×2 (12:58→19:01)
[2018-07-26] MEDS ORDERED: POTASSI CL 20 MEQ/50 ML RIDER 20 MEQ/50 ML RTUPB IV ONE (13:00)
[2018-07-26] MEDS ORDERED: INSULIN GLARGINE,HUM.REC.ANLOG 1,000 UNIT/10 ML UNIT SUBCUT SCH (18:00)
[2018-07-27] MEDS: NORMAL SALINE 1000 ML 1,000 ML IV PRN ×2 (00:14→17:54)
[2018-07-27] MEDS: IPRATROPIUM/ALBUTEROL 0.5-2.5 MG/3 ML AMPUL NEB SCH ×3 (00:15→15:55)
[2018-07-27] MEDS: PIPERACILLIN SODIUM/TAZOBACTAM 3.375 GM in NORMAL SALINE 100 ML IV SCH ×4 (03:04→22:00)
[2018-07-27] MEDS: HEPARIN SOD (PORCINE) 5,000 UNIT/ML 1 ML SYRINGE SUBCUT SCH ×3 (06:12→22:29)
[2018-07-27] MEDS: LANSOPRAZOLE 30 MG TAB.RAP.DR PEG SCH ×2 (06:13→17:47)
[2018-07-27 07:16] LABS: ALANINE AMINOTRANSFERASE 22 U/L (9-52); ALKALINE PHOSPHATASE 70 U/L (38-126); ANION GAP 5 (5-19); ASPARTATE AMINO TRANSFERASE 12 U/L (14-36); BILIRUBIN,DIRECT 0.3 mg/dL (0.0-0.4); BILIRUBIN,TOTAL 0.6 mg/dL (0.2-1.3); BLOOD UREA NITROGEN 20 mg/dL (7-20); CALCIUM 8.8 mg/dL (8.4-10.2); CARBON DIOXIDE 31 mmol/L (22-30); CHLORIDE 113 mmol/L (98-107); GLUCOSE 235 mg/dL (75-110); POTASSIUM 3.2 mmol/L (3.6-5.0); SODIUM 149.3 mmol/L (137-145)
[2018-07-27] MEDS ORDERED: LACTULOSE SYRUP 20 GM/30 ML UDCUP PEG PRN (07:30)
[2018-07-27] MEDS ORDERED: DEXTROSE 40% GEL 15 GM TUBE PEG PRN ×2 (07:30)
[2018-07-27 07:34] LABS: ABSOLUTE BASOPHILS # (AUTO) 0.1 10^3/uL (0.0-0.2); ABSOLUTE EOSINOPHILS # (AUTO) 0.3 10^3/uL (0.0-0.6); ABSOLUTE MONOCYTES (AUTO) 0.2 10^3/uL (0.1-1.4); ABSOLUTE NEUT (AUTO) 3.6 10^3/uL (1.7-8.2); BASOPHILS % (AUTO) 1.3 % (0-2); EOSINOPHILS % (AUTO) 5.1 % (0-6); HEMATOCRIT 26.1 % (36.0-47.0); HEMOGLOBIN 8.3 g/dL (12.0-15.5); LYMPHOCYTES % (AUTO) 19.6 % (13-45); MEAN CORPUSCULAR HEMOGLOBIN 27.5 pg (27.0-33.4); MEAN CORPUSCULAR HGB CONC 31.9 g/dL (32.0-36.0); MEAN CORPUSCULAR VOLUME 86 fl (80-97); MONOCYTES % (AUTO) 3.2 % (3-13); PLATELET COUNT 219 10^3/uL (150-450); RED BLOOD COUNT 3.03 10^6/uL (3.72-5.28); RED CELL DISTRIBUTION WIDTH 17.9 % (11.5-14.0); SEGMENTED NEUTROPHILS % (AUTO) 70.8 % (42-78); TOTAL CELLS COUNTED % (AUTO) 100 %; WHITE BLOOD COUNT 5.1 10^3/uL (4.0-10.5)
[2018-07-27] MEDS: LEVOTHYROXINE SODIUM 0.15 MG TABLET PEG SCH (08:59)
[2018-07-27] MEDS: MAGNESIUM HYDROXIDE SUSP 30 ML UDCUP PEG SCH (09:01)
[2018-07-27] MEDS: POTASSIUM CHLORIDE 20 MEQ/15 ML UDCUP PEG SCH (09:01)
[2018-07-27] MEDS: CHOLECALCIFEROL (D3) 400 UNIT TABLET PEG SCH ×2 (09:01→17:47)
[2018-07-27] MEDS: CALCIUM CARBONATE 500 MG TABLET PEG SCH ×2 (09:01→17:47)
[2018-07-27] MEDS: FUROSEMIDE 20 MG TABLET PEG SCH (09:01)
[2018-07-27] MEDS: MULTIVITS W-MIN/IRON SOLN 60 ML PEG SCH (09:02)
[2018-07-27] MEDS: INSULIN GLARGINE,HUM.REC.ANLOG 300 UNIT/3 ML INSULN.PEN SUBCUT SCH (09:02)
[2018-07-27] MEDS: POLYETHYLENE GLYCOL 3350 POWDER 17 GM/1 PACKET PEG SCH (09:48)
[2018-07-27] MEDS ORDERED: POTASSIUM CHLORIDE 20 MEQ/15 ML UDCUP PO SCH (10:00)
[2018-07-27] MEDS ORDERED: INSULIN GLARGINE,HUM.REC.ANLOG 1,000 UNIT/10 ML UNIT SUBCUT SCH (10:00)
[2018-07-27] MEDS: VANCOMYCIN HCL 1,250 MG in DEXTROSE 5%-WATER 250 ML IV SCH ×2 (10:07→23:00)
--- NOTE | 2018-07-27 10:08 | PDOC PROGRESS REPORT ---
Subjective Progress Note for:: 07/27/18 Subjective:: 07/25/[id number]-xgjh-old female [facility] resident with multiple medical problems, CODE STATUS is DNR/DNI, presented to state secondary to traumatic brain injury, history of PEG placement, recurrent aspiration pneumonia, hypernatremia, decubitus ulcers sent from the [facility] with high fevers, found to have multilobar pneumonia. She is also met the sepsis criteria. Acute events since the admission. T-max is 100.2. 07/26/2018 62-year-old female [facility] resident admitted for high fevers found to have multi lobar pneumonia. Is getting Zosyn and vancomycin. No acute events in the last [address] We did a [address] abdomen to rule out bowel obstruction and found to have a fecal impaction. She is having the loose stools from last night. We are going to put her back on PEG feedings. 07/27/2018-patient had diarrhea yesterday which was resolved C. difficile was negative. No acute events overnight. Patient is afebrile. Patient is in vegetative state unable to get any information from the patient. Feedings were started yesterday. Reason For Visit: SEPSIS, HYPERNATREMIA, ARF, PNEUMONIA Physical Exam Vital Signs: Temp Pulse Resp BP Pulse Ox 98.4 F 79 18 124/62 97 07/27/18 07:32 07/27/18 08:20 07/27/18 08:20 07/27/18 07:32 07/27/18 08:20 Intake & Output 07/26/18 07/27/18 07/28/18 06:59 06:59 06:59 Intake Total 2546 2070 Output Total 775 1175 Balance 1771 895 Weight 85.2 kg 86.1 kg General appearance: PRESENT: no acute distress, other Head exam: PRESENT: atraumatic Eye exam: PRESENT: PERRLA Mouth exam: PRESENT: moist Neck exam: ABSENT: carotid bruit, JVD, lymphadenopathy, thyromegaly Respiratory exam: PRESENT: other - Transmitted breath sounds. Cardiovascular exam: PRESENT: tachycardia GI/Abdominal exam: PRESENT: other - PEG site is clean. Patient is getting PEG feedings. Neurological exam: PRESENT: other - pt is in vegetative state Results Laboratory Results: 07/27/18 07:22 07/27/18 06:28 07/27/18 07/27/18 06:28 07:22 WBC 5.1 RBC 3.03 L Hgb 8.3 L Hct 26.1 L MCV 86 MCH 27.5 MCHC 31.9 L RDW 17.9 H Plt Count 219 Seg Neutrophils % 70.8 Lymphocytes % 19.6 Monocytes % 3.2 Eosinophils % 5.1 Basophils % 1.3 Absolute Neutrophils 3.6 Absolute Lymphocytes 1.0 Absolute Monocytes 0.2 Absolute Eosinophils 0.3 Absolute Basophils 0.1 Sodium 149.3 H Potassium 3.2 L Chloride 113 H Carbon Dioxide 31 H Anion Gap 5 BUN 20 Creatinine 0.57 Est GFR ( Amer) > 60 Est GFR (Non-Af Amer) > 60 Glucose 235 H Calcium 8.8 Magnesium 2.4 H Total Bilirubin 0.6 AST 12 L ALT 22 Alkaline Phosphatase 70 Total Protein 6.0 L Albumin 3.0 L 07/24/18 07/24/18 07/24/18 18:32 18:32 19:30 Creatine Kinase 58 CK-MB (CK-2) Cancelled < 0.22 Troponin I Cancelled 0.061 NT-Pro-B Natriuret Pep Cancelled 613 Impressions: Abdomen/Pelvis CT 07/25/18 00:00 IMPRESSION: Fecal impaction. Bilateral pneumonia left greater than right. Uterine enlargement with likely exophytic fibroids. Chest X-Ray 07/25/18 00:00 IMPRESSION: Central line placement. Left lower lobe pneumonia. Pulmonary vascular congestion without pulmonary edema. KUB X-Ray 07/25/18 00:00 IMPRESSION: Generalize [id number] dilatation of the colon without gas in the rectum. Worrisome for distal obstruction. Assessment & Plan - Diagnosis (1) Pneumonia Qualifiers: Pneumonia type: due to unspecified organism Laterality: bilateral Lung location: lower lobe of lung Qualified Code(s): J18.1 - Lobar pneumonia, unspecified organism Is this a current diagnosis for this admission?: Yes Plan: 07/25/2018 chest x-ray shows multilobar pneumonia. Cultures are pending. When a set protocol was deployed. Patient is now on Zosyn and vancomycin. Plan is to continue the present management. I requested for aspiration precautions. 07/26/2018 CT scan done yesterday shows bilateral pneumonia more prominent on the right side. The blood cultures are pending. She is on Zosyn and vancomycin. Pharmacy is doing the Vanco trough. Temperature is 97.6. 07/27/2018 patient has bilateral pneumonia probably aspiration pneumonia on the right side. Patient is on vancomycin and Zosyn. We are going to check a Vanco trough level today. Plan is to continue the present management. Cultures are negative so far. (2) Sacral decubitus ulcer, stage IV Is this a current diagnosis for this admission?: Yes Plan: 07/25/2018 [facility] is [facility]bound [facility] she has a stage IV sacral wound. Surgical consult was requested. 07/26/2018 patient has stage IV sacral wound I am going to request the nurse to get in touch with the surgeons to have a look at the wounds today. 07/27/2018-patient has stage IV sacral decubitus. Going to request surgical team for evaluation. (3) Sepsis Qualifiers: Sepsis type: sepsis due to unspecified organism Qualified Code(s): A41.9 - Sepsis, unspecified organism Is this a current diagnosis for this admission?: Yes Plan: 07/25/2018-patient came in with bilateral lower lobe pneumonia fevers tachycardia tachypnea. Lactic acid level was 3.4. Repeat lactic acid level is pending. SURGERY consult was requested for central line placement. WE ARE going to continue gentle IV fluids and IV antibiotic therapy. 07/26/2018-CT scan of the chest shows right lower lobe and left lower lobe pneumonia. Patient is also came in with fevers tachypneic tachycardic. Lactic acid level from yesterday is 3.3. We will plan to continue IV Zosyn and vancomycin. Vanco trough was requested. 07/27/2018-CT scan shows patient has aspiration pneumonia. Patient is on IV Zosyn and vancomycin. He is afebrile now. Planning to check lactic acid levels today. (4) Hyperglycemia due to type 2 diabetes mellitus Qualifiers: Diabetes mellitus junior sales representative insulin use: with junior sales representative use Qualified Co de(s): E11.65 - Type 2 diabetes mellitus with hyperglycemia; Z79.4 - margin clerk (current) use of insulin Is this a current diagnosis for this admission?: Yes Plan: 07/25/2018-patient's blood sugars are running high since the admission. Latest blood sugar is 420. She is on sliding scale, and Lantus 10 units daily. I increased the Lantus to 20 units twice daily and will continue the sliding scale. I am also request for hemoglobin A1c. 07/26/2018 hemoglobin A1c came back 7.6. The blood sugars are better but is still around 250. Increase the Lantus from 20 units twice a day to 30 units twice a day. She is also on insulin sliding scale. 07/27/2018 hemoglobin A1c 7.6. Blood sugars are still elevated. Presently patient is on Lantus 30 units twice a day and planning to increase it to 40 units twice a day. He is also on insulin sliding scale. (5) Hypernatremia Is this a current diagnosis for this admission?: Yes Plan: 07/25/2018-patient's sodium level is 154. Requested for nephrology consult. We are going to give him free water flushes via the PEG. Continue to check renal function on daily basis. 07/26/2018 patient's admission sodium level is 157, nephrology consult was requested yesterday . Patient was seen by Dr. Pringle yesterday. Sodium level is improved to 151 today. Is on IV fluids at 50 cc/h. The hyponatremia most likely secondary to dehydration and high blood sugars AND osmotic diuresis. I increased the Lantus to 30 units twice a day and will continue to provide insulin coverage. 07/27/2018 hyponatremia slowly improving. Sodium level is 149 today. She is getting normal saline at 50 cc/h. Hyponatremia be secondary to osmotic diuresis because of high blood sugars and dehydration. nephrology on board. (6) Hypokalemia Is this a current diagnosis for this admission?: Yes Plan: 07/27/2018-potassium level is 3.2 today. Yesterday she was given IV k-rider times 2. I am going to switch potassium 40 meq via peg daily. (7) Diarrhea Is this a current diagnosis for this admission?: Yes Plan: 07/27/2018 patient has few episodes of diarrhea yesterday. Came back negative. (8) Persistent vegetative state Is this a current diagnosis for this admission?: Yes Plan: 07/27/2018 patient has history of persistent visited to state secondary to traumatic brain injury. Stable now. - Time Time Spent with patient: 15-24 minutes Medications reviewed and adjusted accordingly: Yes Anticipated discharge: SNF
[2018-07-27 10:37] LABS: VANCOMYCIN,TROUGH 18.1 ug/mL (5.0-20.0)
--- NOTE | 2018-07-27 11:51 | PDOC PROGRESS REPORT ---
Subjective Progress Note for:: 07/27/18 Reason For Visit: Patient seen today. She looking better. She is actually smiling. Discussions were done with the treating nurse. Labs and medications were reviewed. Sodium is better as of now. Physical Exam Vital Signs: Temp Pulse Resp BP Pulse Ox 98.4 F 79 18 124/62 97 07/27/18 07:32 07/27/18 08:20 07/27/18 08:20 07/27/18 07:32 07/27/18 08:20 Intake & Output 07/26/18 07/27/18 07/28/18 06:59 06:59 06:59 Intake Total 2546 2070 247 Output Total 775 1175 Balance 1771 895 247 Weight 85.2 kg 86.1 kg General appearance: PRESENT: no acute distress Respiratory exam: PRESENT: clear to auscultation regan, crackles, decreased breath sounds Cardiovascular exam: PRESENT: +S1, +S2 GI/Abdominal exam: PRESENT: distended - Mild but with without any guarding or rigidity or tenderness., normal bowel sounds, soft. ABSENT: organomegaly, tenderness Extremities exam: ABSENT: pedal edema Neurological exam: PRESENT: altered Skin exam: ABSENT: erythema, mottled Results Laboratory Results: 07/27/18 07:22 07/27/18 06:28 07/27/18 07/27/18 06:28 07:22 WBC 5.1 RBC 3.03 L Hgb 8.3 L Hct 26.1 L MCV 86 MCH 27.5 MCHC 31.9 L RDW 17.9 H Plt Count 219 Seg Neutrophils % 70.8 Lymphocytes % 19.6 Monocytes % 3.2 Eosinophils % 5.1 Basophils % 1.3 Absolute Neutrophils 3.6 Absolute Lymphocytes 1.0 Absolute Monocytes 0.2 Absolute Eosinophils 0.3 Absolute Basophils 0.1 Sodium 149.3 H Potassium 3.2 L Chloride 113 H Carbon Dioxide 31 H Anion Gap 5 BUN 20 Creatinine 0.57 Est GFR ( Amer) > 60 Est GFR (Non-Af Amer) > 60 Glucose 235 H Calcium 8.8 Magnesium 2.4 H Total Bilirubin 0.6 AST 12 L ALT 22 Alkaline Phosphatase 70 Total Protein 6.0 L Albumin 3.0 L 07/24/18 07/24/18 07/24/18 18:32 18:32 19:30 Creatine Kinase 58 CK-MB (CK-2) Cancelled < 0.22 Troponin I Cancelled 0.061 NT-Pro-B Natriuret Pep Cancelled 613 Impressions: Abdomen/Pelvis CT 07/25/18 00:00 IMPRESSION: Fecal impaction. Bilateral pneumonia left greater than right. Uterine enlargement with likely exophytic fibroids. Chest X-Ray 07/25/18 00:00 IMPRESSION: Central line placement. Left lower lobe pneumonia. Pulmonary vascular congestion without pulmonary edema. KUB X-Ray 07/25/18 00:00 IMPRESSION: Generalize [id number]-[id number] dilatation of the colon without gas in the rectum. Worrisome for distal obstruction. Assessment & Plan - Diagnosis (1) Hypernatremia Is this a current diagnosis for this admission?: Yes Plan: Latest sodium is 149. Continue present lines of management. I will sign off. Call as needed. (2) Dehydration Plan: Continue on fluid resuscitation as mentioned earlier. (3) Hyperglycemia due to type 2 diabetes mellitus Qualifiers: Diabetes mellitus log deck tender insulin use: with log deck tender use Qualified Code(s): E11.65 - Type 2 diabetes mellitus with hyperglycemia; Z79.4 - long-term (current) use of insulin Is this a current diagnosis for this admission?: Yes Plan: Sugars are improving. Monitor. (4) Pneumonia Qualifiers: Pneumonia type: due to unspecified organism Laterality: bilateral Lung location: lower lobe of lung Qualified Code(s): J18.1 - Lobar pneumonia, unspecified organism Is this a current diagnosis for this admission?: Yes Plan: Likely aspiration. On IV antibiotics. (5) Sacral decubitus ulcer, stage IV Is this a current diagnosis for this admission?: Yes (6) Persistent vegetative state Is this a current diagnosis for this admission?: Yes Plan: Status quo. (7) Hypokalemia Is this a current diagnosis for this admission?: Yes Plan: Improving. Needs replacements. Monitor. (8) Diarrhea Is this a current diagnosis for this admission?: Yes
[2018-07-27] MEDS: INSULIN LISPRO 100 UNIT/ML 3 ML VIAL SUBCUT PRN (12:05)
[2018-07-27] MEDS: INSULIN GLARGINE,HUM.REC.ANLOG 1,000 UNIT/10 ML UNIT SUBCUT SCH (17:45)
[2018-07-28] MEDS: IPRATROPIUM/ALBUTEROL 0.5-2.5 MG/3 ML AMPUL NEB SCH ×3 (00:36→16:14)
[2018-07-28] MEDS: PIPERACILLIN SODIUM/TAZOBACTAM 3.375 GM in NORMAL SALINE 100 ML IV SCH ×4 (02:19→20:12)
[2018-07-28] MEDS: HEPARIN SOD (PORCINE) 5,000 UNIT/ML 1 ML SYRINGE SUBCUT SCH ×3 (06:34→21:03)
[2018-07-28] MEDS: LANSOPRAZOLE 30 MG TAB.RAP.DR PEG SCH ×2 (06:35→18:13)
[2018-07-28 08:28] LABS: ABSOLUTE BASOPHILS # (AUTO) 0.1 10^3/uL (0.0-0.2); ABSOLUTE EOSINOPHILS # (AUTO) 0.3 10^3/uL (0.0-0.6); ABSOLUTE LYMPHOCYTES (AUTO) 1.3 10^3/uL (0.5-4.7); ABSOLUTE MONOCYTES (AUTO) 0.3 10^3/uL (0.1-1.4); ABSOLUTE NEUT (AUTO) 4.1 10^3/uL (1.7-8.2); BASOPHILS % (AUTO) 0.9 % (0-2); EOSINOPHILS % (AUTO) 5.2 % (0-6); HEMOGLOBIN 8.7 g/dL (12.0-15.5); LYMPHOCYTES % (AUTO) 20.8 % (13-45); MEAN CORPUSCULAR HEMOGLOBIN 27.4 pg (27.0-33.4); MEAN CORPUSCULAR HGB CONC 32.1 g/dL (32.0-36.0); MEAN CORPUSCULAR VOLUME 85 fl (80-97); MONOCYTES % (AUTO) 4.2 % (3-13); PLATELET COUNT 230 10^3/uL (150-450); RED BLOOD COUNT 3.16 10^6/uL (3.72-5.28); RED CELL DISTRIBUTION WIDTH 17.9 % (11.5-14.0); SEGMENTED NEUTROPHILS % (AUTO) 68.9 % (42-78); TOTAL CELLS COUNTED % (AUTO) 100 %
[2018-07-28 08:41] LABS: ALANINE AMINOTRANSFERASE 22 U/L (9-52); ALBUMIN 3.2 g/dL (3.5-5.0); ALKALINE PHOSPHATASE 80 U/L (38-126); ANION GAP 8 (5-19); ASPARTATE AMINO TRANSFERASE 15 U/L (14-36); BILIRUBIN,DIRECT 0.3 mg/dL (0.0-0.4); BILIRUBIN,TOTAL 0.6 mg/dL (0.2-1.3); BLOOD UREA NITROGEN 14 mg/dL (7-20); CALCIUM 8.8 mg/dL (8.4-10.2); CARBON DIOXIDE 30 mmol/L (22-30); CHLORIDE 111 mmol/L (98-107); GLUCOSE 141 mg/dL (75-110); POTASSIUM 3.1 mmol/L (3.6-5.0); SODIUM 148.9 mmol/L (137-145); TOTAL PROTEIN 5.8 g/dL (6.3-8.2)
[2018-07-28] MEDS: FUROSEMIDE 20 MG TABLET PEG SCH (10:39)
[2018-07-28] MEDS: CHOLECALCIFEROL (D3) 400 UNIT TABLET PEG SCH ×2 (10:39→18:13)
[2018-07-28] MEDS: LEVOTHYROXINE SODIUM 0.15 MG TABLET PEG SCH (10:39)
[2018-07-28] MEDS: INSULIN GLARGINE,HUM.REC.ANLOG 1,000 UNIT/10 ML UNIT SUBCUT SCH ×2 (10:43→18:14)
[2018-07-28] MEDS: CALCIUM CARBONATE 500 MG TABLET PEG SCH ×2 (10:43→18:13)
[2018-07-28] MEDS: MAGNESIUM HYDROXIDE SUSP 30 ML UDCUP PEG SCH (10:43)
[2018-07-28] MEDS: POTASSIUM CHLORIDE 10 MEQ CAPSULE.ER PO SCH ×2 (10:44→18:13)
[2018-07-28] MEDS: MULTIVITS W-MIN/IRON SOLN 60 ML PEG SCH (10:44)
[2018-07-28] MEDS: POLYETHYLENE GLYCOL 3350 POWDER 17 GM/1 PACKET PEG SCH (10:45)
[2018-07-28] MEDS ORDERED: POLYETHYLENE GLYCOL 3350 POWDER 17 GM/1 PACKET PO PRN (11:04)
--- NOTE | 2018-07-28 11:16 | PDOC PROGRESS REPORT ---
Subjective Progress Note for:: 07/28/18 Subjective:: 07/25/[id number]-rwrl-old female [facility] resident with multiple medical problems, CODE STATUS is DNR/DNI, presented to state secondary to traumatic brain injury, history of PEG placement, recurrent aspiration pneumonia, hypernatremia, decubitus ulcers sent from the [facility] with high fevers, found to have multilobar pneumonia. She is also met the sepsis criteria. Acute events since the admission. T-max is 100.2. 07/26/2018 62-year-old female [facility] resident admitted for high fevers found to have multi lobar pneumonia. Is getting Zosyn and vancomycin. No acute events in the last [address] hours[address] We did a CT abdomen to rule out bowel obstruction and found to have a fecal impaction. She is having the loose stools from last night. We are going to put her back on PEG feedings. 07/27/2018-patient had diarrhea yesterday which was resolved C. difficile was negative. No acute events overnight. Patient is afebrile. Patient is in vegetative state unable to get any information from the patient. Feedings were started yesterday. 07/28/2018-no acute events in the last 24 hours. Patient is afebrile. PEG feedings are running at 50 cc/h. Blood sugars are improved. Serum sodium is improving. Reason For Visit: SEPSIS, HYPERNATREMIA, ARF, PNEUMONIA Physical Exam Vital Signs: Temp Pulse Resp BP Pulse Ox 98.3 F 78 18 161/78 H 96 07/28/18 08:02 07/28/18 08:19 07/28/18 08:19 07/28/18 08:02 07/28/18 08:19 Intake & Output 07/27/18 07/28/18 07/29/18 06:59 06:59 06:59 Intake Total 2070 2927 Output Total 1175 2400 Balance 895 527 Weight 86.1 kg 86.7 kg General appearance: PRESENT: other - Patient is bedbound and vegetative state. Head exam: PRESENT: atraumatic Eye exam: PRESENT: PERRLA Mouth exam: PRESENT: moist Neck exam: ABSENT: carotid bruit, JVD, lymphadenopathy, thyromegaly Respiratory exam: PRESENT: decreased breath sounds, other - Transmitted breath sounds Cardiovascular exam: PRESENT: RRR. ABSENT: diastolic murmur, rubs, systolic murmur GI/Abdominal exam: PRESENT: normal bowel sounds, soft, other - PEG in place.. ABSENT: tenderness Extremities exam: PRESENT: other - Contractures of the lower extremity. Neurological exam: PRESENT: other - Patient does not hesitate to state. Psychiatric exam: ABSENT: agitated, anxious Results Laboratory Results: 07/28/18 08:10 07/28/18 08:10 07/27/18 07/28/18 07/28/18 11:28 08:10 08:10 WBC 6.0 RBC 3.16 L Hgb 8.7 L Hct 27.0 L MCV 85 MCH 27.4 MCHC 32.1 RDW 17.9 H Plt Count 230 Seg Neutrophils % 68.9 Lymphocytes % 20.8 Monocytes % 4.2 Eosinophils % 5.2 Basophils % 0.9 Absolute Neutrophils 4.1 Absolute Lymphocytes 1.3 Absolute Monocytes 0.3 Absolute Eosinophils 0.3 Absolute Basophils 0.1 Sodium 148.9 H Potassium 3.1 L Chloride 111 H Carbon Dioxide 30 Anion Gap 8 BUN 14 Creatinine 0.56 Est GFR ( Amer) > 60 Est GFR (Non-Af Amer) > 60 Glucose 141 H Lactic Acid 2.1 Calcium 8.8 Magnesium 2.4 H Total Bilirubin 0.6 AST 15 ALT 22 Alkaline Phosphatase 80 Total Protein 5.8 L Albumin 3.2 L 07/24/18 07/24/18 07/24/18 18:32 18:32 19:30 Creatine Kinase 58 CK-MB (CK-2) Cancelled < 0.22 Troponin I Cancelled 0.061 NT-Pro-B Natriuret Pep Cancelled 613 Impressions: Abdomen/Pelvis CT 07/25/18 00:00 IMPRESSION: Fecal impaction. Bilateral pneumonia left greater than right. Uterine enlargement with likely exophytic fibroids. Chest X-Ray 07/25/18 00:00 IMPRESSION: Central line placement. Left lower lobe pneumonia. Pulmonary vascular congestion without pulmonary edema. KUB X-Ray 07/25/18 00:00 IMPRESSION: Generalize ptvm-[id number] dilatation of the colon without gas in the rectum. Worrisome for distal obstruction. Assessment & Plan - Diagnosis (1) Pneumonia Qualifiers: Pneumonia type: due to unspecified organism Laterality: bilateral Lung location: lower lobe of lung Qualified Code(s): J18.1 - Lobar pneumonia, unspecified organism Is this a current diagnosis for this admission?: Yes Plan: 07/25/2018 chest x-ray shows multilobar pneumonia. Cultures are pending. When a set protocol was deployed. Patient is now on Zosyn and vancomycin. Plan is to continue the present management. I requested for aspiration precautions. 07/26/2018 CT scan done yesterday shows bilateral pneumonia more prominent on the right side. The blood cultures are pending. She is on Zosyn and vancomycin. Pharmacy is doing the Vanco trough. Temperature is 97.6. 07/27/2018 patient has bilateral pneumonia probably aspiration pneumonia on the right side. Patient is on vancomycin and Zosyn. We are going to check a Vanco trough level today. Plan is to continue the present management. Cultures are negative so far. 07/28/2018-patient has bilateral pneumonia more prominent on the right side. Patient on vancomycin and Zosyn. Patient is afebrile. Cultures are negative so far. Plan is to continue the present management. Vancomycin trough level is 18.1 (2) Sacral decubitus ulcer, stage IV Is this a current diagnosis for this admission?: Yes Plan: 07/25/2018 [facility] she has a stage IV sacral wound. Surgical consult was requested. 07/26/2018 patient has stage IV sacral wound I am going to request the nurse to get in touch with the surgeons to have a look at the wounds today. 07/27/2018-patient has stage IV sacral decubitus. Going to request surgical team for evaluation. 07/28/2018 patient has stage IV sacral decubitus V during the daily dressings I am going to put a consult for Dr. Valencia for further evaluation. (3) Sepsis Qualifiers: Sepsis type: sepsis due to unspecified organism Qualified Code(s): A41.9 - Sepsis, unspecified organism Is this a current diagnosis for this admission?: Yes Plan: 07/25/2018-patient came in with bilateral lower lobe pneumonia fevers tachycardia tachypnea. Lactic acid level was 3.4. Repeat lactic acid level is pending. SURGERY consult was requested for central line placement. WE ARE going to continue gentle IV fluids and IV antibiotic therapy. 07/26/2018-CT scan of the chest shows right lower lobe and left lower lobe pneumonia. Patient is also came in with fevers tachypneic tachycardic. Lactic acid level from yesterday is 3.3. We will plan to continue IV Zosyn and vancomycin. Vanco trough was requested. 07/27/2018-CT scan shows patient has aspiration pneumonia. Patient is on IV Zosyn and vancomycin. He is afebrile now. Planning to check lactic acid levels today. 07/18/2018-patient is afebrile on IV Zosyn and vancomycin blood pressures are stable pulse rate is stable patient is afebrile. Lactic acid level came back to normal 2.1. Plan is to continue the present management. aspiration precautions were requested. (4) Hyperglycemia due to type 2 diabetes mellitus Qualifiers: Diabetes mellitus communications writer insulin use: with communications writer use Qualified Code(s): E11.65 - Type 2 diabetes mellitus with hyperglycemia; Z79.4 - manager media relations (current) use of insulin Is this a current diagnosis for this admission?: Yes Plan: 07/25/2018-patient's blood sugars are running high since the admission. Latest blood sugar is 420. She is on sliding scale, and Lantus 10 units daily. I increased the Lantus to 20 units twice daily and will continue the sliding scale. I am also request for hemoglobin A1c. 07/26/2018 hemoglobin A1c came back 7.6. The blood sugars are better but is still around 250. Increase the Lantus from 20 units twice a day to 30 units twice a day. She is also on insulin sliding scale. 07/27/2018 hemoglobin A1c 7.6. Blood sugars are still elevated. Presently patient is on Lantus 30 units twice a day and planning to increase it to 40 units twice a day. He is also on insulin sliding scale. 07/28/2018-patient is on Lantus 40 units subcu twice a day. PEG feedings were restarted yesterday. Peak feedings are running at 50 cc/h. Blood sugar latest one is around 140. Plan is to continue the present management. (5) Hypernatremia Is this a current diagnosis for this admission?: Yes Plan: 07/25/2018-patient's sodium level is 154. Requested for nephrology consult. We are going to give him free water flushes via the PEG. Continue to check renal function on daily basis. 07/26/2018 patient's admission sodium level is 157, nephrology consult was requested yesterday . Patient was seen by Dr. Pringle yesterday. Sodium level is improved to 151 today. Is on IV fluids at 50 cc/h. The hyponatremia most likely secondary to dehydration and high blood sugars AND osmotic diuresis. I increased the Lantus to 30 units twice a day and will continue to provide insulin coverage. 07/27/2018 hyponatremia slowly improving. Sodium level is 149 today. She is getting normal saline at 50 cc/h. Hyponatremia be secondary to osmotic diuresis because of high blood sugars and dehydration. nephrology on board. 07/28/2018-serum sodium today is 148.9. Slowly improving. I stopped normal saline today. I am going to increase the free water flushes via PEG 100 cc every 4 hours. I am going to continue to closely monitor the serum sodium levels. (6) Hypokalemia Is this a current diagnosis for this admission?: Yes Plan: 07/27/2018-potassium level is 3.2 today. Yesterday she was given IV k-rider times 2. I am going to switch potassium 40 meq via peg daily. 07/28/2018-patient is getting potassium 40 mg p.o. daily. Potassium level today is 3.1. I increased the potassium supplementation to 40 mg twice a day. I am going to do the daily and chemistry check. (7) Diarrhea Is this a current diagnosis for this admission?: Yes Plan: 07/27/2018 patient has few episodes of diarrhea yesterday. Came back negative. 07/28/2018 patient still having occasional loose stools. I am going to change MiraLAX to as needed. C. difficile came back negative. (8) Persistent vegetative state Is this a current diagnosis for this admission?: Yes Plan: 07/27/2018 patient has history of persistent visited to state secondary to traumatic brain injury. Stable now. 07/28/2018-patient has history history of persistent vegetative state secondary to traumatic brain injury. Plan is to continue the conservative management. - Time Time Spent with patient: 15-24 minutes Medications reviewed and adjusted accordingly: Yes Anticipated discharge: SNF
[2018-07-28] MEDS: VANCOMYCIN HCL 1,250 MG in DEXTROSE 5%-WATER 250 ML IV SCH ×2 (11:55→21:03)
[2018-07-28] MEDS: INSULIN LISPRO 100 UNIT/ML 3 ML VIAL SUBCUT PRN (13:40)
--- NOTE | 2018-07-28 16:49 | Progress Note ---
Provider Note Provider Note: ID Consult Note Asked to review patient's chart by Pharmacy. Pt not seen or examined. Reviewed VS, provider notes, imaging reports, relevant labs. Pt is a 63 year old female [facility] resident with PMH including TBI with vegetative state for >30 years with PEG placement, AF, DM, sacral decubiti, and prior preentations with aspiration pneumonitis or aspiration pneumonia. She presented on 07/24/18 with fever of 103.5 F. She was tachypneic and was noted to have accessory muscle use, crackles, rhonchi and 1+ BLE edema along with stage IV 3x 4 sacral decubitus ulcer on admission exam. Leukocytosis, hyperglycemia, hypernatremia, hyperkalemia found on initial labs. CXR AP view was read as showing bibasilar airspace opacities. Pt was suspected of having aspiration pneumonia. Empirically Zosyn and vancomycin were started. BCx - no growth. No sputum sent. Most recent hospitalization was in November 2017, at which time pt had sputum culture with MSSA and Proteus species. Impression/Recommendations Pt has been suspected of having aspiration pneumonia. She does not have a history of MRSA colonization or infection previously. In institutionalized elderly patients with multiple comorbidities colonization of the airways with Gram negative enteric organisms is more common, in addition to typical oral mike and oral anaerobes. MRSA is not a common cause of aspiration pneumonia, and pt has no history of colonization with MRSA in her airways or nasopharynx, and she has no history of recent IV antibiotic exposure prior to admission as a risk factor for MRSA. Recommend discontinuing IV vancomycin. Can continue IV Zosyn for a total of 7 days, depending on response. Today is day 4. Jerad Rojas MD [facility] pager [phone]
[2018-07-28] MEDS: HYDRALAZINE HCL INJ/PF 20 MG/1 ML SDV IV PRN (21:09)
[2018-07-29] MEDS: IPRATROPIUM/ALBUTEROL 0.5-2.5 MG/3 ML AMPUL NEB SCH ×4 (00:25→23:53)
[2018-07-29] MEDS: INSULIN LISPRO 100 UNIT/ML 3 ML VIAL SUBCUT PRN ×4 (01:14→18:18)
[2018-07-29] MEDS: PIPERACILLIN SODIUM/TAZOBACTAM 3.375 GM in NORMAL SALINE 100 ML IV SCH ×4 (03:04→20:12)
[2018-07-29] MEDS: HYDRALAZINE HCL INJ/PF 20 MG/1 ML SDV IV PRN (04:00)
[2018-07-29] MEDS: LANSOPRAZOLE 30 MG TAB.RAP.DR PEG SCH ×2 (05:14→17:36)
[2018-07-29] MEDS: HEPARIN SOD (PORCINE) 5,000 UNIT/ML 1 ML SYRINGE SUBCUT SCH ×3 (05:14→22:14)
[2018-07-29 06:07] LABS: HEMATOCRIT 32.1 % (36.0-47.0); HEMOGLOBIN 10.3 g/dL (12.0-15.5); MEAN CORPUSCULAR HEMOGLOBIN 27.4 pg (27.0-33.4); MEAN CORPUSCULAR HGB CONC 32.1 g/dL (32.0-36.0); MEAN CORPUSCULAR VOLUME 85 fl (80-97); PLATELET COUNT 308 10^3/uL (150-450); RED BLOOD COUNT 3.76 10^6/uL (3.72-5.28); RED CELL DISTRIBUTION WIDTH 18.2 % (11.5-14.0); WHITE BLOOD COUNT 9.4 10^3/uL (4.0-10.5)
[2018-07-29 06:15] LABS: ALANINE AMINOTRANSFERASE 33 U/L (9-52); ALBUMIN 3.4 g/dL (3.5-5.0); ALKALINE PHOSPHATASE 102 U/L (38-126); ANION GAP 6 (5-19); ASPARTATE AMINO TRANSFERASE 45 U/L (14-36); BILIRUBIN,DIRECT 0.4 mg/dL (0.0-0.4); BILIRUBIN,TOTAL 0.9 mg/dL (0.2-1.3); BLOOD UREA NITROGEN 20 mg/dL (7-20); CALCIUM 9.5 mg/dL (8.4-10.2); CARBON DIOXIDE 33 mmol/L (22-30); CHLORIDE 112 mmol/L (98-107); GLUCOSE 222 mg/dL (75-110); POTASSIUM 3.8 mmol/L (3.6-5.0); SODIUM 151.2 mmol/L (137-145); TOTAL PROTEIN 6.9 g/dL (6.3-8.2)
[2018-07-29] MEDS: LEVOTHYROXINE SODIUM 0.15 MG TABLET PEG SCH (07:26)
[2018-07-29 07:55] LABS: ABSOLUTE LYMPHOCYTES# (MANUAL) 1.8 10^3/uL (0.5-4.7); ABSOLUTE MONOCYTES # (MANUAL) 0.2 10^3/uL (0.1-1.4); ABSOLUTE NEUTROPHILS# (MANUAL) 7.1 10^3/uL (1.7-8.2); BASOPHILS % (MANUAL) 0 % (0-2); EOSINOPHILS % (MANUAL) 3 % (0-6); LYMPHOCYTES % (MANUAL) 19 % (13-45); MONOCYTES % (MANUAL) 2 % (3-13); NUCLEATED RED BLOOD CELLS 1 /100 WBC (0); SEGMENTED NEUTROPHILS % (MAN) 76 % (42-78); TOTAL CELLS COUNTED 100
[2018-07-29 07:56] LABS: ANISOCYTOSIS 2+
[2018-07-29 07:57] LABS: HYPOCHROMASIA SLIGHT; PLATELET COMMENT ADEQUATE
--- NOTE | 2018-07-29 09:54 | PDOC PROGRESS REPORT ---
Subjective Progress Note for:: 07/29/18 Subjective:: 07/25/[id number]-old female longterm resident with multiple medical problems, CODE STATUS is DNR/DNI, presented to state secondary to traumatic brain injury, history of PEG placement, recurrent aspiration pneumonia, hypernatremia, decubitus ulcers sent from the longterm with high fevers, found to have multilobar pneumonia. She is also met the sepsis criteria. Acute events since the admission. T-max is 100.2. 07/26/2018 62-year-old female longterm resident admitted for high fevers found to have multi lobar pneumonia. Is getting Zosyn and vancomycin. No acute events in the last [address] We did a CT abdomen to rule out bowel obstruction and found to have a fecal impaction. She is having the loose stools from last night. We are going to put her back on PEG feedings. 07/27/2018-patient had diarrhea yesterday which was resolved C. difficile was negative. No acute events overnight. Patient is afebrile. Patient is in vegetative state unable to get any information from the patient. Feedings were started yesterday. 07/28/2018-no acute events in the last 24 hours. Patient is afebrile. PEG feedings are running at 50 cc/h. Blood sugars are improved. Serum sodium is improving. 07/29/2018 no acute events in the last 24 hours. Patient vital signs T-max is 98. Pulse ox 100% on 6 L. Latest blood sugar is 208. The sodium going back up to 151 again today. Vital signs are stable. Reason For Visit: SEPSIS, HYPERNATREMIA, ARF, PNEUMONIA Physical Exam Vital Signs: Temp Pulse Resp BP Pulse Ox 98.0 F 100 24 H 147/64 H 100 07/29/18 07:10 07/29/18 07:10 07/29/18 07:10 07/29/18 07:10 07/29/18 07:10 Intake & Output 07/28/18 07/29/18 07/30/18 06:59 06:59 06:59 Intake Total 2927 2565 Output Total 2400 2825 Balance 527 -260 Weight 86.7 kg 83.5 kg General appearance: PRESENT: no acute distress Head exam: PRESENT: atraumatic Eye exam: PRESENT: PERRLA Mouth exam: PRESENT: moist Neck exam: ABSENT: carotid bruit, JVD, lymphadenopathy, thyromegaly Respiratory exam: PRESENT: tachypnea, other - Transmitted breath sounds. Cardiovascular exam: PRESENT: tachycardia GI/Abdominal exam: PRESENT: other - Abdomen was soft bowel sounds are present and a PEG site is clean. Neurological exam: PRESENT: other - pt is in vegetative state . Results Laboratory Results: 07/29/18 05:50 07/29/18 05:50 07/29/18 07/29/18 05:50 05:50 WBC 9.4 RBC 3.76 Hgb 10.3 L Hct 32.1 L MCV 85 MCH 27.4 MCHC 32.1 RDW 18.2 H Plt Count 308 Seg Neutrophils % Not Reportable Lymphocytes % Not Reportable Monocytes % Not Reportable Eosinophils % Not Reportable Basophils % Not Reportable Absolute Neutrophils Not Reportable Absolute Lymphocytes Not Reportable Absolute Monocytes Not Reportable Absolute Eosinophils Not Reportable Absolute Basophils Not Reportable Sodium 151.2 H Potassium 3.8 Chloride 112 H Carbon Dioxide 33 H Anion Gap 6 BUN 20 Creatinine 0.80 Est GFR ( Amer) > 60 Est GFR (Non-Af Amer) > 60 Glucose 222 H Calcium 9.5 Total Bilirubin 0.9 AST 45 H ALT 33 Alkaline Phosphatase 102 Total Protein 6.9 Albumin 3.4 L 07/24/18 07/24/18 07/24/18 18:32 18:32 19:30 Creatine Kinase 58 CK-MB (CK-2) Cancelled < 0.22 Troponin I Cancelled 0.061 NT-Pro-B Natriuret Pep Cancelled 613 Impressions: Abdomen/Pelvis CT 07/25/18 00:00 IMPRESSION: Fecal impaction. Bilateral pneumonia left greater than right. Uterine enlargement with likely exophytic fibroids. Chest X-Ray 07/25/18 00:00 IMPRESSION: Central line placement. Left lower lobe pneumonia. Pulmonary vascular congestion without pulmonary edema. KUB X-Ray 07/25/18 00:00 IMPRESSION: Generalize [id number] dilatation of the colon without gas in the rectum. Worrisome for distal obstruction. Assessment & Plan - Diagnosis (1) Pneumonia Qualifiers: Pneumonia type: due to unspecified organism Laterality: bilateral Lung location: lower lobe of lung Qualified Code(s): J18.1 - Lobar pneumonia, unspecified organism Is this a current diagnosis for this admission?: Yes Plan: 07/25/2018 chest x-ray shows multilobar pneumonia. Cultures are pending. When a set protocol was deployed. Patient is now on Zosyn and vancomycin. Plan is to continue the present management. I requested for aspiration precautions. 07/26/2018 CT scan done yesterday shows bilateral pneumonia more prominent on the right side. The blood cultures are pending. She is on Zosyn and vancom ycin. Pharmacy is doing the Vanco trough. Temperature is 97.6. 07/27/2018 patient has bilateral pneumonia probably aspiration pneumonia on the right side. Patient is on vancomycin and Zosyn. We are going to check a Vanco trough level today. Plan is to continue the present management. Cultures are negative so far. 07/28/2018-patient has bilateral pneumonia more prominent on the right side. Patient on vancomycin and Zosyn. Patient is afebrile. Cultures are negative so far. Plan is to continue the present management. Vancomycin trough level is 18.1 07/29/2018-patient was afebrile. Chart was reviewed by the ID attending Dr. Rojas. I agree with her recommendations. CT scan shows bilateral pneumonia especially right-sided pneumonia indicating aspiration pneumonia. Patient is on PEG feedings. Cultures are negative so far. Plan is to continue Zosyn and discontinue vancomycin today. (2) Sacral decubitus ulcer, stage IV Is this a current diagnosis for this admission?: Yes Plan: 07/25/2018 patient is bedbound at longterm she has a stage IV sacral wound. Surgical consult was requested. 07/26/2018 patient has stage IV sacral wound I am going to request the nurse to get in touch with the surgeons to have a look at the wounds today. 07/27/2018-patient has stage IV sacral decubitus. Going to request surgical team for evaluation. 07/28/2018 patient has stage IV sacral decubitus V during the daily dressings I am going to put a consult for Dr. Valencia for further evaluation. 07/29/2018-Dr. Valencia is here to evaluate the patient today. he is going to talk to the family members before doing any procedure on the sacral decubitus. (3) Sepsis Qualifiers: Sepsis type: sepsis due to unspecified organism Qualified Code(s): A41.9 - Sepsis, unspecified organism Is this a current diagnosis for this admission?: Yes Plan: 07/25/2018-patient came in with bilateral lower lobe pneumonia fevers tachycardia tachypnea. Lactic acid level was 3.4. Repeat lactic acid level is pending. SURGERY consult was requested for central line placement. WE ARE going to continue gentle IV fluids and IV antibiotic therapy. 07/26/2018-CT scan of the chest shows right lower lobe and left lower lobe pneumonia. Patient is also came in with fevers tachypneic tachycardic. Lactic acid level from yesterday is 3.3. We will plan to continue IV Zosyn and vancomycin. Vanco trough was requested. 07/27/2018-CT scan shows patient has aspiration pneumonia. Patient is on IV Zosyn and vancomycin. He is afebrile now. Planning to check lactic acid levels today. 07/18/2018-patient is afebrile on IV Zosyn and vancomycin blood pressures are stable pulse rate is stable patient is afebrile. Lactic acid level came back to normal 2.1. Plan is to continue the present management. aspiration precautions were requested. 07/29/2018-patient going to be on Zosyn for now she is on fifth day of antibiotic therapy. We are going to continue Zosyn for another 2 days and vancomycin was discontinued. Patient is afebrile. Aspiration precautions were implemented. Cultures are negative. (4) Hyperglycemia due to type 2 diabetes mellitus Qualifiers: Diabetes mellitus ad terminal makeup operator insulin use: with ad terminal makeup operator use Qualified Code(s): E11.65 - Type 2 diabetes mellitus with hyperglycemia; Z79.4 - computer terminal operator (current) use of insulin Is this a current diagnosis for this admission?: Yes Plan: 07/25/2018-patient's blood sugars are running high since the admission. Latest blood sugar is 420. She is on sliding scale, and Lantus 10 units daily. I increased the Lantus to 20 units twice daily and will continue the sliding scale. I am also request for hemoglobin A1c. 07/26/2018 hemoglobin A1c came back 7.6. The blood sugars are better but is still around 250. Increase the Lantus from 20 units twice a day to 30 units twice a day. She is also on insulin sliding scale. 07/27/2018 hemoglobin A1c 7.6. Blood sugars are still elevated. Presently patient is on Lantus 30 units twice a day and planning to increase it to 40 units twice a day. He is also on insulin sliding scale. 07/28/2018-patient is on Lantus 40 units subcu twice a day. PEG feedings were restarted yesterday. Peak feedings are running at 50 cc/h. Blood sugar latest one is around 140. Plan is to continue the present management. 07/29/2018-patient's latest blood sugar is 2 8. On Lantus 40 units subcu twice a day. PEG feedings running at 50 cc/h. Plan is to increase the Lantus to 50 units twice a day. She is also on insulin sliding scale every 6 hours. hemoGlobin A1c 7.6. (5) Hypernatremia Is this a current diagnosis for this admission?: Yes Plan: 07/25/2018-patient's sodium level is 154. Requested for nephrology consult. We are going to give him free water flushes via the PEG. Continue to check renal function on daily basis. 07/26/2018 patient's admission sodium level is 157, nephrology consult was requested yesterday . Patient was seen by Dr. Pringle yesterday. Sodium level is improved to 151 today. Is on IV fluids at 50 cc/h. The hyponatremia most likely secondary to dehydration and high blood sugars AND osmotic diuresis. I increased the Lantus to 30 units twice a day and will continue to provide insulin coverage. 07/27/2018 hyponatremia slowly improving. Sodium level is 149 today. She is getting normal saline at 50 cc/h. Hyponatremia be secondary to osmotic diuresis because of high blood sugars and dehydration. nephrology on board. 07/28/2018-serum sodium today is 148.9. Slowly improving. I stopped normal saline today. I am going to increase the free water flushes via PEG 100 cc every 4 hours. I am going to continue to closely monitor the serum sodium levels. 07/29/2018-serum sodium level today is 151. I am going to increase the free water flushes. She is going to get free water flushes 25 cc/h and a total of 1200 cc/day. Adjusted her diabetic medications to prevent any osmotic diuresis. plan to closely to follow the sodium levels. (6) Hypokalemia Is this a current diagnosis for this admission?: Yes Plan: 07/27/2018-potassium level is 3.2 today. Yesterday she was given IV k-rider times 2. I am going to switch potassium 40 meq via peg daily. 07/28/2018-patient is getting potassium 40 mg p.o. daily. Potassium level today is 3.1. I increased the potassium supplementation to 40 mg twice a day. I am going to do the daily and chemistry check. 07/29/2018 latest potassium level is 3.8. Patient is on potassium 40 mg p.o. twice daily. Plan is to continue the present management. (7) Diarrhea Is this a current diagnosis for this admission?: Yes Plan: 07/27/2018 patient has few episodes of diarrhea yesterday. Came back negative. 07/28/2018 patient still having occasional loose stools. I am going to change MiraLAX to as needed. C. difficile came back negative. 07/29/2018-C. difficile was negative. Diarrhea was resolved. (8) Persistent vegetative state Is this a current diagnosis for this admission?: Yes Plan: 07/27/2018 patient has history of persistent visited to state secondary to traumatic brain injury. Stable now. 07/28/2018-patient has history history of persistent vegetative state secondary to traumatic brain injury. Plan is to continue the conservative management. 07/29/2018-plan is to continue the present management. - Time Time Spent with patient: 15-24 minutes Medications reviewed and adjusted accordingly: Yes Anticipated discharge: SNF
[2018-07-29] MEDS: MAGNESIUM HYDROXIDE SUSP 30 ML UDCUP PEG SCH (10:11)
[2018-07-29] MEDS: CHOLECALCIFEROL (D3) 400 UNIT TABLET PEG SCH ×2 (10:12→17:36)
[2018-07-29] MEDS: FUROSEMIDE 20 MG TABLET PEG SCH (10:12)
[2018-07-29] MEDS: CALCIUM CARBONATE 500 MG TABLET PEG SCH ×2 (10:12→17:36)
[2018-07-29] MEDS: POTASSIUM CHLORIDE 10 MEQ CAPSULE.ER PO SCH ×2 (10:12→17:36)
[2018-07-29] MEDS: MULTIVITS W-MIN/IRON SOLN 60 ML PEG SCH (10:13)
--- NOTE | 2018-07-29 11:37 | RADIOLOGY REPORT (SQ) ---
EXAM DESCRIPTION: CHEST SINGLE VIEW COMPLETED DATE/TIME: 07/29/2018 11:23 am REASON FOR STUDY: shortness of breath COMPARISON: 07/25/2018 NUMBER OF VIEWS: One view. TECHNIQUE: Single frontal radiographic view of the chest acquired. LIMITATIONS: Overlapping breast tissue. FINDINGS: LUNGS AND PLEURA: Chronic interstitial changes. No large effusions. MEDIASTINUM AND HILAR STRUCTURES: No masses or contour abnormality. HEART AND VASCULATURE: Cardiac enlargement. Vascular congestion. BONES: No acute findings. HARDWARE: Stable position of right-sided port. OTHER: No other significant finding. IMPRESSION: CARDIAC ENLARGEMENT. VASCULAR CONGESTION. TECHNICAL DOCUMENTATION: JOB ID: [id number] [employer]- All Rights Reserved Reading location - IP/workstation name: [email or web address]
--- NOTE | 2018-07-29 21:52 | OPERATIVE REPORT E ---
Operative Report NAME: BEN DAILEY : 1955 AGE: 63Y DATE OF SURGERY: 07/29/2018 ROOM: 323 PREOPERATIVE DIAGNOSIS: SACRAL DECUBITUS ULCER, STAGE II TO III WITH SOME NECROTIC SKIN. POSTOPERATIVE DIAGNOSIS: SACRAL DECUBITUS ULCER, STAGE II TO III WITH SOME NECROTIC SKIN. PROCEDURE: Sharp debridement of necrotic area of sacral decubitus ulcer roughly measuring about 1.5 cm in diameter. Necrotic skin primarily excised sharply. SURGEON: MONI CHIU M.D. DESCRIPTION OF PROCEDURE: The patient was placed in the left lateral decubitus position with the nurse holding the patient up. The sacral decubitus ulcer was then identified and noted to be quite shallow. However, there is necrotic skin around it roughly measuring about 1 cm in diameter. This necrotic skin was sharply debrided using a 15 blade. No other areas of necrotic tissue can be debrided since the subcu appears to be relatively intact. A dry dressing was then placed over the operative site. The patient tolerated the procedure well. DICTATING PHYSICIAN: MONI CHIU M.D. [id number] PHY#: [id number] ID: [id number] JOB#: [id number] ACCT: [id number] cc:MONI CHIU M.D. > MTDD
[2018-07-30] MEDS: PIPERACILLIN SODIUM/TAZOBACTAM 3.375 GM in NORMAL SALINE 100 ML IV SCH ×4 (02:48→20:00)
[2018-07-30] MEDS: LANSOPRAZOLE 30 MG TAB.RAP.DR PEG SCH ×2 (05:38→17:17)
[2018-07-30] MEDS: HEPARIN SOD (PORCINE) 5,000 UNIT/ML 1 ML SYRINGE SUBCUT SCH ×3 (05:38→22:37)
[2018-07-30 06:53] LABS: ABSOLUTE BASOPHILS # (AUTO) 0.1 10^3/uL (0.0-0.2); ABSOLUTE EOSINOPHILS # (AUTO) 0.3 10^3/uL (0.0-0.6); ABSOLUTE LYMPHOCYTES (AUTO) 1.7 10^3/uL (0.5-4.7); ABSOLUTE MONOCYTES (AUTO) 0.5 10^3/uL (0.1-1.4); ABSOLUTE NEUT (AUTO) 5.3 10^3/uL (1.7-8.2); BASOPHILS % (AUTO) 0.7 % (0-2); EOSINOPHILS % (AUTO) 3.7 % (0-6); HEMATOCRIT 27.7 % (36.0-47.0); HEMOGLOBIN 8.8 g/dL (12.0-15.5); LYMPHOCYTES % (AUTO) 21.5 % (13-45); MEAN CORPUSCULAR HEMOGLOBIN 27.6 pg (27.0-33.4); MEAN CORPUSCULAR HGB CONC 31.6 g/dL (32.0-36.0); MEAN CORPUSCULAR VOLUME 87 fl (80-97); PLATELET COUNT 256 10^3/uL (150-450); RED BLOOD COUNT 3.18 10^6/uL (3.72-5.28); RED CELL DISTRIBUTION WIDTH 18.2 % (11.5-14.0); SEGMENTED NEUTROPHILS % (AUTO) 68.1 % (42-78); TOTAL CELLS COUNTED % (AUTO) 100 %; WHITE BLOOD COUNT 7.8 10^3/uL (4.0-10.5)
[2018-07-30 07:11] LABS: ALANINE AMINOTRANSFERASE 63 U/L (9-52); ALBUMIN 3.2 g/dL (3.5-5.0); ALKALINE PHOSPHATASE 84 U/L (38-126); ANION GAP 9 (5-19); ASPARTATE AMINO TRANSFERASE 71 U/L (14-36); BILIRUBIN,DIRECT 0.4 mg/dL (0.0-0.4); BILIRUBIN,TOTAL 0.8 mg/dL (0.2-1.3); BLOOD UREA NITROGEN 24 mg/dL (7-20); CALCIUM 9.3 mg/dL (8.4-10.2); CARBON DIOXIDE 33 mmol/L (22-30); CHLORIDE 109 mmol/L (98-107); GLUCOSE 234 mg/dL (75-110); POTASSIUM 4.1 mmol/L (3.6-5.0); SODIUM 150.6 mmol/L (137-145); TOTAL PROTEIN 6.6 g/dL (6.3-8.2)
[2018-07-30] MEDS: INSULIN LISPRO 100 UNIT/ML 3 ML VIAL SUBCUT PRN ×3 (07:21→17:17)
[2018-07-30] MEDS: IPRATROPIUM/ALBUTEROL 0.5-2.5 MG/3 ML AMPUL NEB SCH ×2 (08:26→16:19)
[2018-07-30] MEDS ORDERED: INSULIN GLARGINE,HUM.REC.ANLOG 1,000 UNIT/10 ML UNIT SUBCUT SCH ×2 (10:00→18:00)
--- NOTE | 2018-07-30 10:12 | PDOC PROGRESS REPORT ---
Subjective Progress Note for:: 07/30/18 Subjective:: 07/25/[id number]-old female [facility] resident with multiple medical problems, CODE STATUS is DNR/DNI, presented to state secondary to traumatic brain injury, history of PEG placement, recurrent aspiration pneumonia, hypernatremia, decubitus ulcers [facility] with high fevers, found to have multilobar pneumonia. She is also met the sepsis criteria. Acute events since the admission. T-max is 100.2. 07/26/2018 62-year-old female [facility] resident admitted for high fevers found to have multi lobar pneumonia. Is getting Zosyn and vancomycin. No acute events in the last [address] We did a CT abdomen to rule out bowel obstruction and found to have a fecal impaction. She is having the loose stools from last night. We are going to put her back on PEG feedings. 07/27/2018-patient had diarrhea yesterday which was resolved C. difficile was negative. No acute events overnight. Patient is afebrile. Patient is in vegetative state unable to get any information from the patient. Feedings were started yesterday. 07/28/2018-no acute events in the last 24 hours. Patient is afebrile. PEG feedings are running at 50 cc/h. Blood sugars are improved. Serum sodium is improving. 07/29/2018 no acute events in the last 24 hours. Patient vital signs T-max is 98. Pulse ox 100% on 6 L. Latest blood sugar is 208. The sodium going back up to 151 again today. Vital signs are stable. 32,018 no acute events in the last 24 hours. T-max is 97.9. Is on PEG feedings residual is less than 20 cc. PEG feedings are running at 50 cc/h. Seen by surgeons for decubitus ulcer, debridement of the necrotic tissue was done. Reason For Visit: SEPSIS, HYPERNATREMIA, ARF, PNEUMONIA Physical Exam Vital Signs: Temp Pulse Resp BP Pulse Ox 97.9 F 86 17 132/77 H 99 07/30/18 08:11 07/30/18 08:26 07/30/18 08:26 07/30/18 08:11 07/30/18 08:26 Intake & Output 07/29/18 07/30/18 07/31/18 06:59 06:59 06:59 Intake Total 2564 2627 Output Total 2824 650 Balance -260 1977 Weight 83.5 kg 86 kg General appearance: PRESENT: no acute distress Head exam: PRESENT: atraumatic Eye exam: PRESENT: PERRLA Mouth exam: PRESENT: moist Neck exam: ABSENT: carotid bruit, JVD, lymphadenopathy, thyromegaly Respiratory exam: PRESENT: tachypnea, other - Transmitted breath sounds are present. Cardiovascular exam: PRESENT: tachycardia GI/Abdominal exam: PRESENT: other - PEG is in place. Belly is soft,nontender. Extremities exam: PRESENT: full ROM, other - Contractures of the lower extremity present.. ABSENT: calf tenderness, clubbing, pedal edema Neurological exam: PRESENT: other - Patient has history of traumatic brain injuryis not visited to state. Skin exam: PRESENT: other - Patient has a sacral decubitus status post debridement by this surgeon Dr. Valencia Results Laboratory Results: 07/30/18 06:00 07/30/18 06:00 07/30/18 07/30/18 06:00 06:00 WBC 7.8 RBC 3.18 L Hgb 8.8 L Hct 27.7 L MCV 87 MCH 27.6 MCHC 31.6 L RDW 18.2 H Plt Count 256 Seg Neutrophils % 68.1 Lymphocytes % 21.5 Monocytes % 6.0 Eosinophils % 3.7 Basophils % 0.7 Absolute Neutrophils 5.3 Absolute Lymphocytes 1.7 Absolute Monocytes 0.5 Absolute Eosinophils 0.3 Absolute Basophils 0.1 Sodium 150.6 H Potassium 4.1 Chloride 109 H Carbon Dioxide 33 H Anion Gap 9 BUN 24 H Creatinine 0.87 Est GFR ( Amer) > 60 Est GFR (Non-Af Amer) > 60 Glucose 234 H Calcium 9.3 Magnesium 2.6 H Total Bilirubin 0.8 AST 71 H ALT 63 H Alkaline Phosphatase 84 Total Protein 6.6 Albumin 3.2 L 07/24/18 19:30 Blood Blood Culture - Final NO GROWTH IN 5 DAYS 07/24/18 18:32 Blood Blood Culture - Final NO GROWTH IN 5 DAYS 07/24/18 07/24/18 07/24/18 18:32 18:32 19:30 Creatine Kinase 58 CK-MB (CK-2) Cancelled < 0.22 Troponin I Cancelled 0.061 NT-Pro-B Natriuret Pep Cancelled 613 Impressions: Abdomen/Pelvis CT 07/25/18 00:00 IMPRESSION: Fecal impaction. Bilateral pneumonia left greater than right. Uterine enlargement with likely exophytic fibroids. KUB X-Ray 07/25/18 00:00 IMPRESSION: Generalize [id number] dilatation of the colon without gas in the rectum. Worrisome for distal obstruction. Chest X-Ray 07/29/18 00:00 IMPRESSION: CARDIAC ENLARGEMENT. VASCULAR CONGESTION. Assessment & Plan - Diagnosis (1) Pneumonia Qualifiers: Pneumonia type: due to unspecified organism Laterality: bilateral Lung location: lower lobe of lung Qualified Code(s): J18.1 - Lobar pneumonia, unspecified organism Is this a current diagnosis for this admission?: Yes Plan: 07/25/2018 chest x-ray shows multilobar pneumonia. Cultures are pending. When a set protocol was deployed. Patient is now on Zosyn and vancomycin. Plan is to continue the present management. I requested for aspiration precautions. 07/26/2018 CT scan done yesterday shows bilateral pneumonia more prominent on the right side. The blood cultures are pending. She is on Zosyn and vancomycin. Pharmacy is doing the Vanco trough. Temperature is 97.6. 07/27/2018 patient has bilateral pneumonia probably aspiration pneumonia on the right side. Patient is on vancomycin and Zosyn. We are going to check a Vanco trough level today. Plan is to continue the present management. Cultures are negative so far. 07/28/2018-patient has bilateral pneumonia more prominent on the right side. Patient on vancomycin and Zosyn. Patient is afebrile. Cultures are negative so far. Plan is to continue the present management. Vancomycin trough level is 18.1 07/29/2018-patient was afebrile. Chart was reviewed by the ID attending Dr. Rojas. I agree with her recommendations. CT scan shows bilateral pneumonia especially right-sided pneumonia indicating aspiration pneumonia. Patient is on PEG feedings. Cultures are negative so far. Plan is to continue Zosyn and discontinue vancomycin today. 07/30/2018-patient is afebrile. He recommendations vancomycin was discontinued. She is still on Zosyn. Plan is to continue Zosyn for 1 more day. These are negative so far. (2) Sacral decubitus ulcer, stage IV Is this a current diagnosis for this admission?: Yes Plan: 07/25/2018 [facility] she has a stage IV sacral wound. Surgical consult was requested. 07/26/2018 patient has stage IV sacral wound I am going to request the nurse to get in touch with the surgeons to have a look at the wounds today. 07/27/2018-patient has stage IV sacral decubitus. Going to request surgical team for evaluation. 07/28/2018 patient has stage IV sacral decubitus V during the daily dressings I am going to put a consult for Dr. Valencia for further evaluation. 07/29/2018-Dr. Valencia is here to evaluate the patient today. he is going to talk to the family members before doing any procedure on the sacral decubitus. 07/30/2018-patient has a stage IV sacral decubitus, status post debridement of the necrotic skin. (3) Sepsis Qualifiers: Sepsis type: sepsis due to unspecified organism Qualified Code(s): A41.9 - Sepsis, unspecified organism Is this a current diagnosis for this admission?: Yes Plan: 07/25/2018-patient came in with bilateral lower lobe pneumonia fevers tachycardia tachypnea. Lactic acid level was 3.4. Repeat lactic acid level is pending. SURGERY consult was requested for central line placement. WE ARE going to continue gentle IV fluids and IV antibiotic therapy. 07/26/2018-CT scan of the chest shows right lower lobe and left lower lobe pneumonia. Patient is also came in with fevers tachypneic tachycardic. Lactic acid level from yesterday is 3.3. We will plan to continue IV Zosyn and vancomycin. Vanco trough was requested. 07/27/2018-CT scan shows patient has aspiration pneumonia. Patient is on IV Z osyn and vancomycin. He is afebrile now. Planning to check lactic acid levels today. 07/18/2018-patient is afebrile on IV Zosyn and vancomycin blood pressures are stable pulse rate is stable patient is afebrile. Lactic acid level came back to normal 2.1. Plan is to continue the present management. aspiration precautions were requested. 07/29/2018-patient going to be on Zosyn for now she is on fifth day of antibiotic therapy. We are going to continue Zosyn for another 2 days and vancomycin was discontinued. Patient is afebrile. Aspiration precautions were implemented. Cultures are negative. 07/30/2018-patient is on IV Zosyn, patient is afebrile, cultures are negative, she is going to get 1 more day of Zosyn. (4) Hyperglycemia due to type 2 diabetes mellitus Qualifiers: Diabetes mellitus jail insulin use: with jail use Qualified Code(s): E11.65 - Type 2 diabetes mellitus with hyperglycemia; Z79.4 - jail (current) use of insulin Is this a current diagnosis for this admission?: Yes Plan: 07/25/2018-patient's blood sugars are running high since the admission. Latest blood sugar is 420. She is on sliding scale, and Lantus 10 units daily. I increased the Lantus to 20 units twice daily and will continue the sliding scale. I am also request for hemoglobin A1c. 07/26/2018 hemoglobin A1c came back 7.6. The blood sugars are better but is still around 250. Increase the Lantus from 20 units twice a day to 30 units twice a day. She is also on insulin sliding scale. 07/27/2018 hemoglobin A1c 7.6. Blood sugars are still elevated. Presently patient is on Lantus 30 units twice a day and planning to increase it to 40 units twice a day. He is also on insulin sliding scale. 07/28/2018-patient is on Lantus 40 units subcu twice a day. PEG feedings were restarted yesterday. Peak feedings are running at 50 cc/h. Blood sugar latest one is around 140. Plan is to continue the present management. 07/29/2018-patient's latest blood sugar is 208. On Lantus 40 units subcu twice a day. PEG feedings running at 50 cc/h. Plan is to increase the Lantus to 50 units twice a day. She is also on insulin sliding scale every 6 hours. hemoGlobin A1c 7.6. 07/30/2018-patient's blood sugar is today 234. Plan is to continue Lantus 40 units twice a day. She is also on insulin sliding scale every 6 hours. And is to continue the present management. (5) Hypernatremia Is this a current diagnosis for this admission?: Yes Plan: 07/25/2018-patient's sodium level is 154. Requested for nephrology consult. We are going to give him free water flushes via the PEG. Continue to check renal function on daily basis. 07/26/2018 patient's admission sodium level is 157, nephrology consult was requested yesterday . Patient was seen by Dr. Pringle yesterday. Sodium level is improved to 151 today. Is on IV fluids at 50 cc/h. The hyponatremia most likely secondary to dehydration and high blood sugars AND osmotic diuresis. I increased the Lantus to 30 units twice a day and will continue to provide insulin coverage. 07/27/2018 hyponatremia slowly improving. Sodium level is 149 today. She is getting normal saline at 50 cc/h. Hyponatremia be secondary to osmotic diuresis because of high blood sugars and dehydration. nephrology on board. 07/28/2018-serum sodium today is 148.9. Slowly improving. I stopped normal saline today. I am going to increase the free water flushes via PEG 100 cc every 4 hours. I am going to continue to closely monitor the serum sodium levels. 07/29/2018-serum sodium level today is 151. I am going to increase the free water flushes. She is going to get free water flushes 25 cc/h and a total of 1200 cc/day. Adjusted her diabetic medications to prevent any osmotic diuresis. plan to closely to follow the sodium levels. 07/30/2018-patient's serum sodium is 150. She is getting water flushes total of 1200 cc/day. Patient is on PEG feedings at 50 cc/h. With minimal residual. Plan is to follow the renal panel and daily basis. (6) Hypokalemia Is this a current diagnosis for this admission?: Yes Plan: 07/27/2018-potassium level is 3.2 today. Yesterday she was given IV k-rider times 2. I am going to switch potassium 40 meq via peg daily. 07/28/2018-patient is getting potassium 40 mg p.o. daily. Potassium level today is 3.1. I increased the potassium supplementation to 40 mg twice a day. I am going to do the daily and chemistry check. 07/29/2018 latest potassium level is 3.8. Patient is on potassium 40 mg p.o. twice daily. Plan is to continue the present management. 07/30/2018-potassium level today is 4.1, patient is on 40 mg of potassium twice a day I decreased it to once a day today. She is going to get a liquid potassium through the PEG tube. (7) Diarrhea Is this a current diagnosis for this admission?: Yes Plan: 07/27/2018 patient has few episodes of diarrhea yesterday. Came back negative. 07/28/2018 patient still having occasional loose stools. I am going to change MiraLAX to as needed. C. difficile came back negative. 07/29/2018-C. difficile was negative. Diarrhea was resolved. 07/30/2018 as per the nurse patient does not have any loose stools anymore. C. difficile is negative. (8) Persistent vegetative state Is this a current diagnosis for this admission?: Yes Plan: 07/27/2018 patient has history of persistent visited to state secondary to traumatic brain injury. Stable now. 07/28/2018-patient has history history of persistent vegetative state secondary to traumatic brain injury. Plan is to continue the conservative management. 07/29/2018-plan is to continue the present management. 07/30/2018 patient has history of traumatic brain injury and she is in visited to state. Plan is to continue the present management. - Time Time Spent with patient: 15-24 minutes Medications reviewed and adjusted accordingly: Yes Anticipated discharge: SN[facility]
[2018-07-30] MEDS: MAGNESIUM HYDROXIDE SUSP 30 ML UDCUP PEG SCH (11:03)
[2018-07-30] MEDS: POTASSIUM CHLORIDE 20 MEQ/15 ML UDCUP PO SCH (11:03)
[2018-07-30] MEDS: MULTIVITS W-MIN/IRON SOLN 60 ML PEG SCH (11:03)
[2018-07-30] MEDS: CHOLECALCIFEROL (D3) 400 UNIT TABLET PEG SCH ×2 (11:03→17:17)
[2018-07-30] MEDS: LEVOTHYROXINE SODIUM 0.15 MG TABLET PEG SCH (11:04)
[2018-07-30] MEDS: FUROSEMIDE 20 MG TABLET PEG SCH (11:04)
[2018-07-30] MEDS: CALCIUM CARBONATE 500 MG TABLET PEG SCH ×2 (11:04→17:17)
[2018-07-30] MEDS ORDERED: INSULIN GLARGINE,HUM.REC.ANLOG 300 UNIT/3 ML INSULN.PEN SUBCUT SCH ×2 (11:30→18:00)
--- NOTE | 2018-07-30 23:43 | EKG REPORT ---
SEVERITY:- ABNORMAL ECG - SINUS RHYTHM MULTIPLE ATRIAL PREMATURE COMPLEXES LEFT AXIS DEVIATION BORDERLINE T ABNORMALITIES, ANT-LAT LEADS BORDERLINE PROLONGED QT INTERVAL : Confirmed by: Ramiro Malagon 30-Jul-2018 23:42:32
[2018-07-31] MEDS: IPRATROPIUM/ALBUTEROL 0.5-2.5 MG/3 ML AMPUL NEB SCH ×4 (00:33→23:42)
[2018-07-31] MEDS: PIPERACILLIN SODIUM/TAZOBACTAM 3.375 GM in NORMAL SALINE 100 ML IV SCH ×4 (02:10→20:20)
[2018-07-31] MEDS: LANSOPRAZOLE 30 MG TAB.RAP.DR PEG SCH ×2 (05:19→18:49)
[2018-07-31] MEDS: HEPARIN SOD (PORCINE) 5,000 UNIT/ML 1 ML SYRINGE SUBCUT SCH ×3 (05:19→21:54)
[2018-07-31 06:04] LABS: ABSOLUTE BASOPHILS # (AUTO) 0.1 10^3/uL (0.0-0.2); ABSOLUTE EOSINOPHILS # (AUTO) 0.3 10^3/uL (0.0-0.6); ABSOLUTE LYMPHOCYTES (AUTO) 1.9 10^3/uL (0.5-4.7); ABSOLUTE MONOCYTES (AUTO) 0.5 10^3/uL (0.1-1.4); ABSOLUTE NEUT (AUTO) 4.6 10^3/uL (1.7-8.2); BASOPHILS % (AUTO) 0.9 % (0-2); EOSINOPHILS % (AUTO) 4.1 % (0-6); HEMATOCRIT 25.7 % (36.0-47.0); HEMOGLOBIN 8.3 g/dL (12.0-15.5); MEAN CORPUSCULAR HEMOGLOBIN 27.8 pg (27.0-33.4); MEAN CORPUSCULAR HGB CONC 32.2 g/dL (32.0-36.0); MEAN CORPUSCULAR VOLUME 87 fl (80-97); MONOCYTES % (AUTO) 6.7 % (3-13); PLATELET COUNT 249 10^3/uL (150-450); RED BLOOD COUNT 2.97 10^6/uL (3.72-5.28); SEGMENTED NEUTROPHILS % (AUTO) 62.3 % (42-78); TOTAL CELLS COUNTED % (AUTO) 100 %; WHITE BLOOD COUNT 7.4 10^3/uL (4.0-10.5)
[2018-07-31] MEDS: INSULIN LISPRO 100 UNIT/ML 3 ML VIAL SUBCUT PRN ×2 (06:04→18:50)
[2018-07-31 06:33] LABS: ALANINE AMINOTRANSFERASE 56 U/L (9-52); ALBUMIN 3.1 g/dL (3.5-5.0); ALKALINE PHOSPHATASE 76 U/L (38-126); ASPARTATE AMINO TRANSFERASE 45 U/L (14-36); BILIRUBIN,DIRECT 0.3 mg/dL (0.0-0.4); BILIRUBIN,TOTAL 0.6 mg/dL (0.2-1.3); BLOOD UREA NITROGEN 24 mg/dL (7-20); CALCIUM 9.1 mg/dL (8.4-10.2); GLUCOSE 197 mg/dL (75-110); POTASSIUM 4.1 mmol/L (3.6-5.0); TOTAL PROTEIN 6.4 g/dL (6.3-8.2)
[2018-07-31 06:39] LABS: ANION GAP 6 (5-19); CARBON DIOXIDE 35 mmol/L (22-30); CHLORIDE 107 mmol/L (98-107)
[2018-07-31] MEDS: LEVOTHYROXINE SODIUM 0.15 MG TABLET PEG SCH (08:10)
[2018-07-31] MEDS ORDERED: INSULIN GLARGINE,HUM.REC.ANLOG 1,000 UNIT/10 ML UNIT SUBCUT SCH (10:00)
--- NOTE | 2018-07-31 10:10 | PDOC PROGRESS REPORT ---
Subjective Progress Note for:: 07/31/18 Subjective:: [birth year][id number]-old female [facility] resident with multiple medical problems, CODE STATUS is DNR/DNI, presented to state secondary to traumatic brain injury, history of PEG placement, recurrent aspiration pneumonia, hypernatremia, decubitus ulcers sent from the [facility] with high fevers, found to have multilobar pneumonia. She is also met the sepsis criteria. Acute events since the admission. T-max is 100.2. 07/26/2018 62-year-old female [facility] resident admitted for high fevers found to have multi lobar pneumonia. Is getting Zosyn and vancomycin. No acute events in the last [address] We did a [address] abdomen to rule out bowel obstruction and found to have a fecal impaction. She is having the loose stools from last night. We are going to put her back on PEG feedings. 07/27/2018-patient had diarrhea yesterday which was resolved C. difficile was negative. No acute events overnight. Patient is afebrile. Patient is in vegetative state unable to get any information from the patient. Feedings were started yesterday. 07/28/2018-no acute events in the last 24 hours. Patient is afebrile. PEG feedings are running at 50 cc/h. Blood sugars are improved. Serum sodium is improving. 07/29/2018 no acute events in the last 24 hours. Patient vital signs T-max is 98. Pulse ox 100% on 6 L. Latest blood sugar is 208. The sodium going back up to 151 again today. Vital signs are stable. 07/30/2018 no acute events in the last 24 hours. T-max is 97.9. Is on PEG feedings residual is less than 20 cc. PEG feedings are running at 50 cc/h. Seen by surgeons for decubitus ulcer, debridement of the necrotic tissue was done. 07/31/2018-no acute events in the last 24 hours. T-max is 98.0 Patient having the occasional apneic spells on cardiac arrhythmias. I spoke to the daughter Mabel yesterday she does want any CPR but in case patient stops breathing she wants intubation. So her status is DO NOT RESUSCITATE but in case of respiratory failure as per the family request we go to intubate the patient. Reason For Visit: SEPSIS, HYPERNATREMIA, ARF, PNEUMONIA Physical Exam Vital Signs: Temp Pulse Resp BP Pulse Ox 98.0 F 76 17 156/66 H 100 07/30/18 19:20 07/31/18 08:44 07/31/18 08:44 07/30/18 19:20 07/31/18 08:44 Intake & Output 07/30/18 07/31/18 08/01/18 06:59 06:59 06:59 Intake Total 2627 3617 Output Total 650 1600 Balance 1976 2016 Weight 86 kg 86.9 kg General appearance: PRESENT: no acute distress Head exam: PRESENT: atraumatic Eye exam: PRESENT: PERRLA Mouth exam: PRESENT: moist Neck exam: ABSENT: carotid bruit, JVD, lymphadenopathy, thyromegaly Respiratory exam: PRESENT: decreased breath sounds, other - Transmitted breath sounds present GI/Abdominal exam: PRESENT: other - Soft, bowel sounds are present, nontender, PEG is in place, Extremities exam: PRESENT: other - Contractures of the lower extremities. Neurological exam: PRESENT: other - And has history for traumatic brain injury with vegetative state. Results Laboratory Results: 07/31/18 05:26 07/31/18 05:26 07/31/18 07/31/18 05:26 05:26 WBC 7.4 RBC 2.97 L Hgb 8.3 L Hct 25.7 L MCV 87 MCH 27.8 MCHC 32.2 RDW 18.0 H Plt Count 249 Seg Neutrophils % 62.3 Lymphocytes % 26.0 Monocytes % 6.7 Eosinophils % 4.1 Basophils % 0.9 Absolute Neutrophils 4.6 Absolute Lymphocytes 1.9 Absolute Monocytes 0.5 Absolute Eosinophils 0.3 Absolute Basophils 0.1 Sodium 148.0 H Potassium 4.1 Chloride 107 Carbon Dioxide 35 H Anion Gap 6 BUN 24 H Creatinine 0.73 Est GFR ( Amer) > 60 Est GFR (Non-Af Amer) > 60 Glucose 197 H Calcium 9.1 Magnesium 2.5 H Total Bilirubin 0.6 AST 45 H ALT 56 H Alkaline Phosphatase 76 Total Protein 6.4 Albumin 3.1 L 07/24/18 07/24/18 07/24/18 18:32 18:32 19:30 Creatine Kinase 58 CK-MB (CK-2) Cancelled < 0.22 Troponin I Cancelled 0.061 NT-Pro-B Natriuret Pep Cancelled 613 07/31/18 05:26 Creatine Kinase CK-MB (CK-2) Troponin I NT-Pro-B Natriuret Pep 157 Impressions: Abdomen/Pelvis CT 07/25/18 00:00 IMPRESSION: Fecal impaction. Bilateral pneumonia left greater than right. Uterine enlargement with likely exophytic fibroids. KUB X-Ray 07/25/18 00:00 IMPRESSION: Generalize [id number] dilatation of the colon without gas in the rectum. Worrisome for distal obstruction. Chest X-Ray 07/29/18 00:00 IMPRESSION: CARDIAC ENLARGEMENT. VASCULAR CONGESTION. Assessment & Plan - Diagnosis (1) Pneumonia Qualifiers: Pneumonia type: due to unspecified organism Laterality: bilateral Lung location: lower lobe of lung Qualified Code(s): J18.1 - Lobar pneumonia, unspecified organism Is this a current diagnosis for this admission?: Yes Plan: 07/25/2018 chest x-ray shows multilobar pneumonia. Cultures are pending. When a set protocol was deployed. Patient is now on Zosyn and vancomycin. Plan is to continue the present management. I requested for aspiration precautions. 07/26/2018 CT scan done yesterday shows bilateral pneumonia more prominent on the right side. The blood cultures are pending. She is on Zosyn and vancomycin. Pharmacy is doing the Vanco trough. Temperature is 97.6. 07/27/2018 patient has bilateral pneumonia probably aspiration pneumonia on the right side. Patient is on vancomycin and Zosyn. We are going to check a Vanco trough level today. Plan is to continue the present management. Cultures are negative so far. 07/28/2018-patient has bilateral pneumonia more prominent on the right side. Patient on vancomycin and Zosyn. Patient is afebrile. Cultures are negative so far. Plan is to continue the present management. Vancomycin trough level is 18.1 07/29/2018-patient was afebrile. Chart was reviewed by the ID attending Dr. Rojas. I agree with her recommendations. CT scan shows bilateral pneumonia especially right-sided pneumonia indicating aspiration pneumonia. Patient is on PEG feedings. Cultures are negative so far. Plan is to continue Zosyn and discontinue vancomycin today. 07/30/2018-patient is afebrile. He recommendations vancomycin was discontinued. She is still on Zosyn. Plan is to continue Zosyn for 1 more day. These are negative so far. 07/31/2018-patient has bilateral pneumonia especially in the right side possibly secondary to aspiration. Patient is on IV Zosyn. plan is to discontinue IV Zosyn after today, she will complete a 7 days of IV antibiotic therapy, as per ID recommendations to discontinue Zosyn from tomorrow. (2) Sacral decubitus ulcer, stage IV Is this a current diagnosis for this admission?: Yes Plan: 07/25/2018 [facility] she has a stage IV sacral wound. Surgical consult was requested. 07/26/2018 patient has stage IV sacral wound I am going to request the nurse to get in touch with the surgeons to have a look at the wounds today. 07/27/2018-patient has stage IV sacral decubitus. Going to request surgical team for evaluation. 07/28/2018 patient has stage IV sacral decubitus V during the daily dressings I am going to put a consult for Dr. Valencia for further evaluation. 07/29/2018-Dr. Valencia is here to evaluate the patient today. he is going to talk to the family members before doing any procedure on the sacral decubitus. 07/30/2018-patient has a stage IV sacral decubitus, status post debridement of the necrotic skin. 07/31/2018-patient has stage IV sacral decubitus status post debridement by Dr. Valencia. Patient is getting dry dressing of the wound. (3) Sepsis Qualifiers: Sepsis type: sepsis due to unspecified organism Qualified Code(s): A41.9 - Sepsis, unspecified organism Is this a current diagnosis for this admission?: Yes Plan: 07/25/2018-patient came in with bilateral lower lobe pneumonia fevers tachycardia tachypnea. Lactic acid level was 3.4. Repeat lactic acid level is pending. SURGERY consult was requested for central line placement. WE ARE going to continue gentle IV fluids and IV antibiotic therapy. 07/26/2018-CT scan of the chest shows right lower lobe and left lower lobe pneumonia. Patient is also came in with fevers tachypneic tachycardic. Lactic acid level from yesterday is 3.3. We will plan to continue IV Zosyn and vancomycin. Vanco trough was requested. 07/27/2018-CT scan shows patient has aspiration pneumonia. Patient is on IV Zosyn and vancomycin. He is afebrile now. Planning to check lactic acid levels today. 07/18/2018-patient is afebrile on IV Zosyn and vancomycin blood pressures are stable pulse rate is stable patient is afebrile. Lactic acid level came back to normal 2.1. Plan is to continue the present management. aspiration precautions were requested. 07/29/2018-patient going to be on Zosyn for now she is on fifth day of antibiotic therapy. We are going to continue Zosyn for another 2 days and vancomycin was discontinued. Patient is afebrile. Aspiration precautions were implemented. Cultures are negative. 07/30/2018-patient is on IV Zosyn, patient is afebrile, cultures are negative, she is going to get 1 more day of Zosyn. 07/31/2018 patient is on IV Zosyn for now afebrile cultures are negative . IV Zosyn will be discontinued from tomorrow. (4) Hyperglycemia due to type 2 diabetes mellitus Qualifiers: Diabetes mellitus long term care pharmacist insulin use: with long term care pharmacist use Qualified Code(s): E11.65 - Type 2 diabetes mellitus with hyperglycemia; Z79.4 - residential (current) use of insulin Is this a current diagnosis for this admission?: Yes Plan: 07/25/2018-patient's blood sugars are running high since the admission. Latest blood sugar is 420. She is on sliding scale, and Lantus 10 units daily. I increased the Lantus to 20 units twice daily and will continue the sliding scale. I am also request for hemoglobin A1c. 07/26/2018 hemoglobin A1c came back 7.6. The blood sugars are better but is still around 250. Increase the Lantus from 20 units twice a day to 30 units twice a day. She is also on insulin sliding scale. 07/27/2018 hemoglobin A1c 7.6. Blood sugars are still elevated. Presently patient is on Lantus 30 units twice a day and planning to increase it to 40 units twice a day. He is also on insulin sliding scale. 07/28/2018-patient is on Lantus 40 units subcu twice a day. PEG feedings were restarted yesterday. Peak feedings are running at 50 cc/h. Blood sugar latest one is around 140. Plan is to continue the present management. 07/29/2018-patient's latest blood sugar is 208. On Lantus 40 units subcu twice a day. PEG feedings running at 50 cc/h. Plan is to increase the Lantus to 50 units twice a day. She is also on insulin sliding scale every 6 hours. hemoGlobin A1c 7.6. 07/30/2018-patient's blood sugar is today 234. Plan is to continue Lantus 40 units twice a day. She is also on insulin sliding scale every 6 hours. And is to continue the present management. 07/31/2018-latest blood sugar is 195. Patient is a Lantus 40 units twice a day also on insulin sliding scale coverage every 6 hours, plan is to increase the Lantus to 45 units twice a day. (5) Hypernatremia Is this a current diagnosis for this admission?: Yes Plan: 07/25/2018-patient's sodium level is 154. Requested for nephrology consult. We are going to give him free water flushes via the PEG. Continue to check renal function on daily basis. 07/26/2018 patient's admission sodium level is 157, nephrology consult was requested yesterday . Patient was seen by Dr. Pringle yesterday. Sodium level is improved to 151 today. Is on IV fluids at 50 cc/h. The hyponatremia most likely secondary to dehydration and high blood sugars AND osmotic diuresis. I increased the Lantus to 30 units twice a day and will continue to provide insulin coverage. 07/27/2018 hyponatremia slowly improving. Sodium level is 149 today. She is getting normal saline at 50 cc/h. Hyponatremia be secondary to osmotic diuresis because of high blood sugars and dehydration. nephrology on board. 07/28/2018-serum sodium today is 148.9. Slowly improving. I stopped normal saline today. I am going to increase the free water flushes via PEG 100 cc every 4 hours. I am going to continue to closely monitor the serum sodium levels. 07/29/2018-serum sodium level today is 151. I am going to increase the free water flushes. She is going to get free water flushes 25 cc/h and a total of 1200 cc/day. Adjusted her diabetic medications to prevent any osmotic diuresis. plan to closely to follow the sodium levels. 07/30/2018-patient's serum sodium is 150. She is getting water flushes total of 1200 cc/day. Patient is on PEG feedings at 50 cc/h. With minimal residual. Plan is to follow the renal panel and daily basis. 07/31/2018-patient serum sodium is 148. Improved from 150 on admission it was 157. Hyponatremia most likely secondary to osmotic diuresis, dehydration. (6) Hypokalemia Is this a current diagnosis for this admission?: Yes Plan: 07/27/2018-potassium level is 3.2 today. Yesterday she was given IV k-rider times 2. I am going to switch potassium 40 meq via peg daily. 07/28/2018-patient is getting potassium 40 mg p.o. daily. Potassium level today is 3.1. I increased the potassium supplementation to 40 mg twice a day. I am going to do the daily and chemistry check. 07/29/2018 latest potassium level is 3.8. Patient is on potassium 40 mg p.o. twice daily. Plan is to continue the present management. 07/30/2018-potassium level today is 4.1, patient is on 40 mg of potassium twice a day I decreased it to once a day today. She is going to get a liquid potassium through the PEG tube. (7) Diarrhea Is this a current diagnosis for this admission?: Yes (8) Persistent vegetative state Is this a current diagnosis for this admission?: Yes - Time Time Spent with patient: 15-24 minutes Medications reviewed and adjusted accordingly: Yes Anticipated discharge: SNF
[2018-07-31] MEDS: POTASSIUM CHLORIDE 20 MEQ/15 ML UDCUP PO SCH (10:52)
[2018-07-31] MEDS: FUROSEMIDE 20 MG TABLET PEG SCH (10:52)
[2018-07-31] MEDS: CALCIUM CARBONATE 500 MG TABLET PEG SCH ×2 (10:52→18:49)
[2018-07-31] MEDS: MAGNESIUM HYDROXIDE SUSP 30 ML UDCUP PEG SCH (10:52)
[2018-07-31] MEDS: CHOLECALCIFEROL (D3) 400 UNIT TABLET PEG SCH ×2 (10:57→18:49)
--- NOTE | 2018-07-31 15:07 | RADIOLOGY REPORT (SQ) ---
EXAM DESCRIPTION: CHEST SINGLE VIEW COMPLETED DATE/TIME: 07/31/2018 2:51 pm REASON FOR STUDY: shortness of breath COMPARISON: 07/29/2018. EXAM PARAMETERS: NUMBER OF VIEWS: One view. TECHNIQUE: Single frontal radiographic view of the chest acquired. RADIATION DOSE: NA LIMITATIONS: None. FINDINGS: LUNGS AND PLEURA: No opacities, masses or pneumothorax. No pleural effusion. MEDIASTINUM AND HILAR STRUCTURES: No masses. Contour normal. HEART AND VASCULAR STRUCTURES: Heart upper limits of normal in size. Vascular congestion has improve d. BONES: No acute findings. HARDWARE: Central line. OTHER: No other significant finding. IMPRESSION: INTERVAL IMPROVEMENT IN VASCULAR CONGESTION. TECHNICAL DOCUMENTATION: JOB ID: [id number] [employer]- All Rights Reserved Reading location - IP/workstation name: [email or web address]
[2018-07-31] MEDS: MULTIVITS W-MIN/IRON SOLN 60 ML PEG SCH (16:50)
[2018-07-31] MEDS: INSULIN GLARGINE,HUM.REC.ANLOG 1,000 UNIT/10 ML UNIT SUBCUT SCH (21:55)
[2018-08-01] MEDS: PIPERACILLIN SODIUM/TAZOBACTAM 3.375 GM in NORMAL SALINE 100 ML IV SCH (03:06)
[2018-08-01] MEDS: LANSOPRAZOLE 30 MG TAB.RAP.DR PEG SCH ×2 (05:52→19:04)
[2018-08-01] MEDS: HEPARIN SOD (PORCINE) 5,000 UNIT/ML 1 ML SYRINGE SUBCUT SCH ×3 (05:52→21:58)
[2018-08-01 06:44] LABS: ABSOLUTE EOSINOPHILS # (AUTO) 0.2 10^3/uL (0.0-0.6); ABSOLUTE LYMPHOCYTES (AUTO) 1.7 10^3/uL (0.5-4.7); ABSOLUTE MONOCYTES (AUTO) 0.5 10^3/uL (0.1-1.4); ABSOLUTE NEUT (AUTO) 4.7 10^3/uL (1.7-8.2); BASOPHILS % (AUTO) 0.7 % (0-2); EOSINOPHILS % (AUTO) 3.1 % (0-6); HEMATOCRIT 25.4 % (36.0-47.0); HEMOGLOBIN 8.3 g/dL (12.0-15.5); LYMPHOCYTES % (AUTO) 23.6 % (13-45); MEAN CORPUSCULAR HEMOGLOBIN 28.4 pg (27.0-33.4); MEAN CORPUSCULAR HGB CONC 32.7 g/dL (32.0-36.0); MEAN CORPUSCULAR VOLUME 87 fl (80-97); MONOCYTES % (AUTO) 7.2 % (3-13); PLATELET COUNT 281 10^3/uL (150-450); RED BLOOD COUNT 2.92 10^6/uL (3.72-5.28); RED CELL DISTRIBUTION WIDTH 18.5 % (11.5-14.0); SEGMENTED NEUTROPHILS % (AUTO) 65.4 % (42-78); TOTAL CELLS COUNTED % (AUTO) 100 %; WHITE BLOOD COUNT 7.2 10^3/uL (4.0-10.5)
[2018-08-01 06:56] LABS: ALANINE AMINOTRANSFERASE 51 U/L (9-52); ALBUMIN 3.2 g/dL (3.5-5.0); ALKALINE PHOSPHATASE 71 U/L (38-126); ANION GAP 5 (5-19); ASPARTATE AMINO TRANSFERASE 32 U/L (14-36); BILIRUBIN,DIRECT 0.3 mg/dL (0.0-0.4); BILIRUBIN,TOTAL 0.6 mg/dL (0.2-1.3); BLOOD UREA NITROGEN 23 mg/dL (7-20); CARBON DIOXIDE 36 mmol/L (22-30); CHLORIDE 106 mmol/L (98-107); GLUCOSE 162 mg/dL (75-110); SODIUM 147.1 mmol/L (137-145); TOTAL PROTEIN 6.5 g/dL (6.3-8.2)
[2018-08-01] MEDS: IPRATROPIUM/ALBUTEROL 0.5-2.5 MG/3 ML AMPUL NEB SCH ×2 (08:54→17:18)
[2018-08-01] MEDS: FUROSEMIDE 20 MG TABLET PEG SCH (09:55)
[2018-08-01] MEDS: POTASSIUM CHLORIDE 20 MEQ/15 ML UDCUP PO SCH (09:55)
[2018-08-01] MEDS: LEVOTHYROXINE SODIUM 0.15 MG TABLET PEG SCH (09:55)
[2018-08-01] MEDS: CHOLECALCIFEROL (D3) 400 UNIT TABLET PEG SCH ×2 (09:55→19:02)
[2018-08-01] MEDS: CALCIUM CARBONATE 500 MG TABLET PEG SCH ×2 (09:55→19:01)
[2018-08-01] MEDS: INSULIN GLARGINE,HUM.REC.ANLOG 1,000 UNIT/10 ML UNIT SUBCUT SCH (09:56)
[2018-08-01] MEDS: MAGNESIUM HYDROXIDE SUSP 30 ML UDCUP PEG SCH (09:56)
[2018-08-01] MEDS: MULTIVITS W-MIN/IRON SOLN 60 ML PEG SCH (09:56)
[2018-08-01] MEDS: INSULIN LISPRO 100 UNIT/ML 3 ML VIAL SUBCUT PRN (12:52)
--- NOTE | 2018-08-01 14:57 | PDOC PROGRESS REPORT ---
Subjective Progress Note for:: 08/01/18 Subjective:: This is a 63-year-old female longterm resident with multiple medical problems including a vegetative state secondary to traumatic brain injury, history of PEG placement, recurrent aspiration pneumonia, and decubitus ulcers who was sent from the longterm with high fevers. She was found to have multilobar pneumonia and was also found to have severe hypernatremia with a sodium of 157. She was started on broad-spectrum IV antibiotics. Patient was also seen surgery she was noted to have necrotic tissues on her decubitus ulcer. Patient underwent debridement of decubitus ulcer on 07/30/18. No acute event overnight. Upon encounter, patient remains noncoherent and only minimally responsive. Reason For Visit: SEPSIS, HYPERNATREMIA, ARF, PNEUMONIA Physical Exam Vital Signs: Temp Pulse Resp BP Pulse Ox 98.1 F 55 L 16 144/75 H 100 08/01/18 11:29 08/01/18 11:29 08/01/18 11:29 08/01/18 11:29 08/01/18 11:29 Intake & Output 07/31/18 08/01/18 08/02/18 06:59 06:59 06:59 Intake Total 3617 2072 Output Total 1600 800 350 Balance 2017 1272 -350 Weight 191 lb 9.307 oz 192 lb 10.944 oz General appearance: PRESENT: no acute distress Eye exam: PRESENT: conjunctiva pink, EOMI, PERRLA. ABSENT: scleral icterus Ear exam: PRESENT: normal external ear exam Neck exam: ABSENT: carotid bruit, JVD, lymphadenopathy, thyromegaly Respiratory exam: PRESENT: rales - left lung field. ABSENT: rhonchi, wheezes Cardiovascular exam: PRESENT: RRR. ABSENT: diastolic murmur, rubs, systolic murmur Pulses: PRESENT: normal dorsalis pedis pul GI/Abdominal exam: PRESENT: normal bowel sounds, soft. ABSENT: distended, guarding, mass, organolmegaly, rebound, tenderness Rectal exam: PRESENT: deferred Neurological exam: PRESENT: altered Results Laboratory Results: 08/01/18 06:00 08/01/18 06:00 08/01/18 08/01/18 06:00 06:00 WBC 7.2 RBC 2.92 L Hgb 8.3 L Hct 25.4 L MCV 87 MCH 28.4 MCHC 32.7 RDW 18.5 H Plt Count 281 Seg Neutrophils % 65.4 Lymphocytes % 23.6 Monocytes % 7.2 Eosinophils % 3.1 Basophils % 0.7 Absolute Neutrophils 4.7 Absolute Lymphocytes 1.7 Absolute Monocytes 0.5 Absolute Eosinophils 0.2 Absolute Basophils 0.0 Sodium 147.1 H Potassium 4.0 Chloride 106 Carbon Dioxide 36 H Anion Gap 5 BUN 23 H Creatinine 0.63 Est GFR ( Amer) > 60 Est GFR (Non-Af Amer) > 60 Glucose 162 H Calcium 9.0 Magnesium 2.5 H Total Bilirubin 0.6 AST 32 ALT 51 Alkaline Phosphatase 71 Total Protein 6.5 Albumin 3.2 L 07/24/18 07/24/18 07/24/18 18:32 18:32 19:30 Creatine Kinase 58 CK-MB (CK-2) Cancelled < 0.22 Troponin I Cancelled 0.061 NT-Pro-B Natriuret Pep Cancelled 613 07/31/18 05:26 Creatine Kinase CK-MB (CK-2) Troponin I NT-Pro-B Natriuret Pep 157 Impressions: Abdomen/Pelvis CT 07/25/18 00:00 IMPRESSION: Fecal impaction. Bilateral pneumonia left greater than right. Uterine enlargement with likely exophytic fibroids. KUB X-Ray 07/25/18 00:00 IMPRESSION: Generalize [id number] dilatation of the colon without gas in the rectum. Worrisome for distal obstruction. Chest X-Ray 07/31/18 00:00 IMPRESSION: INTERVAL IMPROVEMENT IN VASCULAR CONGESTION. Assessment & Plan - Diagnosis (1) Pneumonia Qualifiers: Pneumonia type: due to unspecified organism Laterality: bilateral Lung location: lower lobe of lung Qualified Code(s): J18.1 - Lobar pneumonia, unspecified organism Is this a current diagnosis for this admission?: Yes Plan: Aspiration vs HCAP. Patient was on Zosyn which was discontinued by preceding hospitalist per ID recommendation. She completed 7 days of Zosyn. (2) Hypernatremia Is this a current diagnosis for this admission?: Yes Plan: Likely from dehydration. Sodium remain elevated but continue to improve. Now down to 147 from 157. She has been resumed on tube feedings. Add free water at 250 cc q8 today. - Time Time Spent with patient: 15-24 minutes
--- NOTE | 2018-08-01 18:51 | RADIOLOGY REPORT (SQ) ---
EXAM DESCRIPTION: KUB/ABDOMEN (SINGLE VIEW) COMPLETED DATE/TIME: 08/01/2018 6:35 pm REASON FOR STUDY: Distended abdomen COMPARISON: 07/25/2018. NUMBER OF VIEWS: One view. TECHNIQUE: Supine radiographic image of the abdomen acquired. LIMITATIONS: None. FINDINGS: BOWEL GAS PATTERN: Diffuse dilated bowel loops. CALCIFICATIONS: No suspicious calcifications. SOFT TISSUES: No gross mass or suggestion of organomegaly. HARDWARE: Gastrostomy tube. BONES: No acute fracture. Degenerative changes particularly in the right hip. No worrisome bone les ions. OTHER: No other significant finding. IMPRESSION: DIFFUSE DILATED BOWEL LOOPS. SIMILAR APPEARANCE TO THE PRIOR STUDY. TECHNICAL DOCUMENTATION: JOB ID: [id number] [employer]- All Rights Reserved Reading location - IP/workstation name: [email or web address]
[2018-08-02] MEDS: IPRATROPIUM/ALBUTEROL 0.5-2.5 MG/3 ML AMPUL NEB SCH ×3 (00:34→16:52)
[2018-08-02] MEDS: INSULIN GLARGINE,HUM.REC.ANLOG 1,000 UNIT/10 ML UNIT SUBCUT SCH ×2 (00:45→10:58)
[2018-08-02] MEDS: LANSOPRAZOLE 30 MG TAB.RAP.DR PEG SCH ×2 (05:29→18:08)
[2018-08-02] MEDS: HEPARIN SOD (PORCINE) 5,000 UNIT/ML 1 ML SYRINGE SUBCUT SCH ×3 (05:31→21:32)
[2018-08-02 08:27] LABS: BLOOD UREA NITROGEN 21 mg/dL (7-20); GLUCOSE 123 mg/dL (75-110)
[2018-08-02 08:32] LABS: CARBON DIOXIDE 35 mmol/L (22-30); CHLORIDE 103 mmol/L (98-107); SODIUM 143.4 mmol/L (137-145)
[2018-08-02 08:36] LABS: ANION GAP 5 (5-19)
[2018-08-02] MEDS: CALCIUM CARBONATE 500 MG TABLET PEG SCH ×2 (10:50→18:08)
[2018-08-02] MEDS: POTASSIUM CHLORIDE 20 MEQ/15 ML UDCUP PO SCH (10:50)
[2018-08-02] MEDS: CHOLECALCIFEROL (D3) 400 UNIT TABLET PEG SCH ×2 (10:50→18:08)
[2018-08-02] MEDS: MULTIVITS W-MIN/IRON SOLN 60 ML PEG SCH (10:50)
[2018-08-02] MEDS: LEVOTHYROXINE SODIUM 0.15 MG TABLET PEG SCH (10:50)
[2018-08-02] MEDS: MAGNESIUM HYDROXIDE SUSP 30 ML UDCUP PEG SCH (10:50)
[2018-08-02] MEDS: FUROSEMIDE 20 MG TABLET PEG SCH (10:50)
--- NOTE | 2018-08-02 14:59 | PDOC PROGRESS REPORT ---
Subjective Progress Note for:: 08/02/18 Subjective:: This is a 63-year-old female half-way resident with multiple medical problems including a vegetative state secondary to traumatic brain injury, history of PEG placement, recurrent aspiration pneumonia, and decubitus ulcers who was sent from the half-way with high fevers. She was found to have multilobar pneumonia and was also found to have severe hypernatremia with a sodium of 157. She was started on broad-spectrum IV antibiotics which was subsequently d iscontinued. Patient was also seen by surgery as she was noted to have necrotic tissues on her decubitus ulcer. Patient underwent debridement of decubitus ulcer on 07/30/18. No acute event overnight. Upon encounter, patient remains in a vegetative state and is noncoherent and only minimally responsive. This provider believes that patient is an appropriate hospice candidate. Plan to discuss with family/DPOA about further goals of care but unable to reach family through phone. Reason For Visit: SEPSIS, HYPERNATREMIA, ARF, PNEUMONIA Physical Exam Vital Signs: Temp Pulse Resp BP Pulse Ox 98.2 F 83 20 153/71 H 97 08/02/18 11:16 08/02/18 11:16 08/02/18 11:16 08/02/18 11:16 08/02/18 11:16 Intake & Output 08/01/18 08/02/18 08/03/18 06:59 06:59 06:59 Intake Total 2072 1930 Output Total 800 1450 275 Balance 1272 480 -275 Weight 192 lb 10.944 oz 194 lb 3.636 oz General appearance: PRESENT: no acute distress Eye exam: PRESENT: conjunctiva pink, EOMI, PERRLA. ABSENT: scleral icterus Ear exam: PRESENT: normal external ear exam Mouth exam: PRESENT: moist, tongue midline Neck exam: ABSENT: carotid bruit, JVD, lymphadenopathy, thyromegaly Respiratory exam: PRESENT: rhonchi. ABSENT: rales, wheezes Cardiovascular exam: PRESENT: RRR. ABSENT: diastolic murmur, rubs, systolic murmur Pulses: PRESENT: normal dorsalis pedis pul GI/Abdominal exam: PRESENT: normal bowel sounds, soft. ABSENT: distended, guarding, mass, organolmegaly, rebound, tenderness Rectal exam: PRESENT: deferred Neurological exam: PRESENT: altered. ABSENT: oriented to person, oriented to place, oriented to time, oriented to situation Results Laboratory Results: 08/01/18 06:00 08/02/18 07:55 08/02/18 07:55 Sodium 143.4 Potassium 4.0 Chloride 103 Carbon Dioxide 35 H Anion Gap 5 BUN 21 H Creatinine 0.53 Est GFR ( Amer) > 60 Est GFR (Non-Af Amer) > 60 Glucose 123 H Calcium 9.0 07/24/18 07/24/18 07/24/18 18:32 18:32 19:30 Creatine Kinase 58 CK-MB (CK-2) Cancelled < 0.22 Troponin I Cancelled 0.061 NT-Pro-B Natriuret Pep Cancelled 613 07/31/18 05:26 Creatine Kinase CK-MB (CK-2) Troponin I NT-Pro-B Natriuret Pep 157 Impressions: Abdomen/Pelvis CT 07/25/18 00:00 IMPRESSION: Fecal impaction. Bilateral pneumonia left greater than right. Uterine enlargement with likely exophytic fibroids. Chest X-Ray 07/31/18 00:00 IMPRESSION: INTERVAL IMPROVEMENT IN VASCULAR CONGESTION. KUB X-Ray 08/01/18 00:00 IMPRESSION: DIFFUSE DILATED BOWEL LOOPS. SIMILAR APPEARANCE TO THE PRIOR STUDY. Assessment & Plan - Diagnosis (1) Pneumonia Qualifiers: Pneumonia type: due to unspecified organism Laterality: bilateral Lung location: lower lobe of lung Qualified Code(s): J18.1 - Lobar pneumonia, un specified organism Is this a current diagnosis for this admission?: Yes Plan: Aspiration vs HCAP. Patient was on Zosyn which was discontinued by preceding hospitalist per ID recommendation. She completed 7 days of Zosyn. (2) Hypernatremia Is this a current diagnosis for this admission?: Yes Plan: Likely from dehydration. Sodium is now down to 143. She has been resumed on tube feedings but only at 50 cc/hr due to her having multiple aspirations from tube feedings. (3) Vegetative state Is this a current diagnosis for this admission?: Yes Plan: Will discuss with family/DPOA about possibly transitioning patient to hospice. Will also consult palliative care. - Time Time Spent with patient: 15-24 minutes
[2018-08-02] MEDS: INSULIN LISPRO 100 UNIT/ML 3 ML VIAL SUBCUT PRN (18:42)
[2018-08-03] MEDS: INSULIN GLARGINE,HUM.REC.ANLOG 1,000 UNIT/10 ML UNIT SUBCUT SCH ×3 (00:14→22:04)
[2018-08-03] MEDS: HYDRALAZINE HCL INJ/PF 20 MG/1 ML SDV IV PRN (00:16)
[2018-08-03] MEDS: IPRATROPIUM/ALBUTEROL 0.5-2.5 MG/3 ML AMPUL NEB SCH ×3 (00:56→16:21)
[2018-08-03] MEDS: LANSOPRAZOLE 30 MG TAB.RAP.DR PEG SCH ×2 (05:18→18:39)
[2018-08-03] MEDS: HEPARIN SOD (PORCINE) 5,000 UNIT/ML 1 ML SYRINGE SUBCUT SCH ×3 (05:19→22:03)
--- NOTE | 2018-08-03 08:41 | RADIOLOGY REPORT (SQ) ---
EXAM DESCRIPTION: CHEST SINGLE VIEW COMPLETED DATE/TIME: 08/03/2018 8:28 am REASON FOR STUDY: aspiration COMPARISON: AP chest 07/31/2018, 07/29/2018, 07/25/2018, 07/24/2018 EXAM PARAMETERS: NUMBER OF VIEWS: One view. TECHNIQUE: Single frontal radiographic view of the chest acquired. RADIATION DOSE: NA LIMITATIONS: None. FINDINGS: LUNGS AND PLEURA: Diffuse bilateral airspace disease is present, edema versus pneumonia ve rsus ARDS. This is similar compared to 07/29/2018 and 07/31/2018. No pleural effusions. No pneumothorax. MEDIASTINUM AND HILAR STRUCTURES: No masses. Contour normal. HEART AND VASCULAR STRUCTURES: Heart normal in size. Normal vasculature. BONES: No acute findings. HARDWARE: Right-sided subclavian central line tip in the superior vena cava. OTHER: No other significant finding. IMPRESSION: Persistent diffuse bilateral airspace disease. TECHNICAL DOCUMENTATION: JOB ID: [id number] [employer]- All Rights Reserved Reading location - IP/workstation name: [email or web address] BEDS AT [facility]
[2018-08-03] MEDS: LEVOTHYROXINE SODIUM 0.15 MG TABLET PEG SCH ×2 (10:45→18:38)
[2018-08-03] MEDS: MAGNESIUM HYDROXIDE SUSP 30 ML UDCUP PEG SCH (10:45)
[2018-08-03] MEDS: CHOLECALCIFEROL (D3) 400 UNIT TABLET PEG SCH ×3 (10:45→18:40)
[2018-08-03] MEDS: POTASSIUM CHLORIDE 20 MEQ/15 ML UDCUP PO SCH ×2 (10:45→18:39)
[2018-08-03] MEDS: CALCIUM CARBONATE 500 MG TABLET PEG SCH ×3 (10:46→18:39)
[2018-08-03] MEDS: FUROSEMIDE INJ/PF 40 MG/4 ML SDV IV SCH (10:46)
[2018-08-03] MEDS: MULTIVITS W-MIN/IRON SOLN 60 ML PEG SCH ×2 (10:48→18:39)
--- NOTE | 2018-08-03 14:31 | PDOC PROGRESS REPORT ---
Subjective Progress Note for:: 08/03/18 Subjective:: This is a 63-year-old female longterm resident with multiple medical problems including a vegetative state secondary to traumatic brain injury, history of PEG placement, recurrent aspiration pneumonia, and decubitus ulcers who was sent from the longterm with high fevers. She was found to have multilobar pneumonia and was also found to have severe hypernatremia with a sodium of 157. She was started on broad-spectrum IV antibiotics which was subsequently d iscontinued. Patient was also seen by surgery as she was noted to have necrotic tissues on her decubitus ulcer. Patient underwent debridement of decubitus ulcer on 07/30/18. 08/02/18: No acute event overnight. Upon encounter, patient remains in a vegetative state and is noncoherent and only minimally responsive. This provider believes that patient is an appropriate hospice candidate. Plan to discuss with family/DPOA about further goals of care but unable to reach family through phone. Discussed with Basim (DPOA in [place]) over the phone about goals of care. Explained about options to transition patient to hospice and she says she will discuss this with her other siblings. She says patient is a DNR/okay to intubate. Explained that if patient did get intubated, it will be difficult to wean her off the vent given her vegetative state and inability to participate in weaning trials. She verbalized she will rediscuss patient's code status again with the rest of the family and will update us about their decision. 08/03/1018: Patient remains in vegetative state. Chest x-ray this morning shows persistent airspace disease vs congestion. No fever. Paged by RN and notified that patient's PEG tube was noted to be completely out of patient's abdomen. Reason For Visit: SEPSIS, HYPERNATREMIA, ARF, PNEUMONIA Physical Exam Vital Signs: Temp Pulse Resp BP Pulse Ox 99.4 F 76 20 103/51 L 100 08/03/18 11:30 08/03/18 11:30 08/03/18 11:30 08/03/18 11:30 08/03/18 11:30 Intake & Output 08/02/18 08/03/18 08/04/18 06:59 06:59 06:59 Intake Total 1930 1963 Output Total 1450 1725 450 Balance 480 238 -450 Weight 194 lb 3.636 oz 188 lb 4.396 oz General appearance: PRESENT: no acute distress, obese Head exam: PRESENT: atraumatic, normocephalic Eye exam: PRESENT: conjunctiva pink, EOMI, PERRLA. ABSENT: scleral icterus Mouth exam: PRESENT: moist, tongue midline Neck exam: ABSENT: carotid bruit, JVD, lymphadenopathy, thyromegaly Respiratory exam: PRESENT: rales, rhonchi. ABSENT: wheezes Cardiovascular exam: PRESENT: RRR. ABSENT: diastolic murmur, rubs, systolic murmur Pulses: PRESENT: normal dorsalis pedis pul GI/Abdominal exam: PRESENT: soft. ABSENT: ascites, distended Rectal exam: PRESENT: deferred Neurological exam: PRESENT: altered Results Laboratory Results: 08/01/18 06:00 08/02/18 07:55 07/24/18 07/24/18 07/24/18 18:32 18:32 19:30 Creatine Kinase 58 CK-MB (CK-2) Cancelled < 0.22 Troponin I Cancelled 0.061 NT-Pro-B Natriuret Pep Cancelled 613 07/31/18 05:26 Creatine Kinase CK-MB (CK-2) Troponin I NT-Pro-B Natriuret Pep 157 Impressions: Abdomen/Pelvis CT 07/25/18 00:00 IMPRESSION: Fecal impaction. Bilateral pneumonia left greater than right. Uterine enlargement with likely exophytic fibroids. KUB X-Ray 08/01/18 00:00 IMPRESSION: DIFFUSE DILATED BOWEL LOOPS. SIMILAR APPEARANCE TO THE PRIOR STUDY. Chest X-Ray 08/03/18 06:00 IMPRESSION: Persistent diffuse bilateral airspace disease. Assessment & Plan - Diagnosis (1) Pneumonia Qualifiers: Pneumonia type: due to unspecified organism Laterality: bilateral Lung location: lower lobe of lung Qualified Code(s): J18.1 - Lobar pneumonia, unspecified organism Is this a current diagnosis for this admission?: Yes Plan: Aspiration vs HCAP. Continue Zosyn for now. (2) Pulmonary congestion Is this a current diagnosis for this admission?: Yes Plan: Will diurese with Lasix 40 mg IV. (3) Hypernatremia Is this a current diagnosis for this admission?: Yes Plan: Resolved. Likely from dehydration. (4) Vegetative state Is this a current diagnosis for this admission?: Yes Plan: Discussed as mentioned above with family/DPOA about possibly transitioning patient to hospice. Will also consult palliative care. (5) Malfunction of percutaneous endoscopic gastrostomy (PEG) tube Is this a current diagnosis for this admission?: Yes Plan: Surgery reconsulted. (6) Sacral ulcer Is this a current diagnosis for this admission?: Yes Plan: S/P debridement by surgery. - Time Time Spent with patient: 25-34 minutes
[2018-08-03] MEDS: PIPERACILLIN SODIUM/TAZOBACTAM 3.375 GM in NORMAL SALINE 100 ML IV SCH ×2 (14:35→18:53)
--- NOTE | 2018-08-03 21:21 | Operative Report ---
Nonrecallable Operative Report DATE OF SURGERY: 08/03/18 PREOPERATIVE DIAGNOSIS: Dislodged gastrostomy POSTOPERATIVE DIAGNOSIS: Dislodged gastrostomy OPERATION: Removal and percutaneous replacement of gastrostomy tube SURGEON: MANUEL ROSA ANESTHESIA: Other - None TISSUE REMOVED OR ALTERED: None COMPLICATIONS: None apparent ESTIMATED BLOOD LOSS: None PROCEDURE: Drains/implants: 22 Wallisian gastrostomy tube. Procedure in detail: The patient was laid in the semi-upright position in the hospital room. Her previously dislodged gastrostomy was completely removed. It sat approximately 5 cm at the skin. Once removed, the patient had a mature fistula tract. A new 22 Wallisian gastrostomy tube was percutaneously inserted into the tract. The balloon was inflated and it was pulled taut against the anterior abdominal wall. The bumper was tightened and sat at approximately 5 cm at the skin. The G-tube flushed easily. The procedure at this time was concluded. All sponge, instrument, and needle counts were correct x2. Condition: Fair.
--- NOTE | 2018-08-03 21:28 | PDOC CONSULTATION ---
Consultation Consult Date: 08/03/18 Consult reason:: Dislodged gastrostomy History of Present Illness Admission Date/PCP: 07/24/18 21:56 LYNDA LANDAVERDE NP History of Present Illness: BEN DAILEY is a 63 year old female seen at the request of the hospitalist service. She is a 63-year-old female who is feeding tube dependent. Her feeding tube has been in place for at least 2 years. The nurses report that her tube appears to be dislodged. No review of systems is obtainable from the patient due to her chronic mental status. All history is obtained from the nursing staff and the medical record. Past Medical History Cardiac Medical History: Reports: Atrial Fibrillation Pulmonary Medical History: Reports: Pneumonia Neurological Medical History: Reports: Other - Persistent vegetative state 30+ years. Endocrine Medical History: Reports: Diabetes Mellitus Type 2, Hyperthyroidism Traumatic Medical History: Reports: Traumatic Brain Injury - subsequently in a chronic vegetative state Past Surgical History Past Surgical History: Reports: Other - PEG tube insertion. Social History Lives with: [facility] Smoking Status: Unknown if Ever Smoked Frequency of Alcohol Use: None Hx Recreational Drug Use: No Drugs: None Hx Prescription Drug Abuse: No - Advance Directive Resuscitation Status: Other Family History Family History: Other - Not available due to patient condition Parental Family History Reviewed: Yes Children Family History Reviewed: Yes Sibling(s) Family History Reviewed.: Yes Medication/Allergy Home Medications: Acetaminophen [Tylenol 650 mg Supp] 650 mg RI Q4HP PRN 12/13/17 Bisacodyl [Dulcolax 10 mg Supp.rect] 10 mg RI Q48HP PRN 12/13/17 Calcium Carbonate 500 mg PEG BID 12/13/17 Cholecalciferol (Vitamin D3) [Vitamin D3 400 Unit Tablet] 400 unit PEG BID 12/13/17 Esomeprazole Magnesium [Nexium] 40 mg PEG BID 12/13/17 Furosemide [Lasix 20 mg Tablet] 20 mg PEG DAILY 12/13/17 Lactulose [Constulose 10 gm/15 mL Oral Solution] 10 gm PEG BIDP PRN 12/13/17 Levothyroxine Sodium [Synthroid] 150 mcg PEG QAM 12/13/17 Multivits W-Min/Ferrous Gluc [Certavite Multivit/Minerals/Iron Soln] 15 ml PEG DAILY 12/13/17 Na Phos,M-B/Na Phos,Di-Ba [Fleet Enema (Adult) 133 ml] 133 ml RI DAILYP PRN 12/13/17 Polyethylene Glycol 3350 [Miralax Powder 17 gm/Packet] 17 gm PEG DAILY 12/13/17 Potassium Chloride [Kaon-Cl 20 Meq/15 ml Udcup] 20 meq PEG DAILY 12/13/17 Ipratropium/Albuterol Sulfate [Duoneb 3 ml Ampul] 3 ml NEB RTQ8 #15 vial.neb 12/20/17 Levalbuterol HCl [Xopenex Neb 1.25 mg/3 ml Ampul] 1.25 mg NEB RTQ4HP PRN vial.neb 12/20/17 Magnesium Hydroxide [Milk of Magnesia 30 ml Udcup] 30 ml PEG DAILY #30 udc 12/20/17 Insulin Glargine,Hum.rec.anlog [Lantus Insulin Inj 300 Unit/3 ml Pen] 15 unit SUBCUT QHS 07/25/18 Allergies/Adverse Reactions: PPD black rubber mix Adverse Reaction (Verified 06/20/16 01:31) Review of Systems ROS unobtainable: Due to mental status Physical Exam Vital Signs: Temp Pulse Resp BP Pulse Ox 98.6 F 72 20 110/55 L 100 08/03/18 19:35 08/03/18 19:35 08/03/18 19:35 08/03/18 19:35 08/03/18 19:35 Intake & Output 08/02/18 08/03/18 08/04/18 06:59 06:59 06:59 Intake Total 1930 1963 200 Output Total 1450 1725 775 Balance 480 238 -575 Weight 88.1 kg 85.4 kg General appearance: PRESENT: no acute distress Head exam: PRESENT: atraumatic, normocephalic Eye exam: ABSENT: scleral icterus Mouth exam: PRESENT: moist, neck supple Neck exam: ABSENT: thyromegaly, tracheal deviation Respiratory exam: PRESENT: clear to auscultation regan. ABSENT: chest wall tenderness Cardiovascular exam: PRESENT: RRR Pulses: PRESENT: normal radial pulses Vascular exam: ABSENT: pallor GI/Abdominal exam: PRESENT: other - Dislodged gastrostomy. ABSENT: distended Rectal exam: PRESENT: deferred Extremities exam: ABSENT: clubbing Musculoskeletal exam: ABSENT: tenderness Neurological exam: ABSENT: alert, awake, oriented to person, oriented to place, oriented to time, oriented to situation Psychiatric exam: ABSENT: agitated Focused psych exam: ABSENT: restlessness Skin exam: ABSENT: erythema, jaundice Results Laboratory Results: 08/01/18 06:00 08/02/18 07:55 07/24/18 07/24/18 07/24/18 18:32 18:32 19:30 Creatine Kinase 58 CK-MB (CK-2) Cancelled < 0.22 Troponin I Cancelled 0.061 NT-Pro-B Natriuret Pep Cancelled 613 07/31/18 05:26 Creatine Kinase CK-MB (CK-2) Troponin I NT-Pro-B Natriuret Pep 157 Impressions: Abdomen/Pelvis CT 07/25/18 00:00 IMPRESSION: Fecal impaction. Bilateral pneumonia left greater than right. Uterine enlargement with likely exophytic fibroids. KUB X-Ray 08/01/18 00:00 IMPRESSION: DIFFUSE DILATED BOWEL LOOPS. SIMILAR APPEARANCE TO THE PRIOR STUDY. Chest X-Ray 08/03/18 06:00 IMPRESSION: Persistent diffuse bilateral airspace disease. Assessment & Plan - Diagnosis (1) Dislodged gastrostomy tube Is this a current diagnosis for this admission?: Yes - Plan Summary Plan Summary: There is a 63-year-old female with a dislodged gastrostomy. She appears to have a very mature gastrocutaneous fistula tract. Plan for reinsertion of the G-tube today. You may use the tube after it is reinserted. I will see the patient again on an as-needed basis. Please renotify with any questions or concerns.
[2018-08-03] MEDS: FUROSEMIDE 20 MG TABLET PEG SCH (23:29)
[2018-08-04] MEDS: IPRATROPIUM/ALBUTEROL 0.5-2.5 MG/3 ML AMPUL NEB SCH ×3 (00:18→16:03)
[2018-08-04] MEDS: PIPERACILLIN SODIUM/TAZOBACTAM 3.375 GM in NORMAL SALINE 100 ML IV SCH ×5 (00:41→23:11)
[2018-08-04] MEDS: LANSOPRAZOLE 30 MG TAB.RAP.DR PEG SCH ×2 (05:29→16:32)
[2018-08-04] MEDS: HEPARIN SOD (PORCINE) 5,000 UNIT/ML 1 ML SYRINGE SUBCUT SCH ×3 (05:30→22:12)
[2018-08-04 06:11] LABS: ABSOLUTE BASOPHILS # (AUTO) 0.1 10^3/uL (0.0-0.2); ABSOLUTE EOSINOPHILS # (AUTO) 0.2 10^3/uL (0.0-0.6); ABSOLUTE LYMPHOCYTES (AUTO) 1.6 10^3/uL (0.5-4.7); ABSOLUTE MONOCYTES (AUTO) 0.4 10^3/uL (0.1-1.4); ABSOLUTE NEUT (AUTO) 3.5 10^3/uL (1.7-8.2); BASOPHILS % (AUTO) 0.9 % (0-2); HEMATOCRIT 24.7 % (36.0-47.0); HEMOGLOBIN 8.2 g/dL (12.0-15.5); LYMPHOCYTES % (AUTO) 27.5 % (13-45); MEAN CORPUSCULAR HEMOGLOBIN 28.4 pg (27.0-33.4); MEAN CORPUSCULAR HGB CONC 33.3 g/dL (32.0-36.0); MEAN CORPUSCULAR VOLUME 85 fl (80-97); MONOCYTES % (AUTO) 6.6 % (3-13); PLATELET COUNT 362 10^3/uL (150-450); RED CELL DISTRIBUTION WIDTH 18.5 % (11.5-14.0); TOTAL CELLS COUNTED % (AUTO) 100 %; WHITE BLOOD COUNT 5.8 10^3/uL (4.0-10.5)
[2018-08-04 06:34] LABS: ANION GAP 7 (5-19); BLOOD UREA NITROGEN 17 mg/dL (7-20); CALCIUM 8.8 mg/dL (8.4-10.2); CARBON DIOXIDE 31 mmol/L (22-30); CHLORIDE 101 mmol/L (98-107); GLUCOSE 122 mg/dL (75-110); SODIUM 139.2 mmol/L (137-145)
[2018-08-04] MEDS: CHOLECALCIFEROL (D3) 400 UNIT TABLET PEG SCH ×2 (09:13→17:27)
[2018-08-04] MEDS: INSULIN GLARGINE,HUM.REC.ANLOG 1,000 UNIT/10 ML UNIT SUBCUT SCH ×2 (09:13→22:12)
[2018-08-04] MEDS: LEVOTHYROXINE SODIUM 0.15 MG TABLET PEG SCH (09:13)
[2018-08-04] MEDS: CALCIUM CARBONATE 500 MG TABLET PEG SCH ×2 (09:13→17:26)
[2018-08-04] MEDS: MAGNESIUM HYDROXIDE SUSP 30 ML UDCUP PEG SCH (09:14)
[2018-08-04] MEDS: POTASSIUM CHLORIDE 20 MEQ/15 ML UDCUP PO SCH (09:14)
[2018-08-04] MEDS: FUROSEMIDE INJ/PF 40 MG/4 ML SDV IV SCH (09:15)
[2018-08-04] MEDS: MULTIVITS W-MIN/IRON SOLN 60 ML PEG SCH (09:18)
--- NOTE | 2018-08-04 09:22 | RADIOLOGY REPORT (SQ) ---
EXAM DESCRIPTION: CHEST SINGLE VIEW COMPLETED DATE/TIME: 08/04/2018 9:06 am REASON FOR STUDY: congestion COMPARISON: 08/03/2018 EXAM PARAMETERS: NUMBER OF VIEWS: One view. TECHNIQUE: Single frontal radiographic view of the chest acquired. RADIATION DOSE: NA LIMITATIONS: None. FINDINGS: LUNGS AND PLEURA: Lungs demonstrate improved aeration with decreased bilateral interstitia l opacities. Minimal ill-defined left basilar opacities. No dense consolidation. No pleural effusi on or pneumothorax. Left focal consolidation. MEDIASTINUM AND HILAR STRUCTURES: No masses. Contour normal. HEART AND VASCULAR STRUCTURES: Heart normal in size. Normal vasculature. BONES: No acute findings. HARDWARE: Right subclavian based central venous catheter with tip at superior vena cava. OTHER: No other significant finding. IMPRESSION: Improved aeration with decreased interstitial opacities. Minimal ill-defined left basil ar opacities, possibly atelectasis. TECHNICAL DOCUMENTATION: JOB ID: [id number] [employer]- All Rights Reserved Reading location - IP/workstation name: [email or web address]
--- NOTE | 2018-08-04 11:58 | PDOC PROGRESS REPORT ---
Subjective Progress Note for:: 08/04/18 Subjective:: This is a 63-year-old female [place] [facility] resident with multiple medical problems including a vegetative state secondary to traumatic brain injury, history of PEG placement, recurrent aspiration pneumonia, and decubitus ulcers who was [place] from the [place] [facility] with high fevers. She was found to have multilobar pneumonia and was also found to have severe hypernatremia with a sodium of 157. She was started on broad-spectrum IV antibiotics which was subsequently d iscontinued. Patient was also seen by surgery as she was noted to have necrotic tissues on her decubitus ulcer. Patient underwent debridement of decubitus ulcer on 07/30/18. 08/02/18: No acute event overnight. Upon encounter, patient remains in a vegetative state and is noncoherent and only minimally responsive. This provider believes that patient is an appropriate hospice candidate. Plan to discuss with family/DPOA about further goals of care but unable to reach family through phone. Discussed with Basim (DPOA in [place]) over the phone about goals of care. Explained about options to transition patient to hospice and she says she will discuss this with her other siblings. She says patient is a DNR/okay to intubate. Explained that if patient did get intubated, it will be difficult to wean her off the vent given her vegetative state and inability to participate in weaning trials. She verbalized she will rediscuss patient's code status again with the rest of the family and will update us about their decision. 08/03/18: Patient remains in vegetative state. Chest x-ray this morning shows persistent airspace disease vs congestion. Started on Lasix. Zosyn resumed. Rediscussed with Basim over the phone and she does want the PEG to b replaced. She has still not decided about hospice transition. PEG tube was replaced by surgery. 08/04/18: No acute event overnight. Chest x-ray show improvement after starting IV Lasix. Reason For Visit: SEPSIS, HYPERNATREMIA, ARF, PNEUMONIA Physical Exam Vital Signs: Temp Pulse Resp BP Pulse Ox 98.3 F 80 19 95/50 L 100 08/04/18 07:28 08/04/18 08:15 08/04/18 08:15 08/04/18 07:28 08/04/18 08:15 Intake & Output 08/03/18 08/04/18 08/05/18 06:59 06:59 06:59 Intake Total 7242 1699 Output Total 172 1500 Balance 238 199 Weight 188 lb 4.396 oz 192 lb 10.944 oz General appearance: PRESENT: no acute distress Head exam: PRESENT: atraumatic, normocephalic Eye exam: PRESENT: conjunctiva pink, EOMI, PERRLA. ABSENT: scleral icterus Ear exam: PRESENT: normal external ear exam Mouth exam: PRESENT: moist, tongue midline Neck exam: ABSENT: carotid bruit, JVD, lymphadenopathy, thyromegaly Respiratory exam: PRESENT: rales - on the bases, improved from yesterday, rhonchi. ABSENT: wheezes Cardiovascular exam: PRESENT: RRR. ABSENT: diastolic murmur, rubs, systolic murmur Pulses: PRESENT: normal dorsalis pedis pul GI/Abdominal exam: ABSENT: ascites, distended, mass Rectal exam: PRESENT: deferred Neurological exam: PRESENT: other - vegetative state, at baseline Results Laboratory Results: 08/04/18 05:35 08/04/18 05:35 08/04/18 08/04/18 05:35 05:35 WBC 5.8 RBC 2.90 L Hgb 8.2 L Hct 24.7 L MCV 85 MCH 28.4 MCHC 33.3 RDW 18.5 H Plt Count 362 Seg Neutrophils % 61.0 Lymphocytes % 27.5 Monocytes % 6.6 Eosinophils % 4.0 Basophils % 0.9 Absolute Neutrophils 3.5 Absolute Lymphocytes 1.6 Absolute Monocytes 0.4 Absolute Eosinophils 0.2 Absolute Basophils 0.1 Sodium 139.2 Potassium 4.0 Chloride 101 Carbon Dioxide 31 H Anion Gap 7 BUN 17 Creatinine 0.52 Est GFR ( Amer) > 60 Est GFR (Non-Af Amer) > 60 Glucose 122 H Calcium 8.8 07/24/18 07/24/18 07/24/18 18:32 18:32 19:30 Creatine Kinase 58 CK-MB (CK-2) Cancelled < 0.22 Troponin I Cancelled 0.061 NT-Pro-B Natriuret Pep Cancelled 613 07/31/18 05:26 Creatine Kinase CK-MB (CK-2) Troponin I NT-Pro-B Natriuret Pep 157 Impressions: Abdomen/Pelvis CT 07/25/18 00:00 IMPRESSION: Fecal impaction. Bilateral pneumonia left greater than right. Uterine enlargement with likely exophytic fibroids. KUB X-Ray 08/01/18 00:00 IMPRESSION: DIFFUSE DILATED BOWEL LOOPS. SIMILAR APPEARANCE TO THE PRIOR STUDY. Chest X-Ray 08/04/18 06:00 IMPRESSION: Improved aeration with decreased interstitial opacities. Minimal ill-defined left basilar opacities, possibly atelectasis. Assessment & Plan - Diagnosis (1) Pneumonia Qualifiers: Pneumonia type: due to unspecified organism Laterality: bilateral Lung l ocation: lower lobe of lung Qualified Code(s): J18.1 - Lobar pneumonia, unspecified organism Is this a current diagnosis for this admission?: Yes Plan: Aspiration pneumonia vs HCAP. Continue Zosyn for now. Plan to switch to PO Levaquin tomorrow. (2) Pulmonary congestion Is this a current diagnosis for this admission?: Yes Plan: Improving. Continue IV Lasix. (3) Hypernatremia Is this a current diagnosis for this admission?: Yes Plan: Resolved. Likely from dehydration. (4) Vegetative state Is this a current diagnosis for this admission?: Yes Plan: Discussed as mentioned above with family/DPOA about possibly transitioning patient to hospice. Patient still undecided. Will also consult palliative care. (5) Malfunction of percutaneous endoscopic gastrostomy (PEG) tube Is this a current diagnosis for this admission?: Yes Plan: Surgery reconsulted. Patient replaced by surgery yesterday 08/03/2018. (6) Sacral ulcer Is this a current diagnosis for this admission?: Yes Plan: Stage 4 sacral decubitus ulcer. S/P debridement by surgery. - Time Time Spent with patient: 15-24 minutes
[2018-08-04] MEDS: INSULIN LISPRO 100 UNIT/ML 3 ML VIAL SUBCUT PRN ×2 (14:41→23:28)
[2018-08-05] MEDS: IPRATROPIUM/ALBUTEROL 0.5-2.5 MG/3 ML AMPUL NEB SCH ×3 (00:42→16:28)
[2018-08-05] MEDS: LANSOPRAZOLE 30 MG TAB.RAP.DR PEG SCH ×2 (06:02→16:45)
[2018-08-05] MEDS: PIPERACILLIN SODIUM/TAZOBACTAM 3.375 GM in NORMAL SALINE 100 ML IV SCH ×2 (06:02→11:51)
[2018-08-05] MEDS: HEPARIN SOD (PORCINE) 5,000 UNIT/ML 1 ML SYRINGE SUBCUT SCH ×2 (06:03→13:48)
[2018-08-05] MEDS: CHOLECALCIFEROL (D3) 400 UNIT TABLET PEG SCH (09:01)
[2018-08-05] MEDS: LEVOTHYROXINE SODIUM 0.15 MG TABLET PEG SCH (09:01)
[2018-08-05] MEDS: CALCIUM CARBONATE 500 MG TABLET PEG SCH (09:02)
[2018-08-05] MEDS: POTASSIUM CHLORIDE 20 MEQ/15 ML UDCUP PO SCH (09:02)
[2018-08-05] MEDS: MAGNESIUM HYDROXIDE SUSP 30 ML UDCUP PEG SCH (09:02)
[2018-08-05] MEDS: INSULIN GLARGINE,HUM.REC.ANLOG 1,000 UNIT/10 ML UNIT SUBCUT SCH (09:02)
[2018-08-05] MEDS: MULTIVITS W-MIN/IRON SOLN 60 ML PEG SCH (09:03)
[2018-08-05] MEDS: FUROSEMIDE INJ/PF 40 MG/4 ML SDV IV SCH (09:03)
--- NOTE | 2018-08-05 11:42 | RADIOLOGY REPORT (SQ) ---
EXAM DESCRIPTION: CHEST SINGLE VIEW COMPLETED DATE/TIME: 08/05/2018 11:30 am REASON FOR STUDY: Congestion COMPARISON: 08/04/2018. NUMBER OF VIEWS: One view. TECHNIQUE: Single frontal radiographic view of the chest acquired. LIMITATIONS: None. FINDINGS: LUNGS AND PLEURA: Lungs look relatively clear on today's study. No pneumothorax. No over t failure or pneumonia detected. MEDIASTINUM AND HILAR STRUCTURES: No masses. Contour normal. HEART AND VASCULAR STRUCTURES: Heart normal in size. Normal vasculature. BONES: No acute findings. HARDWARE: Right central line, tip to the superior vena cava. OTHER: No other significant finding. IMPRESSION: NO SIGNIFICANT RADIOGRAPHIC FINDING IN THE CHEST. TECHNICAL DOCUMENTATION: JOB ID: [id number] [employer]- All Rights Reserved Reading location - IP/workstation name: [email or web address]
--- NOTE | 2018-08-05 14:21 | PDOC TRANSFER SUMMARY ---
General Admission Date/PCP: 07/24/18 21:56 LYNDA LANDAVERDE NP Resuscitation Status: Other - Transfer Diagnosis (1) Pneumonia Is this a current diagnosis for this admission?: Yes (2) Pulmonary congestion Is this a current diagnosis for this admission?: Yes (3) Hypernatremia Is this a current diagnosis for this admission?: Yes (4) Vegetative state Is this a current diagnosis for this admission?: Yes (5) Malfunction of percutaneous endoscopic gastrostomy (PEG) tube Is this a current diagnosis for this admission?: Yes (6) Sacral ulcer Is this a current diagnosis for this admission?: Yes - Transfer Medications Home Medications: Acetaminophen [Tylenol 650 mg Supp] 650 mg ME Q4HP PRN 12/13/17 Bisacodyl [Dulcolax 10 mg Supp.rect] 10 mg ME Q48HP PRN 12/13/17 Calcium Carbonate 500 mg PEG BID 12/13/17 Cholecalciferol (Vitamin D3) [Vitamin D3 400 Unit Tablet] 400 unit PEG BID 12/13/17 Esomeprazole Magnesium [Nexium] 40 mg PEG BID 12/13/17 Furosemide [Lasix 20 mg Tablet] 20 mg PEG DAILY 12/13/17 Lactulose [Constulose 10 gm/15 mL Oral Solution] 10 gm PEG BIDP PRN 12/13/17 Levothyroxine Sodium [Synthroid] 150 mcg PEG QAM 12/13/17 Multivits W-Min/Ferrous Gluc [Certavite Multivit/Minerals/Iron Soln] 15 ml PEG DAILY 12/13/17 Na Phos,M-B/Na Phos,Di-Ba [Fleet Enema (Adult) 133 ml] 133 ml ME DAILYP PRN 12/13/17 Polyethylene Glycol 3350 [Miralax Powder 17 gm/Packet] 17 gm PEG DAILY 12/13/17 Potassium Chloride [Kaon-Cl 20 Meq/15 ml Udcup] 20 meq PEG DAILY 12/13/17 Transfer Medications: Current Medications Acetaminophen (Tylenol 650 Mg Supp) 650 mg ME Q4HP PRN PRN Reason: FOR FEVER Stop: 08/23/18 21:46 Last Admin: 07/25/18 04:38 Dose: 650 mg Documented by: Albuterol/Ipratropium (Duoneb 3 Ml Ampul) 3 ml NEB RTQ8 KAYLI Stop: 08/24/18 15:59 Last Admin: 08/05/18 08:43 Dose: 3 ml Documented by: Bisacodyl (Dulcolax 10 Mg Supp.Rect) 10 mg ME Q48HP PRN PRN Reason: FOR CONSTIPATION Stop: 08/24/18 08:52 Calcium Carbonate (Os-Naveed 500 Mg Tablet (Oyster-Shell)) 500 mg PEG BID KAYLI Stop: 08/24/18 11:59 Last Admin: 08/05/18 09:02 Dose: 500 mg Documented by: Cholecalciferol (Vitamin D3 400 Unit Tablet) 400 unit PEG BID KAYLI Stop: 08/24/18 11:59 Last Admin: 08/05/18 09:01 Dose: 400 unit Documented by: Dextrose (Dextrose Inj 50% Syringe (25 Gm/50 Ml)) 12.5 gm IV PRN PRN; Protocol PRN Reason: FOR BG 50-69 IN ALERT PATIENT Stop: 08/23/18 22:07 Last Admin: 08/03/18 18:49 Dose: 12.5 gm Documented by: Dextrose (Dextrose Inj 50% Syringe (25 Gm/50 Ml)) 25 gm IV PRN PRN; Protocol PRN Reason: PER PROTOCOL Stop: 08/23/18 22:07 Ferrous Gluconate (Certavite Multivit/Minerals/Iron Soln) 15 ml PEG DAILY KAYLI Stop: 08/24/18 11:59 Last Admin: 08/05/18 09:03 Dose: 15 ml Documented by: Furosemide (Lasix Inj/Pf 40 Mg/4 Ml Sdv) 40 mg IV DAILY KAYLI Stop: 09/02/18 10:29 Last Admin: 08/05/18 09:03 Dose: 40 mg Documented by: Glucagon (Glucagen Inj 1 Mg Vial) 1 mg IM PRN PRN; Protocol PRN Reason: Evaluate for BG < 70 Stop: 08/23/18 22:07 Glucose (Glutose 40% Gel 15 Gm Tube) 15 gm PEG PRN PRN; Protocol PRN Reason: FOR BG 50-69 IN ALERT PATIENT Stop: 08/23/18 22:07 Glucose (Glutose 40% Gel 15 Gm Tube) 30 gm PEG PRN PRN; Protocol PRN Reason: FOR BG < 50 IN ALERT PATIENT Stop: 08/23/18 22:07 Heparin Sodium (Porcine) (Heparin Inj 5,000 Units/Ml 1 Ml Syringe) 5,000 unit SUBCUT Q8 [facility] Stop: 08/24/18 05:59 Last Admin: 08/05/18 13:48 Dose: 5,000 unit Documented by: Heparin Sodium (Porcine) (Heparin Flush 10 Unit/Ml 5 Ml Disp.Syrg) 30 unit IV Q8 [facility] Stop: 08/25/18 21:59 Last Admin: 08/05/18 13:49 Dose: 30 unit Documented by: Heparin Sodium (Porcine) (Heparin Flush 10 Unit/Ml 5 Ml Disp.Syrg) 30 unit IV .AFTER EACH USE PRN PRN Reason: AFTER EACH INTERMITTENT USE Stop: 08/25/18 19:29 Last Admin: 08/05/18 06:46 Dose: 30 unit Documented by: Hydralazine HCl (Apresoline Inj/Pf 20 Mg/1 Ml Sdv) 20 mg IV Q6HP PRN PRN Reason: SBP >160 OR DBP >100 Stop: 08/27/18 19:47 Last Admin: 08/03/18 00:16 Dose: 20 mg Documented by: Piperacillin Sod/Tazobactam (Sod 3.375 gm/ Sodium Chloride) 100 mls @ 200 mls/hr IV Q6 [facility] Stop: 08/10/18 11:59 Last Infusion: 08/05/18 12:33 Dose: Infused Documented by: Influenza Virus Vaccine Quadrival (Fluarix Adlt Quad Vac 0.5 Ml Syr) 0.5 ml IM .DISCHARGE PRN PRN Reason: THIS MED IS NOT "PRN" Stop: 08/24/18 04:22 Insulin Glargine (Lantus Insulin 100 Unit/1 Ml 10 Ml) 45 unit SUBCUT Q12 [facility] Stop: 08/30/18 21:59 Last Admin: 08/05/18 09:02 Dose: 45 unit Documented by: Insulin Human Lispro (Humalog Insulin 100 Unit/1 Ml 3 Ml Vial) 0 - 12 unit SUBCUT Q6HP PRN; Protocol PRN Reason: PER PROTOCOL Stop: 08/23/18 22:07 Last Admin: 08/04/18 23:28 Dose: 2 unit Documented by: Lactulose (Cephulac Syrup 20 Gm/30 Ml Udcup) 10 gm PEG BIDP PRN PRN Reason: CONSTIPATION Stop: 08/24/18 14:36 Lansoprazole (Prevacid 30 Mg Odt Tablet) 30 mg PEG BID@0600,1700 [facility] Stop: 08/24/18 16:59 Last Admin: 08/05/18 06:02 Dose: 30 mg Documented by: Levalbuterol HCl (Xopenex Neb 1.25 Mg/3 Ml Ampul) 1.25 mg NEB RTQ4HP PRN PRN Reason: SHORTNESS OF BREATH Stop: 08/23/18 22:01 Levothyroxine Sodium (Synthroid 0.15 Mg Tablet) 0.15 mg PEG QAM KAYLI Stop: 08/24/18 07:59 Last Admin: 08/05/18 09:01 Dose: 0.15 mg Documented by: Magnesium Hydroxide (Milk Of Magnesia 30 Ml Udcup) 30 ml PEG DAILY [facility] Stop: 08/24/18 09:59 Last Admin: 08/05/18 09:02 Dose: 30 ml Documented by: Polyethylene Glycol (Miralax Powder 17 Gm/Packet) 17 gm PO DAILYP PRN PRN Reason: FOR CONSTIPATION Stop: 08/27/18 11:03 Potassium Chloride (Kaon-Cl 20 Meq/15 Ml Udcup) 40 meq PO DAILY KAYLI Stop: 08/29/18 10:29 Last Admin: 08/05/18 09:02 Dose: 40 meq Documented by: Sodium Biphosphate/Sodium Phosphate (Fleet Enema (Adult) 133 Ml) 133 ml ME DAILYP PRN PRN Reason: FOR CONSTIPATION Stop: 08/23/18 22:01 Sodium Chloride (Saline Flush 2.5 Ml Monoject Prefil Syrin) 2.5 ml IV Q8 KAYLI Stop: 08/24/18 05:59 Last Admin: 08/05/18 13:59 Dose: Not Given Documented by: - Allergies Allergies/Adverse Reactions: PPD black rubber mix Adverse Reaction (Verified 06/20/16 01:31) Hospital Course Hospital Course: Admitting hospitalist's H&P: BEN DAILEY is a 63 year old female long-term senior living resident for traumatic brain injury and subsequent 30+ year vegetative state with subsequent PEG placement, recurrent aspiration pneumonia, urinary tract infection, hypernatremia, sacral decubitus ulcer and fecal impaction. Patient was noted by senior living staff with fever prompting evaluation in the emergency room where she is found to have multilobar pneumonia, hypernatremia, hyperkalemia, acute renal failure, persistent stage IV sacral decubiti. She is started on empiric antibiotics and referred to the hospitalist for admission. Course: This is a 63-year-old female senior living resident with multiple medical problems including a vegetative state secondary to traumatic brain injury, history of PEG placement, recurrent aspiration pneumonia, and decubitus ulcers who was sent from the senior living with high fevers. She was found to have multilobar pneumonia and was also found to have severe hypernatremia with a sodium of 157. She was started on broad-spectrum IV antibiotics which was subsequently discontinued. Patient was also seen by surgery as she was noted to have necrotic tissues on her decubitus ulcer. Patient underwent debridement of decubitus ulcer on 07/30/18. This discharging provider believes that patient is an appropriate hospice candidate. Plan to discuss with family/DPOA about further goals of care but unable to reach family through phone. Discussed with Basim (DPOA in [place]) over the phone about goals of care. Explained about options to transition patient to hospice and she says she will discuss this with her other siblings. She says patient is a DNR/okay to intubate. Explained that if patient did get intubated, it will be difficult to wean her off the vent given her vegetative state and inability to participate in weaning trials. She verbalized she will rediscuss patient's code status again with the rest of the family and will need time to decide about this. On, 08/03/18, her PEG tube was noted not be dislodged and this was replaced by surgery. Her hypernatremia also resolved with hydration. Her subsequent CXR did show initial congestion which promptly resolved with IV Lasix. She will be discharged on 5 more days of Levaquin for HCAP with aspiration component. Physical Exam Vital Signs: Temp Pulse Resp BP Pulse Ox 98.9 F 42 L 19 127/66 H 100 08/05/18 11:17 08/05/18 11:17 08/05/18 11:17 08/05/18 11:17 08/05/18 11:17 Intake & Output 08/04/18 08/05/18 08/06/18 06:59 06:59 06:59 Intake Total 1699 1994 100 Output Total 1500 1950 900 Balance 199 44 -800 Weight 192 lb 10.944 oz 192 lb 10.944 oz General appearance: PRESENT: no acute distress, other Head exam: PRESENT: atraumatic, normocephalic Eye exam: PRESENT: conjunctiva pink, EOMI, PERRLA. ABSENT: scleral icterus Ear exam: PRESENT: normal external ear exam Mouth exam: PRESENT: moist, tongue midline Neck exam: ABSENT: carotid bruit, JVD, lymphadenopathy, thyromegaly Respiratory exam: PRESENT: rhonchi. ABSENT: rales, wheezes Pulses: PRESENT: normal dorsalis pedis pul GI/Abdominal exam: PRESENT: normal bowel sounds, soft. ABSENT: distended, guarding, mass, organolmegaly, rebound, tenderness Rectal exam: PRESENT: deferred Neurological exam: PRESENT: other - in vegetative state Results Laboratory Results: 08/04/18 05:35 08/04/18 05:35 07/24/18 07/24/18 07/24/18 18:32 18:32 19:30 Creatine Kinase 58 CK-MB (CK-2) Cancelled < 0.22 Troponin I Cancelled 0.061 NT-Pro-B Natriuret Pep Cancelled 613 07/31/18 05:26 Creatine Kinase CK-MB (CK-2) Troponin I NT-Pro-B Natriuret Pep 157 Impressions: Abdomen/Pelvis CT 07/25/18 00:00 IMPRESSION: Fecal impaction. Bilateral pneumonia left greater than right. Uterine enlargement with likely exophytic fibroids. KUB X-Ray 08/01/18 00:00 IMPRESSION: DIFFUSE DILATED BOWEL LOOPS. SIMILAR APPEARANCE TO THE PRIOR STUDY. Chest X-Ray 08/05/18 00:00 IMPRESSION: NO SIGNIFICANT RADIOGRAPHIC FINDING IN THE CHEST.
[2018-08-05 17:51] VITALS: BP 151/69
== END 2018-08-05 17:50 | DRG 177 ==
LOC: ER 17:06 → EH 21:56 → 3W 07-25 00:48
PROVIDERS: ADMIT Internal Medicine; ATTEND Internal Medicine
PROC: 02HV33Z Insertion of Infusion Device into Superior Vena Cava, Percutaneous Approach (ICD-10-PCS; 2018-07-25)
PROC: 0HB6XZZ Excision of Back Skin, External Approach (ICD-10-PCS; 2018-07-29)
PROC: 0D20XUZ Change Feeding Device in Upper Intestinal Tract, External Approach (ICD-10-PCS; principal; 2018-08-03)
DX: J69.0 Pneumonitis due to inhalation of food and vomit (principal); J18.1 Lobar pneumonia, unspecified organism; L89.154 Pressure ulcer of sacral region, stage 4; N17.9 Acute kidney failure, unspecified; E87.0 Hyperosmolality and hypernatremia; K94.23 Gastrostomy malfunction; R40.3 Persistent vegetative state; E86.0 Dehydration; E87.5 Hyperkalemia; I48.91 Unspecified atrial fibrillation; E11.65 Type 2 diabetes mellitus with hyperglycemia; R19.7 Diarrhea, unspecified; E05.90 Thyrotoxicosis, unspecified without thyrotoxic crisis or storm; Z79.4 Long term (current) use of insulin; Z79.899 Other long term (current) drug therapy; Z87.820 Personal history of traumatic brain injury; Z74.01 Bed confinement status
CPT/HCPCS: 36415; 71045; 74018; 74176; 80048; 80053; 80202; 82550; 82553; 82803; 82962; 83036; 83605; 83735; 83880; 84484; 85025; 85610; 87040; 87493; 93005; 93010; 94640; 96365; 99291; C1751; J0360; J1642; J1644; J1815; J1940; J2543; J3370; J3480; J3490; J7030; J7060; J7120; J7620